=== PATIENT | female | born 1970 | race Caucasian/White ===

== ENCOUNTER → 2018-01-29 10:37 | Outpatient (CLI) | payer MEDICAID, SELFPAY ==
--- NOTE | 2018-01-29 11:17 | CR.HP_ITS ---
CR - History & Physical - General Arrival date:: 01/29/18 Arrival time:: 10:30 Date of Referral:: 01/18/18 Date of CR Evaluation:: 01/29/18 Referring Physician: Dr. Yonas Nice Primary Diagnosis: valve repair replacement - History of Present Cardiac Event Onset Date: Enter Onset Date of cardiac illnesses in Comment field below Heart valve replacement or repair:: Yes - 12/03/2017 - Medications Home Medications: Ambulatory Orders Medication Instructions Recorded Albuterol Inhaler [Ventolin Hfa 2 puff INHALATION Q4H PRN PRN 01/29/18 (SP)] Ascorbic Acid [Vitamin C] 500 mg PO BIDCM 01/29/18 Aspirin [Aspirin, Baby] 81 mg PO DAILY@0800 01/29/18 Buprenorphine HCl/Naloxone HCl 8 each SL BID 01/29/18 [Suboxone 8 mg-2 mg Sl Film] Escitalopram Oxalate [Lexapro] 10 mg PO DAILY 01/29/18 Furosemide [Lasix] 20 mg PO QODAY 01/29/18 Metoprolol Tartrate [Lopressor 25 mg PO BID 01/29/18 (Beta Jackelin)] Mometasone/Formoterol [Dulera 100 13 actuation PO BID 01/29/18 Mcg/5 Mcg Inhaler] Potassium Chloride [K-Dur] 20 meq PO QODAY 01/29/18 Warfarin [Coumadin ([facility])] 7.5 mg PO DAILY 01/29/18 levETIRAcetam tablet [Keppra 500 mg PO BID 01/29/18 tablet] - Allergies Allergies/Adverse Reactions: Allergies No Known Allergies Allergy (Verified 01/29/18 11:27) - Sleep Disorder Evaluation Hx of Sleep Apnea: No Do you snore loudly (louder than talking or can be heard through closed doors)?: No Do you often feel tired/ fatigued/ sleepy during daytime?: Yes Has anyone observed you stop breathing during sleep?: No History of Hypertension (for STOP score): No STOP Results: Negative Advanced Directives - Advanced Directives Power of Manager Electrical: No Living Will: No Advance Directives Information Provided: Yes Advance Directives on File: No DNR Order?:: No - MOLST See MOLST form: No Past Medical History - Past Medical Illness Medical History: Past Medical History (Last Updated 01/29/18 @ 11:32 by Gladys Jones RN) Carpal tunnel syndrome on both sides G56.03 Dermatitis L30.9 Former cigarette smoker Z87.891 History of drug abuse Z87.898 Hives L50.9 Mitral valve regurgitation I34.0 Non-sustained ventricular tachycardia I47.2 Rheumatic heart disease I09.9 Seizure R56.9 Asthma-COPD overlap syndrome J44.9 - Past Surgical History Surgical History: Past Surgical History (Last Updated 01/29/18 @ 11:32 by Gladys Jones RN) H/O mitral valve repair Z98.890 - Family History Summary Family History: Family History (Last Updated 01/29/18 @ 11:35 by Gladys Jones RN) Other Arthritis Cancer of lung Colon cancer Diabetes Hypertension Parkinson disease Prostate CA Social History - Smoking History Smoking Status: Former smoker Years Smokin Packs Smoked per Day: 1 Hx Smoking Cessation Date: 12/02/2017 Hx Tobacco Use: Yes Hx Smoking Exposure: Yes - Alcohol Use Alcohol Usage: No - IN PAST - Substance Abuse Hx Substance Use: Yes - Occupation Occupation (List type of work in comments):: Employed - [employer] Hours worked per day:: 8 Returned to work on:: 02/19/18 - Hobbies, Recreation, Social Activities Hobbies: Other - CAMPING IN [place], HIKING Recreational Activities: I can hardly do any recreational activities - BACK AND LEGS WEAK WITH ACTIVITY Social Environment - Status Marital Status: Single - Current Living Arrangements Living Environment:: Spouse - Children How many children do you have?: 2 Do any of your children live nearby?: Yes - Safety Do you feel safe in your surroundings?: Yes - Assistance Do you need any assistance at home?: NO Review of Systems - Review of Systems Hints: Right click = Denies ([place]). Left click = Reports ([place]) Review of Present Symptoms: Reports: Shortness of Breath with Exertion, Ope rative Discomfort - SLIGHT CHEST INCISION DISCOMFORT, Wound Healing, Fatigue, Appetite - Normal, Sleep - Normal. Denies: Shortness of Breath at Rest, PVD, Angina, Dizziness/Lightheadedness, Heart Arrhythmia/Irregularities - HISTORY OF A FIB, STATES IN NSR CURRENTLY, Appetite - Special Diet, Sexual Changes - Pain Is Patient Pain Free?: Yes Pain Location: none Pain Level: 0/10 Risk Factor Assessment - Vital Signs Temperature: 98.6 F Respiratory Rate: 16 Pulse Ox: 96 Blood Pressure: 94/60 Nailbeds:: PINK - Pulse Pulse Rate: 81 Pulse Rhythm: Regular - Diabetes Nutrition Referral for Diabetes: No - Obesity Height: 5 ft 4 in Weight:: 162 lb Weight in Pounds: 162.0 lbs Weight Source: Stated by Patient Body Mass Index (BMI): 27.8 Nutritional Referral for Obesity: No - Physical Inactivity Physical Inactivity: None - Risk Stratification Risk Guidelines: Lowest Risk: Risk Factor for Smoking, Risk Factor for Dyslipidemia, Risk Factor for Diabetes, Risk Factor for Hypertension, Risk Factor for Sedentary Lifestyle, Risk Factor for Depression, Moderate Risk: Risk Factor for Obesity - For Smoking Smoking Risk Guidelines: Smoking Low Risk: None or quit greater than 6 months ago. Smoking Moderate Risk: Smoker or quit 6 months or less ago. Smoking High Risk: Smoker - For Dyslipidemia Dyslipidemia Risk Guidelines: Low Risk: Moderate Risk: High Risk: 15-25% fat 25.1-29% fat >/= 30% fat. <7% sat fat 7-9% sat fat >9% sat fat. <150 mg chol 150-299 mg chol >/= 300 mg chol. LDL <100 LDL 100-129 LDL >/= 130. Chol/HDL ratio <5.0 Chol/HDL ratio 5.0-6.0 Chol/HDL ratio >6.0. Triglycerides <100 Triglycerides 100-149 Triglycerides >/= 150 - For Diabetes Mellitus Diabetes Risk Guidelines: Diabetes Low Risk: HgA1c <6.5% and/or FBG <120. Diabetes Moderate Risk: HgA1c 6.6-7.9% and/or FBG 120-180. Diabe christelle High Risk: HgA1c >/= 8% and/or FBG >180 - For Obesity/Overweight Obesity/Overweight Risk Guidelines: Obesity Low Risk: BMI <25.0. Obesity Moderate Risk: BMI 25-29.9. Obesity High Risk: BMI >/= 30.0 - For Hypertension Hypertension Risk Guidelines: Hypertension Low Risk: Systolic <120 and Diastolic <80. Hypertension Moderate Risk: Systolic 120-139 and Diastolic 80-89. Hypertension High Risk: Systolic >/= 140 and Diastolic >/= 90 - For Sedentary Lifestyle Sedentary Lifestyle Risk Guidelines: Sedentary Lifestyle Low Risk: >/= 1,500 kcal/week. Sedentary Lifestyle Moderate Risk: 700-1,499 kcal/week. Sedentary Lifestyle High Risk: < 700 kcal/week - For Depression Depression Risk Guidelines: Depression Low Risk: Not clinically depressed. Depression Moderate Risk: Mildly depressed. Depression High Risk: Clinically depressed - Family History Family History: Family History (Last Updated 01/29/18 @ 11:35 by Gladys Jones RN) Other Arthritis Cancer of lung Colon cancer Diabetes Hypertension Parkinson disease Prostate CA Motivation - Motivation to Participate On a scale of 1 to 10, how prepared are you to commit to attending program?: 10 What do you see as barriers to successfully being able to complete the program?: NONE What do you see as the benefits of succesfully completing the program? In other words, what do you hope to get out of participating in the program?: MORE STAMINA, MORE ENERGY, Are there issues you are dealing with that will interfere with completing the program?: NONE Do you have a spouse or signficant other, family or friends who will help support you to complete the program?: SIGNIFICANT OTHER
[2018-01-29 11:48] VITALS: BP 94/60; PULSE 81; RESP 16; TEMP 37; O2SAT 96; BMI 27.8
--- NOTE | 2018-01-29 13:29 | PCM.CR.ITP ---
General Information - Education/Goals Individual Counseling: Initial Assessment: Nicotine/Smoking, High Blood Pressure Cardiac Rehabilitation Goals: 1. Maintain the individual as the primary focus of care. 2. To improve the patient's quality of life. 3. Identification of cardiac risk factors and provide cardiac risk factor management. 4. Enhance the psychosocial status of the patient. 5. Reconditioning enough to allow the patient to resume customary activities. 6. Control symptoms of cardiac disease Scale for measuring improvement of personal goals: Enter appropriate number in Comments. 2 = Unchanged. 3 = Slightly Better. 4 = Moderate Improvement. 5 = Met my Goal Personal Goals: Initial Assessment: Improve management of stress and emotions, Improve energy level, Get back to work, or to resume activities faster, Improve muscle strength and endurance Exercise - Initial Assessment - Visit Date of Eval: 01/29/18 Session #:: 0 - starting 02/01/2018 - Stages of Change Stages of Change:: Action - Exercise Prescription Mode:: Treadmill, Airdyne, NuStep Angina with exercise?: No Target Heart Rate:: 120-129 - Hypertension Do any of the following apply?: Yes Resting Blood Pressure:: 98/60 - Intervention Home Exercise/Activity Goal:: Sitting Time <3 hrs/day - Education Goals:: Warm-up, RPE SHOBHA Scale, S/S, Safe Exercise, Self-Monitoring - Exercise Program Goals Exercise Program Goals: Aerobic Activity >30 min Nutrition - Initial Assessment - Program Goals Nutrition Program Goals: LDL <70. Total Cholesterol <200. HDL >45. Triglycerides <150. HgbA1C <7%. BMI <25 - Visit Date of Assessment:: 01/29/18 - Stages of Change Stages of Change:: Action - Diabetes Diabetes:: No Do you monitor your blood sugar at home?: No - Weight Management Height: 5 ft 3 in Weight:: 162 lb Body Fat %:: 28.7 - Intervention Referral to dietitian:: No Referral to Diabetic Clinic:: No Will attend diet classes:: Yes - Education Gave educational materials for:: Healthy eating Tobacco - Initial Assessment - Program Goals Tobacco Program Goals: Complete smoking cessation. Attend education classes. Improve Knowledge Test score - Stage of Change Stages of Change:: Action - Learning Barriers Learning Barriers: Ready to Learn - Family Support Do you have family support?: Yes - Tobacco Use Tobacco Use: Cigarettes - recently quit 11/2017 How long ago did you quit using tobacco products?: Less than 6 months ago How many cigarettes do you smoke per day?: 20 Years Smokin Do you use smokeless tobacco?: No - Intervention Smoking Cessation Referral:: Yes Individual Education/Counseling:: No Education Schedule Given:: Yes - Education Gave educational material for:: Tobacco triggers, Coronary artery disease, Risk factors, Sexuality, Medical compliance, Cardiac A&P, Angina signs & symptoms Psychosocial - Initial Assess - Target Goals Target Goals: Assess presence or absence of depression. Using a valid screening tool, maximizes coping skills. Positive support system - Stages of Change Stages of Change:: Action - Psychosocial Test Tool Used:: HANDS Depression Questionnaire - Intervention PS - Interventions: Yes Attend Stress Management Classes, No Referral to Mental Health, No Referral to [facility] Case Management, No Referral to Physician, No Uses Stress Management Skills - Education Gave educational materials for:: Coping techniques, Signs & symptoms of depression, Stress management, Relaxation techniques - Patient/Program Goal Preventative Medication(s):: Aspirin, Clopidogrel, Statin/lipid - Assistive Devices Assistive Devices:: None Fall Risk Assessed:: No Patient Health Questionnaire Initial Assessment 1. Little interest or pleasure in doing things: Several days 2. Feeling down, depressed, or hopeless: Several days 3. Trouble falling or staying asleep, or sleeping too much: More than half the days 4. Feeling tired or having little energy: Nearly every day 5. Poor appetite or overeating: More than half the days 6. Feeling bad about yourself -- or that you are a failure or have let yourself or your family down: Several days 7. Trouble concentrating on things, such as reading the newspaper or watching television: Not at all 8. Moving or speaking so slowly that other people could have noticed. Or the opposite - being so fidgety or restless that you have been moving around a lot more than usual: Several days 9. Thoughts that you would be better off , or of hurting yourself in some way: Not at all Total Score: 11 DEE DEE-Q SV Test - Statements CAD is a disease of the arteries in the heart: False Examples of risk factors for heart disease: True Angina is chest pain or discomfort: I Don't Know The benefits of resistance training include: True Eating more meat and dairy products: False Anti-platelet medications such as aspirin are important: I Don't Know The only effective way to manage stress: False An exercise warm-up slowly increases heart rate: I Don't Know Prepared, processed foods usually have high sodium: True Depression is common after a heart attack: I Don't Know The statin medications lower cholesterol: I Don't Know To control blood pressure, lower the amount of sodium: I Don't Know If someone gets chest discomfort during walking: I Don't Know Transfats are partially hydrogenated vegetable oils: I Don't Know Sleep apnea that is not treated increases the risk: I Don't Know To control cholesterol, one should become a vegetarian: False Someone knows if he/she is exercising at the right level: I Don't Know Diabetes cannot be prevented with exercise & health eating: False Stress is a large risk for heart attack: True A diet that can help lower blood pressure is rich in: I Don't Know - Total Score Total Correct Responses: 9 Self-Efficacy Initial Assessment We would like to know how confident you are in doing certain activities. Please select your confidence level for:: Select your confidence level for the following using the scale 1-10 where 1 is not at all confident and 10 is totally confident. Your score is the average of all 6 responses. Fatigue: How confident are you that you can keep the fatigue caused by your disease from interfering with the things you want to do? Select Number: 6 Physical Discomfort or Pain: How confident are you that you can keep the physical discomfort or pain of your disease from interfering with the things you want to do? Select Number: 7 Emotional Distress: How confident are you that you can keep the emotional distress caused by your disease from interfering with the things you want to do? Select Number: 8 Other Symptoms or Health Problems: How confident are you that you can keep other symptoms or health problems from interfering with the things you want to do? Select Number: 8 Different Tasks and Activities: How confident are you that you can do the different tasks and activities needed to manage your health condition so as to reduce your need to see a doctor? Select Number: 6 Medication: How confident are you that you can do things other than just taking medication to reduce how much your illness affects your everyday life? Select Number: 7 Total Score:: 7 Nutrition Survey - Nutrition Survey Instructions Scoring Instructions: Scoring is as follows: Yes = 1 points. No = 0 point. Patient score that is >/=12 is considered to be at potential nutritional risk and could benefit from a referral to a registered dietitian. - Nutrition Survey Initial Have you lost >10 lbs over the past 2 months without trying?: No Are you following a special diet at home for diabetes, low fat, or low salt?: No Are you interested in meeting with a dietitian for help understanding your diet?: No Do you eat less than 3 meals a day?: Yes Do you eat fatty meats (morataya, sausage, ribs, etc), fried foods, desserts, large amounts of salad dressings, margarine, butter, or cheese most days?: Yes Do you have food allergies? [Enter types in comment field]: No Do you eat in restaurants more than 3 times a week?: No Do you season food with salt, seasoning salt, or garlic salt?: Yes Do you used canned, boxed, frozen meals, or soups, seasoning packets?: Yes Total Score:: 4
[2018-01-29 13:40] VITALS: BP 98/60
--- OUTSIDE RECORDS SUMMARY | 2018-03-17 11:12 | XMS RPT_ITS ---
:1970 Author Organization OH[facility] Care Team Providers Name Role Phone DAFNE ROSENBERG Attending Unavailable AMY, CLAUDIO G Referring Unavailable AMY, CLAUDIO G Referring Unavailable QASIM, STEPHANIE A Admitting Unavailable QASIM, STEPHANIE A Attending Unavailable AMY, CLAUDIO G Referring Unavailable VENICE CORREA ([facility]) Attending Unavailable DERRICK LEW Admitting Unavailable DERRICK LEW Attending Unavailable YONAS LEW Attending Unavailable AMY, CLAUDIO G Referring Unavailable FARIDEH BUSTOS ([facility]) Attending Unavailable AMY, CLAUDIO G Referring Unavailable FARIDEH BUSTOS ([facility]) Referring Unavailable YONAS LEW Admitting Unavailable YONAS LEW Attending Unavailable YONAS LEW Referring Unavailable CORAZON GALLAGHER Consulting Unavailable VENICE CORREA ([facility]) Attending Unavailable AMY, CLAUDIO G Referring Unavailable IFEANYI MENJIVAR Attending Unavailable AMY, CLAUDIO G Referring Unavailable CORAZON GALLAGHER Referring Unavailable FARIDEH BUSTOS ([facility]) Referring Unavailable VENICE CORREA ([facility]) Attending Unavailable AMY, CLAUDIO G Referring Unavailable AMY, CLAUDIO G Attending Unavailable QASIM, STEPHANIE A Referring Unavailable QASIM, STEPHANIE A Referring Unavailable QASIM, STEPHANIE A Referring Unavailable Yonas Lew Attending Unavailable Yonas Lew Referring Unavailable Richmond, Claudio Primary Care Unavailable Yonas Lew Attending Unavailable Yonas Lew Referring Unavailable Amy, Claudio Primary Care Unavailable Yonas Lew Attending Unavailable Yonas Lew Referring Unavailable Amy, Claudio Primary Care Unavailable MAGEN JAMES JR Attending Unavailable AMY, CLAUDIO G Referring Unavailable DAFNE ROSENBERG Attending Unavailable AMY, CLAUDIO G Referring Unavailable AMY, CLAUDIO G Primary Care Unavailable AMY, CLAUDIO G Referring Unavailable AMY, CLAUDIO G Primary Care Unavailable DAFNE ROSENBERG Attending Unavailable DAFNE ROSENBERG Referring Unavailable AMY, CLAUDIO G Primary Care Unavailable QASIM, STEPHANIE A Admitting Unavailable QASIM, STEPHANIE A Attending Unavailable AMY, CLAUDIO G Primary Care Unavailable QASIM, STEPHANIE A Admitting Unavailable QASIM, STEPHANIE A Attending Unavailable AMY, CLAUDIO G Primary Care Unavailable AMY, CLAUDIO G Referring Unavailable AMY, CLAUDIO G Primary Care Unavailable VENICE CORREA Attending Unavailable AMY, CLAUDIO G Referring Unavailable AMY, CLAUDIO G Primary Care Unavailable YONAS LEW A Attending Unavailable AMY, CLAUDIO G Referring Unavailable AMY, CLAUDIO G Primary Care Unavailable DERRICK LEW Admitting Unavailable DERRICK LEW Attending Unavailable AMY, CLAUDIO G Primary Care Unavailable MARIVEL BUSTOS Attending Unavailable AMY, CLAUDIO G Referring Unavailable AMY, CLAUDIO G Primary Care Unavailable YONAS LEW Admitting Unavailable YONAS LEW A Attending Unavailable AMY, CLAUDIO G Primary Care Unavailable YONAS LEW Referring Unavailable ASHANTI LESLIE Consulting Unavailable DEWAYNE GRAVES Consulting Unavailable QUIRINO LU Consulting Unavailable CORAZON GALLAGHER Consulting Unavailable MARIVEL BUSTOS Attending Unavailable AMY, CLAUDIO G Referring Unavailable AMY, CLAUDIO G Primary Care Unavailable MARIVEL BUSTOS Referring Unavailable AMY, CLAUDIO G Primary Care Unavailable AMY, CLAUDIO G Referring Unavailable AMY, CLAUDIO G Primary Care Unavailable VENICE CORREA Attending Unavailable AKASH, MARIVEL GRUBBSA Attending Unavailable AMY, CLAUDIO G Referring Unavailable AMY, CLAUDIO G Primary Care Unavailable VENICE CORREA Attending Unavailable AMY, CLAUDIO G Referring Unavailable AMY, CLAUDIO G Primary Care Unavailable STEPHANIE TRIPP Attending Unavailable AMY, CLAUDIO G Referring Unavailable AMY, CLAUDIO G Primary Care Unavailable PROBLEMS PROBLEMS DATE TYPE CONDITION / CODE ATTENDING STATUS SOURCE 03/08/2018 Unknown I34.0 - Nonrheumatic [place], Active [place] mitral (valve) [facility] insufficiency / Hospital I34.0(ICD-10) Repository 01/29/2018 Unknown Z95.2 - Presence of [place], Active [place] prosthetic heart [facility] valve / Hospital Z95.2(ICD-10) Repository 01/22/2018 Active Major depressive AMY, Active [facility] disorder, single CLAUDIO G Clinic Other episode, severe [place] without psychotic Repository features / F32.2(ICD-10) 01/14/2018 Active Paroxysmal atrial VENICE CORREA Active [facility] fibrillation / ([facility] Clinic Other I48.0(ICD-10) [place] Repository 12/20/2017 Active Edema, unspecified / [place], Active [facility] R60.9(ICD-10) [facility] Other [place] Repository 12/20/2017 Active Anemia, unspecified [place], Active [facility] / D64.9(ICD-10) [facility] Clinic Other [place] Repository 12/20/2017 Active Unspecified asthma, [place], Active [facility] uncomplicated / [facility] Clinic Other J45.909(ICD-10) [place] Repository 12/20/2017 Active longterm (current) [place], Active [facility] use of [facility] Clinic Other anticoagulants / [place] Z79.01(ICD-10) Repository 12/09/2017 Active Presence of VENICE CORREA Active [facility] prosthetic heart ([facility] Clinic Other valve / [place] Z95.2(ICD-10) Repository 12/09/2017 Active 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[place], 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 / YONAS A Clinic Other I05.0(ICD-10) [place] Repository 12/09/2017 Active 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[place], Active [place] insufficiency / [facility]AS A Clinic Other I05.1(ICD-10) [place] Repository 12/09/2017 Active Unspecified atrial [place], Active [place] fibrillation / [facility] Clinic Other I48.91(ICD-10) [place] Repository 12/09/2017 Active Ventricular [place], Active [place] tachycardia / [facility] Clinic Other I47.2(ICD-10) [place] Repository 09/09/2016 Active Other psychoactive [place], Active [place] substance abuse, [facility] Clinic Other uncomplicated / [place] F19.10(ICD-10) Repository 12/03/2017 Active Other specified [place], Active [place] anemias / [facility] Clinic Other D64.89(ICD-10) [place] Repository 12/09/2017 Admitting Unknown / [place], Active [facility] diagnosis UNK(Unknown) [facility] Repository 10/02/2017 Active Tobacco use / [facility] Active [place] Z72.0(ICD-10) ([facility] Clinic Other [place] Repository 10/02/2017 Active Nicotine dependence, VENICE CORREA [facility] unspecified, ([facility]) Clinic Other uncomplicated / [place] F17.200(ICD-10) Repository 10/02/2017 Active Personal history of [facility]RE[facility] Active [place] nicotine dependence ([facility] Clinic Other / Z87.891(ICD-10) [place] Repository 09/19/2017 Active 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QASIM, STEPHANIE Active [place] stenosis with A Clinic Other insufficiency / [place] I05.2(ICD-10) Repository 04/03/2017 Active Other abnormal and NA Active [place] inconclusive Clinic Other findings on [place] diagnostic imaging Repository of breast / R92.8(ICD-10) PROCEDURES PROCEDURES No Procedure Records FoundRESULTS RESULTS PROTIME Collected: 02/28/2018 Status: F Source: [facility] 1:24 PM HEALTH SYSTEM REPOSITORY TYPE CODE TESTS RESULT OUT OF REFERENCE UNITS RANGE LAB LPTI(LOINC 9.7-13.0 sec ) Prothrombin High Time 26.7 Result Comment: . LAB LINR(LOINC) 0.90-1.30 High 2.77 INR Result Comment: Note: Reference Range Change Vitamin K Antagonist (VKA) Therapeutic Range: INR 2 to 3 (Target INR of 2.5) Note: For patients treated with VKA drugs, such as warfarin, the [place] [employer] 2012 Guideline recommends a therapeutic INR range of 2 to 3 (target INR of 2.5). This recommendation includes high-risk patients with antiphospholipid syndrome with previous arterial or venous thromboembolism, current-generation mechanical or bioprosthetic aortic heart valve replacement. VKA Therapeutic Range for some Mechanical Valve Replacement: INR 2.5 to 3.5 (Target INR of 3) Note: Patients with mechanical aortic valve replacement and additional risk factors for thromboembolic events (atrial fibrillation, previous thromboembolism, LV dysfunction, hypercoagulable conditions) or an older generation mechanical AVR (i.e., ball in-Cage) or any mechanical MVR should have a INR therapeutic range of 2.5 to 3.5 target INR of 3). Mathew GH, et al. Chest 2012; 141:7S-47S Duyen RA et al. JAC 2017; 70: 252-289 Performed By: #### LPT #### [place] [id number] PROGRESS Observed: 02/13/2018 Status: COMPLETED Source: [place] 3:43 PM [facility] REPOSITORY HNO ID: [id number] Author: Lakisha Pabon Service: (none) Author Type: Health Educator Type: Progress Notes Filed: 02/13/2018 3:44 PM Note Text: [facility] Wellness eCoaching Patient Name, Demographics: Benjamin Garces, 47 year old, female Update Type: Progress Update: Email Coaching Program: [place] Cessation Outreach Attempts: Email and Phone Coaching Enrollment Status: Inactive: Enrolled/Did not engage Engagement from Patient:: Did not respond to enrollment outreach attempts. Please verify patient contact information is up to date. If patient would like to join eCoaching, they may email or please re-order. Thank you. There were no vitals taken for this visit. Jewelry Drill Operator Name: Lakisha Pabon, Health Jewelry Drill Operator Date: February 13, 2018 Time: 3:43 PM PROTIME Collected: 02/07/2018 Status: F Source: [facility] 11:03 AM HEALTH SYSTEM REPOSITORY TYPE CODE TESTS RESULT OUT OF REFERENCE UNITS RANGE LAB LPTI(LOINC 9.7-13.0 sec ) Prothrombin High Time 24.4 Result Comment: . LAB LINR(LOINC) 0.90-1.30 High 2.52 INR Result Comment: Note: Reference Range Change Vitamin K Antagonist (VKA) Therapeutic Range: INR 2 to 3 (Target INR of 2.5) Note: For patients treated with VKA drugs, such as warfarin, the [place] [employer] 2012 Guideline recommends a therapeutic INR range of 2 to 3 (target INR of 2.5). This recommendation includes high-risk patients with antiphospholipid syndrome with previous arterial or venous thromboembolism, current-generation mechanical or bioprosthetic aortic heart valve replacement. VKA Therapeutic Range for some Mechanical Valve Replacement: INR 2.5 to 3.5 (Target INR of 3) Note: Patients with mechanical aortic valve replacement and additional risk factors for thromboembolic events (atrial fibrillation, previous thromboembolism, LV dysfunction, hypercoagulable conditions) or an older generation mechanical AVR (i.e., ball in-Cage) or any mechanical MVR should have a INR therapeutic range of 2.5 to 3.5 target INR of 3). Mathew GH, et al. Chest 2012; 141:7S-47S Duyen ARRIAZA et al. JAC 2017; 70: 252-289 Performed By: #### LPT #### [place] [id number] CNPN Observed: 02/01/2018 Status: COMPLETED Source: [place] 12:00 AM CLINIC OTHER CAMPUS REPOSITORY Telephone ([employer]) BENJAMIN GARCES ([id number]) 1970 F Date Time Provider Department 02/01/18 YONAS LEW [facility] LOU During your visit today, we recorded the following information about you: Stacy Adele 02/01/2018 1:34 PM Signed Jena Montemayor RN from [facility] Cardiac Rehab Program called about the patient to let us know that the patient came in for rehab today, and she was in AFIB. Her heart rate was between 95 and 115. They tried to put her on the bike, but they stopped her because her heart rate went into the 140's. Jena stated that the patient needs to have her heart rate controlled before they can start therapy. They sent her home because the patient states she feels fine. Jena was asking if she should continue in the program and suggested someone call the patient. Venice Correa APRN.MARIVEL 02/01/2018 3:14 PM Signed I spoke to both Jena at [facility] and Mrs Garces. Mrs Garces resting BP was 124/70 with HR 95bmp. She had taken her metoprolol this morning. I have asked that we increase her metoprolol to 25 mg Q8 hours to achieve ronal HR control. She verbalized understanding and will start in the AM. She should continue cardiac rehab. Venice Correa APRN.MARIVEL Tripp MD 02/01/2018 4:52 PM Signed Thanks a lot Paola. I agree with your decision. Allergies As of Date: 02/01/2018 (No Known Allergies) Date Reviewed: 01/22/2018 Reviewed by: Claudio Reyes - Fully Assessed Reason for Visit: Clinical Update [1735] Order(s):metoprolol tartrate, short acting, (LOPRESSOR) 25 mg tabletTake 1 tablet by mouth every 8 hours.Disp: 90 tabletRfl: 3 Prescriptions as of 02/01/2018 Sig: ACETAMINOPHEN 325 MG TABLET Take 2 tablets by mouth every* ALBUTEROL SULFATE HFA 90 MCG/* Inhale 2 Puffs as instructed * ASPIRIN 81 MG CHEWABLE TABLET Take 81 mg by mouth once jeannette* BUPRENORPHINE 8 MG-NALOXONE 2* Dissolve under the tongue twi* ESCITALOPRAM 10 MG TABLET TAKE 1 TABLET BY MOUTH ONCE D* FUROSEMIDE 20 MG TABLET Take 1 tablet by mouth once d* LEVETIRACETAM 500 MG TABLET Take 1 tablet by mouth twice * METOPROLOL TARTRATE 25 MG TAB* Take 1 tablet by mouth every * MOMETASONE-FORMOTEROL HFA 100* Inhale 2 Puffs as instructed * POTASSIUM CHLORIDE ER 20 MEQ * Take 1 tablet by mouth once d* SENNOSIDES 8.6 MG-DOCUSATE SO* Take 1 tablet by mouth twice * WARFARIN 5 MG TABLET Take 1.5 tablets by mouth onc* Problem List As Of Date 02/01/2018 Noted Resolved Seizures (HCC) [R56.9] INVALID FOR* More... Drug abuse [F19.10] INVALID FOR* More... Abnormal finding on breast imaging [R92.8] INVALID FOR* Asthma [J45.909] More... More... Mitral valve stenosis, rheumatic [I05.0] INVALID FOR* S/P mitral valve replacement [Z95.2] INVALID FOR* Nonsustained paroxysmal ventricular tachycardia*INVALID FOR* Nicotine use disorder, F17.2 [F17.200] INVALID FOR*01/22/2018 Prescriptions ordered this encounter Disp Refills Start End METOPROLOL TARTRATE 25 MG TABLET 90 t* 3 02/01/2018 Route: ORAL Sig: Take 1 tablet by mouth every 8 hours. Medications Discontinued During This Encounter metoprolol tartrate, short acting, (* 60 t* 11 01/14/2018 02/01/2018 Route: ORAL Sig: Take 1 tablet by mouth every 12 hours. Disc: Reason for discontinue is not on file. Follow-up and Disposition History Recorded Encounter Status:Closed by VENICE CORREA CNP on 02/01/18 CR - HISTORY AND Observed: 01/31/2018 Status: F Source: [place] [facility] 11:15 AM [facility] REPOSITORY [facility] Cardiac Rehab [address] [place] [address] CR - History AND Physical MR#: [id number] Acct: [id number] Name: BENJAMIN GARCES Rep #: [id number] : 1970 47 From: Gladys Jones RN PCP: Claudio Reyes MD DOS: 01/29/18 CR - History AND Physical - General Arrival date:: 01/29/18 Arrival time:: 10:30 Date of Referral:: 01/18/18 Date of CR Evaluation:: 01/29/18 Referring Physician: Dr. Yonas Lew Primary Diagnosis: valve repair replacement - History of Present Cardiac Event Onset Date: Enter Onset Date of cardiac illnesses in Comment field below Heart valve replacement or repair:: Yes - 12/03/2017 - Medications Home Medications: Ambulatory Orders Medication Instructions Recorded Albuterol Inhaler [Ventolin Hfa 2 puff INHALATION Q4H PRN PRN 01/29/18 (SP)] Ascorbic Acid [Vitamin C] 500 mg PO BIDCM 01/29/18 - Allergies Allergies/Adverse Reactions: Allergies No Known Allergies Allergy (Verified 01/29/18 11:27) - Sleep Disorder Evaluation Hx of Sleep Apnea: No Do you snore loudly (louder than talking or can be heard through closed doors)?: No Do you often feel tired/ fatigued/ sleepy during daytime?: Yes Has anyone observed you stop breathing during sleep?: No History of Hypertension (for STOP score): No STOP Results: Negative Advanced Directives - Advanced Directives Power of Teradata Architect: No Living Will: No Advance Directives Information Provided: Yes Advance Directives on File: No DNR Order?:: No - MOLST See MOLST form: No Past Medical History - Past Medical Illness Medical History: Past Medical History (Last Updated 01/29/18 @ 11:32 by Gladys Jones, RN) Carpal tunnel syndrome on both sides G56.03 Dermatitis L30.9 Former cigarette smoker Z87.891 History of drug abuse Z87.898 Hives L50.9 Mitral valve regurgitation I34.0 Non-sustained ventricular tachycardia I47.2 Rheumatic heart disease I09.9 Seizure R56.9 Asthma-COPD overlap syndrome J44.9 - Past Surgical History Surgical History: Past Surgical History (Last Updated 01/29/18 @ 11:32 by Gladys Jones RN) H/O mitral valve repair Z98.890 - Family History Summary Family History: Family History (Last Updated 01/29/18 @ 11:35 by Gladys Jones, RN) Other Arthritis Cancer of lung Colon cancer Diabetes Hypertension Parkinson disease Prostate CA Social History - Smoking History Smoking Status: Former smoker Years Smokin Packs Smoked per Day: 1 Hx Smoking Cessation Date: 12/02/2017 Hx Tobacco Use: Yes Hx Smoking Exposure: Yes - Alcohol Use Alcohol Usage: No - IN PAST - Substance Abuse Hx Substance Use: Yes - Occupation Occupation (List type of work in comments):: Employed - FA[employer]ORY ([employer]) Hours worked per day:: 8 Returned to work on:: 02/19/18 - Hobbies, Recreation, Social Activities Hobbies: Other - C[place]ING [place], H[place] Recreational Activities: I can hardly do any recreational activities - BACK AND LEGS WEAK WITH ACTIVITY Social Environment - Status Marital Status: Single - Current Living Arrangements Living Environment:: Spouse - Children How many children do you have?: 2 Do any of your children live nearby?: Yes - Safety Do you feel safe in your surroundings?: Yes - Assistance Do you need any assistance at home?: NO Review of Systems - Review of Systems Hints: Right click = Denies (Slash). Left click = Reports ([place]) Review of Present Symptoms: Reports: Shortness of Breath with Exertion, Operative Discomfort - SLIGHT CHEST INCISION DISCOMFORT, Wound Healing, Fatigue, Appetite - Normal, Sleep - Normal. Denies: Shortness of Breath at Rest, PVD, Angina, Dizziness/Lightheadedness, Heart Arrhythmia/Irregularities - HISTORY OF A FIB, STATES IN NSR CURRENTLY, Appetite - Special Diet, Sexual Changes - Pain Is Patient Pain Free?: Yes Pain Location: none Pain Level: 0/10 Risk Factor Assessment - Vital Signs Temperature: 98.6 F Respiratory Rate: 16 Pulse Ox: 96 Blood Pressure: 94/60 Nailbeds:: PINK - Pulse Pulse Rate: 81 Pulse Rhythm: Regular - Diabetes Nutrition Referral for Diabetes: No - Obesity Height: 5 ft 4 in Weight:: 162 lb Weight in Pounds: 162.0 lbs Weight Source: Stated by Patient Body Mass Index (BMI): 27.8 Nutritional Referral for Obesity: No - Physical Inactivity Physical Inactivity: None - Risk Stratification Risk Guidelines: Lowest Risk: Risk Factor for Smoking, Risk Factor for Dyslipidemia, Risk Factor for Diabetes, Risk Factor for Hypertension, Risk Factor for Sedentary Lifestyle, Risk Factor for Depression, Moderate Risk: Risk Factor for Obesity - For Smoking Smoking Risk Guidelines: Smoking Low Risk: None or quit greater than 6 months ago. Smoking Moderate Risk: Smoker or quit 6 months or less ago. Smoking High Risk: Smoker - For Dyslipidemia Dyslipidemia Risk Guidelines: Low Risk: Moderate Risk: High Risk: 15-25% fat 25.1-29% fat >/= 30% fat. <7% sat fat 7-9% sat fat >9% sat fat. <150 mg chol 150-299 mg chol >/= 300 mg chol. LDL <100 LDL 100-129 LDL >/= 130. Chol/HDL ratio <5.0 Chol/HDL ratio 5.0-6.0 Chol/HDL ratio >6.0. Triglycerides <100 Triglycerides 100-149 Triglycerides >/= 150 - For Diabetes Mellitus Diabetes Risk Guidelines: Diabetes Low Risk: HgA1c <6.5% and/or FBG <120. Diabetes Moderate Risk: HgA1c 6.6-7.9% and/or FBG 120- 180. Diabetes High Risk: HgA1c >/= 8% and/or FBG >180 - For Obesity/Overweight Obesity/Overweight Risk Guidelines: Obesity Low Risk: BMI <25.0. Obesity Moderate Risk: BMI 25-29.9. Obesity High Risk: BMI >/= 30.0 - For Hypertension Hypertension Risk Guidelines: Hypertension Low Risk: Systolic <120 and Diastolic <80. Hypertension Moderate Risk: Systolic 120-139 and Diastolic 80-89. Hypertension High Risk: Systolic >/= 140 and Diastolic >/= 90 - For Sedentary Lifestyle Sedentary Lifestyle Risk Guidelines: Sedentary Lifestyle Low Risk: >/= 1,500 kcal/week. Sedentary Lifestyle Moderate Risk: 700-1,499 kcal/week. Sedentary Lifestyle High Risk: < 700 kcal/week - For Depression Depression Risk Guidelines: Depression Low Risk: Not clinically depressed. Depression Moderate Risk: Mildly depressed. Depression High Risk: Clinically depressed - Family History Family History: Family History (Last Updated 01/29/18 @ 11:35 by Gladys Jones RN) Other Arthritis Cancer of lung Colon cancer Diabetes Hypertension Parkinson disease Prostate CA Motivation - Motivation to Participate On a scale of 1 to 10, how prepared are you to commit to attending program?: 10 What do you see as barriers to successfully being able to complete the program?: NONE What do you see as the benefits of succesfully completing the program? In other words, what do you hope to get out of participating in the program?: MORE STAMINA, MORE ENERGY, Are there issues you are dealing with that will interfere with completing the program?: NONE Do you have a spouse or signficant other, family or friends who will help support you to complete the program?: SIGNIFICANT OTHER 01/29/18 1149 <Electronically signed by Gladys Jones RN> Date Gladys Jones RN Outcome assessment reviewed. Exercise plan approved as documented. Treatment plan and goals support patient needs/abilities. Continue with current plan. I certify the patient demonstrates improvement and remains willing and capable of participation. the patient continues to benefit from cardiac rehab services/training. The patient may continue at current intensity, endurance and modality and progress per protocol. 01/31/18 1115 <Electronically signed by Adolfo Garcia MD> Cosigner Signature: Date Adolfo Garcia MD CC: Signed PROTIME Collected: 01/23/2018 Status: F Source: [facility] 11:45 AM HEALTH SYSTEM REPOSITORY TYPE CODE TESTS RESULT OUT OF REFERENCE UNITS RANGE LAB LPTI(LOINC 9.7-13.0 sec ) Prothrombin High Time 35.5 Result Comment: . LAB LINR(LOINC) 0.90-1.30 High 3.75 INR Result Comment: Note: Reference Range Change Vitamin K Antagonist (VKA) Therapeutic Range: INR 2 to 3 (Target INR of 2.5) Note: For patients treated with VKA drugs, such as warfarin, the [place] [employer] 2012 Guideline recommends a therapeutic INR range of 2 to 3 (target INR of 2.5). This recommendation includes high-risk patients with antiphospholipid syndrome with previous arterial or venous thromboembolism, current-generation mechanical or bioprosthetic aortic heart valve replacement. VKA Therapeutic Range for some Mechanical Valve Replacement: INR 2.5 to 3.5 (Target INR of 3) Note: Patients with mechanical aortic valve replacement and additional risk factors for thromboembolic events (atrial fibrillation, previous thromboembolism, LV dysfunction, hypercoagulable conditions) or an older generation mechanical AVR (i.e., ball in-Cage) or any mechanical MVR should have a INR therapeutic range of 2.5 to 3.5 target INR of 3). Guyatt GH, et al. Chest 2012; 141:7S-47S Duyen RA, et al. JACC 2017; 70: 252-289 Performed By: #### LPT #### [facility] [address] [place] [address] PROGRESS Observed: 01/22/2018 Status: COMPLETED Source: [place] 10:33 AM [facility] REPOSITORY HNO ID: [id number] Author: Claudio Reyes Service: (none) Author Type: Physician Type: Progress Notes Filed: 01/22/2018 12:33 PM Note Text: The patient is here for a 1 month follow up. She was seen by Dr. Menjivar last month for a hospital discharge follow up. She is up to date on her blood work and screening. She does not want a flu shot. She reports she quit smoking prior to her surgery and has been doing well. She does not need any refills today. The patient reports she is still seeing neurology for her seizures. She hasn't had any seizures recently and reports she is doing well. The patient reports she still gets a little dizzy but it isn't as bad. She starts her cardio therapy on Sunday in [place]. The patient reports she has a little pain intermittently along her incision line and notes mild numbness in that area. She states it is only with certain positions. She sees cardiology again in February and has been released by her surgeon. She states she continues to do well on her lexapro without problems. The patient has no questions or concerns today. Patient is a 47 year old female presenting with dizziness. The history is provided by the patient. Depression The patient's primary symptoms include weakness (improved). Pertinent negatives include no confusion, loss of consciousness or seizures (none recently). This is a new problem. The current episode started more than 1 month ago. The problem is unchanged. Pertinent negatives include no fever, nausea or vomiting. Past treatments include nothing. Her past medical history is significant for addiction treatment, a chronic illness and a mental illness. Dizziness The patient's primary symptoms include weakness (improved). The patient's pertinent negatives include no syncope. This is a recurrent problem. The current episode started more than 1 year ago. The problem has been gradually improving since onset. There was no focality noted. Associated symptoms include dizziness (improving), light-headedness and palpitations (pounding with exertion). Pertinent negatives include no abdominal pain, chest pain, confusion, fever, headaches, nausea, shortness of breath or vomiting. Past treatments include drinking. The treatment provided mild relief. Her past medical history is significant for seizures. ALLERGIES No Known Allergies Current Outpatient Prescriptions: escitalopram oxalate (LEXAPRO) 10 mg tablet TAKE 1 TABLET BY MOUTH ONCE DAILY Disp: 30 tablet Rfl: 1 metoprolol tartrate, short acting, (LOPRESSOR) 25 mg tablet Take 1 tablet by mouth every 12 hours. Disp: 60 tablet Rfl: 11 warfarin (COUMADIN) 5 mg tablet Take 1.5 tablets by mouth once daily. Disp: 45 tablet Rfl: 5 furosemide (LASIX) 20 mg tablet Take 1 tablet by mouth once daily. Take daily for 7 days. Then every other day. Disp: 30 tablet Rfl: 1 potassium chloride ER (K-DUR, KLOR-CON) 20 mEq tablet Take 1 tablet by mouth once daily. Take daily with the furosemide Disp: 30 tablet Rfl: 1 acetaminophen (TYLENOL) 325 mg tablet Take 2 tablets by mouth every 6 hours as needed. Disp: Rfl: senna-docusate (SENNA-S) 8.6-50 mg per tablet Take 1 tablet by mouth twice daily. Disp: Rfl: aspirin 81 mg chewable tablet Take 81 mg by mouth once daily. Disp: Rfl: levETIRAcetam (KEPPRA) 500 mg tablet Take 1 tablet by mouth twice daily. Disp: 180 tablet Rfl: 3 mometasone-formoterol (DULERA) 100-5 mcg/actuation inhaler Inhale 2 Puffs as instructed twice daily. Disp: 1 Inhaler Rfl: 1 Buprenorphine-nalOXone (SUBOXONE) 8-2 mg film Dissolve under the tongue twice daily. 8 mg tablet. Disp: Rfl: albuterol HFA (VENTOLIN HFA) 90 mcg/actuation inhaler Inhale 2 Puffs as instructed every 4 hours as needed. Disp: 2 Inhaler Rfl: 1 No current facility-administered medications for this visit. 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 Social History Main Topics Smoking status: Former Smoker Packs/day: 0.50 Years: 29.00 Types: Cigarettes Start date: 1988 Quit date: 11/19/2017 Smokeless tobacco: Never Used Comment: stopped 12/03/17 Alcohol use: No Comment: no alcohol since 2016 Drug use: No Comment: former back in high school marijuana and cocaine recent Heroin use last used 6 months Sexual activity: Yes Partners with: Male Comment: jail boyfriend Other Topics Concern Service No Blood Transfusions No Caffeine Concern Yes Comment:Amount: moderate (equiv to 1-3 8oz coffee/day) Hobby Hazards No Sleep Concern No Stress Concern No Weight Concern Yes Comment:wants to lose some weight Special Diet No Back Care Yes Exercise No Seat Belt Yes Self-Exams No Social History Narrative Works at [employer] in [place]. Lives with boyfriend. Feels safe at home. Family History Problem Relation Age of Onset - Cancer Mother 54 lung - other (tobacco use) Mother - Parkinson?s Disease Father - Hypertension Father - Colon Cancer Paternal Grandmother 55 - Diabetes Paternal Grandmother - Prostate Cancer Paternal Uncle - Hypertension Sister - other (bladder problem) Sister - Arthritis Sister - No Known Problems Sister Reviewed past medical and surgical history. BP 116/66 (BP Site: Right Arm, BP Position: Sitting, BP Cuff Size: Regular Adult) Pulse 60 Temp 36.9 ?C (98.5 ?F) Resp 18 Ht 160 cm (5' 3) Wt 73.8 kg (162 lb 9.6 oz) BMI 28.80 kg/m? Review of Systems Constitutional: Negative for fever and weight loss. HENT: Negative for congestion, hearing loss and sore throat. Eyes: Negative for blurred vision. Respiratory: Negative for cough and shortness of breath. Cardiovascular: Positive for palpitations (pounding with exertion). Negative for chest pain and leg swelling. Incisional pain Gastrointestinal: Negative for abdominal pain, constipation, diarrhea, nausea and vomiting. Genitourinary: Negative for dysuria. Musculoskeletal: Negative for falls. Skin: Negative for rash. Neurological: Positive for dizziness (improving), weakness (improved) and light-headedness. Negative for tingling, seizures (none recently), loss of consciousness, syncope and headaches. Psychiatric/Behavioral: Negative for confusion, depression and suicidal ideas. Physical Exam Constitutional: She is oriented to person, place, and time and well-developed, well-nourished, and in no distress. Vital signs are normal. She does not have a sickly appearance. No distress. HENT: Head: Normocephalic and atraumatic. Mouth/Throat: Oropharynx is clear and moist and mucous membranes are normal. Eyes: Pupils are equal, round, and reactive to light. Conjunctivae are normal. Cardiovascular: Normal rate, regular rhythm and normal heart sounds. No murmur heard. Pulmonary/Chest: Effort normal and breath sounds normal. No respiratory distress. She has no decreased breath sounds. She exhibits tenderness. She exhibits no crepitus, no deformity and no swelling. Abdominal: Soft. Bowel sounds are normal. She exhibits no distension. There is no tenderness. Musculoskeletal: She exhibits no edema. Neurological: She is alert and oriented to person, place, and time. Skin: Skin is warm and dry. She is not diaphoretic. Psychiatric: Mood normal. Nursing note and vitals reviewed. ASSESSMENT/PLAN: 1. Moderately severe depression (HCC) - ICD9: 311, ICD10: F32.2 (primary diagnosis) Patient reports she is doing well on the lexapro. She denies any current thoughts of suicide. Will continue current management and monitor. 2. Incisional pain - ICD9: 782.0, ICD10: L76.82 Patient has mild tenderness to palpation along the incision. The incision itself is healing well and there is no evidence of infection. She has been released from her surgeon and will be starting therapy on Sunday. For now, will monitor. She was instructed to call if anything changes or worsens and she agreed. 3. S/P mitral valve replacement - ICD9: V43.3, ICD10: Z95.2 As above. Doing well following surgery. Follow up with cardiology in February. Her INR is being monitoring by them. 4. Uncomplicated asthma, unspecified asthma severity, unspecified whether persistent - ICD9: 493.90, ICD10: J45.909 Mild intermittent Asthma improved - Continue current meds Patient denies any respiratory symptoms at this time. She has successfully quit smoking and is doing well. Will continue to monitor. The patient is here for a follow up. Plan as above. Routine follow up scheduled. She was instructed to call with any concerns or questions before then and she agreed. Return in about 3 months (around 04/22/2018) for depression. Claudio Reyes MD CNOV Observed: 01/22/2018 Status: COMPLETED Source: [place] 10:20 AM [facility] REPOSITORY Office Visit (AGINTMLW) JEYSON,BENJAMIN L ([id number]) 1970 F Date Time Provider Department 01/22/18 10:20 AM CLAUDIO REYES AGGINAMLEula During your visit today, we recorded the following information about you: Temperature Pulse Respiration Blood pressure 98.5 degrees 60/minute 18/minute 116/66 Weight Height 73.8 kg 1.6 m Claudio Reyes MD 01/22/2018 12:33 PM Signed The patient is here for a 1 month follow up. She was seen by Dr. Menjivar last month for a hospital discharge follow up. She is up to date on her blood work and screening. She does not want a flu shot. She reports she quit smoking prior to her surgery and has been doing well. She does not need any refills today. The patient reports she is still seeing neurology for her seizures. She hasn't had any seizures recently and reports she is doing well. The patient reports she still gets a little dizzy but it isn't as bad. She starts her cardio therapy on Sunday in . The patient reports she has a little pain intermittently along her incision line and notes mild numbness in that area. She states it is only with certain positions. She sees cardiology again in February and has been released by her surgeon. She states she continues to do well on her lexapro without problems. The patient has no questions or concerns today. Patient is a 47 year old female presenting with dizziness. The history is provided by the patient. Depression The patient's primary symptoms include weakness (improved). Pertinent negatives include no confusion, loss of consciousness or seizures (none recently). This is a new problem. The current episode started more than 1 month ago. The problem is unchanged. Pertinent negatives include no fever, nausea or vomiting. Past treatments include nothing. Her past medical history is significant for addiction treatment, a chronic illness and a mental illness. Dizziness The patient's primary symptoms include weakness (improved). The patient's pertinent negatives include no syncope. This is a recurrent problem. The current episode started more than 1 year ago. The problem has been gradually improving since onset. There was no focality noted. Associated symptoms include dizziness (improving), light-headedness and palpitations (pounding with exertion). Pertinent negatives include no abdominal pain, chest pain, confusion, fever, headaches, nausea, shortness of breath or vomiting. Past treatments include drinking. The treatment provided mild relief. Her past medical history is significant for seizures. ALLERGIES No Known Allergies Current Outpatient Prescriptions: escitalopram oxalate (LEXAPRO) 10 mg tablet TAKE 1 TABLET BY MOUTH ONCE DAILY Disp: 30 tablet Rfl: 1 metoprolol tartrate, short acting, (LOPRESSOR) 25 mg tablet Take 1 tablet by mouth every 12 hours. Disp: 60 tablet Rfl: 11 warfarin (COUMADIN) 5 mg tablet Take 1.5 tablets by mouth once daily. Disp: 45 tablet Rfl: 5 furosemide (LASIX) 20 mg tablet Take 1 tablet by mouth once daily. Take daily for 7 days. Then every other day. Disp: 30 tablet Rfl: 1 potassium chloride ER (K-DUR, KLOR-CON) 20 mEq tablet Take 1 tablet by mouth once daily. Take daily with the furosemide Disp: 30 tablet Rfl: 1 acetaminophen (TYLENOL) 325 mg tablet Take 2 tablets by mouth every 6 hours as needed. Disp: Rfl: senna-docusate (SENNA-S) 8.6-50 mg per tablet Take 1 tablet by mouth twice daily. Disp: Rfl: aspirin 81 mg chewable tablet Take 81 mg by mouth once daily. Disp: Rfl: levETIRAcetam (KEPPRA) 500 mg tablet Take 1 tablet by mouth twice daily. Disp: 180 tablet Rfl: 3 mometasone-formoterol (DULERA) 100-5 mcg/actuation inhaler Inhale 2 Puffs as instructed twice daily. Disp: 1 Inhaler Rfl: 1 Buprenorphine-nalOXone (SUBOXONE) 8-2 mg film Dissolve under the tongue twice daily. 8 mg tablet. Disp: Rfl: albuterol HFA (VENTOLIN HFA) 90 mcg/actuation inhaler Inhale 2 Puffs as instructed every 4 hours as needed. Disp: 2 Inhaler Rfl: 1 No current facility-administered medications for this visit. 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 Social History Main Topics Smoking status: Former Smoker Packs/day: 0.50 Years: 29.00 Types: Cigarettes Start date: 1988 Quit date: 11/19/2017 Smokeless tobacco: Never Used Comment: stopped 12/03/17 Alcohol use: No Comment: no alcohol since 2016 Drug use: No Comment: former back in high school marijuana and cocaine recent Heroin use last used 6 months Sexual activity: Yes Partners with: Male Comment: long term care pharmacist boyfriend Other Topics Concern Service No Blood Transfusions No Caffeine Concern Yes Comment:Amount: moderate (equiv to 1-3 8oz coffee/day) Hobby Hazards No Sleep Concern No Stress Concern No Weight Concern Yes Comment:wants to lose some weight Special Diet No Back Care Yes Exercise No Seat Belt Yes Self-Exams No Social History Narrative Works at [employer] in [place]. Lives with boyfriend. Feels safe at home. Family History Problem Relation Age of Onset - Cancer Mother 54 lung - other (tobacco use) Mother - Parkinson?s Disease Father - Hypertension Father - Colon Cancer Paternal Grandmother 55 - Diabetes Paternal Grandmother - Prostate Cancer Paternal Uncle - Hypertension Sister - other (bladder problem) Sister - Arthritis Sister - No Known Problems Sister Reviewed past medical and surgical history. BP 116/66 (BP Site: Right Arm, BP Position: Sitting, BP Cuff Size: Regular Adult) Pulse 60 Temp 36.9 ?C (98.5 ?F) Resp 18 Ht 160 cm (5' 3) Wt 73.8 kg (162 lb 9.6 oz) BMI 28.80 kg/m? Review of Systems Constitutional: Negative for fever and weight loss. HENT: Negative for congestion, hearing loss and sore throat. Eyes: Negative for blurred vision. Respiratory: Negative for cough and shortness of breath. Cardiovascular: Positive for palpitations (pounding with exertion). Negative for chest pain and leg swelling. Incisional pain Gastrointestinal: Negative for abdominal pain, constipation, diarrhea, nausea and vomiting. Genitourinary: Negative for dysuria. Musculoskeletal: Negative for falls. Skin: Negative for rash. Neurological: Positive for dizziness (improving), weakness (improved) and light-headedness. Negative for tingling, seizures (none recently), loss of consciousness, syncope and headaches. Psychiatric/Behavioral: Negative for confusion, depression and suicidal ideas. Physical Exam Constitutional: She is oriented to person, place, and time and well-developed, well-nourished, and in no distress. Vital signs are normal. She does not have a sickly appearance. No distress. HENT: Head: Normocephalic and atraumatic. Mouth/Throat: Oropharynx is clear and moist and mucous membranes are normal. Eyes: Pupils are equal, round, and reactive to light. Conjunctivae are normal. Cardiovascular: Normal rate, regular rhythm and normal heart sounds. No murmur heard. Pulmonary/Chest: Effort normal and breath sounds normal. No respiratory distress. She has no decreased breath sounds. She exhibits tenderness. She exhibits no crepitus, no deformity and no swelling. Abdominal: Soft. Bowel sounds are normal. She exhibits no distension. There is no tenderness. Musculoskeletal: She exhibits no edema. Neurological: She is alert and oriented to person, place, and time. Skin: Skin is warm and dry. She is not diaphoretic. Psychiatric: Mood normal. Nursing note and vitals reviewed. ASSESSMENT/PLAN: 1. Moderately severe depression (HCC) - ICD9: 311, ICD10: F32.2 (primary diagnosis) Patient reports she is doing well on the lexapro. She denies any current thoughts of suicide. Will continue current management and monitor. 2. Incisional pain - ICD9: 782.0, ICD10: L76.82 Patient has mild tenderness to palpation along the incision. The incision itself is healing well and there is no evidence of infection. She has been released from her surgeon and will be starting therapy on Sunday. For now, will monitor. She was instructed to call if anything changes or worsens and she agreed. 3. S/P mitral valve replacement - ICD9: V43.3, ICD10: Z95.2 As above. Doing well following surgery. Follow up with cardiology in February. Her INR is being monitoring by them. 4. Uncomplicated asthma, unspecified asthma severity, unspecified whether persistent - ICD9: 493.90, ICD10: J45.909 Mild intermittent Asthma improved - Continue current meds Patient denies any respiratory symptoms at this time. She has successfully quit smoking and is doing well. Will continue to monitor. The patient is here for a follow up. Plan as above. Routine follow up scheduled. She was instructed to call with any concerns or questions before then and she agreed. Return in about 3 months (around 04/22/2018) for depression. MD Claudio Lance MD 01/22/2018 10:47 AM Signed Call if any concerns or questions. Referring Provider: SELF [[id number]] Allergies As of Date: 01/22/2018 (No Known Allergies) Date Reviewed: 01/22/2018 Reviewed by: Claudio Reyes - Fully Assessed Reason for Visit: F/U 1 month [1175] Primary Visit Diagnosis:Moderately severe depression (HCC) [F32.2] Other Visit Diagnoses:Incisional pain [L76.82] S/P mitral valve replacement [Z95.2] Uncomplicated asthma, unspecified asthma severity, unspecified whether persistent [J45.909] Prescriptions as of 01/22/2018 Sig: ESCITALOPRAM 10 MG TABLET TAKE 1 TABLET BY MOUTH ONCE D* METOPROLOL TARTRATE 25 MG TAB* Take 1 tablet by mouth every * WARFARIN 5 MG TABLET Take 1.5 tablets by mouth onc* FUROSEMIDE 20 MG TABLET Take 1 tablet by mouth once d* POTASSIUM CHLORIDE ER 20 MEQ * Take 1 tablet by mouth once d* ACETAMINOPHEN 325 MG TABLET Take 2 tablets by mouth every* SENNOSIDES 8.6 MG-DOCUSATE SO* Take 1 tablet by mouth twice * ASPIRIN 81 MG CHEWABLE TABLET Take 81 mg by mouth once jeannette* LEVETIRACETAM 500 MG TABLET Take 1 tablet by mouth twice * MOMETASONE-FORMOTEROL HFA 100* Inhale 2 Puffs as instructed * BUPRENORPHINE 8 MG-NALOXONE 2* Dissolve under the tongue twi* ALBUTEROL SULFATE HFA 90 MCG/* Inhale 2 Puffs as instructed * Problem List As Of Date 01/22/2018 Noted Resolved Seizures (HCC) [R56.9] INVALID FOR* More... Drug abuse [F19.10] INVALID FOR* More... Abnormal finding on breast imaging [R92.8] INVALID FOR* Asthma [J45.909] More... More... Mitral valve stenosis, rheumatic [I05.0] INVALID FOR* S/P mitral valve replacement [Z95.2] INVALID FOR* Nonsustained paroxysmal ventricular tachycardia*INVALID FOR* Nicotine use disorder, F17.2 [F17.200] INVALID FOR*01/22/2018 Other instructions from your clinician: Call if any concerns or questions. Level of Service: EST PATIENT VISIT LEVEL 4 [[id number]] Disposition: Return in about 3 months (around 04/22/2018) for depression. Follow-up and Disposition History Recorded Encounter Status:Closed by CLAUDIO REYES MD on 01/22/18 OBSOLETE Observed: 01/18/2018 Status: COMPLETED Source: [place] 12:00 AM [facility] REPOSITORY Refill (AGINTMLW) BENJAMIN GARCES ([id number]) 1970 F Date Time Provider Department 01/18/18 CLAUDIO REYES G AGINTMLW During your visit today, we recorded the following information about you: Vaibhav Mahnoey CMA 01/21/2018 7:41 AM Signed pharmacy electronically requesting refills as follows: Last seen 12/20/17 . Last refill 12/17/17 . Pending Prescriptions Disp Refills ESCITALOPRAM 10 MG TABLET 30 tablet 1 Sig: TAKE 1 TABLET BY MOUTH ONCE DAILY TRANG: Yes Please review and advise. Vaibhav Mahoney CMA Allergies As of Date: 01/18/2018 (No Known Allergies) Date Reviewed: 01/14/2018 Reviewed by: Aaron Girard - Fully Assessed Reason for Visit: Refill Request [94] Visit Diagnosis:Moderately severe depression (HCC) [F32.2] Order(s):escitalopram oxalate (LEXAPRO) 10 mg tabletTAKE 1 TABLET BY MOUTH ONCE DAILYDisp: 30 tabletRfl: 1 Prescriptions as of 01/18/2018 Sig: ESCITALOPRAM 10 MG TABLET TAKE 1 TABLET BY MOUTH ONCE D* METOPROLOL TARTRATE 25 MG TAB* Take 1 tablet by mouth every * WARFARIN 5 MG TABLET Take 1.5 tablets by mouth onc* FUROSEMIDE 20 MG TABLET Take 1 tablet by mouth once d* POTASSIUM CHLORIDE ER 20 MEQ * Take 1 tablet by mouth once d* ACETAMINOPHEN 325 MG TABLET Take 2 tablets by mouth every* SENNOSIDES 8.6 MG-DOCUSATE SO* Take 1 tablet by mouth twice * ASPIRIN 81 MG CHEWABLE TABLET Take 81 mg by mouth once jeannette* LEVETIRACETAM 500 MG TABLET Take 1 tablet by mouth twice * MOMETASONE-FORMOTEROL HFA 100* Inhale 2 Puffs as instructed * BUPRENORPHINE 8 MG-NALOXONE 2* Dissolve under the tongue twi* ALBUTEROL SULFATE HFA 90 MCG/* Inhale 2 Puffs as instructed * Problem List As Of Date 01/18/2018 Noted Resolved Seizures (HCC) [R56.9] INVALID FOR* More... Drug abuse [F19.10] INVALID FOR* More... Abnormal finding on breast imaging [R92.8] INVALID FOR* Asthma [J45.909] More... More... Mitral valve stenosis, rheumatic [I05.0] INVALID FOR* S/P mitral valve replacement [Z95.2] INVALID FOR* Nonsustained paroxysmal ventricular tachycardia*INVALID FOR* Nicotine use disorder, F17.2 [F17.200] INVALID FOR* Prescriptions ordered this encounter Disp Refills Start End ESCITALOPRAM 10 MG TABLET 30 t* 1 01/21/2018 Cmt: This prescription was filled on 01/18/2018. Any refills authorized will be placed on file. Route: ORAL Sig: TAKE 1 TABLET BY MOUTH ONCE DAILY Medications Discontinued During This Encounter escitalopram oxalate (LEXAPRO) 10 mg* 30 t* 1 12/17/2017 01/21/2018 Route: ORAL Sig: TAKE 1 TABLET BY MOUTH ONCE DAILY Disc: Reason for discontinue is not on file. Encounter Status:Closed by CLAUDIO REYES MD on 01/21/18 CNOV Observed: 01/14/2018 Status: COMPLETED Source: [place] 10:00 AM [facility] OTHER MOBILE REPOSITORY Office Visit (SERVANDO) BENJAMIN GARCES ([id number]) 1970 F Date Time Provider Department 01/14/18 10:00 AM VENICE CORREA During your visit today, we recorded the following information about you: Pulse Respiration Blood pressure Weight 82/minute 16/minute 90/62 73.5 kg Height 1.6 m [place] Correa APRN.CNP 01/14/2018 10:59 AM Signed HPI: Benjamin Garces is a 47 year old female that returns to the office today for 1 week post-discharge follow up for severe mitral stenosis s/p combined, Mitral valve replacement with #27 [place] Epic Mitral Prosthesis and exclusion of the left atrial appendage with # 35-mm AtriCure Clip performed on 12/03/2017. Her post-operative course was complicated by NSVT and concern for atrial fibrilation. She was discharged on 12/09/2017. EKG done at 1 week post hospital discharge revealed atrial fibrillation. Today, Benjamin Garces, reports she is feeling well, lacks stamina, but is otherwise is doing well. She reports she quit smoking before surgery and has not had a cigarette since! Pain: DEnies CV: (Dizzy, palpitations, BP, Edema) Some dizziness with position changes SOB/OBRIEN: Denies Fever: Denies Diet: Normal Bowel: Regular Activity: Gradually resuming usual activity C/O: Lack of endurance Cardiology F/U: Call to schedule with Dr Tripp Cardiac Rehab: [facility]. Contact info provided Subjective: Current Outpatient Prescriptions: warfarin (COUMADIN) 5 mg tablet Take 1.5 tablets by mouth once daily. escitalopram oxalate (LEXAPRO) 10 mg tablet TAKE 1 TABLET BY MOUTH ONCE DAILY furosemide (LASIX) 20 mg tablet Take 1 tablet by mouth once daily. Take daily for 7 days. Then every other day. potassium chloride ER (K-DUR, KLOR-CON) 20 mEq tablet Take 1 tablet by mouth once daily. Take daily with the furosemide magnesium oxide (MAGOX) 400 mg (241.3 mg magnesium) tablet Take 1 tablet by mouth twice daily. acetaminophen (TYLENOL) 325 mg tablet Take 2 tablets by mouth every 6 hours as needed. metoprolol tartrate, short acting, (LOPRESSOR) 25 mg tablet Take 1 tablet by mouth every 12 hours. senna-docusate (SENNA-S) 8.6-50 mg per tablet Take 1 tablet by mouth twice daily. ascorbic acid, vitamin C, (VITAMIN C) 500 mg tablet Take 1 tablet by mouth twice daily. aspirin 81 mg chewable tablet Take 81 mg by mouth once daily. nicotine (NICODERM CQ) 21 mg/24 hr Apply 1 Patch as directed every 24 hours. APPLY ONE PATCH EVERY 24 HOURS TOPICALLY (Patient not taking: Reported on 12/20/2017 ) levETIRAcetam (KEPPRA) 500 mg tablet Take 1 tablet by mouth twice daily. mometasone-formoterol (DULERA) 100-5 mcg/actuation inhaler Inhale 2 Puffs as instructed twice daily. Buprenorphine-nalOXone (SUBOXONE) 8-2 mg film Dissolve under the tongue twice daily. 8 mg tablet. albuterol HFA (VENTOLIN HFA) 90 mcg/actuation inhaler Inhale 2 Puffs as instructed every 4 hours as needed. No current facility-administered medications for this visit. Patient has no known allergies. PAST MEDICAL HISTORY Diagnosis Date - Asthma uses inhaler PRN; never hospitalized or intubated for asthma exacerbation - COPD (chronic obstructive pulmonary disease) (FORM[facility]LY [facility]) - Dermatitis - Former tobacco use quit 11/2017 - History of drug abuse no IVDA - Hives 2008; improved with Benadryl; undetermined cause - Mitral valve regurgitation, rheumatic - Mitral valve stenosis, rheumatic severe; s/p MVR (bioprosthetic) 12/03/2017 - Nonsustained paroxysmal ventricular tachycardia (HCC) 12/07/2017 16.5 seconds of NSVT at 167 bpm on telemetry monitoring POD#4 after MVR - S/P mitral valve replacement 12/03/2017 MVR ([facility] Epic) 12/03/2017 for severe rheumatic mitral valve stenosis - Seizure ([facility]) 08/2016 PAST SURGICAL HISTORY Procedure Laterality Date - CARPAL TUNNEL Bilateral 03/07/2017 Dr. Schmitt both wrists - ECHOCARDIOGRAM 07/11/2017 normal LV systolic fxn; LVEF 57%; dilated RV with normal RV systolic fxn; severe LAE; severe MS; moderately severe MR - HOLTER MONITOR 48 HR 07/11/2017 sinus rhythm; PACs; brief PAT - REPLACEMENT OF MITRAL VALVE 12/03/2017 MVR ([facility] bioprosthetic) for rheumatic mitral stenosis; KARIN closure; CCAG Dr. Lew - RIGHT AND LEFT HEART CATH 10/17/2017 normal coronary arteries; mild pHTN - PRESTON 09/19/2017 severe MS; moderate MR; severe LAE; LVEF 50-55% FAMILY HISTORY Problem Relation Age of Onset - Cancer Mother 54 lung - other (tobacco use) Mother - Parkinson?s Disease Father - Hypertension Father - Colon Cancer Paternal Grandmother 55 - Diabetes Paternal Grandmother - Prostate Cancer Paternal Uncle - Hypertension Sister - other (bladder problem) Sister - Arthritis Sister - No Known Problems Sister Social History Substance Use Topics - Smoking status: Former Smoker Packs/day: 0.50 Years: 29.00 Types: Cigarettes Start date: 1988 Quit date: 11/19/2017 - Smokeless tobacco: Never Used Comment: stopped 12/03/17 - Alcohol use No Comment: no alcohol since 2016 Review of Systems Constitutional: Positive for weight loss (10 lbs (expected post op) .). Negative for chills, fever and malaise/fatigue. HENT: Negative for sore throat. Respiratory: Negative for cough, sputum production, shortness of breath and wheezing. Cardiovascular: Negative for chest pain, palpitations, orthopnea, claudication, leg swelling and PND. Gastrointestinal: Negative for abdominal pain, blood in stool, constipation, diarrhea, melena, nausea and vomiting. Genitourinary: Negative for dysuria. Musculoskeletal: Negative for falls and joint pain. Skin: No new lesions Neurological: Negative for dizziness, tingling, sensory change, focal weakness, weakness and headaches. Endo/Heme/Allergies: Does not bruise/bleed easily. Psychiatric/Behavioral: Negative for depression. The patient does not have insomnia. Objective: One month post- op Chest X-ray is done and reviewed today. Pending Physical Examination: Vitals:BP 90/62 Pulse 82[irregular[ Resp 16 Ht 5' 3 (1.60m) Wt 162 lb (73.5kg) SpO2 92% BMI 28.70 kg/(m2). Last 2 Encounter Wt Readings: Date: Wt: 01/14/2018 162 lb 12/20/2017 170 lb 3.2 oz (77.2 kg) 12/17/2017 167 lb (75.8 kg) Physical Exam Constitutional: She is oriented to person, place, and time and well-developed, well-nourished, and in no distress. HENT: Head: Normocephalic. Eyes: Pupils are equal, round, and reactive to light. Cardiovascular: S1 normal, S2 normal and intact distal pulses. No murmur heard. Irregularly irregular rhythm Pulmonary/Chest: Effort normal and breath sounds normal. Abdominal: Soft. Normal appearance and bowel sounds are normal. Musculoskeletal: Normal range of motion. She exhibits no edema. Neurological: She is alert and oriented to person, place, and time. Gait normal. Skin: Skin is warm and intact. Midsternal incision clean dry, well approximated, no redness or drainage Sternum is Stable Ct Sites scabbed/healing SVG site clean dry, no redness, drainage, or hematoma Psychiatric: Mood and affect normal. Assessment and Plan: ASSESSMENT/PLAN: 1. S/P mitral valve replacement - ICD9: V43.3, ICD10: Z95.2 (primary diagnosis) -continue metoprolol, ASA, Lasix alt day dosing and coumadin -Mild hypotension 90 sys today -Stop Fe tablets -Start cardiac rehab -Follow-up with Dr Tripp 2. Nonsustained paroxysmal ventricular tachycardia (HCC) - ICD9: 427.1, ICD10: I47.2 -Continue coumadin 3. Paroxysmal atrial fibrillation (HCC) - ICD9: 427.31, ICD10: I48.0 -Irregularly irregular rhythm per auscultation with rate control in the 70's -continue coumadin Venice Correa APRN.CNP In summary, Patient is doing quite well overall after her MVR/LAAC surgery, with no major complaints. Patient is released to drive, work. Patient should start cardiac rehab from this point on. she should follow up with her market development executive and PCP as scheduled, and only needs to be seen here on a as needed basis. Thanks. Electronically signed by Venice Correa APRN.CNP on January 14, 2018, 7:58 AM Venice Correa APRN.CNP 01/14/2018 10:36 AM Addendum - You may drive! - Please begin cardiac rehab. If they have not contacted you, please call them: [facility]: [phone]. - Weight bearing restriction remains: No lifting more than 10 lbs. You may begin to gradually increase the amount of weight bearing. Cardiac rehab will help with this. - Please see your market development executive regularly. They will take over medication management. - Please feel free to call us if you have any post-operative concerns. Please call Dr Tripp's office to schedule an appointment [phone] Thank you for coming to see me today!! Venice Correa, CARTON CATCHER.ASSURANCE SENIOR Referring Provider: CLAUDIO REYES [[id number]] Allergies As of Date: 01/14/2018 (No Known Allergies) Date Reviewed: 01/14/2018 Reviewed by: Aaron (Lu) Shaji - Fully Assessed Reason for Visit: Post Op [174] Cmt: MVR 12/03/17 Primary Visit Diagnosis:S/P mitral valve replacement [Z95.2] Other Visit Diagnoses:Nonsustained paroxysmal ventricular tachycardia (HCC) [I47.2] Mitral valve regurgitation, rheumatic [I05.1] Paroxysmal atrial fibrillation (HCC) [I48.0] Order(s):metoprolol tartrate, short acting, (LOPRESSOR) 25 mg tabletTake 1 tablet by mouth every 12 hours.Disp: 60 tabletRfl: 11 warfarin (COUMADIN) 5 mg tabletTake 1.5 tablets by mouth once daily.Disp: 45 tabletRfl: 5 Prescriptions as of 01/14/2018 Sig: METOPROLOL TARTRATE 25 MG TAB* Take 1 tablet by mouth every * WARFARIN 5 MG TABLET Take 1.5 tablets by mouth onc* ESCITALOPRAM 10 MG TABLET TAKE 1 TABLET BY MOUTH ONCE D* FUROSEMIDE 20 MG TABLET Take 1 tablet by mouth once d* POTASSIUM CHLORIDE ER 20 MEQ * Take 1 tablet by mouth once d* ACETAMINOPHEN 325 MG TABLET Take 2 tablets by mouth every* SENNOSIDES 8.6 MG-DOCUSATE SO* Take 1 tablet by mouth twice * ASPIRIN 81 MG CHEWABLE TABLET Take 81 mg by mouth once jeannette* LEVETIRACETAM 500 MG TABLET Take 1 tablet by mouth twice * MOMETASONE-FORMOTEROL HFA 100* Inhale 2 Puffs as instructed * BUPRENORPHINE 8 MG-NALOXONE 2* Dissolve under the tongue twi* ALBUTEROL SULFATE HFA 90 MCG/* Inhale 2 Puffs as instructed * Problem List As Of Date 01/14/2018 Noted Resolved Seizures (HCC) [R56.9] INVALID FOR* More... Drug abuse [F19.10] INVALID FOR* More... Abnormal finding on breast imaging [R92.8] INVALID FOR* Asthma [J45.909] More... More... Mitral valve stenosis, rheumatic [I05.0] INVALID FOR* S/P mitral valve replacement [Z95.2] INVALID FOR* Nonsustained paroxysmal ventricular tachycardia*INVALID FOR* Nicotine use disorder, F17.2 [F17.200] INVALID FOR* Other instructions from your clinician: - You may drive! - Please begin cardiac rehab. If they have not contacted you, please call them: [facility]: [phone]. - Weight bearing restriction remains: No lifting more than 10 lbs. You may begin to gradually increase the amount of weight bearing. Cardiac rehab will help with this. - Please see your market development executive regularly. They will take over medication management. - Please feel free to call us if you have any post-operative concerns. Please call Dr Tripp's office to schedule an appointment [phone] Thank you for coming to see me today!! Venice Correa APRN.ASSURANCE SENIOR Prescriptions ordered this encounter Disp Refills Start End METOPROLOL TARTRATE 25 MG TABLET 60 t* 11 01/14/2018 04/14/2018 Route: ORAL Sig: Take 1 tablet by mouth every 12 hours. WARFARIN 5 MG TABLET 45 t* 5 01/14/2018 02/13/2018 Route: ORAL Sig: Take 1.5 tablets by mouth once daily. Medications Discontinued During This Encounter magnesium oxide (MAGOX) 400 mg (241.* 60 t* 1 12/17/2017 01/14/2018 Route: ORAL Sig: Take 1 tablet by mouth twice daily. Patient not taking: Reported on 01/14/2018 Disc: Reason for discontinue is not on file. metoprolol tartrate, short acting, (* 60 t* 2 12/09/2017 01/14/2018 Class: Print RX Route: ORAL Sig: Take 1 tablet by mouth every 12 hours. Disc: Reason for discontinue is not on file. warfarin (COUMADIN) 5 mg tablet 45 t* 2 12/31/2017 01/14/2018 Route: ORAL Sig: Take 1.5 tablets by mouth once daily. Disc: Reason for discontinue is not on file. nicotine (NICODERM CQ) 21 mg/24 hr 28 P* 2 10/02/2017 01/14/2018 Class: Print RX Route: TRANSDERMAL Sig: Apply 1 Patch as directed every 24 hours. APPLY ONE PATCH EVERY 24 HOURS TOPICALLY Patient not taking: Reported on 12/20/2017 Disc: Reason for discontinue is not on file. ascorbic acid, vitamin C, (VITAMIN C* 60 t* 0 12/09/2017 01/14/2018 Class: Print RX Route: ORAL Sig: Take 1 tablet by mouth twice daily. Disc: Course of therapy completed Letter Text Venice Correa APRN.CNP Cardiac, Thoracic AND [employer]er [place] [address] [employer] January 14, 2018 Re: Benjamin Garces : 1970 To Whom It May Concern: This letter is to certify that Ms. Garces has been under my professional care and may return to work on 02/25/2018 with the following restrictions: -No lifting more than 10 lbs until 03/27/2018 then no weight bearing restrictions. -Release to accommodate cardiac rehabilitation If you have further questions regarding this patient's health status, please contact my office at [phone]. Best Regards, Venice Correa APRN.CNP Encounter Status:Closed by VENICE CORREA CNP on 01/14/18 PROGRESS Observed: 01/14/2018 Status: COMPLETED Source: [facility] 7:58 AM CLINIC OTHER CAMPUS REPOSITORY O ID: [id number] Author: Venice Correa Service: (none) Author Type: Nurse Practitioner Type: Progress Notes Filed: 01/14/2018 10:59 AM Note Text: HPI: Benjamin Garces is a 47 year old female that returns to the office today for 1 week post-discharge follow up for severe mitral stenosis s/p combined, Mitral valve replacement with #27 [place] Epic Mitral Prosthesis and exclusion of the left atrial appendage with # 35-mm AtriCure Clip performed on 12/03/2017. Her post-operative course was complicated by NSVT and concern for atrial fibrilation. She was discharged on 12/09/2017. EKG done at 1 week post hospital discharge revealed atrial fibrillation. Today, Benjamin Garces, reports she is feeling well, lacks stamina, but is otherwise is doing well. She reports she quit smoking before surgery and has not had a cigarette since! Pain: DEnies CV: (Dizzy, palpitations, BP, Edema) Some dizziness with position changes SOB/OBRIEN: Denies Fever: Denies Diet: Normal Bowel: Regular Activity: Gradually resuming usual activity C/O: Lack of endurance Cardiology F/U: Call to schedule with Dr Tripp Cardiac Rehab: [facility]. Contact info provided Subjective: Current Outpatient Prescriptions: warfarin (COUMADIN) 5 mg tablet Take 1.5 tablets by mouth once daily. escitalopram oxalate (LEXAPRO) 10 mg tablet TAKE 1 TABLET BY MOUTH ONCE DAILY furosemide (LASIX) 20 mg tablet Take 1 tablet by mouth once daily. Take daily for 7 days. Then every other day. potassium chloride ER (K-DUR, KLOR-CON) 20 mEq tablet Take 1 tablet by mouth once daily. Take daily with the furosemide magnesium oxide (MAGOX) 400 mg (241.3 mg magnesium) tablet Take 1 tablet by mouth twice daily. acetaminophen (TYLENOL) 325 mg tablet Take 2 tablets by mouth every 6 hours as needed. metoprolol tartrate, short acting, (LOPRESSOR) 25 mg tablet Take 1 tablet by mouth every 12 hours. senna-docusate (SENNA-S) 8.6-50 mg per tablet Take 1 tablet by mouth twice daily. ascorbic acid, vitamin C, (VITAMIN C) 500 mg tablet Take 1 tablet by mouth twice daily. aspirin 81 mg chewable tablet Take 81 mg by mouth once daily. nicotine (NICODERM CQ) 21 mg/24 hr Apply 1 Patch as directed every 24 hours. APPLY ONE PATCH EVERY 24 HOURS TOPICALLY (Patient not taking: Reported on 12/20/2017 ) levETIRAcetam (KEPPRA) 500 mg tablet Take 1 tablet by mouth twice daily. mometasone-formoterol (DULERA) 100-5 mcg/actuation inhaler Inhale 2 Puffs as instructed twice daily. Buprenorphine-nalOXone (SUBOXONE) 8-2 mg film Dissolve under the tongue twice daily. 8 mg tablet. albuterol HFA (VENTOLIN HFA) 90 mcg/actuation inhaler Inhale 2 Puffs as instructed every 4 hours as needed. No current facility-administered medications for this visit. Patient has no known allergies. PAST MEDICAL HISTORY Diagnosis Date - Asthma uses inhaler PRN; never hospitalized or intubated for asthma exacerbation - COPD (chronic obstructive pulmonary disease) (HCC) - Dermatitis - Former tobacco use quit 11/2017 - History of drug abuse no IVDA - Hives 2008; improved with Benadryl; undetermined cause - Mitral valve regurgitation, rheumatic - Mitral valve stenosis, rheumatic severe; s/p MVR (bioprosthetic) 12/03/2017 - Nonsustained paroxysmal ventricular tachycardia (HCC) 12/07/2017 16.5 seconds of NSVT at 167 bpm on telemetry monitoring POD#4 after MVR - S/P mitral valve replacement 12/03/2017 MVR ([facility] Epic) 12/03/2017 for severe rheumatic mitral valve stenosis - Seizure (HCC) 08/2016 PAST SURGICAL HISTORY Procedure Laterality Date - CARPAL TUNNEL Bilateral 03/07/2017 Dr. Schmitt both wrists - ECHOCARDIOGRAM 07/11/2017 normal LV systolic fxn; LVEF 57%; dilated RV with normal RV systolic fxn; severe LAE; severe MS; moderately severe MR - HOLTER MONITOR 48 HR 07/11/2017 sinus rhythm; PACs; brief PAT - REPLACEMENT OF MITRAL VALVE 12/03/2017 MVR ([facility] bioprosthetic) for rheumatic mitral stenosis; KARIN closure; [facility] Dr. Lew - RIGHT AND LEFT HEART CATH 10/17/2017 normal coronary arteries; mild pHTN - PRESTON 09/19/2017 severe MS; moderate MR; severe LAE; LVEF 50-55% FAMILY HISTORY Problem Relation Age of Onset - Cancer Mother 54 lung - other (tobacco use) Mother - Parkinson?s Disease Father - Hypertension Father - Colon Cancer Paternal Grandmother 55 - Diabetes Paternal Grandmother - Prostate Cancer Paternal Uncle - Hypertension Sister - other (bladder problem) Sister - Arthritis Sister - No Known Problems Sister Social History Substance Use Topics - Smoking status: Former Smoker Packs/day: 0.50 Years: 29.00 Types: Cigarettes Start date: 1988 Quit date: 11/19/2017 - Smokeless tobacco: Never Used Comment: stopped 12/03/17 - Alcohol use No Comment: no alcohol since 2016 Review of Systems Constitutional: Positive for weight loss (10 lbs (expected post op) .). Negative for chills, fever and malaise/fatigue. HENT: Negative for sore throat. Respiratory: Negative for cough, sputum production, shortness of breath and wheezing. Cardiovascular: Negative for chest pain, palpitations, orthopnea, claudication, leg swelling and PND. Gastrointestinal: Negative for abdominal pain, blood in stool, constipation, diarrhea, melena, nausea and vomiting. Genitourinary: Negative for dysuria. Musculoskeletal: Negative for falls and joint pain. Skin: No new lesions Neurological: Negative for dizziness, tingling, sensory change, focal weakness, weakness and headaches. Endo/Heme/Allergies: Does not bruise/bleed easily. Psychiatric/Behavioral: Negative for depression. The patient does not have insomnia. Objective: One month post- op Chest X-ray is done and reviewed today. Pending Physical Examination: Vitals:BP 90/62 Pulse 82[irregular[ Resp 16 Ht 5' 3 (1.60m) Wt 162 lb (73.5kg) SpO2 92% BMI 28.70 kg/(m2). Last 2 Encounter Wt Readings: Date: Wt: 01/14/2018 162 lb 12/20/2017 170 lb 3.2 oz (77.2 kg) 12/17/2017 167 lb (75.8 kg) Physical Exam Constitutional: She is oriented to person, place, and time and well-developed, well-nourished, and in no distress. HENT: Head: Normocephalic. Eyes: Pupils are equal, round, and reactive to light. Cardiovascular: S1 normal, S2 normal and intact distal pulses. No murmur heard. Irregularly irregular rhythm Pulmonary/Chest: Effort normal and breath sounds normal. Abdominal: Soft. Normal appearance and bowel sounds are normal. Musculoskeletal: Normal range of motion. She exhibits no edema. Neurological: She is alert and oriented to person, place, and time. Gait normal. Skin: Skin is warm and intact. Midsternal incision clean dry, well approximated, no redness or drainage Sternum is Stable Ct Sites scabbed/healing SVG site clean dry, no redness, drainage, or hematoma Psychiatric: Mood and affect normal. Assessment and Plan: ASSESSMENT/PLAN: 1. S/P mitral valve replacement - ICD9: V43.3, ICD10: Z95.2 (primary diagnosis) -continue metoprolol, ASA, Lasix alt day dosing and coumadin -Mild hypotension 90 sys today -Stop Fe tablets -Start cardiac rehab -Follow-up with Dr Tripp 2. Nonsustained paroxysmal ventricular tachycardia (HCC) - ICD9: 427.1, ICD10: I47.2 -Continue coumadin 3. Paroxysmal atrial fibrillation (HCC) - ICD9: 427.31, ICD10: I48.0 -Irregularly irregular rhythm per auscultation with rate control in the 70's -continue coumadin Venice Correa APRN.MARIVEL In summary, Patient is doing quite well overall after her MVR/LAAC surgery, with no major complaints. Patient is released to drive, work. Patient should start cardiac rehab from this point on. she should follow up with her market development executive and PCP as scheduled, and only needs to be seen here on a as needed basis. Thanks. Electronically signed by Venice Correa APRN.CNP on January 14, 2018, 7:58 AM PROTIME Collected: 01/08/2018 Status: F Source: [facility] 12:58 PM HEALTH SYSTEM REPOSITORY TYPE CODE TESTS RESULT OUT OF REFERENCE UNITS RANGE LAB LPTI(LOINC 9.7-13.0 sec ) Prothrombin High Time 23.6 Result Comment: . LAB LINR(LOINC) 0.90-1.30 High 2.43 INR Result Comment: Note: Reference Range Change Vitamin K Antagonist (VKA) Therapeutic Range: INR 2 to 3 (Target INR of 2.5) Note: For patients treated with VKA drugs, such as warfarin, the [employer] 2012 Guideline recommends a therapeutic INR range of 2 to 3 (target INR of 2.5). This recommendation includes high-risk patients with antiphospholipid syndrome with previous arterial or venous thromboembolism, current-generation mechanical or bioprosthetic aortic heart valve replacement. VKA Therapeutic Range for some Mechanical Valve Replacement: INR 2.5 to 3.5 (Target INR of 3) Note: Patients with mechanical aortic valve replacement and additional risk factors for thromboembolic events (atrial fibrillation, previous thromboembolism, LV dysfunction, hypercoagulable conditions) or an older generation mechanical AVR (i.e., ball in-Cage) or any mechanical MVR should have a INR therapeutic range of 2.5 to 3.5 target INR of 3). Gubrianne GH, et al. Chest 2012; 141:7S-47S Duyen RA, et al. JACC 2017; 70: 252-289 Performed By: #### LPT #### [place] [address] OBSOLETE Observed: 12/31/2017 Status: COMPLETED Source: [facility] 12:00 AM CLINIC OTHER CAMPUS REPOSITORY Refill (AGINTMAC) BENJAMIN GARCES ([id number]) 1970 F Date Time Provider Department 12/31/17 NATHAN (PHARMACIST), KRYSTYNA GAYTAN During your visit today, we recorded the following information about you: Krystyna Ellison PharmD 12/31/2017 1:07 PM Signed Patient is out of warfarin and will need a refill today. I have pended the order for you. Thanks! Krystyna Ellison PharmD Allergies As of Date: 12/31/2017 (No Known Allergies) Date Reviewed: 12/20/2017 Reviewed by: Sienna Lee) Meryl - Fully Assessed Reason for Visit: Refill Request [94] Visit Diagnoses:S/P mitral valve replacement [Z95.2] Nonsustained paroxysmal ventricular tachycardia (HCC) [I47.2] Mitral valve regurgitation, rheumatic [I05.1] Order(s):warfarin (COUMADIN) 5 mg tabletTake 1.5 tablets by mouth once daily.Disp: 45 tabletRfl: 2 Prescriptions as of 12/31/2017 Sig: WARFARIN 5 MG TABLET Take 1.5 tablets by mouth onc* ESCITALOPRAM 10 MG TABLET TAKE 1 TABLET BY MOUTH ONCE D* FUROSEMIDE 20 MG TABLET Take 1 tablet by mouth once d* POTASSIUM CHLORIDE ER 20 MEQ * Take 1 tablet by mouth once d* MAGNESIUM OXIDE 400 MG (241.3* Take 1 tablet by mouth twice * ACETAMINOPHEN 325 MG TABLET Take 2 tablets by mouth every* METOPROLOL TARTRATE 25 MG TAB* Take 1 tablet by mouth every * FERROUS SULFATE 325 MG (65 MG* Take 1 tablet by mouth twice * SENNOSIDES 8.6 MG-DOCUSATE SO* Take 1 tablet by mouth twice * ASCORBIC ACID (VITAMIN C) 500* Take 1 tablet by mouth twice * ASPIRIN 81 MG CHEWABLE TABLET Take 81 mg by mouth once jeannette* NICOTINE 21 MG/24 HR DAILY TR* Apply 1 Patch as directed roman* Patient not taking: Reported on 12/20/2017 LEVETIRACETAM 500 MG TABLET Take 1 tablet by mouth twice * MOMETASONE-FORMOTEROL HFA 100* Inhale 2 Puffs as instructed * BUPRENORPHINE 8 MG-NALOXONE 2* Dissolve under the tongue twi* ALBUTEROL SULFATE HFA 90 MCG/* Inhale 2 Puffs as instructed * Problem List As Of Date 12/31/2017 Noted Resolved Seizures (HCC) [R56.9] INVALID FOR* More... Drug abuse [F19.10] INVALID FOR* More... Abnormal finding on breast imaging [R92.8] INVALID FOR* Asthma [J45.909] More... More... Mitral valve stenosis, rheumatic [I05.0] INVALID FOR* S/P mitral valve replacement [Z95.2] INVALID FOR* Nonsustained paroxysmal ventricular tachycardia*INVALID FOR* Nicotine use disorder, F17.2 [F17.200] INVALID FOR* Prescriptions ordered this encounter Disp Refills Start End WARFARIN 5 MG TABLET 45 t* 2 12/31/2017 01/30/2018 Route: ORAL Sig: Take 1.5 tablets by mouth once daily. Medications Discontinued During This Encounter warfarin (COUMADIN) 5 mg tablet 0 12/28/2017 12/31/2017 Class: Med Update Route: ORAL Sig: Take 1.5 tablets by mouth once daily. Disc: Reason for discontinue is not on file. Encounter Status:Closed by VENICE CORREA CNP on 12/31/17 HEMOGRAM/DIFF Collected: 12/21/2017 Status: F Source: [facility] 2:53 PM HEALTH SYSTEM REPOSITORY TYPE CODE TESTS RESULT OUT OF REFERENCE UNITS RANGE LAB LWBC(LOINC 4.8-10.8 thou/cmm ) WBC 9.3 LAB LRBC(LOINC 4.20-5.40 mil/cmm ) Low RBC 2.58 LAB LHGB(LOINC 12.0-16.0 g/dL ) Low Hgb 8.0 LAB LHCT(LOINC 37.0-47.0 % ) Low Hct 26.9 LAB LMCV(LOINC 81.0-99.0 fl ) MCV High 104.3 LAB LMCH(LOINC 27.0-31.0 pg ) MCH 31.0 LAB LMCHC(LOIN 32.0-36.0 % C) Low MCHC 29.7 LAB LRDW(LOINC 11.5-15.9 % ) RDW 14.4 LAB LPLT(LOINC 150-400 thou/cmm ) Platelet High 471 LAB LMPV(LOINC 7.1-10.5 fl ) MPV 9.2 LAB LSEGT(LOIN % C) Seg Neutrophil 57.5 LAB LLYMP(LOIN % C) Lymphocyte 17.4 LAB LMNO(LOINC % ) Monocyte 10.1 LAB TARIK(LOINC % ) Eosinophil 13.7 LAB LBASO(LOIN % C) Basophil 1.3 LAB LSEGN(LOIN 3.00-5.67 thou/cmm C) Abs. Neut (ANC) 5.35 LAB LLYMN(LOIN 1.50-3.65 thou/cmm C) Abs. Lymph 1.62 LAB LMONN(LOIN 0.20-1.00 thou/cmm C) Abs. [place] 0.94 LAB LEOSN(LOIN 0.00-0.41 thou/cmm C) Abs. High Eosin 1.27 LAB LBASN(LOIN 0.00-0.08 thou/cmm C) Abs. High Baso 0.12 Performed By: #### LCBCD #### [place] [address] PROGRESS Observed: 12/20/2017 Status: COMPLETED Source: [facility] 10:05 AM [facility] REPOSITORY HNO ID: [id number] Author: Ifeanyi Menjivar Service: (none) Author Type: Physician Type: Progress Notes Filed: 01/21/2018 10:52 AM Note Text: Transitional Care Management Progress Note The patients TCM visit was performed within the 14 days of discharge. Patient's Date of discharge: 12/09/17 Date of initial coordinator contact after discharge: 12/10/17 Discharge diagnosis: Elective mitral valve replacement Medication review completed Yes Sienna Sheth MA Provider Documentation: In follow-up of hospitalization, Benjamin Garces is a 47 year old female with the chief complaint of hospital f/u I have reviewed the patient?s last hospital course including diagnostic testing performed during this hospitalization, their discharge medications, and my assessment and plan with the patient and any family members present at today?s visit. HPI: Patient of Dr. Reyes. Here for TCM visit Patient was hospitalized at [facility] from 12/03-12/09/17 she underwent MV replacement 12/03/17, post op course was complicated by NSVT and concrn for A fib. Warfarin was started on 12/04/17 with target INR of 2, is being followed by the Coumadin clinic at [facility] - has recheck INR scheduled for 12/21/17. Was seen in [facility] office on 12/17/17 - there was concern for fluid retention - lasix was started along with potassium. Since then she hasnt gained any more weight but hasnt lost any either. Weight was 167lbs today. Has been coughing - clear/ cream colored sputum - clearing up now. Quit smoking since the Sx. Sometimes dizzy when she starts to walk but overall getting better. BP at home 90/60s, HR - 90s. Bp's have been that range. Has seen pain mgmt - had appt few days ago. Been on suboxone. Has home companion Cardiac PT will start in 2weeks once cleared by cardiothoracic Sx. Overall feels better. PAST MEDICAL HISTORY Diagnosis Date - Asthma uses inhaler PRN; never hospitalized or intubated for asthma exacerbation - COPD (chronic obstructive pulmonary disease) ([facility]) - Dermatitis - Former tobacco use quit 11/2017 - History of drug abuse no IVDA - Hives 2008; improved with Benadryl; undetermined cause - Mitral valve regurgitation, rheumatic - Mitral valve stenosis, rheumatic severe; s/p MVR (bioprosthetic) 12/03/2017 - Nonsustained paroxysmal ventricular tachycardia (HCC) 12/07/2017 16.5 seconds of NSVT at 167 bpm on telemetry monitoring POD#4 after MVR - S/P mitral valve replacement 12/03/2017 MVR ([facility]) 12/03/2017 for severe rheumatic mitral valve stenosis - Seizure (HCC) 08/2016 ALLERGIES No Known Allergies Current Outpatient Prescriptions: escitalopram oxalate (LEXAPRO) 10 mg tablet TAKE 1 TABLET BY MOUTH ONCE DAILY Disp: 30 tablet Rfl: 1 furosemide (LASIX) 20 mg tablet Take 1 tablet by mouth once daily. Take daily for 7 days. Then every other day. Disp: 30 tablet Rfl: 1 potassium chloride ER (K-DUR, KLOR-CON) 20 mEq tablet Take 1 tablet by mouth once daily. Take daily with the furosemide Disp: 30 tablet Rfl: 1 magnesium oxide (MAGOX) 400 mg (241.3 mg magnesium) tablet Take 1 tablet by mouth twice daily. Disp: 60 tablet Rfl: 1 acetaminophen (TYLENOL) 325 mg tablet Take 2 tablets by mouth every 6 hours as needed. Disp: Rfl: warfarin (COUMADIN) 5 mg tablet Take 1 tablet by mouth once daily. Disp: 30 tablet Rfl: 0 metoprolol tartrate, short acting, (LOPRESSOR) 25 mg tablet Take 1 tablet by mouth every 12 hours. Disp: 60 tablet Rfl: 2 ferrous sulfate 325 mg (65 mg iron) tablet Take 1 tablet by mouth twice daily with meals. Disp: 60 tablet Rfl: 0 polyethylene glycol 3350 (MIRALAX, GLYCOLAX) 17 gram packet Take 1 Packet by mouth once daily. (Patient not taking: Reported on 12/17/2017 ) Disp: Rfl: senna-docusate (SENNA-S) 8.6-50 mg per tablet Take 1 tablet by mouth twice daily. Disp: Rfl: ascorbic acid, vitamin C, (VITAMIN C) 500 mg tablet Take 1 tablet by mouth twice daily. Disp: 60 tablet Rfl: 0 aspirin 81 mg chewable tablet Take 81 mg by mouth once daily. Disp: Rfl: nicotine (NICODERM CQ) 21 mg/24 hr Apply 1 Patch as directed every 24 hours. APPLY ONE PATCH EVERY 24 HOURS TOPICALLY (Patient not taking: Reported on 12/17/2017 ) Disp: 28 Patch Rfl: 2 levETIRAcetam (KEPPRA) 500 mg tablet Take 1 tablet by mouth twice daily. Disp: 180 tablet Rfl: 3 ibuprofen (MOTRIN) 800 mg tablet Disp: Rfl: mometasone-formoterol (DULERA) 100-5 mcg/actuation inhaler Inhale 2 Puffs as instructed twice daily. Disp: 1 Inhaler Rfl: 1 Buprenorphine-nalOXone (SUBOXONE) 8-2 mg film Dissolve under the tongue twice daily. 8 mg tablet. Disp: Rfl: albuterol HFA (VENTOLIN HFA) 90 mcg/actuation inhaler Inhale 2 Puffs as instructed every 4 hours as needed. Disp: 2 Inhaler Rfl: 1 No current facility-administered medications for this visit. 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 Social History Main Topics Smoking status: Former Smoker Packs/day: 0.50 Years: 29.00 Types: Cigarettes Start date: 1988 Quit date: 11/19/2017 Smokeless tobacco: Never Used Comment: stopped 12/03/17 Alcohol use: No Comment: no alcohol since 2016 Drug use: No Comment: former back in high school marijuana and cocaine recent Heroin use last used 6 months Sexual activity: Yes Partners with: Male Comment: jail boyfriend Other Topics Concern Service No Blood Transfusions No Caffeine Concern Yes Comment:Amount: moderate (equiv to 1-3 8oz coffee/day) Hobby Hazards No Sleep Concern No Stress Concern No Weight Concern Yes Comment:wants to lose some weight Special Diet No Back Care Yes Exercise No Seat Belt Yes Self-Exams No Social History Narrative Works at [employer] in [place]. Lives with boyfriend. Feels safe at home. FAMILY HISTORY Problem Relation Age of Onset - Cancer Mother 54 lung - other (tobacco use) Mother - Parkinson?s Disease Father - Hypertension Father - Colon Cancer Paternal Grandmother 55 - Diabetes Paternal Grandmother - Prostate Cancer Paternal Uncle - Hypertension Sister - other (bladder problem) Sister - Arthritis Sister - No Known Problems Sister Review of Systems Constitutional: Negative for chills and fever. HENT: Negative for congestion, ear pain and sore throat. Eyes: Negative for blurred vision and double vision. Respiratory: Negative for cough, shortness of breath and wheezing. Cardiovascular: Negative for chest pain, orthopnea and leg swelling. Gastrointestinal: Negative for abdominal pain, blood in stool, constipation, diarrhea, heartburn, nausea and vomiting. Genitourinary: Negative for dysuria and hematuria. Skin: Negative for rash. Neurological: Negative for headaches. Disease/illness education: yes Home health/community services discussion/referrals:not applicable Establishment of referral orders for community resources: not applicable Discussion with other health care providers: yes Assessment and support of treatment regimen adherence:yes Appointments coordinated with: not applicable Education for self-management and activities of daily living: yes There were no vitals taken for this visit. Physical Exam Constitutional: She is oriented to person, place, and time and well-developed, well-nourished, and in no distress. No distress. HENT: Head: Normocephalic. Eyes: Conjunctivae are normal. Right eye exhibits no discharge. Left eye exhibits no discharge. Cardiovascular: Normal rate, regular rhythm, normal heart sounds and intact distal pulses. No murmur heard. Suture lines look clean dry, no surr erythema Pulmonary/Chest: Effort normal and breath sounds normal. No respiratory distress. She has no wheezes. Abdominal: Soft. Bowel sounds are normal. She exhibits no distension. There is no tenderness. Musculoskeletal: She exhibits edema (2+ LE edema, also has edema of abd wall.). Neurological: She is alert and oriented to person, place, and time. Skin: Skin is warm and dry. Psychiatric: Mood and affect normal. 1. I have reviewed the patient record including associated test results during the last hospitalization Yes 2. I have reviewed Lab test Yes 3. I have reviewed Radiology test Yes 4. I reviewed assessment/plan with the patient/family member Yes ASSESSMENT/PLAN: 1. S/P mitral valve replacement - ICD9: V43.3, ICD10: Z95.2 (primary diagnosis) Doing well post op. Had appt with [facility] 2 days ago. labwork ordered which pt was encouraged to get done. 2. Peripheral edema - ICD9: 782.3, ICD10: R60.9 Per pt this is improving. Cont lasix 3. Anemia, unspecified type - ICD9: 285.9, ICD10: D64.9 Recheck Hb levels. See above 4. Uncomplicated asthma, unspecified asthma severity, unspecified whether persistent - ICD9: 493.90, ICD10: J45.909 Mild intermittent Asthma stable - Continue current meds - Avoidance of triggers recommended 5. longterm (current) use of anticoagulants - ICD9: V58.61, ICD10: Z79.01 On coumadin being managed by the Coumadin clinic 6. Drug abuse (HCC) - ICD9: 305.90, ICD10: F19.10 Follow-up with pain management All above discussed with the patient in detail. She is in agreement with the above plan Ifeanyi Menjivar MD CNOV Observed: 12/20/2017 Status: COMPLETED Source: [place] 10:00 AM [facility] REPOSITORY Office Visit (AGINTMLW) BENJAMIN GARCES ([id number]) 1970 F Date Time Provider Department 12/20/17 10:00 AM IFEANYI MENJIVAR During your visit today, we recorded the following information about you: Temperature Pulse Respiration Blood pressure 98.7 degrees 72/minute 18/minute 98/62 Weight Height 77.2 kg 1.6 m Ifeanyi Menjivar MD 01/21/2018 10:52 AM Signed Transitional Care Management Progress Note The patients TCM visit was performed within the 14 days of discharge. Patient's Date of discharge: 12/09/17 Date of initial coordinator contact after discharge: 12/10/17 Discharge diagnosis: Elective mitral valve replacement Medication review completed Yes Sienna Sheth MA Provider Documentation: In follow-up of hospitalization, Benjamin Garces is a 47 year old female with the chief complaint of hospital f/u I have reviewed the patient?s last hospital course including diagnostic testing performed during this hospitalization, their discharge medications, and my assessment and plan with the patient and any family members present at today?s visit. HPI: Patient of Dr. Reyes. Here for TCM visit Patient was hospitalized at [facility] from 12/03-12/09/17 she underwent MV replacement 12/03/17, post op course was complicated by NSVT and concrn for A fib. Warfarin was started on 12/04/17 with target INR of 2, is being followed by the Coumadin clinic at [facility] - has recheck INR scheduled for 12/21/17. Was seen in [facility] office on 12/17/17 - there was concern for fluid retention - lasix was started along with potassium. Since then she hasnt gained any more weight but hasnt lost any either. Weight was 167lbs today. Has been coughing - clear/ cream colored sputum - clearing up now. Quit smoking since the Sx. Sometimes dizzy when she starts to walk but overall getting better. BP at home 90/60s, HR - 90s. Bp's have been that range. Has seen pain mgmt - had appt few days ago. Been on suboxone. Has home companion Cardiac PT will start in 2weeks once cleared by cardiothoracic Sx. Overall feels better. PAST MEDICAL HISTORY Diagnosis Date - Asthma uses inhaler PRN; never hospitalized or intubated for asthma exacerbation - COPD (chronic obstructive pulmonary disease) (HCC) - Dermatitis - Former tobacco use quit 11/2017 - History of drug abuse no IVDA - Hives 2008; improved with Benadryl; undetermined cause - Mitral valve regurgitation, rheumatic - Mitral valve stenosis, rheumatic severe; s/p MVR (bioprosthetic) 12/03/2017 - Nonsustained paroxysmal ventricular tachycardia (HCC) 12/07/2017 16.5 seconds of NSVT at 167 bpm on telemetry monitoring POD#4 after MVR - S/P mitral valve replacement 12/03/2017 MVR ([facility]) 12/03/2017 for severe rheumatic mitral valve stenosis - Seizure (HCC) 08/2016 ALLERGIES No Known Allergies Current Outpatient Prescriptions: escitalopram oxalate (LEXAPRO) 10 mg tablet TAKE 1 TABLET BY MOUTH ONCE DAILY Disp: 30 tablet Rfl: 1 furosemide (LASIX) 20 mg tablet Take 1 tablet by mouth once daily. Take daily for 7 days. Then every other day. Disp: 30 tablet Rfl: 1 potassium chloride ER (K-DUR, KLOR-CON) 20 mEq tablet Take 1 tablet by mouth once daily. Take daily with the furosemide Disp: 30 tablet Rfl: 1 magnesium oxide (MAGOX) 400 mg (241.3 mg magnesium) tablet Take 1 tablet by mouth twice daily. Disp: 60 tablet Rfl: 1 acetaminophen (TYLENOL) 325 mg tablet Take 2 tablets by mouth every 6 hours as needed. Disp: Rfl: warfarin (COUMADIN) 5 mg tablet Take 1 tablet by mouth once daily. Disp: 30 tablet Rfl: 0 metoprolol tartrate, short acting, (LOPRESSOR) 25 mg tablet Take 1 tablet by mouth every 12 hours. Disp: 60 tablet Rfl: 2 ferrous sulfate 325 mg (65 mg iron) tablet Take 1 tablet by mouth twice daily with meals. Disp: 60 tablet Rfl: 0 polyethylene glycol 3350 (MIRALAX, GLYCOLAX) 17 gram packet Take 1 Packet by mouth once daily. (Patient not taking: Reported on 12/17/2017 ) Disp: Rfl: senna-docusate (SENNA-S) 8.6-50 mg per tablet Take 1 tablet by mouth twice daily. Disp: Rfl: ascorbic acid, vitamin C, (VITAMIN C) 500 mg tablet Take 1 tablet by mouth twice daily. Disp: 60 tablet Rfl: 0 aspirin 81 mg chewable tablet Take 81 mg by mouth once daily. Disp: Rfl: nicotine (NICODERM CQ) 21 mg/24 hr Apply 1 Patch as directed every 24 hours. APPLY ONE PATCH EVERY 24 HOURS TOPICALLY (Patient not taking: Reported on 12/17/2017 ) Disp: 28 Patch Rfl: 2 levETIRAcetam (KEPPRA) 500 mg tablet Take 1 tablet by mouth twice daily. Disp: 180 tablet Rfl: 3 ibuprofen (MOTRIN) 800 mg tablet Disp: Rfl: mometasone-formoterol (DULERA) 100-5 mcg/actuation inhaler Inhale 2 Puffs as instructed twice daily. Disp: 1 Inhaler Rfl: 1 Buprenorphine-nalOXone (SUBOXONE) 8-2 mg film Dissolve under the tongue twice daily. 8 mg tablet. Disp: Rfl: albuterol HFA (VENTOLIN HFA) 90 mcg/actuation inhaler Inhale 2 Puffs as instructed every 4 hours as needed. Disp: 2 Inhaler Rfl: 1 No current facility-administered medications for this visit. 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 Social History Main Topics Smoking status: Former Smoker Packs/day: 0.50 Years: 29.00 Types: Cigarettes Start date: 1988 Quit date: 11/19/2017 Smokeless tobacco: Never Used Comment: stopped 12/03/17 Alcohol use: No Comment: no alcohol since 2016 Drug use: No Comment: former back in high school marijuana and cocaine recent Heroin use last used 6 months Sexual activity: Yes Partners with: Male Comment: jail boyfriend Other Topics Concern Service No Blood Transfusions No Caffeine Concern Yes Comment:Amount: moderate (equiv to 1-3 8oz coffee/day) Hobby Hazards No Sleep Concern No Stress Concern No Weight Concern Yes Comment:wants to lose some weight Special Diet No Back Care Yes Exercise No Seat Belt Yes Self-Exams No Social History Narrative Works at [employer] in [place]. Lives with boyfriend. Feels safe at home. FAMILY HISTORY Problem Relation Age of Onset - Cancer Mother 54 lung - other (tobacco use) Mother - Parkinson?s Disease Father - Hypertension Father - Colon Cancer Paternal Grandmother 55 - Diabetes Paternal Grandmother - Prostate Cancer Paternal Uncle - Hypertension Sister - other (bladder problem) Sister - Arthritis Sister - No Known Problems Sister Review of Systems Constitutional: Negative for chills and fever. HENT: Negative for congestion, ear pain and sore throat. Eyes: Negative for blurred vision and double vision. Respiratory: Negative for cough, shortness of breath and wheezing. Cardiovascular: Negative for chest pain, orthopnea and leg swelling. Gastrointestinal: Negative for abdominal pain, blood in stool, constipation, diarrhea, heartburn, nausea and vomiting. Genitourinary: Negative for dysuria and hematuria. Skin: Negative for rash. Neurological: Negative for headaches. Disease/illness education: yes Home health/community services discussion/referrals:not applicable Establishment of referral orders for community resources: not applicable Discussion with other health care providers: yes Assessment and support of treatment regimen adherence:yes Appointments coordinated with: not applicable Education for self-management and activities of daily living: yes There were no vitals taken for this visit. Physical Exam Constitutional: She is oriented to person, place, and time and well-developed, well-nourished, and in no distress. No distress. HENT: Head: Normocephalic. Eyes: Conjunctivae are normal. Right eye exhibits no discharge. Left eye exhibits no discharge. Cardiovascular: Normal rate, regular rhythm, normal heart sounds and intact distal pulses. No murmur heard. Suture lines look clean dry, no surr erythema Pulmonary/Chest: Effort normal and breath sounds normal. No respiratory distress. She has no wheezes. Abdominal: Soft. Bowel sounds are normal. She exhibits no distension. There is no tenderness. Musculoskeletal: She exhibits edema (2+ LE edema, also has edema of abd wall.). Neurological: She is alert and oriented to person, place, and time. Skin: Skin is warm and dry. Psychiatric: Mood and affect normal. 1. I have reviewed the patient record including associated test results during the last hospitalization Yes 2. I have reviewed Lab test Yes 3. I have reviewed Radiology test Yes 4. I reviewed assessment/plan with the patient/family member Yes ASSESSMENT/PLAN: 1. S/P mitral valve replacement - ICD9: V43.3, ICD10: Z95.2 (primary diagnosis) Doing well post op. Had appt with [facility] 2 days ago. labwork ordered which pt was encouraged to get done. 2. Peripheral edema - ICD9: 782.3, ICD10: R60.9 Per pt this is improving. Cont lasix 3. Anemia, unspecified type - ICD9: 285.9, ICD10: D64.9 Recheck Hb levels. See above 4. Uncomplicated asthma, unspecified asthma severity, unspecified whether persistent - ICD9: 493.90, ICD10: J45.909 Mild intermittent Asthma stable - Continue current meds - Avoidance of triggers recommended 5. longterm (current) use of anticoagulants - ICD9: V58.61, ICD10: Z79.01 On coumadin being managed by the Coumadin clinic 6. Drug abuse (HCC) - ICD9: 305.90, ICD10: F19.10 Follow-up with pain management All above discussed with the patient in detail. She is in agreement with the above plan MD Ifeanyi Hathaway MD 12/20/2017 10:49 AM Signed Monitor your BP and weight daily, keep a log and take it in for your doctor visits. Referring Provider: SELF [[id number]] Allergies As of Date: 12/20/2017 (No Known Allergies) Date Reviewed: 12/20/2017 Reviewed by: Sienna Lee) Meryl - Fully Assessed Reason for Visit: Hospital Follow Up [177] Cmt: holding lots of water and sob when moving Reason For Visit History Recorded Primary Visit Diagnosis:S/P mitral valve replacement [Z95.2] Other Visit Diagnoses:Peripheral edema [R60.9] Anemia, unspecified type [D64.9] Uncomplicated asthma, unspecified asthma severity, unspecified whether persistent [J45.909] longterm (current) use of anticoagulants [Z79.01] Drug abuse (HCC) [F19.10] Prescriptions as of 12/20/2017 Sig: FUROSEMIDE 20 MG TABLET Take 1 tablet by mouth once d* POTASSIUM CHLORIDE ER 20 MEQ * Take 1 tablet by mouth once d* X ESCITALOPRAM 10 MG TABLET TAKE 1 TABLET BY MOUTH ONCE D* X MAGNESIUM OXIDE 400 MG (241.3* Take 1 tablet by mouth twice * Patient not taking: Reported on 01/14/2018 ACETAMINOPHEN 325 MG TABLET Take 2 tablets by mouth every* FERROUS SULFATE 325 MG (65 MG* Take 1 tablet by mouth twice * SENNOSIDES 8.6 MG-DOCUSATE SO* Take 1 tablet by mouth twice * X WARFARIN 5 MG TABLET Take 1 tablet by mouth once d* X METOPROLOL TARTRATE 25 MG TAB* Take 1 tablet by mouth every * X ASCORBIC ACID (VITAMIN C) 500* Take 1 tablet by mouth twice * ASPIRIN 81 MG CHEWABLE TABLET Take 81 mg by mouth once jeannette* LEVETIRACETAM 500 MG TABLET Take 1 tablet by mouth twice * MOMETASONE-FORMOTEROL HFA 100* Inhale 2 Puffs as instructed * BUPRENORPHINE 8 MG-NALOXONE 2* Dissolve under the tongue twi* ALBUTEROL SULFATE HFA 90 MCG/* Inhale 2 Puffs as instructed * X NICOTINE 21 MG/24 HR DAILY TR* Apply 1 Patch as directed roman* Patient not taking: Reported on 12/20/2017 Problem List As Of Date 12/20/2017 Noted Resolved Seizures (HCC) [R56.9] INVALID FOR* More... Drug abuse [F19.10] INVALID FOR* More... Abnormal finding on breast imaging [R92.8] INVALID FOR* Asthma [J45.909] More... More... Mitral valve stenosis, rheumatic [I05.0] INVALID FOR* S/P mitral valve replacement [Z95.2] INVALID FOR* Nonsustained paroxysmal ventricular tachycardia*INVALID FOR* Nicotine use disorder, F17.2 [F17.200] INVALID FOR* Notes for Staff Discussed this visit Other instructions from your clinician: Monitor your BP and weight daily, keep a log and take it in for your doctor visits. Medications Discontinued During This Encounter ibuprofen (MOTRIN) 800 mg tablet 03/12/2017 12/20/2017 Class: Historical Med Sig: Disc: Discontinued by Patient polyethylene glycol 3350 (MIRALAX, G* 12/10/2017 12/20/2017 Class: OTC Route: ORAL Sig: Take 1 Packet by mouth once daily. Patient not taking: Reported on 12/17/2017 Disc: Discontinued by Patient Follow Up: Discussed this visit Disposition: Return in about 1 month (around 01/19/2018), or if symptoms worsen or fail to improve. Follow-up and Disposition History Recorded Encounter Status:Closed by MD IFEANYI MENJIVAR on 01/21/18 EKG Observed: 12/17/2017 Status: F Source: [place] 10:27 AM CLINIC OTHER [facility] REPOSITORY NAME : BENJAMIN GARCES PID : [id number] : 1970 Gender : Female Race : ORD : Procedure Date : Dec 17 2017 10:27 Edit Date : Dec 17 2017 13:12 Diagnosis:ATRIAL FIBRILLATION LOW VOLTAGE QRS IN THE LIMB LEADS LATERAL INFARCT (CITED ON OR BEFORE 08-SEP-2016) MARKED T WAVE ABNORMALITY, CONSIDER ANTERIOR ISCHEMIA ABNORMAL ECG WHEN COMPARED WITH ECG OF 04-DEC-2017 03:38, ATRIAL FIBRILLATION HAS REPLACED SINUS RHYTHM T WAVE INVERSION NOW EVIDENT IN ANTEROLATERAL LEADS Confirmed by MD Lima Anubhav ([id number]) on 12/17/2017 1:12:12 PM Ventricular Rate : 86 BPM Atrial Rate : 45 BPM QRS Duration : 76 ms Q-T Interval : 370 ms QTC Calculation(Bezet) : 442 ms R [place] : 112 degrees T [place] : 195 degrees Test Reason : Location : [id number] [phone] [id number] Overread By : MD Lima Anubhav Editted By : MD Lima Anubhav Referred By : HARI NOWAK Acquired by : Cici SEARS Observed: 12/17/2017 Status: COMPLETED Source: [place] 10:00 AM [facility] REPOSITORY Office Visit (AGVASACC) JEYSONBENJAMIN Fabricio ([id number]) 1970 F Date Time Provider Department 12/17/17 10:00 AM VENICE CORREA During your visit today, we recorded the following information about you: Pulse Respiration Blood pressure Weight 80/minute 18/minute 90/60 75.8 kg Height 1.6 m [place] Correa APRN.CNP 12/17/2017 11:09 AM Signed HPI:Benjaminalok Garces is a 47 year old female that returns to the office today for 1 week post-discharge follow up for severe mitral stenosis s/p combined, Mitral valve replacement with #27 [place] Epic Mitral Prosthesis and exclusion of the left atrial appendage with # 35-mm AtriCure Clip performed on 12/03/2017. Her post-operative course was complicated by NSVT and concern for atrial fibrilation. She was discharged on 12/09/2017. Today, Benjamin Garces, reports feeling better over all. Pain denies pain CV (Dizzy, palpitations, BP) Some dizziness Diet improving, may eat regular diet Bowel Normal BM Activity Engaing in more activity C/O water retention and abdominal bloating, LE edema Subjective: Current Outpatient Prescriptions: escitalopram oxalate (LEXAPRO) 10 mg tablet TAKE 1 TABLET BY MOUTH ONCE DAILY acetaminophen (TYLENOL) 325 mg tablet Take 2 tablets by mouth every 6 hours as needed. warfarin (COUMADIN) 5 mg tablet Take 1 tablet by mouth once daily. metoprolol tartrate, short acting, (LOPRESSOR) 25 mg tablet Take 1 tablet by mouth every 12 hours. ferrous sulfate 325 mg (65 mg iron) tablet Take 1 tablet by mouth twice daily with meals. polyethylene glycol 3350 (MIRALAX, GLYCOLAX) 17 gram packet Take 1 Packet by mouth once daily. senna-docusate (SENNA-S) 8.6-50 mg per tablet Take 1 tablet by mouth twice daily. ascorbic acid, vitamin C, (VITAMIN C) 500 mg tablet Take 1 tablet by mouth twice daily. aspirin 81 mg chewable tablet Take 81 mg by mouth once daily. nicotine (NICODERM CQ) 21 mg/24 hr Apply 1 Patch as directed every 24 hours. APPLY ONE PATCH EVERY 24 HOURS TOPICALLY levETIRAcetam (KEPPRA) 500 mg tablet Take 1 tablet by mouth twice daily. ibuprofen (MOTRIN) 800 mg tablet mometasone-formoterol (DULERA) 100-5 mcg/actuation inhaler Inhale 2 Puffs as instructed twice daily. Buprenorphine-nalOXone (SUBOXONE) 8-2 mg film Dissolve under the tongue twice daily. 8 mg tablet. albuterol HFA (VENTOLIN HFA) 90 mcg/actuation inhaler Inhale 2 Puffs as instructed every 4 hours as needed. No current facility-administered medications for this visit. Patient has no known allergies. PAST MEDICAL HISTORY Diagnosis Date - Asthma uses inhaler PRN; never hospitalized or intubated for asthma exacerbation - COPD (chronic obstructive pulmonary disease) (HCC) - Dermatitis - Former tobacco use quit 11/2017 - History of drug abuse no IVDA - Hives 2008; improved with Benadryl; undetermined cause - Mitral valve regurgitation, rheumatic - Mitral valve stenosis, rheumatic severe; s/p MVR (bioprosthetic) 12/03/2017 - Nonsustained paroxysmal ventricular tachycardia (HCC) 12/07/2017 16.5 seconds of NSVT at 167 bpm on telemetry monitoring POD#4 after MVR - S/P mitral valve replacement 12/03/2017 MVR ([facility] Epic) 12/03/2017 for severe rheumatic mitral valve stenosis - Seizure (HCC) 08/2016 PAST SURGICAL HISTORY Procedure Laterality Date - CARPAL TUNNEL Bilateral 03/07/2017 Dr. Schmitt both wrists - ECHOCARDIOGRAM 07/11/2017 normal LV systolic fxn; LVEF 57%; dilated RV with normal RV systolic fxn; severe LAE; severe MS; moderately severe MR - HOLTER MONITOR 48 HR 07/11/2017 sinus rhythm; PACs; brief PAT - REPLACEMENT OF MITRAL VALVE 12/03/2017 MVR ([facility] bioprosthetic) for rheumatic mitral stenosis; KARIN closure; CCAG Dr. Lew - RIGHT AND LEFT HEART CATH 10/17/2017 normal coronary arteries; mild pHTN - PRESTON 09/19/2017 severe MS; moderate MR; severe LAE; LVEF 50-55% FAMILY HISTORY Problem Relation Age of Onset - Cancer Mother 54 lung - other (tobacco use) Mother - Parkinson?s Disease Father - Hypertension Father - Colon Cancer Paternal Grandmother 55 - Diabetes Paternal Grandmother - Prostate Cancer Paternal Uncle - Hypertension Sister - other (bladder problem) Sister - Arthritis Sister - No Known Problems Sister Social History Substance Use Topics - Smoking status: Former Smoker Packs/day: 0.50 Years: 29.00 Types: Cigarettes Start date: 1988 Quit date: 11/19/2017 - Smokeless tobacco: Never Used Comment: cutting back 3-4 per day quit 11/25/17 - Alcohol use No Comment: no alcohol since 2016 Review of Systems Constitutional: Positive for malaise/fatigue. Negative for chills, fever and weight loss (10 lb weignt gain). HENT: Negative for sore throat. Respiratory: Positive for cough and sputum production. Negative for shortness of breath and wheezing. Cardiovascular: Positive for leg swelling (2-3 + pitting edema and abdominal bloating). Negative for chest pain, palpitations, orthopnea, claudication and PND. Gastrointestinal: Negative for abdominal pain, blood in stool, constipation, diarrhea, melena, nausea and vomiting. Genitourinary: Negative for dysuria. Musculoskeletal: Negative for falls and joint pain. Skin: No new lesions Neurological: Negative for dizziness, tingling, sensory change, focal weakness, weakness and headaches. Endo/Heme/Allergies: Does not bruise/bleed easily. Psychiatric/Behavioral: Negative for depression. The patient has insomnia. Objective: Physical Examination: Vitals:BP 90/60 Pulse 80[irregular[ Resp 18 Ht 5' 3 (1.60m) Wt 167 lb (75.8kg) SpO2 87% BMI 29.59 kg/(m2). Last 2 Encounter Wt Readings: Date: Wt: 12/17/2017 167 11/26/2017 157 lb (71.2 kg) 10/24/2017 159 lb 6.3 oz (72.3 kg) Physical Exam Constitutional: She is oriented to person, place, and time and well-developed, well-nourished, and in no distress. HENT: Head: Normocephalic. Eyes: Pupils are equal, round, and reactive to light. Cardiovascular: Normal rate, regular rhythm, S1 normal, S2 normal and intact distal pulses. No murmur heard. Pulmonary/Chest: Effort normal. She has wheezes. Abdominal: Soft. Normal appearance and bowel sounds are normal. She exhibits distension. Musculoskeletal: Normal range of motion. She exhibits edema (2+ pitting edema). Neurological: She is alert and oriented to person, place, and time. Skin: Skin is warm and intact. Midsternal incision clean dry, well approximated, no redness or drainage Sternum is stable Ct Sites Scabbed and healing SVG site clean dry, no redness, drainage, or hematoma Psychiatric: Mood and affect normal. Assessment and Plan: ASSESSMENT/PLAN: 1. S/P mitral valve replacement - ICD9: V43.3, ICD10: Z95.2 (primary diagnosis) - Continue ASA, metoprolol - EKG WITH INTERPRETATION - Add lasix for edema. Take daily for 7 days the every other day. May go to as needed when edema resolves. - Take K+ daily with the potassium - Take mag-ox 2x daily every day. - Take dulera inhaler 2x daily every day. - Take mucinex to help with the cough 2. Nonsustained paroxysmal ventricular tachycardia (HCC) - ICD9: 427.1, ICD10: I47.2 - EKG WITH INTERPRETATION In office shows atrial fibrillation rate controlled - Continue Coumadin. Established with [facility]. INR needs to be called into [facility] clinic from now on. - Follow-up with patch monitor Venice Correa APRN.CNP In summary, Benjamin Garces is doing fair overall after her MVR/LAAC sugery, with no major complaints. she should follow-up in this office in 3-4 weeks with Chest X-ray. Thanks. Electronically signed by Venice Correa APRN.CNP on December 17, 2017, 9:59 AM Venice Correa APRN.CNP 12/17/2017 10:53 AM Addendum -Please follow-up with your primary care physician and your market development executive in 3-4 weeks -Please return to cardiac surgery in 3-4 weeks with a chest x-ray done before the appointment -Restriction remain: No lifting more than 10 lbs and No driving. -Cardiac rehab has been consulted. You will be able to begin cardiac rehab after your next visit with us. [phone] ([facility]) or [phone] ([facility]) [phone]. ([facility]) May start cardiac rehab in 3-4 weeks -Start Lasix 20 mg daily. Monitor BP and weight with the lasix. Once weight and swelling return to normal, may change to every other day or as needed. -Take potassium with the lasix -Take magnesium twice a day every day. -Take mucinex for cough -Take Dulera inhaler twice a day every day -Feel free to call us if you have questions or concerns Thank you for coming to see me today! Venice Correa APRN.ASSURANCE SENIOR Referring Provider: CLAUDIO REYES [[id number]] Allergies As of Date: 12/17/2017 (No Known Allergies) Date Reviewed: 12/17/2017 Reviewed by: Aaron (Lu) Shaji - Fully Assessed Reason for Visit: Post Op [174] Cmt: MVR 12/03/17, EKG ordered today Primary Visit Diagnosis:S/P mitral valve replacement [Z95.2] Other Visit Diagnosis:Nonsustained paroxysmal ventricular tachycardia (HCC) [I47.2] Order(s):EKG WITH INTERPRETATION [11331WGD] Order #: [id number]: 1 XR CHEST 2V FRONTAL/LAT [[id number]] Order #: [id number] FUTURE furosemide (LASIX) 20 mg tabletTake 1 tablet by mouth once daily. Take daily for 7 days. Then every other day.Disp: 30 tabletRfl: 1 potassium chloride ER (K-DUR, KLOR-CON) 20 mEq tabletTake 1 tablet by mouth once daily. Take daily with the furosemideDisp: 30 tabletRfl: 1 magnesium oxide (MAGOX) 400 mg (241.3 mg magnesium) tabletTake 1 tablet by mouth twice daily.Disp: 60 tabletRfl: 1 Prescriptions as of 12/17/2017 Sig: ESCITALOPRAM 10 MG TABLET TAKE 1 TABLET BY MOUTH ONCE D* ACETAMINOPHEN 325 MG TABLET Take 2 tablets by mouth every* WARFARIN 5 MG TABLET Take 1 tablet by mouth once d* METOPROLOL TARTRATE 25 MG TAB* Take 1 tablet by mouth every * FERROUS SULFATE 325 MG (65 MG* Take 1 tablet by mouth twice * SENNOSIDES 8.6 MG-DOCUSATE SO* Take 1 tablet by mouth twice * ASCORBIC ACID (VITAMIN C) 500* Take 1 tablet by mouth twice * ASPIRIN 81 MG CHEWABLE TABLET Take 81 mg by mouth once jeannette* LEVETIRACETAM 500 MG TABLET Take 1 tablet by mouth twice * MOMETASONE-FORMOTEROL HFA 100* Inhale 2 Puffs as instructed * BUPRENORPHINE 8 MG-NALOXONE 2* Dissolve under the tongue twi* ALBUTEROL SULFATE HFA 90 MCG/* Inhale 2 Puffs as instructed * FUROSEMIDE 20 MG TABLET Take 1 tablet by mouth once d* POTASSIUM CHLORIDE ER 20 MEQ * Take 1 tablet by mouth once d* MAGNESIUM OXIDE 400 MG (241.3* Take 1 tablet by mouth twice * POLYETHYLENE GLYCOL 3350 17 G* Take 1 Packet by mouth once d* Patient not taking: Reported on 12/17/2017 NICOTINE 21 MG/24 HR DAILY TR* Apply 1 Patch as directed roman* Patient not taking: Reported on 12/17/2017 IBUPROFEN 800 MG TABLET Problem List As Of Date 12/17/2017 Noted Resolved Seizures (HCC) [R56.9] INVALID FOR* More... Drug abuse [F19.10] INVALID FOR* More... Abnormal finding on breast imaging [R92.8] INVALID FOR* Asthma [J45.909] More... More... Mitral valve stenosis, rheumatic [I05.0] INVALID FOR* S/P mitral valve replacement [Z95.2] INVALID FOR* Nonsustained paroxysmal ventricular tachycardia*INVALID FOR* Nicotine use disorder, F17.2 [F17.200] INVALID FOR* Other instructions from your clinician: -Please follow-up with your primary care physician and your market development executive in 3-4 weeks -Please return to cardiac surgery in 3-4 weeks with a chest x-ray done before the appointment -Restriction remain: No lifting more than 10 lbs and No driving. -Cardiac rehab has been consulted. You will be able to begin cardiac rehab after your next visit with us. [phone] ([facility]) or [phone] ([facility]) [phone]. ([facility]) May start cardiac rehab in 3-4 weeks -Start Lasix 20 mg daily. Monitor BP and weight with the lasix. Once weight and swelling return to normal, may change to every other day or as needed. -Take potassium with the lasix -Take magnesium twice a day every day. -Take mucinex for cough -Take Dulera inhaler twice a day every day -Feel free to call us if you have questions or concerns Thank you for coming to see me today! Venice Correa APRN.MARIVEL Prescriptions ordered this encounter Disp Refills Start End FUROSEMIDE 20 MG TABLET 30 t* 1 12/17/2017 Route: ORAL Sig: Take 1 tablet by mouth once daily. Take daily for 7 days. Then every other day. POTASSIUM CHLORIDE ER 20 MEQ TABLET,* 30 t* 1 12/17/2017 Route: ORAL Sig: Take 1 tablet by mouth once daily. Take daily with the furosemide MAGNESIUM OXIDE 400 MG (241.3 MG MAG* 60 t* 1 12/17/2017 Route: ORAL Sig: Take 1 tablet by mouth twice daily. Encounter Status:Closed by VENICE CORREA CNP on 12/17/17 PROGRESS Observed: 12/17/2017 Status: COMPLETED Source: [place] 9:59 AM CLINIC OTHER CAMPUS REPOSITORY HNO ID: [id number] Author: Venice Correa Service: (none) Author Type: Nurse Practitioner Type: Progress Notes Filed: 12/17/2017 11:09 AM Note Text: HPI:Benjamin Garces is a 47 year old female that returns to the office today for 1 week post-discharge follow up for severe mitral stenosis s/p combined, Mitral valve replacement with #27 [place] Epic Mitral Prosthesis and exclusion of the left atrial appendage with # 35-mm AtriCure Clip performed on 12/03/2017. Her post-operative course was complicated by NSVT and concern for atrial fibrilation. She was discharged on 12/09/2017. Today, Benjamin Garces, reports feeling better over all. Pain denies pain CV (Dizzy, palpitations, BP) Some dizziness Diet improving, may eat regular diet Bowel Normal BM Activity Engaing in more activity C/O water retention and abdominal bloating, LE edema Subjective: Current Outpatient Prescriptions: escitalopram oxalate (LEXAPRO) 10 mg tablet TAKE 1 TABLET BY MOUTH ONCE DAILY acetaminophen (TYLENOL) 325 mg tablet Take 2 tablets by mouth every 6 hours as needed. warfarin (COUMADIN) 5 mg tablet Take 1 tablet by mouth once daily. metoprolol tartrate, short acting, (LOPRESSOR) 25 mg tablet Take 1 tablet by mouth every 12 hours. ferrous sulfate 325 mg (65 mg iron) tablet Take 1 tablet by mouth twice daily with meals. polyethylene glycol 3350 (MIRALAX, GLYCOLAX) 17 gram packet Take 1 Packet by mouth once daily. senna-docusate (SENNA-S) 8.6-50 mg per tablet Take 1 tablet by mouth twice daily. ascorbic acid, vitamin C, (VITAMIN C) 500 mg tablet Take 1 tablet by mouth twice daily. aspirin 81 mg chewable tablet Take 81 mg by mouth once daily. nicotine (NICODERM CQ) 21 mg/24 hr Apply 1 Patch as directed every 24 hours. APPLY ONE PATCH EVERY 24 HOURS TOPICALLY levETIRAcetam (KEPPRA) 500 mg tablet Take 1 tablet by mouth twice daily. ibuprofen (MOTRIN) 800 mg tablet mometasone-formoterol (DULERA) 100-5 mcg/actuation inhaler Inhale 2 Puffs as instructed twice daily. Buprenorphine-nalOXone (SUBOXONE) 8-2 mg film Dissolve under the tongue twice daily. 8 mg tablet. albuterol HFA (VENTOLIN HFA) 90 mcg/actuation inhaler Inhale 2 Puffs as instructed every 4 hours as needed. No current facility-administered medications for this visit. Patient has no known allergies. PAST MEDICAL HISTORY Diagnosis Date - Asthma uses inhaler PRN; never hospitalized or intubated for asthma exacerbation - COPD (chronic obstructive pulmonary disease) ([facility]) - Dermatitis - Former tobacco use quit 11/2017 - History of drug abuse no IVDA - Hives 2008; improved with Benadryl; undetermined cause - Mitral valve regurgitation, rheumatic - Mitral valve stenosis, rheumatic severe; s/p MVR (bioprosthetic) 12/03/2017 - Nonsustained paroxysmal ventricular tachycardia ([facility]) 12/07/2017 16.5 seconds of NSVT at 167 bpm on telemetry monitoring POD#4 after MVR - S/P mitral valve replacement 12/03/2017 MVR ([facility] Epic) 12/03/2017 for severe rheumatic mitral valve stenosis - Seizure ([facility]) 08/2016 PAST SURGICAL HISTORY Procedure Laterality Date - CARPAL TUNNEL Bilateral 03/07/2017 Dr. Schmitt both wrists - ECHOCARDIOGRAM 07/11/2017 normal LV systolic fxn; LVEF 57%; dilated RV with normal RV systolic fxn; severe LAE; severe MS; moderately severe MR - HOLTER MONITOR 48 HR 07/11/2017 sinus rhythm; PACs; brief PAT - REPLACEMENT OF MITRAL VALVE 12/03/2017 MVR ([facility] bioprosthetic) for rheumatic mitral stenosis; KARIN closure; CCAG Dr. Lew - RIGHT AND LEFT HEART CATH 10/17/2017 normal coronary arteries; mild pHTN - PRESTON 09/19/2017 severe MS; moderate MR; severe LAE; LVEF 50-55% FAMILY HISTORY Problem Relation Age of Onset - Cancer Mother 54 lung - other (tobacco use) Mother - Parkinson?s Disease Father - Hypertension Father - Colon Cancer Paternal Grandmother 55 - Diabetes Paternal Grandmother - Prostate Cancer Paternal Uncle - Hypertension Sister - other (bladder problem) Sister - Arthritis Sister - No Known Problems Sister Social History Substance Use Topics - Smoking status: Former Smoker Packs/day: 0.50 Years: 29.00 Types: Cigarettes Start date: 1988 Quit date: 11/19/2017 - Smokeless tobacco: Never Used Comment: cutting back 3-4 per day quit 11/25/17 - Alcohol use No Comment: no alcohol since 2016 Review of Systems Constitutional: Positive for malaise/fatigue. Negative for chills, fever and weight loss (10 lb weignt gain). HENT: Negative for sore throat. Respiratory: Positive for cough and sputum production. Negative for shortness of breath and wheezing. Cardiovascular: Positive for leg swelling (2-3 + pitting edema and abdominal bloating). Negative for chest pain, palpitations, orthopnea, claudication and PND. Gastrointestinal: Negative for abdominal pain, blood in stool, constipation, diarrhea, melena, nausea and vomiting. Genitourinary: Negative for dysuria. Musculoskeletal: Negative for falls and joint pain. Skin: No new lesions Neurological: Negative for dizziness, tingling, sensory change, focal weakness, weakness and headaches. Endo/Heme/Allergies: Does not bruise/bleed easily. Psychiatric/Behavioral: Negative for depression. The patient has insomnia. Objective: Physical Examination: Vitals:BP 90/60 Pulse 80[irregular[ Resp 18 Ht 5' 3 (1.60m) Wt 167 lb (75.8kg) SpO2 87% BMI 29.59 kg/(m2). Last 2 Encounter Wt Readings: Date: Wt: 12/17/2017 167 11/26/2017 157 lb (71.2 kg) 10/24/2017 159 lb 6.3 oz (72.3 kg) Physical Exam Constitutional: She is oriented to person, place, and time and well-developed, well-nourished, and in no distress. HENT: Head: Normocephalic. Eyes: Pupils are equal, round, and reactive to light. Cardiovascular: Normal rate, regular rhythm, S1 normal, S2 normal and intact distal pulses. No murmur heard. Pulmonary/Chest: Effort normal. She has wheezes. Abdominal: Soft. Normal appearance and bowel sounds are normal. She exhibits distension. Musculoskeletal: Normal range of motion. She exhibits edema (2+ pitting edema). Neurological: She is alert and oriented to person, place, and time. Skin: Skin is warm and intact. Midsternal incision clean dry, well approximated, no redness or drainage Sternum is stable Ct Sites Scabbed and healing SVG site clean dry, no redness, drainage, or hematoma Psychiatric: Mood and affect normal. Assessment and Plan: ASSESSMENT/PLAN: 1. S/P mitral valve replacement - ICD9: V43.3, ICD10: Z95.2 (primary diagnosis) - Continue ASA, metoprolol - EKG WITH INTERPRETATION - Add lasix for edema. Take daily for 7 days the every other day. May go to as needed when edema resolves. - Take K+ daily with the potassium - Take mag-ox 2x daily every day. - Take dulera inhaler 2x daily every day. - Take mucinex to help with the cough 2. Nonsustained paroxysmal ventricular tachycardia (HCC) - ICD9: 427.1, ICD10: I47.2 - EKG WITH INTERPRETATION In office shows atrial fibrillation rate controlled - Continue Coumadin. Established with [facility]. INR needs to be called into [facility] clinic from now on. - Follow-up with patch monitor Venice Correa APRN.CNP In summary, Benjamin Garces is doing fair overall after her MVR/LAAC sugery, with no major complaints. she should follow-up in this office in 3-4 weeks with Chest X-ray. Thanks. Electronically signed by Venice Correa APRN.CNP on December 17, 2017, 9:59 AM OBSOLETE Observed: 12/14/2017 Status: COMPLETED Source: [place] 12:00 AM [facility] REPOSITORY Refill (AGINTMLW) BENJAMIN AGRCES ([id number]) 1970 F Date Time Provider Department 12/14/17 CLAUDIO REYES AGINTMLW During your visit today, we recorded the following information about you: Sienna Sheth MA 12/14/2017 2:35 PM Signed Pharmacy electronically requesting refills as follows: Last Office Visit 07/30/17. Last Refill 10/03/17. Pending Prescriptions Disp Refills ESCITALOPRAM 10 MG TABLET 30 tablet 1 Sig: TAKE 1 TABLET BY MOUTH ONCE DAILY TRANG: Yes Please review and advise. 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] Order(s):escitalopram oxalate (LEXAPRO) 10 mg tabletTAKE 1 TABLET BY MOUTH ONCE DAILYDisp: 30 tabletRfl: 1 Prescriptions as of 12/14/2017 Sig: ESCITALOPRAM 10 MG TABLET TAKE 1 TABLET BY MOUTH ONCE D* ACETAMINOPHEN 325 MG TABLET Take 2 tablets by mouth every* WARFARIN 5 MG TABLET Take 1 tablet by mouth once d* METOPROLOL TARTRATE 25 MG TAB* Take 1 tablet by mouth every * FERROUS SULFATE 325 MG (65 MG* Take 1 tablet by mouth twice * POLYETHYLENE GLYCOL 3350 17 G* Take 1 Packet by mouth once d* SENNOSIDES 8.6 MG-DOCUSATE SO* Take 1 tablet by mouth twice * ASCORBIC ACID (VITAMIN C) 500* Take 1 tablet by mouth twice * OXYCODONE-ACETAMINOPHEN 5 MG-* Take 1-2 tablets by mouth roman* ASPIRIN 81 MG CHEWABLE TABLET Take 81 mg by mouth once jeannette* NICOTINE 21 MG/24 HR DAILY TR* Apply 1 Patch as directed roman* LEVETIRACETAM 500 MG TABLET Take 1 tablet by mouth twice * IBUPROFEN 800 MG TABLET MOMETASONE-FORMOTEROL HFA 100* Inhale 2 Puffs as instructed * BUPRENORPHINE 8 MG-NALOXONE 2* Dissolve under the tongue twi* ALBUTEROL SULFATE HFA 90 MCG/* Inhale 2 Puffs as instructed * Problem List As Of Date 12/14/2017 Noted Resolved Seizures (HCC) [R56.9] INVALID FOR* More... Drug abuse [F19.10] INVALID FOR* More... Abnormal finding on breast imaging [R92.8] INVALID FOR* Asthma [J45.909] More... More... Mitral valve stenosis, rheumatic [I05.0] INVALID FOR* S/P mitral valve replacement [Z95.2] INVALID FOR* Nonsustained paroxysmal ventricular tachycardia*INVALID FOR* Nicotine use disorder, F17.2 [F17.200] INVALID FOR* Prescriptions ordered this encounter Disp Refills Start End ESCITALOPRAM 10 MG TABLET 30 t* 1 12/17/2017 Route: ORAL Sig: TAKE 1 TABLET BY MOUTH ONCE DAILY Medications Discontinued During This Encounter escitalopram oxalate (LEXAPRO) 10 mg* 30 t* 1 10/03/2017 12/17/2017 Route: ORAL Sig: Take 1 tablet by mouth once daily. Disc: Reason for discontinue is not on file. Encounter Status:Closed by CLAUDIO REYES MD on 12/17/17 IVELISSE Observed: 12/11/2017 Status: COMPLETED Source: [place] 12:00 AM CLINIC OTHER CAMPUS REPOSITORY Telephone (AKPRAAngela) BENJAMIN GARCES ([id number]) 1970 F Date Time Provider Department 12/11/17 FARIDEH BUSTOS) SADIE During your visit today, we recorded the following information about you: Farideh Bustos APRN.CNP, APRN.CNP 12/11/2017 3:52 PM Signed Talked to VNS regarding Mrs. Garces. Concerning her irregular heart beat, per patient, she is feeling bouts of arrhythmia where she states something doesn't feel right. No syncopal events yet but does report LH/DZ. Per VNS, her INR is 3.1 today. She is instructed to take 2.5 mg today and 2.5 tomorrow then 5 mg after. Repeat INR at the next VNS visit. Reiterate her medication on the phone with VNS: Metoprolol 25 BID, Coumadin doses as instructed. I also contacted Whit [employer] PA[employer] regarding her 2 week machine container washer patch, she will placed the order and start the process. Farideh Bustos APRN.CNP Allergies As of Date: 12/11/2017 (No Known Allergies) Date Reviewed: 12/08/2017 Reviewed by: Shyla Blunt) MAG Ansari - Fully Assessed Reason for Visit: Yard Coordinator - Hospital Follow Up [[id number]] Prescriptions as of 12/11/2017 Sig: ACETAMINOPHEN 325 MG TABLET Take 2 tablets by mouth every* WARFARIN 5 MG TABLET Take 1 tablet by mouth once d* METOPROLOL TARTRATE 25 MG TAB* Take 1 tablet by mouth every * FERROUS SULFATE 325 MG (65 MG* Take 1 tablet by mouth twice * POLYETHYLENE GLYCOL 3350 17 G* Take 1 Packet by mouth once d* SENNOSIDES 8.6 MG-DOCUSATE SO* Take 1 tablet by mouth twice * ASCORBIC ACID (VITAMIN C) 500* Take 1 tablet by mouth twice * OXYCODONE-ACETAMINOPHEN 5 MG-* Take 1-2 tablets by mouth roman* ASPIRIN 81 MG CHEWABLE TABLET Take 81 mg by mouth once jeannette* ESCITALOPRAM 10 MG TABLET Take 1 tablet by mouth once d* NICOTINE 21 MG/24 HR DAILY TR* Apply 1 Patch as directed roman* LEVETIRACETAM 500 MG TABLET Take 1 tablet by mouth twice * IBUPROFEN 800 MG TABLET MOMETASONE-FORMOTEROL HFA 100* Inhale 2 Puffs as instructed * BUPRENORPHINE 8 MG-NALOXONE 2* Dissolve under the tongue twi* ALBUTEROL SULFATE HFA 90 MCG/* Inhale 2 Puffs as instructed * Problem List As Of Date 12/11/2017 Noted Resolved Seizures (HCC) [R56.9] INVALID FOR* More... Drug abuse [F19.10] INVALID FOR* More... Abnormal finding on breast imaging [R92.8] INVALID FOR* Asthma [J45.909] More... More... Mitral valve stenosis, rheumatic [I05.0] INVALID FOR* S/P mitral valve replacement [Z95.2] INVALID FOR* Nonsustained paroxysmal ventricular tachycardia*INVALID FOR* Nicotine use disorder, F17.2 [F17.200] INVALID FOR* Encounter Status:Closed by FARIDEH BUSTOS CNP on 12/11/17 PROGRESS Observed: 12/10/2017 Status: COMPLETED Source: [place] 10:15 AM [facility] REPOSITORY O ID: [id number] Author: Alex (Mag) Gladys Service: (none) Author Type: Registered Nurse Type: Progress Notes Filed: 12/10/2017 10:26 AM Note Text: TRANSITION CARE MANAGEMENT (TCM) INITIAL CONTACT Provider Action/FYI: TCM [facility] 12/03-12/09/17 for elective mitral valve replacement surgery. Pt is following up with Dr Lew 12/17/17. Initial contact with patient post discharge, spoke to Benjamin Garces. Patient identified by name and . TRANSITION CARE MANAGEMENT: Date of Outreach: 12/10/2017 Outreach Attempt 1: Contact Made Date of Discharge 12/09/2017 Some recent data might be hidden SUMMARY: -Pt discharged from [facility] on 12/09/17. -Follow up appointment on 12/18/17. -Medication review done yes. -Admitted for: Elective mitral valve replacement CONCERNS: Pt is now on coumadin. Pt also has a hx of substance abuse and has been on suboxone. NEW MEDICATIONS: START taking these medications ? acetaminophen (TYLENOL) 650 mg Take 650 mg by mouth every 6 hours as needed. ? ? warfarin (COUMADIN) 5 mg Take 5 mg by mouth once daily. ? Qty: 30 tablet Refills: 0 Associated Diagnoses:S/P mitral valve replacement; Nonsustained paroxysmal ventricular tachycardia (HCC); Mitral valve regurgitation, rheumatic ? metoprolol tartrate (short acting) (LOPRESSOR) 25 mg Take 25 mg by mouth every 12 hours. ? Qty: 60 tablet Refills: 2 ? ferrous sulfate 325 mg Take 325 mg by mouth twice daily with meals. ? Qty: 60 tablet Refills: 0 ? polyethylene glycol 3350 (MIRALAX, GLYCOLAX) 17 g Take 17 g by mouth once daily. ? ? senna-docusate (SENNA-S) 1 tablet Take 1 tablet by mouth twice daily. ? ? ascorbic acid (vitamin C) (VITAMIN C) 500 mg Take 500 mg by mouth twice daily. ? Qty: 60 tablet Refills: 0 ? oxyCODONE-acetaminophen (PERCOCET) 1-2 tablets Take 1-2 tablets by mouth every 4 hours as needed. OARRS reviewed; aware of 11/26 Suboxone Rx; pt is s/p MVR/cardiac surgery- post op pain control Earliest Fill Date: 12/07/17 Qty: 20 tablet Refills: 0 Associated Diagnoses:S/P mitral valve replacement; Mitral valve stenosis, rheumatic ? ? MEDS HELD/DISCONTINUED: ? mupirocin (BACTROBAN) 1 application Comments: Reason for Stopping: ? OTC PRODUCT Comments: Reason for Stopping: ? BRIEF HOSPITAL COURSE: SUMMARY OF WHAT HAPPENED WHILE I WAS IN THE HOSPITAL: This is a 47 year old female who was referred by Dr Tripp for severe symptomatic rheumatic mitral stenosis in the setting of current smoker, asthma, seizure disorder and history of drug abuse. She states that her BP has been very low since she started seeing her current PCP, approximately 1 year with readings 80's/50's. She states that about a year ago she noticed increasing fatigue, SOB, dizziness, leg heaviness with climbing stairs. Then in Feb 04/Mar 08 she had an episode at work when she experienced severe dizziness with near syncope and she was sent home. During this episode she denies any acute illness, or chest pain. Since this episode, she has notice increasing dizziness, fatigue, exercise intolerance, and PND requiring 2-3 pillows to sleep at night. She saw her neurologist Dr James in june 2017, and reported these symptoms. He ordered an echo and 48 hour holter monitor. ?A surface echo was done in 06/2017 which showed severe MS and left atrial enlargement. The holter showed ?NSR with SVE beats and runs. At which point she was referred to Dr Tripp who ordered a PRESTON with severe MS, Moderate ?MR, and evidence of right to left intra-atrial shunting with valsalva. She was referred to cardiothoracic surgery for further evaluation. ? She reports her drug use of heroin which she snorted as well as other oral and inhaled drugs including amphetimine. ?She denied IV drug use. She further states that she quit about a year ago after her first seizure and follow [facility]. Her Seizure disorder was diagnosed after her first seizure in 08/2016. EEG notes left fronto-temporal seizure, but imaging was grossly non specific. Patient underwent MVR on 12/[address] Lew. Her post-op recovery was uncomplicated. She was transferred out of ICU on POD #2. She has been followed by pain management for appropriated pain control with plan of resuming to subaxone for outpatient substance therapy. She had a long run of nonsustained VT for about 16 seconds at about 166 bpm on her POD#4, consulted to EP, managed with increase beta irene and recommend a two-week patch nurse monitoring outpatient. ? IVELISSE Observed: 12/10/2017 Status: COMPLETED Source: [facility] 12:00 AM [facility] OTHER CAMPUS REPOSITORY Telephone (AGVASACC) JEYSONBENJAMIN ([id number]) 1970 F Date Time Provider Department 12/10/17 YONAS LEW During your visit today, we recorded the following information about you: Beatrice Fabian 12/10/2017 11:13 AM Signed Patient would like to know where and how she can get in contact with her visiting nurse? She said you were going to call and set it up and she needs to have this done tomorrow and she doesn't know how to arrange it. Farideh Bustos APRN.GENOVEVA REDMOND 12/10/2017 3:04 PM Signed Call made to patient regarding both coumadin clinic follow up and [facility] follow ups. Phone numbers are given to patient to contact. I had contacted coumadin clinic Krystyna via in-basket and also called [facility] main line to make aware of patient's situation on Sunday. Thanks. Farideh Bustos APRN.CNP Allergies As of Date: 12/10/2017 (No Known Allergies) Date Reviewed: 12/08/2017 Reviewed by: Shyla (Rn) MAG Ansari - Fully Assessed Reason for Visit: Question [1327] Prescriptions as of 12/10/2017 Sig: ACETAMINOPHEN 325 MG TABLET Take 2 tablets by mouth every* WARFARIN 5 MG TABLET Take 1 tablet by mouth once d* METOPROLOL TARTRATE 25 MG TAB* Take 1 tablet by mouth every * FERROUS SULFATE 325 MG (65 MG* Take 1 tablet by mouth twice * POLYETHYLENE GLYCOL 3350 17 G* Take 1 Packet by mouth once d* SENNOSIDES 8.6 MG-DOCUSATE SO* Take 1 tablet by mouth twice * ASCORBIC ACID (VITAMIN C) 500* Take 1 tablet by mouth twice * OXYCODONE-ACETAMINOPHEN 5 MG-* Take 1-2 tablets by mouth roman* ASPIRIN 81 MG CHEWABLE TABLET Take 81 mg by mouth once jeannette* ESCITALOPRAM 10 MG TABLET Take 1 tablet by mouth once d* NICOTINE 21 MG/24 HR DAILY TR* Apply 1 Patch as directed roman* LEVETIRACETAM 500 MG TABLET Take 1 tablet by mouth twice * IBUPROFEN 800 MG TABLET MOMETASONE-FORMOTEROL HFA 100* Inhale 2 Puffs as instructed * BUPRENORPHINE 8 MG-NALOXONE 2* Dissolve under the tongue twi* ALBUTEROL SULFATE HFA 90 MCG/* Inhale 2 Puffs as instructed * Problem List As Of Date 12/10/2017 Noted Resolved Seizures (HCC) [R56.9] INVALID FOR* More... Drug abuse [F19.10] INVALID FOR* More... Abnormal finding on breast imaging [R92.8] INVALID FOR* Asthma [J45.909] More... More... Mitral valve stenosis, rheumatic [I05.0] INVALID FOR* S/P mitral valve replacement [Z95.2] INVALID FOR* Nonsustained paroxysmal ventricular tachycardia*INVALID FOR* Nicotine use disorder, F17.2 [F17.200] INVALID FOR* Encounter Status:Closed by FARIDEH BUSTOS CNP on 12/10/17 MARIVELTOSTACY Observed: 12/10/2017 Status: COMPLETED Source: [place] 12:00 AM [facility] REPOSITORY Patient Outreach (AGINTMLW) BENJAMIN GARCES ([id number]) 1970 F Date Time Provider Department 12/10/17 ALEX GRAHAM (MAG) AGINTMLW During your visit today, we recorded the following information about you: Alex Graham RN 12/10/2017 10:26 AM Signed TRANSITION CARE MANAGEMENT (TCM) INITIAL CONTACT Provider Action/FYI: TCM [facility] 12/03-12/09/17 for elective mitral valve replacement surgery. Pt is following up with Dr Lew 12/17/17. Initial contact with patient post discharge, spoke to Benjamin Garces. Patient identified by name and . TRANSITION CARE MANAGEMENT: Date of Outreach: 12/10/2017 Outreach Attempt 1: Contact Made Date of Discharge 12/09/2017 Some recent data might be hidden SUMMARY: -Pt discharged from [facility] on 12/09/17. -Follow up appointment on 12/18/17. -Medication review done yes. -Admitted for: Elective mitral valve replacement CONCERNS: Pt is now on coumadin. Pt also has a hx of substance abuse and has been on suboxone. NEW MEDICATIONS: START taking these medications ? acetaminophen (TYLENOL) 650 mg Take 650 mg by mouth every 6 hours as needed. ? ? warfarin (COUMADIN) 5 mg Take 5 mg by mouth once daily. ? Qty: 30 tablet Refills: 0 Associated Diagnoses:S/P mitral valve replacement; Nonsustained paroxysmal ventricular tachycardia (HCC); Mitral valve regurgitation, rheumatic ? metoprolol tartrate (short acting) (LOPRESSOR) 25 mg Take 25 mg by mouth every 12 hours. ? Qty: 60 tablet Refills: 2 ? ferrous sulfate 325 mg Take 325 mg by mouth twice daily with meals. ? Qty: 60 tablet Refills: 0 ? polyethylene glycol 3350 (MIRALAX, GLYCOLAX) 17 g Take 17 g by mouth once daily. ? ? senna-docusate (SENNA-S) 1 tablet Take 1 tablet by mouth twice daily. ? ? ascorbic acid (vitamin C) (VITAMIN C) 500 mg Take 500 mg by mouth twice daily. ? Qty: 60 tablet Refills: 0 ? oxyCODONE-acetaminophen (PERCOCET) 1-2 tablets Take 1-2 tablets by mouth every 4 hours as needed. OARRS reviewed; aware of 11/26 Suboxone Rx; pt is s/p MVR/cardiac surgery- post op pain control Earliest Fill Date: 12/07/17 Qty: 20 tablet Refills: 0 Associated Diagnoses:S/P mitral valve replacement; Mitral valve stenosis, rheumatic ? ? MEDS HELD/DISCONTINUED: ? mupirocin (BACTROBAN) 1 application Comments: Reason for Stopping: ? OTC PRODUCT Comments: Reason for Stopping: ? BRIEF HOSPITAL COURSE: SUMMARY OF WHAT HAPPENED WHILE I WAS IN THE HOSPITAL: This is a 47 year old female who was referred by Dr Tripp for severe symptomatic rheumatic mitral stenosis in the setting of current smoker, asthma, seizure disorder and history of drug abuse. She states that her BP has been very low since she started seeing her current PCP, approximately 1 year with readings 80's/50's. She states that about a year ago she noticed increasing fatigue, SOB, dizziness, leg heaviness with climbing stairs. Then in Feb 04Mar 08 she had an episode at work when she experienced severe dizziness with near syncope and she was sent home. During this episode she denies any acute illness, or chest pain. Since this episode, she has notice increasing dizziness, fatigue, exercise intolerance, and PND requiring 2-3 pillows to sleep at night. She saw her neurologist Dr James in june 2017, and reported these symptoms. He ordered an echo and 48 hour holter monitor. ?A surface echo was done in 06/2017 which showed severe MS and left atrial enlargement. The holter showed ?NSR with SVE beats and runs. At which point she was referred to Dr Tripp who ordered a PRESTON with severe MS, Moderate ?MR, and evidence of right to left intra-atrial shunting with valsalva. She was referred to cardiothoracic surgery for further evaluation. ? She reports her drug use of heroin which she snorted as well as other oral and inhaled drugs including amphetimine. ?She denied IV drug use. She further states that she quit about a year ago after her first seizure and follow [facility]. Her Seizure disorder was diagnosed after her first seizure in 08/2016. EEG notes left fronto-temporal seizure, but imaging was grossly non specific. Patient underwent MVR on 12/[address] Lew. Her post-op recovery was uncomplicated. She was transferred out of ICU on POD #2. She has been followed by pain management for appropriated pain control with plan of resuming to subaxone for outpatient substance therapy. She had a long run of nonsustained VT for about 16 seconds at about 166 bpm on her POD#4, consulted to EP, managed with increase beta irene and recommend a two-week patch nurse monitoring outpatient. ? Allergies As of Date: 12/10/2017 (No Known Allergies) Date Reviewed: 12/08/2017 Reviewed by: Shyla (Mag) MAG Ansari - Fully Assessed Reason for Visit: [facility] Worker Hospital Follow Up [7212] Cmt: [facility] 12/03-12/09/17 Prescriptions as of 12/10/2017 Sig: ACETAMINOPHEN 325 MG TABLET Take 2 tablets by mouth every* WARFARIN 5 MG TABLET Take 1 tablet by mouth once d* METOPROLOL TARTRATE 25 MG TAB* Take 1 tablet by mouth every * FERROUS SULFATE 325 MG (65 MG* Take 1 tablet by mouth twice * POLYETHYLENE GLYCOL 3350 17 G* Take 1 Packet by mouth once d* SENNOSIDES 8.6 MG-DOCUSATE SO* Take 1 tablet by mouth twice * ASCORBIC ACID (VITAMIN C) 500* Take 1 tablet by mouth twice * OXYCODONE-ACETAMINOPHEN 5 MG-* Take 1-2 tablets by mouth roman* ASPIRIN 81 MG CHEWABLE TABLET Take 81 mg by mouth once jeannette* ESCITALOPRAM 10 MG TABLET Take 1 tablet by mouth once d* NICOTINE 21 MG/24 HR DAILY TR* Apply 1 Patch as directed roman* LEVETIRACETAM 500 MG TABLET Take 1 tablet by mouth twice * IBUPROFEN 800 MG TABLET MOMETASONE-FORMOTEROL HFA 100* Inhale 2 Puffs as instructed * BUPRENORPHINE 8 MG-NALOXONE 2* Dissolve under the tongue twi* ALBUTEROL SULFATE HFA 90 MCG/* Inhale 2 Puffs as instructed * Problem List As Of Date 12/10/2017 Noted Resolved Seizures (HCC) [R56.9] INVALID FOR* More... Drug abuse [F19.10] INVALID FOR* More... Abnormal finding on breast imaging [R92.8] INVALID FOR* Asthma [J45.909] More... More... Mitral valve stenosis, rheumatic [I05.0] INVALID FOR* S/P mitral valve replacement [Z95.2] INVALID FOR* Nonsustained paroxysmal ventricular tachycardia*INVALID FOR* Nicotine use disorder, F17.2 [F17.200] INVALID FOR* Encounter Status:Closed by ALEX GRAHAM RN on 12/10/17 ALL[facility] Observed: 12/09/2017 Status: COMPLETED Source: [place] [place] 1:48 PM CLINIC OTHER CAMPUS REPOSITORY O ID: [id number] Author: Hay Peterson Service: (none) Author Type: (none) Type: Allied Health Filed: 12/09/2017 1:49 PM Note Text: FISH DRESSING MACHINE FEEDER NOTE SERVICE DATE: 12/09/2017 SERVICE TIME: 1:49 PM Discharge: Aware of Discharge home today Physician order placed for Home Care Services Home Care Agency: [facility] Start of care date: 12/11/17 Patient/Family agree to discharge plan: SIGNATURE: Hay Peterson PATIENT NAME: Benjamin Garces DATE: December 09, 2017 TIME: 1:48 PM CNDS Observed: 12/09/2017 Status: COMPLETED Source: [place] 12:16 PM CLINIC OTHER CAMPUS REPOSITORY O ID: [id number] Author: Farideh Bustos APRN.MARIVEL Service: Cardiovascular Surgery Author Type: Nurse Practitioner Type: Discharge Summaries Filed: 12/09/2017 12:35 PM Note Text: Attestation signed by Yonas Lew at 12/28/2017 9:06 PM Attending Note I have personally performed a face to face assessment of the patient and have reviewed the PA/ONCOLOGY TRANSPLANT NETWORK MANAGER note. My mane findings include: Assessment/Plan are ABOVE Other additions or changes: None Signature: Yonas Lew MD Date: 12/28/2017 Time: 9:06 PM DISCHARGE SUMMARY PATIENT NAME: Benjamin Garces Code Status: Not on file Highest Readmission Risk Score: 16 The 30 day readmissions risk score is derived from an internally validated risk model which evaluates patient level characteristics, utilization history, medication orders and lab results up until the day of discharge. Patients with a score of 40 or above are considered highest risk for readmission. Specific patient level drivers will be listed at the bottom of the summary. Admission Information Admission Information ADMIT DATE: 12/03/2017 DISCHARGE DATE: 12/09/2017 MY DOCTORS AND MEDICAL TEAM: My Main Hospital Doctor: Yonas Lew Primary Care Provider: Claudio Reyes MD My Medical Team Members: Treatment Team: Attending Provider: Yonas Lew Consulting: Asahnti Leslie Consulting: Corazon Gallagher MY CONDITION AT DISCHARGE: Stable REASON I WAS IN THE HOSPITAL: elective mitral valve replacement surgery SUMMARY OF WHAT HAPPENED WHILE I WAS IN THE HOSPITAL: This is a 47 year old female who was referred by Dr Tripp for severe symptomatic rheumatic mitral stenosis in the setting of current smoker, asthma, seizure disorder and history of drug abuse. She states that her BP has been very low since she started seeing her current PCP, approximately 1 year with readings 80's/50's. She states that about a year ago she noticed increasing fatigue, SOB, dizziness, leg heaviness with climbing stairs. Then in Feb 04/Mar 08 she had an episode at work when she experienced severe dizziness with near syncope and she was sent home. During this episode she denies any acute illness, or chest pain. Since this episode, she has notice increasing dizziness, fatigue, exercise intolerance, and PND requiring 2-3 pillows to sleep at night. She saw her neurologist Dr James in june 2017, and reported these symptoms. He ordered an echo and 48 hour holter monitor. ?A surface echo was done in 06/2017 which showed severe MS and left atrial enlargement. The holter showed ?NSR with SVE beats and runs. At which point she was referred to Dr Tripp who ordered a PRESTON with severe MS, Moderate ?MR, and evidence of right to left intra-atrial shunting with valsalva. She was referred to cardiothoracic surgery for further evaluation. ? She reports her drug use of heroin which she snorted as well as other oral and inhaled drugs including amphetimine. ?She denied IV drug use. She further states that she quit about a year ago after her first seizure and follow [facility]. Her Seizure disorder was diagnosed after her first seizure in 08/2016. EEG notes left fronto-temporal seizure, but imaging was grossly non specific. Patient underwent MVR on 12/[address] Lew. Her post-op recovery was uncomplicated. She was transferred out of ICU on POD #2. She has been followed by pain management for appropriated pain control with plan of resuming to subaxone for outpatient substance therapy. She had a long run of nonsustained VT for about 16 seconds at about 166 bpm on her POD#4, consulted to EP, managed with increase beta irene and recommend a two-week patch nurse monitoring outpatient. OTHER PROBLEMS/DIAGNOSIS: Active Problems: Mitral valve stenosis, rheumatic S/P mitral valve replacement Nonsustained paroxysmal ventricular tachycardia (HCC) Nicotine use disorder, F17.2 OPERATIONS PERFORMED WHILE IN THE HOSPITAL: Mitral valve replacement with Left atrial appendage clip IMPORTANT TEST/PROCEDURES: Echocardiogram TEST RESULTS NOT AVAILABLE AT THIS TIME: No pending results Discharge Disposition Discharge Disposition: Home With Home Care Activity When You Leave the Hospital Lifting is restricted to: Less than 10 pounds. May use stairs No driving until cleared by surgeon. No walking restrictions Shower and wash incisions daily. No tub bath. Diet Instructions Heart Healthy Fluid restriction 2 liters per day. For Pain When You Leave the Hospital Use acetaminophen (Tylenol) as recommended on the bottle Use aspirin as recommended on the bottle Use ibuprofen (Motrin, Advil) as recommended on the bottle You should use an awck-zoy-jblxphn stool softener (Docusate sodium) and/or a fiber supplement (Metamucil, Fiber Con) every day while taking prescribed pain medication Wound/Surgical Site Care Leave open to air Wash your hands frequently, especially before touching your incision, after using restroom and before eating Your incision has skin glue. It will peel off on its own. It can get wet Call Your Doctor If Other: Shortness of breath, chest pain, weight gain, swelling of legs There is an unusual odor from the wound area There is severe pain at the operative site You have lightheadedness, fainting, or confusion You have redness, swelling, pus or drainage from the wound Your temperature is greater than 101F Follow Up Appointments Follow-Up Appointment With: Cardiology When: In 6 weeks Patient/Parents to call for appointment?: Yes Call [phone] to schedule. Follow-Up Appointment [address] [facility]. [address], [place], [place] [id number] Enter thru [facility] and take the silver elevator to the 3rd floor. The office is immediately on the right. When: In 1 week Patient/Parents to call for appointment?: Scheduled Venice Correa [phone] [facility] [address] PCP Requested Referral Follow-Up Appointment Please call to follow up with the Patch nurse monitoring arrangement With: Dr. Gallagher-EP Doctor When: In 2 weeks Patient/Parents to call for appointment?: Yes Additional Provider to Provider Information: Transitions of Care Critical Issues: LAB MONITORING NEEDED: CBC, INR Transitions of Care Critical Issues: LAB MONITORING NEEDED: CBC, INR LABS AND PROCEDURES PENDING AT DISCHARGE: No pending results. FOLLOW-UP APPOINTMENTS ALREADY SCHEDULED WITH A [facility] PROVIDER: No future appointments. ALLERGIES No Known Allergies DISCHARGE MEDICATION: Current Discharge Medication List START taking these medications acetaminophen (TYLENOL) 650 mg Take 650 mg by mouth every 6 hours as needed. warfarin (COUMADIN) 5 mg Take 5 mg by mouth once daily. Qty: 30 tablet Refills: 0 Associated Diagnoses:S/P mitral valve replacement; Nonsustained paroxysmal ventricular tachycardia (HCC); Mitral valve regurgitation, rheumatic metoprolol tartrate (short acting) (LOPRESSOR) 25 mg Take 25 mg by mouth every 12 hours. Qty: 60 tablet Refills: 2 ferrous sulfate 325 mg Take 325 mg by mouth twice daily with meals. Qty: 60 tablet Refills: 0 polyethylene glycol 3350 (MIRALAX, GLYCOLAX) 17 g Take 17 g by mouth once daily. senna-docusate (SENNA-S) 1 tablet Take 1 tablet by mouth twice daily. ascorbic acid (vitamin C) (VITAMIN C) 500 mg Take 500 mg by mouth twice daily. Qty: 60 tablet Refills: 0 oxyCODONE-acetaminophen (PERCOCET) 1-2 tablets Take 1-2 tablets by mouth every 4 hours as needed. OARRS reviewed; aware of 11/26 Suboxone Rx; pt is s/p MVR/cardiac surgery- post op pain control Earliest Fill Date: 12/07/17 Qty: 20 tablet Refills: 0 Associated Diagnoses:S/P mitral valve replacement; Mitral valve stenosis, rheumatic CONTINUE these medications which have NOT CHANGED aspirin 81 mg Take 81 mg by mouth once daily. escitalopram oxalate (LEXAPRO) 10 mg Take 10 mg by mouth once daily. Qty: 30 tablet Refills: 1 Associated Diagnoses:Moderately severe depression (HCC) levETIRAcetam (KEPPRA) 500 mg Take 500 mg by mouth twice daily. Qty: 180 tablet Refills: 3 mometasone-formoterol (DULERA) 2 Puffs Inhale 2 Puffs as instructed twice daily. Qty: 1 Inhaler Refills: 1 Associated Diagnoses:Medication refill albuterol HFA (PROVENTIL HFA, VENTOLIN HFA) 2 Puffs Inhale 2 Puffs as instructed every 4 hours as needed. Qty: 2 Inhaler Refills: 1 Associated Diagnoses:Uncomplicated asthma, unspecified asthma severity nicotine (NICODERM) 1 Patch Apply 1 Patch as directed every 24 hours. APPLY ONE PATCH EVERY 24 HOURS TOPICALLY Qty: 28 Patch Refills: 2 Associated Diagnoses:Mitral valve stenosis, rheumatic; Tobacco use; Tobacco use disorder; Personal history of tobacco use, presenting hazards to health ibuprofen (MOTRIN) 800 mg tablet Buprenorphine-nalOXone (SUBOXONE) 8-2 mg film Dissolve under the tongue twice daily. 8 mg tablet. STOP taking these medications mupirocin (BACTROBAN) 1 application Comments: Reason for Stopping: OTC PRODUCT Comments: Reason for Stopping: Please see notes on 12/09 The patient's risk for 30-day readmission is determined using the following contributing factors: Pt variables contributing to increased readmission risk: 26 Active Medication Orders 10 Most Recent BUN Result 8 First Resulted Calcium During Admission 1 Insurance - Medicaid 1 Discharge Disposition - Home 1 Active Anticoagulant TIME OF CARE: Discharge Management: I personally spent greater than 30 minutes involved in the discharge management of this patient. MV Regurgitation s/p MVR and CABG ligation of atrial appendage 12/03 - POD#6 - ASA 81, Statin 40, BB 12.5 BID up to 25 BID - Chest tubes discontinued 12/05 - CXR is reviewed, stable - Warfarin started 12/04 with target INR of 2,?INR =-1.28-1.18-1.53-2.56-1.55, give?coumadin 5?mg?today again -paing wires cut 12/07 - lytes are WNL, c/w Tele monitor. - [facility] referral made -home Coumadin plan: 5 mg (sunday and Sunday), 2.5 mg Sunday. INR check Sunday per [facility] (made aware to [facility]) ? Arrhythmia -runs of nonsustained VT -EP consulted, seen on 12/07 - up BB to 25 mg BID - will f/u by EP OV with 2 week patch nurse monitoring ? Post-op acute blood loss anemia - HH 7.1/22.1 - added Fe+Vit C -HD stable no signs of active bleeding -will need repeat CBC at 1 week visit ? Expected post operative respiratory insufficiency - IS - NC, wean as able - Duoneb ? Hyperglycemia: - ISS ? MSK: - PT/OT recs Home SIGNATURE: Farideh Bustos APRNShellieMARIVEL PAGER/CONTACT #: [phone] DATE: December 09, 2017 TIME: 12:16 PM PROGRESS Observed: 12/09/2017 Status: COMPLETED Source: [place] 9:02 [facility] REPOS[facility] HNO ID: [id number] Author: Eliel Welch Service: Cardiovascular Surgery Author Type: Physician Type: Progress Notes Filed: 12/09/2017 1:36 PM Note Text: CARDIOTHORACIC SURGERY POSTOP PROGRESS NOTE SERVICE DATE: 12/09/2017 SERVICE TIME: 9:03 AM Subjective S/P SURGERY: Procedure(s) (LRB): MVP (a 27-mm [place] epic mitral prosthesis) LAAC (35-mm AtriCure clip) ? DATE OF SURGERY: 12/03/2017 POSTOP DAY #6 LOS: 6 HPI: This is a 47 year old female who was referred by Dr Tripp for severe symptomatic rheumatic mitral stenosis in the setting of current smoker, asthma, seizure disorder and history of drug abuse. She states that her BP has been very low since she started seeing her current PCP, approximately 1 year with readings 80's/50's. She states that about a year ago she noticed increasing fatigue, SOB, dizziness, leg heaviness with climbing stairs. Then in Feb 04/Mar 08 she had an episode at work when she experienced severe dizziness with near syncope and she was sent home. During this episode she denies any acute illness, or chest pain. Since this episode, she has notice increasing dizziness, fatigue, exercise intolerance, and PND requiring 2-3 pillows to sleep at night. She saw her neurologist Dr James in june 2017, and reported these symptoms. He ordered an echo and 48 hour holter monitor. ?A surface echo was done in 06/2017 which showed severe MS and left atrial enlargement. The holter showed ?NSR with SVE beats and runs. At which point she was referred to Dr Tripp who ordered a PRESTON with severe MS, Moderate ?MR, and evidence of right to left intra-atrial shunting with valsalva. She was referred to cardiothoracic surgery for further evaluation. ? She reports her drug use of heroin which she snorted as well as other oral and inhaled drugs including amphetimine. ?She denied IV drug use. She further states that she quit about a year ago after her first seizure and follow [facility]. Her Seizure disorder was diagnosed after her first seizure in 08/2016. EEG notes left fronto-temporal seizure, but imaging was grossly non specific. ? INTERVAL EVENTS / PERTINENT ROS:?Patient underwent MVR on 12/[address] Lew. Her post-op recovery was uncomplicated. She was transferred out of ICU on POD #2. She has been followed by pain management for appropriated pain control with plan of resuming to subaxone for outpatient substance therapy. She had a long run of nonsustained VT for about 16 seconds at about 166 bpm on her POD#4, consulted to EP, managed with increase beta irene and recommend a two-week patch nurse monitoring outpatient. ? Patient is seen today, NAD. Wants to go home. Feeling great. Denied SOB/chest palpitation. No DZ/LH. Tolerating pain. Saw the old blood on her chest tube site. No active bleeding. Objective Admission Weight: 71.2 kg (157 lb) BP 104/61 Pulse 71 Temp 36.8 ?C (98.2 ?F) (Oral) Resp 18 Ht 160 cm (5' 3) Wt 72.3 kg (159 lb 6.3 oz) SpO2 96% BMI 28.24 kg/m? Body surface area is 1.79 meters squared. Min/Max/Average Temperature AND Blood Pressure: Temp (24hrs), Av.8 ?C (98.2 ?F), Min:36.5 ?C (97.7 ?F), Max:37.1 ?C (98.8 ?F) Systolic (24hrs), Av , Min:103 , Max:107 Diastolic (24hrs), Av, Min:57, Max:70 Intake/Output Summary (Last 24 hours) at 12/09/17 0903 Last data filed at 12/08/17 2115 Gross per 24 hour Intake 200 ml Output 0 ml Net 200 ml TELEMETRY: normal sinus rhythm, did had an episode of SVT/ST at early 9 AM today with HR of 124. PHYSICAL EXAM: General Appearance: well developed and no distress Skin: Midsternal incision dry AND intact., warm and dry Lungs: clear and respiratory effort: normal Heart: regular rhythm, S1, S2 normal and no murmur Peripheral Vascular/Arteries: pulses intact, dorsalis pedis +2 and radial +2 Abdomen: soft, non-tender and bowel sounds present Genitourinary: voiding without difficulty Neurologic/Psychiatric: oriented to time, place and person and steady gait Extremities: normal exam of the extremities and no edema Lines, Drains, and Airways Line Central Line Triple Lumen 12/05/17 Right Neck 4 days Peripheral Double Lumen 12/04/17 1212 Short Wrist 20 Gauge 4 days DATA: Diagnostic tests reviewed for today's visit: Significant Lab Results: reviewed as listed below Recent Labs 12/09/17 0420 12/08/17 0313 12/07/17 0320 RBC 2.19* -- 2.32* WBC 12.61* -- 13.91* HB 7.1* -- 7.4* HCT 22.1* -- 22.8* PLT 253 -- 198 INR 1.28 1.18 1.53* NA 134* -- 137 K 3.9 -- 3.6 CHLOR 100 -- 99 CO2 28 -- 29 BUN 10 -- 11 CREAT 0.59 -- 0.65 GLUC 93 -- 104* CA 8.0* -- 8.0* MG -- -- 1.9 ANION 10 -- 13 Assessment/Plan MV Regurgitation s/p MVR and CABG ligation of atrial appendage 12/03 - POD#6 - ASA 81, Statin 40, BB 12.5 BID up to 25 BID - Chest tubes discontinued 12/05 - CXR is reviewed, stable - Warfarin started 12/04 with target INR of 2, INR =-1.28-1.18-1.53-2.56-1.55, give?coumadin 5 mg?today again -paing wires cut 12/07 - lytes are WNL, c/w Tele monitor. - [facility] referral made -home Coumadin plan: 5 mg (sunday and Sunday), 2.5 mg Sunday. INR check Sunday per VNS (made aware to VNS) ? Arrhythmia -runs of nonsustained VT -EP consulted, seen on 12/07 - up BB to 25 mg BID - will f/u by EP OV with 2 week patch nurse monitoring Post-op acute blood loss anemia - HH 7.1/22.1 - added Fe+Vit C -HD stable no signs of active bleeding -will need repeat CBC at 1 week visit ? Expected post operative respiratory insufficiency - IS - NC, wean as able - Duoneb ? Hyperglycemia: - ISS ? MSK: - PT/OT recs Home Tests/Labs Ordered: 1. None SIGNATURE: Farideh Bustos APRN.CNP PATIENT NAME: Benjamin Garces DATE: December 09, 2017 TIME: 9:03 AM PAGER/CONTACT #:[phone] ETX [id number] [facility] Patient seen with MILK PASTEURIZER, data and careplan reviewed. P-discharge today. MDRD GFR Collected: 12/09/2017 Status: F Source: [facility] 4:20 AM HEALTH SYSTEM REPOSITORY TYPE CODE TESTS RESULT OUT OF RANGE REFERENCE UNITS LAB GFRFN(LOINC >60mL/min/1.73m ) 2 eGFR >60 Result Comment: If the patient is , multiply the result by 1.210. Performed By: #### GFR #### [place] [id number] HEMOGRAM Collected: 12/09/2017 Status: F Source: [facility] 4:20 AM HEALTH SYSTEM REPOSITORY TYPE CODE TESTS RESULT OUT OF REFERENCE UNITS RANGE LAB WBC(LOINC) 3.98-10.04 thou/cmm WBC High 12.61 LAB RBC(LOINC) 3.93-5.22 mil/cmm Low RBC 2.19 LAB HGB(LOINC) 11.2-15.7 g/dL Low Hgb 7.1 LAB HCT(LOINC) 34.1-44.9 % Low Hct 22.1 LAB MCV(LOINC) 79.4-94.8 fl MCV High 100.9 LAB MCH(LOINC) 25.6-32.2 pg MCH High 32.4 LAB MCHC(LOINC 31.6-34.8 % ) MCHC 32.1 LAB RDW(LOINC) 11.7-14.4 % RDW 13.3 LAB RDWSD(LOIN 36.4-46.3 fl C) RDW SD 46.3 LAB PLT(LOINC) 182-369 thou/cmm Platelet 253 LAB MPV(LOINC) 9.4-12.3 fl MPV 10.9 LAB NRBCR(LOIN 0.0-0.2 % C) High Nucleated RBC % 1.1 LAB NRBCA(LOIN 0.00-0.01 thou/cmm C) High Nucleated RBC 0.14 Absolute Performed By: #### CBC1 #### [facility] [address] [place] [id number] PROTIME Collected: 12/09/2017 Status: F Source: [facility] 4:20 AM HEALTH SYSTEM REPOSITORY TYPE CODE TESTS RESULT OUT OF REFERENCE UNITS RANGE LAB PTI(LOINC) 9.7-13.0 sec Prothrombin High Time 13.1 LAB INR(LOINC) 0.90-1.30 INR 1.28 Result Comment: Note: Reference Range Change Vitamin K Antagonist (VKA) Therapeutic Range: INR 2 to 3 (Target INR of 2.5) Note: For patients treated with VKA drugs, such as warfarin, the [employer] 2012 Guideline recommends a therapeutic INR range of 2 to 3 (target INR of 2.5). This recommendation includes high-risk patients with antiphospholipid syndrome with previous arterial or venous thromboembolism, current-generation mechanical or bioprosthetic aortic heart valve replacement. VKA Therapeutic Range for some Mechanical Valve Replacement: INR 2.5 to 3.5 (Target INR of 3) Note: Patients with mechanical aortic valve replacement and additional risk factors for thromboembolic events (atrial fibrillation, previous thromboembolism, LV dysfunction, hypercoagulable conditions) or an older generation mechanical AVR (i.e., ball in-Cage) or any mechanical MVR should have a INR therapeutic range of 2.5 to 3.5 target INR of 3). Simeonyatt GH, et al. Chest 2012; 141:7S-47S Duyen RA et al. JACC 2017; 70: 252-289 Performed By: #### PT #### [facility] [address] [place] [id number] BASIC PANEL Collected: 12/09/2017 Status: F Source: [facility] 4:20 AM HEALTH SYSTEM REPOSITORY TYPE CODE TESTS RESULT OUT OF REFERENCE UNITS RANGE LAB NA(LOINC) 136-145 mEq/L Low Sodium Blood 134 LAB K(LOINC) 3.5-5.1 mEq/L Potassium Blood 3.9 LAB CL(LOINC) 98-107 mEq/L Chloride Blood 100 LAB CO2(LOINC) 21-32 mEq/L CO2 Blood 28 LAB GLU(LOINC) 70-99 mg/dL Glucose Blood 93 LAB BUN(LOINC) 7-18 mg/dL BUN Blood 10 LAB CREA(LOINC 0.51-0.95 mg/dL ) Creatinine Blood 0.59 LAB CA(LOINC) 8.5-10.1 mg/dL Low Calcium Blood 8.0 LAB ANGAP(LOIN 8-16 C) Anion Gap 10 Performed By: #### P8 #### [facility] [address] [place] [id number] PROGRESS Observed: 12/08/2017 Status: COMPLETED Source: [place] 1:25 PM [facility] REPOSITORY HNO ID: [id number] Author: Corazon Gallagher Service: Electrophysiology Author Type: Physician Type: Progress Notes Filed: 12/08/2017 1:27 PM Note Text: [facility] Electrophysiology (EP) - [facility] EP Staff Heart rhythm by telemetry monitoring looked okay overnight. Some brief paroxysmal atrial tachycardia, a few PVCs but no additional VT. Spoke with AMANDA BRANNON about the case. She plans hospital discharge tomorrow. I will have my office contact patient to have 2-week EKG patch monitor placed as an outpatient sometime soon after hospital discharge. Corazon Gallagher MD December 08, 2017 1:27 PM PROGRESS Observed: 12/08/2017 Status: COMPLETED Source: [place] 11:51 AM [facility] REPOSITORY HNO ID: [id number] Author: Ashanti Leslie Service: Pain Management Author Type: Physician Type: Progress Notes Filed: 12/08/2017 11:54 AM Note Text: Benjamin Garces [id number] PAIN MANAGEMENT TEAM PAIN DIAGNOSIS: S/p replacement mitral valve with cardiopulmonary bypass, ligation of atrial appendage due to mitral valve stenosis on 12/03/2017 Pain Score/Description: Improving; less chest/neck pain- wants to go home today INTERVAL HPI: 12/07 EPS eval NSVT 16sec; asymptomatic; metoprolol increased SUBJECTIVE HPI: This is a 47 year old female who presents for above surgery. Per Dr. Lew's note: This is a 47 year old female who was referred by Dr Tripp for severe symptomatic rheumatic mitral stenosis in the setting of current smoker, asthma, seizure disorder and history of drug abuse. She states that her BP has been very low since she started seeing her current PCP, approximately 1 year with readings 80's/50's. She states that about a year ago she noticed increasing fatigue, SOB, dizziness, leg heaviness with climbing stairs. Then in Feb 04/Mar 08 she had an episode at work when she experienced severe dizziness with near syncope and she was sent home. During this episode she denies any acute illness, or chest pain. Since this episode, she has notice increasing dizziness, fatigue, exercise intolerance, and PND requiring 2-3 pillows to sleep at night. She saw her neurologist Dr James in june 2017, and reported these symptoms. ??He ordered an echo and 48 hour holter monitor. ?A surface echo was done in 06/2017 which showed severe MS and left atrial enlargement. The holter showed ?NSR with SVE beats and runs. At which point she was referred to Dr Tripp who ordered a PRESTON with severe MS, Moderate ?MR, and evidence of right to left intra-atrial shunting with valsalva. She was referred to cardiothoracic surgery for further evaluation. ? She reports her drug use of heroin which she snorted as well as other oral and inhaled drugs including amphetimine. ?She denied IV drug use. She further states that she quit about a year ago after her first seizure and follow [facility]. Her Seizure disorder was diagnosed after her first seizure in 08/2016. EEG notes left fronto-temporal seizure, but imaging was grossly non specific. Per chart documentation: I want to bring this up to your attention about Mrs. Garces's post-op pain management. I Talked to her addiction/pain management doc. Dr. Escobar. He wants us to make sure she will have adequate and appropriate pain control post op and patient needs to be back on his service post discharge. He wants us to be on touch with his MILK PASTEURIZER (Kimberly Humphries [phone]) upon discharge. Thank you. I will attach a pain management consult to her surgery case, sign and hold it, so please double check. Thanks. Attempted to call Kimberly Humphries NP with Dr Escobar office at above listed number - no answer, left message for her to call me back regarding suboxone treatment plan. 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 11/26/2017 1 11/26/2017 SUBOXONE 8 MG-2 MG SL FILM 14 7 TA BOW [id number] DIS(6261) 0 16.00 mg [facility] [place] 11/12/2017 1 11/12/2017 SUBOXONE 8 MG-2 MG SL FILM 28 14 TA BOW [id number] DIS(6261) 0 16.00 mg [facility] [place] 10/29/2017 1 10/29/2017 SUBOXONE 8 MG-2 MG SL FILM 28 14 TA BOW [id number] DIS(6261) 0 16.00 mg [place] MEDICATIONS Current Facility-Administered Medications: furosemide 40 mg tab(s) (LASIX) 40 mg ORAL ONCE [employer] (Customs Director) Akash, CARTON CATCHER.ASSURANCE SENIOR potassium chloride ER 40 mEq tab(s) (K-DUR, KLOR-CON) 40 mEq ORAL ONCE [employer] (Customs Director) Akash CARTON CATCHER.ASSURANCE SENIOR warfarin 5 mg tab(s) (COUMADIN) 5 mg ORAL ONCE - WARFARIN [employer] (Customs Director) Akash, CARTON CATCHER.ASSURANCE SENIOR ferrous sulfate 325 mg tab(s) 325 mg ORAL BID w MEALS [employer] (Customs Director) Akash, CARTON CATCHER.ASSURANCE SENIOR 325 mg at 12/08/17 0739 ascorbic acid (vitamin C) 500 mg tab(s) (VITAMIN C) 500 mg ORAL BID [employer] (Customs Director) Akash, CARTON CATCHER.ASSURANCE SENIOR 500 mg at 12/08/17 0739 metoprolol tartrate (short acting) 25 mg tab(s) (LOPRESSOR) 25 mg ORAL q 12 H Corazon Sherman Schweikert 25 mg at 12/08/17 0738 polyethylene glycol 3350 17 g packet (MIRALAX, GLYCOLAX) 17 g ORAL DAILY PRN Ashanti Leslie perflutren lipid microspheres 1.1 mg/mL 1.3 mL injection (DEFINITY) 1.3 mL INTRAVENOUS DIRECTED PRN Weina (Customs Director) GENOVEVA Bustos 0.9% NaCl 2-10 mL 2-10 mL INTRAVENOUS q 12 H Marcus Dennison) Ruhlin 4 mL at 12/08/17 0900 polyethylene glycol 3350 17 g packet (MIRALAX, GLYCOLAX) 17 g ORAL DAILY Marcus Dennison) [place]lin 17 g at 12/05/17 1331 senna-docusate 8.6-50 mg 1 tablet (SENNA-S) 1 tablet ORAL BID Marcus Dennison) [place] 1 tablet at 12/08/17 0738 bisacodyl 10 mg suppository (DULCOLAX) 10 mg RECTAL PRN Marcus Dennison) [place]lin melatonin 3 mg tab(s) 3 mg ORAL HS PRN Marcus Dennison) Rumaria din [MAR Hold due to Transfer] morphine 2-4 mg injection 2-4 mg INTRAVENOUS q 4 H PRN Velazquez (Pa) Ruhlin 2 mg at 12/05/17 1500 warfarin dose per INR - Call physician daily for dose ORAL DAILY - WARFARIN Elizabet Haas pantoprazole DR 40 mg tab(s) (PROTONIX) 40 mg ORAL DAILY (6 AM) Elizabet Griffinnell 40 mg at 12/08/17 0554 levETIRAcetam 500 mg tab(s) (KEPPRA) 500 mg ORAL BID Hari Nowak (Pa) 500 mg at 12/08/17 0739 escitalopram oxalate 10 mg tab(s) (LEXAPRO) 10 mg ORAL DAILY Ewing (Pa) Eliu 10 mg at 12/08/17 0739 dextrose 50% in water 25 mL syringe 12.5 g INTRAVENOUS PRN Hari Nowak (Pa) aspirin 162 mg chewable tab(s) 162 mg ORAL DAILY Ewing (Pa) Eliu 162 mg at 12/08/17 0738 acetaminophen 650 mg tab(s) (TYLENOL) 650 mg ORAL q 6 H PRN Hari Nowak (Pa) 650 mg at 12/06/17 0855 enoxaparin 40 mg injection (LOVENOX) 40 mg SUBCUTANEOUS DAILY Ewing (Pa) Eliu 40 mg at 12/08/17 0738 albuterol 2.5 mg /3 mL (0.083 %) 2.5 mg (PROVENTIL) 2.5 mg INHALATION q 2 H PRN Hari Nowak (Pa) atorvastatin 40 mg tab(s) (LIPITOR) 40 mg ORAL AT BEDTIME Hari (Andrew) 40 mg at 12/07/172 ondansetron (PF) 4 mg injection (ZOFRAN) 4 mg INTRAVENOUS q 6 H PRN Hari (Andrew) 4 mg at 12/08/17 0832 oxyCODONE-acetaminophen 5-325 mg 1-2 tablet (PERCOCET) 1-2 tablet ORAL q 4 H PRN Hari (Andrew) 2 tablet at 12/08/17 0738 albuterol 2.5 mg /3 mL (0.083 %) 2.5 mg (PROVENTIL) 2.5 mg INHALATION QID Yonas A Lahorra 2.5 mg at 12/08/17 1113 budesonide 0.5 mg/2 mL 1 mg (PULMICORT) 1 mg INHALATION BID Yonas A Lahorra 1 mg at 12/08/17 0741 Prescriptions Prior to Admission: aspirin 81 mg chewable tablet Take 81 mg by mouth once daily. Disp: Rfl: 12/03/2017 at 0400 mupirocin (BACTROBAN) 2 % nasal ointment Use 1 application in the nose twice daily. Disp: 1 Tube Rfl: 0 12/02/2017 at 2200 escitalopram oxalate (LEXAPRO) 10 mg tablet Take 1 tablet by mouth once daily. Disp: 30 tablet Rfl: 1 12/02/2017 at Unknown time OTC PRODUCT Take by mouth once daily. Anbrem Disp: Rfl: 12/02/2017 at Unknown time levETIRAcetam (KEPPRA) 500 mg tablet Take 1 tablet by mouth twice daily. Disp: 180 tablet Rfl: 3 12/03/2017 at 0400 mometasone-formoterol (DULERA) 100-5 mcg/actuation inhaler Inhale 2 Puffs as instructed twice daily. Disp: 1 Inhaler Rfl: 1 12/02/2017 at 2200 albuterol HFA (VENTOLIN HFA) 90 mcg/actuation inhaler Inhale 2 Puffs as instructed every 4 hours as needed. Disp: 2 Inhaler Rfl: 1 12/02/2017 at 2200 nicotine (NICODERM CQ) 21 mg/24 hr Apply 1 Patch as directed every 24 hours. APPLY ONE PATCH EVERY 24 HOURS TOPICALLY Disp: 28 Patch Rfl: 2 Taking ibuprofen (MOTRIN) 800 mg tablet Disp: Rfl: 11/30/2017 Buprenorphine-nalOXone (SUBOXONE) 8-2 mg film Dissolve under the tongue twice daily. 8 mg tablet. Disp: Rfl: 12/02/2017 at 0800 PAST MEDICAL HISTORY PAST MEDICAL HISTORY Diagnosis Date - Asthma uses inhaler PRN; never hospitalized or intubated for asthma exacerbation - COPD (chronic obstructive pulmonary disease) (HCC) - Dermatitis - Former tobacco use quit 11/2017 - History of drug abuse no IVDA - Hives 2008; improved with Benadryl; undetermined cause - Mitral valve regurgitation, rheumatic - Mitral valve stenosis, rheumatic severe; s/p MVR (bioprosthetic) 12/03/2017 - Nonsustained paroxysmal ventricular tachycardia (HCC) 12/07/2017 16.5 seconds of NSVT at 167 bpm on telemetry monitoring POD#4 after MVR - S/P mitral valve replacement 12/03/2017 MVR ([facility] Epic) 12/03/2017 for severe rheumatic mitral valve stenosis - Seizure ([facility]) 08/2016 PAST SURGICAL HISTORY PAST SURGICAL HISTORY Procedure Laterality Date - CARPAL TUNNEL Bilateral 03/07/2017 Dr. Schmitt both wrists - ECHOCARDIOGRAM 07/11/2017 normal LV systolic fxn; LVEF 57%; dilated RV with normal RV systolic fxn; severe LAE; severe MS; moderately severe MR - HOLTER MONITOR 48 HR 07/11/2017 sinus rhythm; PACs; brief PAT - REPLACEMENT OF MITRAL VALVE 12/03/2017 MVR (SJM bioprosthetic) for rheumatic mitral stenosis; KARIN closure; CCAG Dr. Lew - RIGHT AND LEFT HEART CATH 10/17/2017 normal coronary arteries; mild pHTN - PRESTON 09/19/2017 severe MS; moderate MR; severe LAE; LVEF 50-55% ALLERGIES No Known Allergies FAMILY HISTORY Problem Relation Age of Onset - Cancer Mother 54 lung - other (tobacco use) Mother - Parkinson?s Disease Father - Hypertension Father - Colon Cancer Paternal Grandmother 55 - Diabetes Paternal Grandmother - Prostate Cancer Paternal Uncle - Hypertension Sister - other (bladder problem) Sister - Arthritis Sister - No Known Problems Sister Social History Substance Use Topics - Smoking status: Former Smoker Packs/day: 0.50 Years: 29.00 Types: Cigarettes Start date: 1988 Quit date: 11/19/2017 - Smokeless tobacco: Never Used Comment: cutting back 3-4 per day quit 11/25/17 - Alcohol use No Comment: no alcohol since 2017 Social History Narrative Works at [employer] in [place]. Lives with boyfriend. Feels safe at home. REVIEW OF SYSTEMS: all of the following reviewed and negative except as noted below: See history of present illness, UNABLE to provide?sedated GENERAL: no fever, chills, sweats, weight loss, fatigue, generalized weakness HEENT: no headache, vision changes, eye discomfort, hearing change, ear discomfort, sinus pain, nasal discharge or congestion, oral lesions, soreness, dental problem NECK: no adenopathy, discomfort, change in ROM CHEST: no shortness of breath, dyspnea on exertion, wheezing, cough, sputum production or chest pain HEART: no chest pain, palpitations, syncope ABDOMEN: no nausea, vomiting, constipation, diarrhea, abdominal pain : no dysuria, urgency, frequency, history of stones, incontinence NEURO: no confusion or alteration in consciousness, slurred speech, seizure, focal weakness EXTREMITIES: no new pain, edema, change in ROM HEME: no new adenopathy, bruises, petechiae PSYCH: no depression, anxiety, agitation OBJECTIVE PHYSICAL EXAMINATION: see below for new or abnormal findings BP 103/63 Pulse 70 Temp (Src) 98.2 (Oral) Resp 20 Ht 5' 3 (1.60m) Wt 158 lb 11.7 oz (72.0kg) SpO2 91% BMI 28.13 kg/(m2). GENERAL: well nourished and developed; no acute distress; alert, pleasant HEENT: no evidence of trauma; cranial nerves intact; eyes clear EOMI; no hearing deficits apparent; nasal passages unremarkable; throat and mucous membranes clear NECK: supple without lymphadenopathy; no JVD; no thyromegaly. Wallace right neck, site unremarkable CHEST: clear bilaterally to auscultation; normal chest movement; no rales or rhonchi.; incision c/d/i HEART: regular rate and rhythm, normal S1 and S2, no murmurs appreciated, clicks, rubs, or gallops ABDOMEN: soft; nondistended; bowel sounds present; no hepatomegaly; no splenomegaly; no tenderness EXTREMITIES: no evidence of clubbing; no cyanosis; no deformity; no joint effusion; no edema NEURO: FISHER; nonfocal SKIN: no rash; no skin breakdown; no decubitus lesions HEME: no bruising; no adenopathy PSYCH: Unable to evaluate DATA: Diagnostic tests reviewed: Most recent labs and imaging results. CBC: No results for input(s): WBC, RBC, HB, HCT, PLT, MCV, MCH, MPV, RDW in the last 24 hours. CMP: No results for input(s): NA, K, CHLOR, CO2, BUN, CREAT, GLUC, TPROT, CA, MG, ALBUMIN, TBILI, ALKPHOS, ALT, AST, ANION in the last 24 hours. Heme: No results for input(s): RETICP, ABSRETIC, LD, KRYSTLE, FE, TIBC, TRANSFERSAT in the last 24 hours. TOX SCREEN Lab Results Component Value Date UAMPP see below 09/08/2016 UBARPP Non-Detected 09/08/2016 BENZO Non-Detected 09/08/2016 UOPIPP see below 09/08/2016 UPCPPP Non-Detected 09/08/2016 ACTIVE PROBLEM LIST Seizures (Hcc) Drug Abuse (Hcc) Abnormal Finding On Breast Imaging Asthma Mitral Valve Stenosis, Rheumatic Mitral Valve Regurgitation, Rheumatic S/P Mitral Valve Replacement Nonsustained Paroxysmal Ventricular Tachycardia (Hcc) Nicotine use disorder, F17.2 Diet DIET REGULAR LAST BOWEL MOVEMENT Number of BMs: 1 (12/07/17 1100) Prior to Admission Opiate Status EMERGENCY MEDICINE Suboxone Outpatient Pain Management: Yes. Other: Dr Escobar Rx at D/C: yes Rx on chart: yes OARRS: Reviewed - 11/26/2017 Suboxone 8/2 #14/7 days from [facility] Pain Regimen/Notes (Opiate use last 24 hrs): APAP 650mg po q6h prn- none Percocet 5/325 1-2 po q4h prn 2 tabs x 5 PLAN: Continue Percocet 5/325 1-2 po q4h prn; monitor use SennaS bid Our team spoke with Kimberly Humphries NP with Dr Escobar office - pt last Suboxone dose was Suboxone 8/2 mg on 10 AM. Pt does not have Suboxone at home Plan continue opioids for less than 1 week: Percocet Rx left in chart. Pt to call Dr Escobar office after discharge- with plans transition back to Suboxone once acute pain subsides Will sign off; recontact if our team can assist further Ashanti Leslie MD NURSING PROG Observed: 12/08/2017 Status: COMPLETED Source: [place] 10:05 AM [facility] REPOSITORY HNO ID: [id number] Author: Jie (Rn) MAG Wolf Service: Cardiovascular Testing Author Type: Registered Nurse Type: Nursing Progress Note Filed: 12/08/2017 10:06 AM Note Text: Definity IVP given for image enhancement per protocol. Procedure explained. No signs of infiltration tolerated well. PROGRESS Observed: 12/08/2017 Status: COMPLETED Source: [place] 9:29 AM [facility] REPOSITORY HNO ID: [id number] Author: Farideh (Customs Director) GENOVEVA Bustos Service: Cardiovascular Surgery Author Type: Nurse Practitioner Type: Progress Notes Filed: 12/08/2017 11:02 AM Note Text: CARDIOTHORACIC SURGERY POSTOP PROGRESS NOTE SERVICE DATE: 12/08/2017 SERVICE TIME: 9:29 AM Subjective S/P SURGERY: Procedure(s) (LRB): MVP (a 27-mm [place] epic mitral prosthesis) LAAC (35-mm AtriCure clip) DATE OF SURGERY: 12/03/2017 POSTOP DAY #5 LOS: 5 HPI: This is a 47 year old female who was referred by Dr Tripp for severe symptomatic rheumatic mitral stenosis in the setting of current smoker, asthma, seizure disorder and history of drug abuse. She states that her BP has been very low since she started seeing her current PCP, approximately 1 year with readings 80's/50's. She states that about a year ago she noticed increasing fatigue, SOB, dizziness, leg heaviness with climbing stairs. Then in Feb 04/Mar 08 she had an episode at work when she experienced severe dizziness with near syncope and she was sent home. During this episode she denies any acute illness, or chest pain. Since this episode, she has notice increasing dizziness, fatigue, exercise intolerance, and PND requiring 2-3 pillows to sleep at night. She saw her neurologist Dr James in june 2017, and reported these symptoms. He ordered an echo and 48 hour holter monitor. ?A surface echo was done in 06/2017 which showed severe MS and left atrial enlargement. The holter showed ?NSR with SVE beats and runs. At which point she was referred to Dr Tripp who ordered a PRESTON with severe MS, Moderate ?MR, and evidence of right to left intra-atrial shunting with valsalva. She was referred to cardiothoracic surgery for further evaluation. ? She reports her drug use of heroin which she snorted as well as other oral and inhaled drugs including amphetimine. ?She denied IV drug use. She further states that she quit about a year ago after her first seizure and follow [facility]. Her Seizure disorder was diagnosed after her first seizure in 08/2016. EEG notes left fronto-temporal seizure, but imaging was grossly non specific. ? INTERVAL EVENTS / PERTINENT ROS:?Patient underwent MVR on 12/[address] Lew. Her post-op recovery was uncomplicated. She was transferred out of ICU on POD #2. She has been followed by pain management for appropriated pain control with plan of resuming to [facility] for outpatient substance therapy. She had a long run of nonsustained VT for about 16 seconds at about 166 bpm on her POD#4, consulted to EP, managed with increase beta irene and recommend a two-week patch nurse monitoring outpatient. ? Patient is seen today, NAD. Stated that she is ready to go home as she is feeling well. Denied chest palpitation. Slight SOB with ambulation this AM. Tolerating pain well. Her INR is even lower today from yesterday-1.18 (went from 2.56 to 1.53). Objective Admission Weight: 71.2 kg (157 lb) BP 103/63 Pulse 80 Temp 36.8 ?C (98.2 ?F) (Oral) Resp 20 Ht 160 cm (5' 3) Wt 72 kg (158 lb 11.7 oz) SpO2 92% BMI 28.12 kg/m? Body surface area is 1.79 meters squared. Min/Max/Average Temperature AND Blood Pressure: Temp (24hrs), Av.9 ?C (98.4 ?F), Min:36.6 ?C (97.9 ?F), Max:37.1 ?C (98.8 ?F) Systolic (24hrs), Av , Min:93 , Max:125 Diastolic (24hrs), Av, Min:52, Max:71 Intake/Output Summary (Last 24 hours) at 12/08/17 7522 Last data filed at 12/08/17 0541 Gross per 24 hour Intake 360 ml Output 0 ml Net 360 ml TELEMETRY: normal sinus rhythm with PVCs and PACs. PHYSICAL EXAM: General Appearance: well developed and no distress Skin: Midsternal incision dry AND intact., warm and dry Lungs: clear and respiratory effort: normal Heart: regular rhythm, S1, S2 normal and no murmur Peripheral Vascular/Arteries: pulses intact, dorsalis pedis +2 and radial +2 Abdomen: soft, non-tender and bowel sounds present Genitourinary: voiding without difficulty Neurologic/Psychiatric: oriented to time, place and person Extremities: normal exam of the extremities and no edema Lines, Drains, and Airways Line Central Line Triple Lumen 12/05/17 Right Neck 3 days Peripheral Double Lumen 12/04/17 1212 Short Wrist 20 Gauge 3 days DATA: Diagnostic tests reviewed for today's visit: Significant Lab Results: REVIEWED MOST RECENT LABS Recent Labs 12/08/17 0313 12/07/17 0320 12/06/17 0601 RBC -- 2.32* 2.28* WBC -- 13.91* 16.44* HB -- 7.4* 7.3* HCT -- 22.8* 22.3* PLT -- 198 143* INR 1.18 1.53* 2.56* NA -- 137 -- K -- 3.6 -- CHLOR -- 99 -- CO2 -- 29 -- BUN -- 11 -- CREAT -- 0.65 -- GLUC -- 104* -- CA -- 8.0* -- MG -- 1.9 -- ANION -- 13 -- Assessment/Plan MV Regurgitation s/p MVR and CABG ligation of atrial appendage 12/03 -POD#5 - ASA 162, Statin 40, BB 12.5 BID up to 25 BID - Chest tubes discontinued 12/05 - CXR from today is reviewed, stable - Warfarin started 12/04 with target INR of 2, INR =-1.18-1.53-2.56, give coumadin 5 mg today -paing wires cut 12/07 - lytes are WNL, c/w Tele monitor. ? Post-op acute blood loss anemia - HH 7.4/22.8 - added Fe+Vit C -HD stable no signs of active bleeding ? Expected post operative respiratory insufficiency - IS - NC, wean as able - Duoneb ? Hyperglycemia: - ISS ? MSK: - PT/OT recs Home Tests/Labs Ordered: 1. INR SIGNATURE: Farideh Bustos APRN.CNP PATIENT NAME: Benjamin Garces DATE: December 08, 2017 TIME: 9:29 AM PAGER/CONTACT #:[phone] ETX [id number] PROTIME Collected: 12/08/2017 Status: F Source: [facility] 3:13 AM HEALTH SYSTEM REPOSITORY TYPE CODE TESTS RESULT OUT OF REFERENCE UNITS RANGE LAB PTI(LOINC) 9.7-13.0 sec Prothrombin Time 12.1 LAB INR(LOINC) 0.90-1.30 INR 1.18 Result Comment: Note: Reference Range Change Vitamin K Antagonist (VKA) Therapeutic Range: INR 2 to 3 (Target INR of 2.5) Note: For patients treated with VKA drugs, such as warfarin, the [employer] 2012 Guideline recommends a therapeutic INR range of 2 to 3 (target INR of 2.5). This recommendation includes high-risk patients with antiphospholipid syndrome with previous arterial or venous thromboembolism, current-generation mechanical or bioprosthetic aortic heart valve replacement. VKA Therapeutic Range for some Mechanical Valve Replacement: INR 2.5 to 3.5 (Target INR of 3) Note: Patients with mechanical aortic valve replacement and additional risk factors for thromboembolic events (atrial fibrillation, previous thromboembolism, LV dysfunction, hypercoagulable conditions) or an older generation mechanical AVR (i.e., ball in-Cage) or any mechanical MVR should have a INR therapeutic range of 2.5 to 3.5 target INR of 3). Guyadanny GH, et al. Chest 2012; 141:7S-47S Duyen RA et al. JACC 2017; 70: 252-289 Performed By: #### PT #### [place] [id number] CNPN Observed: 12/08/2017 Status: COMPLETED Source: [place] 12:00 AM [facility] OTHER CAMPUS REPOSITORY Telephone (Saperion) BENJAMIN GARCES ([id number]) 1970 F Date Time Provider Department 12/08/17 CORAZON GALLAGHER During your visit today, we recorded the following information about you: Corazon Gallagher MD 12/08/2017 1:29 PM Signed Please contact Ms. Garces sometime next week to help coordinate a 2 week patch electrode monitor placed. I placed an order. She is presently in the hospital POD#5 after MVR, had a run of about 16 seconds of VT. Normal LV function. I told her when I was consulted that we would likely order outpatient monitoring so she is aware. Corazon Gallagher MD December 08, 2017 1:28 PM Ariella Cervantes RN 12/31/2017 2:38 PM Signed I called patient today to touch base as previous attempts were unsuccessful, she states that she is currently wearing the patch monitor. Ariella Cervantes RN Allergies As of Date: 12/08/2017 (No Known Allergies) Date Reviewed: 12/08/2017 Reviewed by: Shyla (Rn) MAG Ansari - Fully Assessed Reason for Visit: Treatment Planning [881] Primary Visit Diagnosis:Nonsustained paroxysmal ventricular tachycardia (HCC) [I47.2] Other Visit Diagnoses:Mitral valve stenosis, rheumatic [I05.0] S/P mitral valve replacement [Z95.2] Order(s):EXTENDED WEAR SHEET WRITER PATCH [[id number]] Order #: [id number] Prescriptions as of 12/08/2017 Sig: OXYCODONE-ACETAMINOPHEN 5 MG-* Take 1-2 tablets by mouth roman* ASPIRIN 81 MG CHEWABLE TABLET Take 81 mg by mouth once jeannette* X MUPIROCIN 2 % NASAL OINTMENT Use 1 application in the nose* X ESCITALOPRAM 10 MG TABLET Take 1 tablet by mouth once d* NICOTINE 21 MG/24 HR DAILY TR* Apply 1 Patch as directed roman* Patient not taking: Reported on 12/20/2017 X OTC PRODUCT Take by mouth once daily. Anb* LEVETIRACETAM 500 MG TABLET Take 1 tablet by mouth twice * X IBUPROFEN 800 MG TABLET MOMETASONE-FORMOTEROL HFA 100* Inhale 2 Puffs as instructed * BUPRENORPHINE 8 MG-NALOXONE 2* Dissolve under the tongue twi* ALBUTEROL SULFATE HFA 90 MCG/* Inhale 2 Puffs as instructed * Problem List As Of Date 12/08/2017 Noted Resolved Seizures (HCC) [R56.9] INVALID FOR* More... Drug abuse [F19.10] INVALID FOR* More... Abnormal finding on breast imaging [R92.8] INVALID FOR* Asthma [J45.909] Mitral valve stenosis, rheumatic [I05.0] INVALID FOR* More... More... Mitral valve regurgitation, rheumatic [I05.1] INVALID FOR* S/P mitral valve replacement [Z95.2] INVALID FOR* Nonsustained paroxysmal ventricular tachycardia*INVALID FOR* Nicotine use disorder, F17.2 [F17.200] INVALID FOR* Encounter Status:Closed by CORAZON GALLAGHER MD on 12/08/17 CONSULT Observed: 12/07/2017 Status: COMPLETED Source: [place] 5:34 PM CL[facility] OTHER CAMPUS REPOSITORY O ID: [id number] Author: Corazon Gallagher Service: Electrophysiology Author Type: Physician Type: Consults Filed: 12/07/2017 5:50 PM Note Text: CONSULT: [facility] (EP) - [facility] ([facility]) SERVICE DATE: 12/07/2017 SERVICE TIME: 5:34 PM CONSULTING PHYSICIAN: Corazon Gallagher MD PCP: Claudio Reyes MD ATTENDING: Yonas Lew REASON FOR CONSULT: Arrhythmias Subjective CHIEF COMPLAINT: Mitral valvular regurgitation [I34.0] Atrial fibrillation (HCC) [I48.91] HISTORY OF PRESENT ILLNESS: Ms. Garces is a 47 year old female with history of severe rheumatic mitral stenosis who underwent MVR on 12/03/2017. Preoperatively she had normal LV systolic function. Postoperatively she has done well but early this morning at about 03:00 AM she had a long run of nonsustained VT for about 16 seconds at about 166 bpm. This was asymptomatic as she was sleeping. She denies experiencing much palpitation. She has the usual postoperative chest discomfort but otherwise feels that she has been recovering well from the valve surgery. PAST MEDICAL HISTORY Diagnosis Date - Asthma uses inhaler PRN; never hospitalized or intubated for asthma exacerbation - COPD (chronic obstructive pulmonary disease) (HCC) - Dermatitis - Former tobacco use quit 11/2017 - History of drug abuse no IVDA - Hives 2008; improved with Benadryl; undetermined cause - Mitral valve regurgitation, rheumatic - Mitral valve stenosis, rheumatic severe; s/p MVR (bioprosthetic) 12/03/2017 - Nonsustained paroxysmal ventricular tachycardia (HCC) 12/07/2017 16.5 seconds of NSVT at 167 bpm on telemetry monitoring POD#4 after MVR - S/P mitral valve replacement 12/03/2017 MVR ([facility] Epic) 12/03/2017 for severe rheumatic mitral valve stenosis - Seizure (HCC) 08/2016 PAST SURGICAL HISTORY Procedure Laterality Date - CARPAL TUNNEL Bilateral 03/07/2017 Dr. Schmitt both wrists - ECHOCARDIOGRAM 07/11/2017 normal LV systolic fxn; LVEF 57%; dilated RV with normal RV systolic fxn; severe LAE; severe MS; moderately severe MR - HOLTER MONITOR 48 HR 07/11/2017 sinus rhythm; PACs; brief PAT - REPLACEMENT OF MITRAL VALVE 12/03/2017 MVR ([facility] bioprosthetic) for rheumatic mitral stenosis; KARIN closure; CCAG Dr. Lew - RIGHT AND LEFT HEART CATH 10/17/2017 normal coronary arteries; mild pHTN - PRESTON 09/19/2017 severe MS; moderate MR; severe LAE; LVEF 50-55% FAMILY HISTORY Problem Relation Age of Onset - Cancer Mother 54 lung - other (tobacco use) Mother - Parkinson?s Disease Father - Hypertension Father - Colon Cancer Paternal Grandmother 55 - Diabetes Paternal Grandmother - Prostate Cancer Paternal Uncle - Hypertension Sister - other (bladder problem) Sister - Arthritis Sister - No Known Problems Sister Social History Substance Use Topics - Smoking status: Former Smoker Packs/day: 0.50 Years: 29.00 Types: Cigarettes Start date: 1988 Quit date: 11/19/2017 - Smokeless tobacco: Never Used Comment: cutting back 3-4 per day quit 11/25/17 - Alcohol use No Comment: no alcohol since 2016 Prior to Admission Medications Prescriptions Last Dose Informant Patient Reported? Taking? Buprenorphine-nalOXone (SUBOXONE) 8-2 mg film 12/02/2017 at 0800 Yes No Sig: Dissolve under the tongue twice daily. 8 mg tablet. OTC PRODUCT 12/02/2017 at Unknown time Yes Yes Sig: Take by mouth once daily. Anbrem albuterol HFA (VENTOLIN HFA) 90 mcg/actuation inhaler 12/02/2017 at 2200 No Yes Sig: Inhale 2 Puffs as instructed every 4 hours as needed. aspirin 81 mg chewable tablet 12/03/2017 at 0400 Yes Yes Sig: Take 81 mg by mouth once daily. escitalopram oxalate (LEXAPRO) 10 mg tablet 12/02/2017 at Unknown time No Yes Sig: Take 1 tablet by mouth once daily. ibuprofen (MOTRIN) 800 mg tablet 11/30/2017 Yes No Sig: levETIRAcetam (KEPPRA) 500 mg tablet 12/03/2017 at 0400 No Yes Sig: Take 1 tablet by mouth twice daily. mometasone-formoterol (DULERA) 100-5 mcg/actuation inhaler 12/02/2017 at 2200 No Yes Sig: Inhale 2 Puffs as instructed twice daily. mupirocin (BACTROBAN) 2 % nasal ointment 12/02/2017 at 2200 No Yes Sig: Use 1 application in the nose twice daily. nicotine (NICODERM CQ) 21 mg/24 hr No No Sig: Apply 1 Patch as directed every 24 hours. APPLY ONE PATCH EVERY 24 HOURS TOPICALLY Facility-Administered Medications: None Current hospital medications: warfarin 2.5 mg tab(s) (COUMADIN) 2.5 mg ORAL ONCE - WARFARIN ferrous sulfate 325 mg tab(s) 325 mg ORAL BID w MEALS ascorbic acid (vitamin C) 500 mg tab(s) (VITAMIN C) 500 mg ORAL BID polyethylene glycol 3350 17 g packet (MIRALAX, GLYCOLAX) 17 g ORAL DAILY PRN perflutren lipid microspheres 1.1 mg/mL 1.3 mL injection (DEFINITY) 1.3 mL INTRAVENOUS DIRECTED PRN metoprolol tartrate (short acting) 12.5 mg tab(s) (LOPRESSOR) 12.5 mg ORAL q 12 H 0.9% NaCl 2-10 mL 2-10 mL INTRAVENOUS q 12 H polyethylene glycol 3350 17 g packet (MIRALAX, GLYCOLAX) 17 g ORAL DAILY senna-docusate 8.6-50 mg 1 tablet (SENNA-S) 1 tablet ORAL BID bisacodyl 10 mg suppository (DULCOLAX) 10 mg RECTAL PRN melatonin 3 mg tab(s) 3 mg ORAL HS PRN [MAR Hold due to Transfer] morphine 2-4 mg injection 2-4 mg INTRAVENOUS q 4 H PRN warfarin dose per INR - Call physician daily for dose ORAL DAILY - WARFARIN pantoprazole DR 40 mg tab(s) (PROTONIX) 40 mg ORAL DAILY (6 AM) levETIRAcetam 500 mg tab(s) (KEPPRA) 500 mg ORAL BID escitalopram oxalate 10 mg tab(s) (LEXAPRO) 10 mg ORAL DAILY dextrose 50% in water 25 mL syringe 12.5 g INTRAVENOUS PRN aspirin 162 mg chewable tab(s) 162 mg ORAL DAILY acetaminophen 650 mg tab(s) (TYLENOL) 650 mg ORAL q 6 H PRN enoxaparin 40 mg injection (LOVENOX) 40 mg SUBCUTANEOUS DAILY albuterol 2.5 mg /3 mL (0.083 %) 2.5 mg (PROVENTIL) 2.5 mg INHALATION q 2 H PRN atorvastatin 40 mg tab(s) (LIPITOR) 40 mg ORAL AT BEDTIME ondansetron (PF) 4 mg injection (ZOFRAN) 4 mg INTRAVENOUS q 6 H PRN oxyCODONE-acetaminophen 5-325 mg 1-2 tablet (PERCOCET) 1-2 tablet ORAL q 4 H PRN albuterol 2.5 mg /3 mL (0.083 %) 2.5 mg (PROVENTIL) 2.5 mg INHALATION QID budesonide 0.5 mg/2 mL 1 mg (PULMICORT) 1 mg INHALATION BID ALLERGIES No Known Allergies REVIEW OF SYSTEMS: The following systems were reviewed with the patient, and are unremarkable other than as described below. SYSTEMIC: No fever, chills, or change in weight or appetite PAIN ASSESSMENT: postoperative pain at sternal incision site HEENT: No recent change in vision or hearing. NECK: Negative for lumps, goiter, pain and significant neck swelling RESPIRATORY: Negative for cough, hemoptysis, wheezing, COPD, dyspnea or shortness of breath CARDIOVASCULAR: See HPI GI: No recent nausea, vomiting or diarrhea. : No recent hematuria or dysuria. SKIN: No recent itching or eruption. PSYCH: No recent active anxiety or depression. HEMATOLOGY/ONCOLOGY: No recent diagnosis of bleeding or cancer. ENDOCRINE: No recent polyuria or heat intolerance. NEURO: No recent TIA, stroke or seizures. RHEUMATOLOGY: No recent active connective tissue disease. Objective PHYSICAL EXAM: Pleasant, comfortable, not in acute distress. Awake, alert, oriented times 3. Moves all extremities. SKIN: No rash or lumps. HEENT: Normocephalic, face symmetrical. EYES: EOMI NECK: No jugulovenous distention, Supple LUNGS: Clear to auscultation bilaterally. CARDIAC: Rhythm: regular rate and rhythm, Rate: normal, S1: normal intensity, S2: normal intensity, no loud murmurs or rubs ABDOMEN: Soft, nontender, bowel sounds present. EXTREMITIES: No edema. NEURO: Grossly normal cognition, motor function, and cranial nerves III-XII PULSES: Peripheral pulses present. Body mass index is 28.01 kg/m?. O2 Therapy: Room Air No Data Recorded Patient Vitals for the past 48 hrs: BP Temp Temp src Pulse Resp SpO2 Weight 12/07/17 1638 - - - 82 16 97 % - 12/07/17 1543 93/61 37.1 ?C (98.8 ?F) Oral 75 16 100 % - 12/07/17 1156 - - - 75 16 - - 12/07/17 1154 106/63 36.9 ?C (98.4 ?F) Oral 72 18 94 % - 12/07/17 0945 104/71 36.6 ?C (97.9 ?F) Oral 95 18 97 % - 12/07/17 0753 - - - 74 14 98 % - 12/07/17 0602 - - - - - - 71.7 kg (158 lb 1.6 oz) 12/07/17 0306 103/62 - - 75 18 - - 12/06/172031 - - - 85 12 - - 12/06/172020 - - - 84 12 - - 12/06/17 2019 110/57 36.5 ?C (97.7 ?F) Oral 83 12 98 % - 12/06/17 1624 - - - 67 12 - - 12/06/17 1617 - - - 66 12 94 % - 12/06/17 1600 120/77 36.9 ?C (98.4 ?F) Oral 91 20 100 % - 12/06/17 1130 - - - 69 20 97 % - 12/06/17 1104 93/59 36.6 ?C (97.9 ?F) Oral 72 19 95 % - 12/06/17 0845 104/62 36.8 ?C (98.2 ?F) Oral 79 18 100 % - 12/06/17 0759 - - - 70 20 99 % - 12/06/17 0609 106/71 37.1 ?C (98.8 ?F) Oral 72 18 96 % - 12/06/17 0545 - - - - - - 73.7 kg (162 lb 8 oz) 12/06/17 0037 106/73 36.4 ?C (97.5 ?F) Oral 80 18 100 % - 12/05/17 2032 110/63 37 ?C (98.6 ?F) Oral 86 18 96 % - DATA: Diagnostic tests reviewed for today's visit: Most recent labs and imaging results. Most recent EKG Most recent telemetry monitoring Telemetry monitoring: at about 03:00 AM 12/07/2017 she had about 16.5 seconds of nonsustained wide-complex tachycardia at 167 bpm, monomorphic and seems most consistent with VT; otherwise some PACs, PVCs, couplets, triplets, and very brief PAT (all asymptomatic) Past 72 Hour Labs: Recent Labs 12/07/17 0320 WBC 13.91* RBC 2.32* HB 7.4* HCT 22.8* MCV 98.3* MCH 31.9 MCHC 32.5 PLT 198 MPV 10.4 GLUC 104* BUN 11 CREAT 0.65 NA 137 K 3.6 CHLOR 99 CO2 29 CA 8.0* PTSEC 15.4* INR 1.53* MG 1.9 Last Lab Drawn: TSH 0.13 11/21/2017 Triglyceride 59 09/12/2016 HDL Cholesterol 76 09/12/2016 LDL Cholesterol 79 09/12/2016 Cholesterol, Total 167 09/12/2016 Impression/Recommendations Active Hospital Problems Diagnosis Date Noted - Mitral valve stenosis, rheumatic 10/02/2017 - Nonsustained paroxysmal ventricular tachycardia (HCC) 12/07/2017 - S/P mitral valve replacement 12/05/2017 - Mitral valve regurgitation, rheumatic 12/03/2017 Ms. Garces is POD#4 after bioprosthetic MVR for rheumatic mitral valve stenosis. She had a nonsustained but somewhat prolonged run of VT early this morning. This is monomorphic and is not consistent with polymorphic VT or torsades de pointes. Nevertheless there is some concern that the episode was 16 seconds duration. She had normal LV systolic function preoperatively. I would not at this point recommend antiarrhythmic drug therapy, and she does not require an ICD or even a wearable defibrillator vest at this point. I would consider increasing the metoprolol to 25 mg twice daily. Also she should have outpatient cardiac monitoring, perhaps even a two-week patch nurse monitoring, to evaluate further for any arrhythmias. I had a detailed discussion with Ms. Garces regarding my evaluation and recommendations. After our discussion, Ms. Garces expressed her understanding and I answered all her questions to her apparent satisfaction. Thank you for this consult. Please call with questions or concerns. The EP group pager is [phone]). SIGNATURE: Corazon Gallagher MD PATIENT NAME: Benjamin Garces DATE: December 07, 2017 TIME: 5:34 PM PAGER/CONTACT #: [phone] ALLIED HEALTH Observed: 12/07/2017 Status: COMPLETED Source: [place] 5:03 PM [facility] OTHER MOBILE REPOSITORY HNO ID: [id number] Author: Kiara Cornejo (Chaplain), [place] Service: Spiritual Care Author Type: Organ Assembler Type: Allied Health Filed: 12/07/2017 5:05 PM Note Text: SPIRITUALCARE Spiritual Care Visit- Brief Note Name: Benjamin Garces Date: December 07, 2017 Notes: Organ Assembler checked in with Pt today. Pt was feeling better and is hopeful that she will regain her health and strength. Pt's family was in at the time of my visit and asked for me to pray. I extended prayer and left/ Organ Assembler Signature: Chaplain Olivier Irrigation Equipment Installer To contact the Spiritual Care Department: Please call [phone] or Page the On-Call Organ Assembler at pager [phone] Thank you for the opportunity to be of service. This is an electronically created document. IF PRINTED, PLEASE DO NOT REMOVE FROM THE CHART OR MODIFY PRINTED COPY. PROCEDURE Observed: 12/07/2017 Status: COMPLETED Source: [place] 2:14 PM [facility] OTHER MOBILE REPOSITORY HNO ID: [id number] Author: Farideh Bustos, CARTON CATCHER.ASSURANCE SENIOR Service: Cardiovascular Surgery Author Type: Nurse Practitioner Type: Procedures Filed: 12/07/2017 2:16 PM Note Text: BEDSIDE PROCEDURE NOTE Epicardial pacing wires removal Date/Start Time: 12/07/2017 2:14 PM Performed by: FARIDEH BUSTOS (MARIVEL) Authorized by: FARIDEH BUSTOS (MARIVEL) Pre-procedure Details: Personnel directly involved with the procedure wore the appropriate PPE. PPE Used: Sterile gloves The area was prepped with chlorhexidine (Chloroprep) and allowed to dry. Procedure Details: Coag panel is reviewed. Right atrial and right ventricular pacing leads are cut with intact tips. Post-procedure Details: Patient tolerated the procedure well with no immediate complications Estimated Blood Loss: None Specimens Sent: None SIGNATURE: Farideh Bustos APRN.CNP PATIENT NAME: Benjamin Garces DATE: December 07, 2017 TIME: 2:14 PM PAGER/CONTACT #: [phone] PROGRESS Observed: 12/07/2017 Status: COMPLETED Source: [place] 9:55 AM CLINIC OTHER CAMPUS REPOSITORY O ID: [id number] Author: Ashanti Leslie Service: Pain Management Author Type: Physician Type: Progress Notes Filed: 12/07/2017 9:57 AM Note Text: Benjamin Garces [id number] PAIN MANAGEMENT TEAM PAIN DIAGNOSIS: S/p replacement mitral valve with cardiopulmonary bypass, ligation of atrial appendage due to mitral valve stenosis on 12/03/2017 Pain Score/Description: Sore, stiff neck as well as pain at incision- overall improving. She's satisfied with present regimen INTERVAL HPI: 45 beat run VT earlier this AM; Mg 1.9 K 3.6 SUBJECTIVE HPI: This is a 47 year old female who presents for above surgery. Per Dr. Lew's note: This is a 47 year old female who was referred by Dr Tripp for severe symptomatic rheumatic mitral stenosis in the setting of current smoker, asthma, seizure disorder and history of drug abuse. She states that her BP has been very low since she started seeing her current PCP, approximately 1 year with readings 80's/50's. She states that about a year ago she noticed increasing fatigue, SOB, dizziness, leg heaviness with climbing stairs. Then in Feb 04/Mar 08 she had an episode at work when she experienced severe dizziness with near syncope and she was sent home. During this episode she denies any acute illness, or chest pain. Since this episode, she has notice increasing dizziness, fatigue, exercise intolerance, and PND requiring 2-3 pillows to sleep at night. She saw her neurologist Dr James in june 2017, and reported these symptoms. ??He ordered an echo and 48 hour holter monitor. ?A surface echo was done in 06/2017 which showed severe MS and left atrial enlargement. The holter showed ?NSR with SVE beats and runs. At which point she was referred to Dr Tripp who ordered a PRESTON with severe MS, Moderate ?MR, and evidence of right to left intra-atrial shunting with valsalva. She was referred to cardiothoracic surgery for further evaluation. ? She reports her drug use of heroin which she snorted as well as other oral and inhaled drugs including amphetimine. ?She denied IV drug use. She further states that she quit about a year ago after her first seizure and follow [facility]. Her Seizure disorder was diagnosed after her first seizure in 08/2016. EEG notes left fronto-temporal seizure, but imaging was grossly non specific. Per chart documentation: I want to bring this up to your attention about Mrs. Garces's post-op pain management. I Talked to her addiction/pain management doc. Dr. Escobar. He wants us to make sure she will have adequate and appropriate pain control post op and patient needs to be back on his service post discharge. He wants us to be on touch with his [employer] PA[employer]UR[employer]ER (Kimberly Humphries [phone]) upon discharge. Thank you. I will attach a pain management consult to her surgery case, sign and hold it, so please double check. Thanks. Attempted to call Kimberly Humphries NP with Dr Escobar office at above listed number - no answer, left message for her to call me back regarding suboxone treatment plan. 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 11/26/2017 1 11/26/2017 SUBOXONE 8 MG-2 MG SL FILM 14 7 TA BOW [id number] DIS(6261) 0 16.00 mg [facility] [place] 11/12/2017 1 11/12/2017 SUBOXONE 8 MG-2 MG SL FILM 28 14 TA BOW [id number] DIS(6261) 0 16.00 mg [facility] [place] 10/29/2017 1 10/29/2017 SUBOXONE 8 MG-2 MG SL FILM 28 14 TA BOW [id number] DIS(6261) 0 16.00 mg [place] MEDICATIONS Current Facility-Administered Medications: polyethylene glycol 3350 17 g packet (MIRALAX, GLYCOLAX) 17 g ORAL DAILY PRN Ashanti Leslie perflutren lipid microspheres 1.1 mg/mL 1.3 mL injection (DEFINITY) 1.3 mL INTRAVENOUS DIRECTED PRN Farideh Fofana) GENOVEVA Bustos metoprolol tartrate (short acting) 12.5 mg tab(s) (LOPRESSOR) 12.5 mg ORAL q 12 H Marcus Dennison) [place] 12.5 mg at 12/06/17 202 0.9% NaCl 2-10 mL 2-10 mL INTRAVENOUS q 12 H Marcus Dennison) [place] 10 mL at 12/06/17 2100 polyethylene glycol 3350 17 g packet (MIRALAX, GLYCOLAX) 17 g ORAL DAILY Marcus Dennison) [place] 17 g at 12/05/17 1331 senna-docusate 8.6-50 mg 1 tablet (SENNA-S) 1 tablet ORAL BID Marcus Dennison) [place] 1 tablet at 12/06/17 0855 bisacodyl 10 mg suppository (DULCOLAX) 10 mg RECTAL PRN Marcus Dennison) [place] melatonin 3 mg tab(s) 3 mg ORAL HS PRN Marcus Dennison) Rumaria din [MAR Hold due to Transfer] morphine 2-4 mg injection 2-4 mg INTRAVENOUS q 4 H PRN Marcus Dennison) [place] 2 mg at 12/05/17 1500 warfarin dose per INR - Call physician daily for dose ORAL DAILY - WARFARIN Elizabet Haas pantoprazole DR 40 mg tab(s) (PROTONIX) 40 mg ORAL DAILY (6 AM) Elizabet Haas 40 mg at 12/06/17 0559 levETIRAcetam 500 mg tab(s) (KEPPRA) 500 mg ORAL BID Hari Nowak (Pa) 500 mg at 12/06/172021 escitalopram oxalate 10 mg tab(s) (LEXAPRO) 10 mg ORAL DAILY Hari Nowak (Pa) 10 mg at 12/06/17 0855 dextrose 50% in water 25 mL syringe 12.5 g INTRAVENOUS PRN Hari Nowak (Pa) aspirin 162 mg chewable tab(s) 162 mg ORAL DAILY Hari Nowak (Pa) 162 mg at 12/06/17 0855 acetaminophen 650 mg tab(s) (TYLENOL) 650 mg ORAL q 6 H PRN Hari Dennison) 650 mg at 12/06/17 0855 enoxaparin 40 mg injection (LOVENOX) 40 mg SUBCUTANEOUS DAILY Hari Nowak (Pa) 40 mg at 12/06/17 0855 albuterol 2.5 mg /3 mL (0.083 %) 2.5 mg (PROVENTIL) 2.5 mg INHALATION q 2 H PRN Hari Nowak (Pa) atorvastatin 40 mg tab(s) (LIPITOR) 40 mg ORAL AT BEDTIME Hari Nowak (Pa) 40 mg at 12/06/172021 ondansetron (PF) 4 mg injection (ZOFRAN) 4 mg INTRAVENOUS q 6 H PRN Hari Nowak (Pa) 4 mg at 12/04/17 193 oxyCODONE-acetaminophen 5-325 mg 1-2 tablet (PERCOCET) 1-2 tablet ORAL q 4 H PRN Hari Nowak (Pa) 2 tablet at 12/07/17 0153 albuterol 2.5 mg /3 mL (0.083 %) 2.5 mg (PROVENTIL) 2.5 mg INHALATION QID Yonas A Lahorra 2.5 mg at 12/06/172021 budesonide 0.5 mg/2 mL 1 mg (PULMICORT) 1 mg INHALATION BID Yonas A Lahorra 0.5 mg at 12/06/172026 Prescriptions Prior to Admission: aspirin 81 mg chewable tablet Take 81 mg by mouth once daily. Disp: Rfl: 12/03/2017 at 0400 mupirocin (BACTROBAN) 2 % nasal ointment Use 1 application in the nose twice daily. Disp: 1 Tube Rfl: 0 12/02/2017 at 2200 escitalopram oxalate (LEXAPRO) 10 mg tablet Take 1 tablet by mouth once daily. Disp: 30 tablet Rfl: 1 12/02/2017 at Unknown time OTC PRODUCT Take by mouth once daily. Anbrem Disp: Rfl: 12/02/2017 at Unknown time levETIRAcetam (KEPPRA) 500 mg tablet Take 1 tablet by mouth twice daily. Disp: 180 tablet Rfl: 3 12/03/2017 at 0400 mometasone-formoterol (DULERA) 100-5 mcg/actuation inhaler Inhale 2 Puffs as instructed twice daily. Disp: 1 Inhaler Rfl: 1 12/02/2017 at 2200 albuterol HFA (VENTOLIN HFA) 90 mcg/actuation inhaler Inhale 2 Puffs as instructed every 4 hours as needed. Disp: 2 Inhaler Rfl: 1 12/02/2017 at 2200 nicotine (NICODERM CQ) 21 mg/24 hr Apply 1 Patch as directed every 24 hours. APPLY ONE PATCH EVERY 24 HOURS TOPICALLY Disp: 28 Patch Rfl: 2 Taking ibuprofen (MOTRIN) 800 mg tablet Disp: Rfl: 11/30/2017 Buprenorphine-nalOXone (SUBOXONE) 8-2 mg film Dissolve under the tongue twice daily. 8 mg tablet. Disp: Rfl: 12/02/2017 at 0800 PAST MEDICAL HISTORY PAST MEDICAL HISTORY Diagnosis Date - A-fib (FORM[facility]LY [facility]) PT DENIES HX OF AFIB - Asthma - COPD (chronic obstructive pulmonary disease) (FORMERLY [facility]) - Dermatitis - Drug abuse ([facility]) - Hives - Mitral valve stenosis - Seizure ([facility]LY [facility]) 08/2016 PAST SURGICAL HISTORY PAST SURGICAL HISTORY Procedure Laterality Date - CARPAL TUNNEL 03/07/2017 Dr. Schmitt both wrists ALLERGIES No Known Allergies FAMILY HISTORY Problem Relation Age of Onset - Cancer Mother 54 lung - None Father parkinson - Colon Cancer Paternal Grandmother 55 - Diabetes Paternal Grandmother - Cancer Paternal Uncle prostate Social History Substance Use Topics - Smoking status: Former Smoker Packs/day: 0.50 Years: 10.00 Types: Cigarettes - Smokeless tobacco: Never Used Comment: cutting back 3-4 per day quit 11/25/17 - Alcohol use No Social History Narrative Works at [employer] in [place]. Lives with boyfriend. Feels safe at home. REVIEW OF SYSTEMS: all of the following reviewed and negative except as noted below: See history of present illness, UNABLE to provide?sedated GENERAL: no fever, chills, sweats, weight loss, fatigue, generalized weakness HEENT: no headache, vision changes, eye discomfort, hearing change, ear discomfort, sinus pain, nasal discharge or congestion, oral lesions, soreness, dental problem NECK: no adenopathy, discomfort, change in ROM CHEST: no shortness of breath, dyspnea on exertion, wheezing, cough, sputum production or chest pain HEART: no chest pain, palpitations, syncope ABDOMEN: no nausea, vomiting, constipation, diarrhea, abdominal pain : no dysuria, urgency, frequency, history of stones, incontinence NEURO: no confusion or alteration in consciousness, slurred speech, seizure, focal weakness EXTREMITIES: no new pain, edema, change in ROM HEME: no new adenopathy, bruises, petechiae PSYCH: no depression, anxiety, agitation OBJECTIVE PHYSICAL EXAMINATION: see below for new or abnormal findings BP 103/62 Pulse 75 Temp (Src) 97.7 (Oral) Resp 18 Ht 5' 3 (1.60m) Wt 162 lb 8 oz (73.7kg) SpO2 98% BMI 28.79 kg/(m2). GENERAL: well nourished and developed; no acute distress; alert, pleasant HEENT: no evidence of trauma; cranial nerves intact; eyes clear EOMI; no hearing deficits apparent; nasal passages unremarkable; throat and mucous membranes clear NECK: supple without lymphadenopathy; no JVD; no thyromegaly. Gaudencio right neck, site unremarkable CHEST: clear bilaterally to auscultation; normal chest movement; no rales or rhonchi.; incision c/d/i HEART: regular rate and rhythm, normal S1 and S2, no murmurs appreciated, clicks, rubs, or gallops ABDOMEN: soft; nondistended; bowel sounds present; no hepatomegaly; no splenomegaly; no tenderness EXTREMITIES: no evidence of clubbing; no cyanosis; no deformity; no joint effusion; no edema NEURO: FISHER; nonfocal SKIN: no rash; no skin breakdown; no decubitus lesions HEME: no bruising; no adenopathy PSYCH: Unable to evaluate DATA: Diagnostic tests reviewed: Most recent labs and imaging results. CBC: Recent Labs 12/07/17 0320 WBC 13.91* RBC 2.32* HB 7.4* HCT 22.8* PLT 198 MCV 98.3* MCH 31.9 MPV 10.4 RDW 12.7 CMP: Recent Labs 12/07/17 0320 NA 137 K 3.6 CHLOR 99 CO2 29 BUN 11 CREAT 0.65 GLUC 104* CA 8.0* MG 1.9 ANION 13 Heme: No results for input(s): RETICP, ABSRETIC, LD, KRYSTLE, FE, TIBC, TRANSFERSAT in the last 24 hours. TOX SCREEN Lab Results Component Value Date UAMPP see below 09/08/2016 UBARPP Non-Detected 09/08/2016 BENZO Non-Detected 09/08/2016 UOPIPP see below 09/08/2016 UPCPPP Non-Detected 09/08/2016 ACTIVE PROBLEM LIST Seizures (Hcc) Drug Abuse (Hcc) Abnormal Finding On Breast Imaging Asthma Mitral Valve Stenosis, Rheumatic Mitral Valvular Regurgitation Atrial Fibrillation (Hcc) Mitral Valve Regurgitation S/P Mitral Valve Replacement Diet DIET REGULAR LAST BOWEL MOVEMENT Prior to Admission Opiate Status EMERGENCY MEDICINE Suboxone Outpatient Pain Management: Yes. Other: Dr Escobar Rx at D/C: yes Rx on chart: yes OARRS: Reviewed - 11/26/2017 Suboxone 8/2 #14/7 days from [facility] Pain Regimen/Notes (Opiate use last 24 hrs): APAP 650mg po q6h prn- none Percocet 5/325 1-2 po q4h prn 2 tabs x 5 PLAN: Continue Percocet 5/325 1-2 po q4h prn; monitor use SennaS bid Our team spoke with Kimberly Humphries NP with Dr Escobar office - pt last Suboxone dose was Suboxone 8/2 mg on 10 AM. Pt does not have Suboxone at home Anticipate small quantity Percocet at discharge; placed in chart Plan continue opioids for less than 1 week, then transition back to Suboxone Ashanti Leslie MD PROGRESS Observed: 12/07/2017 Status: COMPLETED Source: [facility] 9:44 AM CLINIC OTHER CAMPUS REPOSITORY HNO ID: [id number] Author: Farideh (Marivel) ELIZABETH Bustos.MARIVEL Service: Cardiovascular Surgery Author Type: Nurse Practitioner Type: Progress Notes Filed: 12/07/2017 2:29 PM Note Text: CARDIOTHORACIC SURGERY POSTOP PROGRESS NOTE SERVICE DATE: 12/07/2017 SERVICE TIME: 9:44 AM Subjective S/P SURGERY: Procedure(s) (LRB): MVP (a 27-mm [place] epic mitral prosthesis) LAAC (35-mm AtriCure clip) DATE OF SURGERY: 12/03/2017 POSTOP DAY #4 LOS: 4 HPI: This is a 47 year old female who was referred by Dr Tripp for severe symptomatic rheumatic mitral stenosis in the setting of current smoker, asthma, seizure disorder and history of drug abuse. She states that her BP has been very low since she started seeing her current PCP, approximately 1 year with readings 80's/50's. She states that about a year ago she noticed increasing fatigue, SOB, dizziness, leg heaviness with climbing stairs. Then in Feb 04/Mar 08 she had an episode at work when she experienced severe dizziness with near syncope and she was sent home. During this episode she denies any acute illness, or chest pain. Since this episode, she has notice increasing dizziness, fatigue, exercise intolerance, and PND requiring 2-3 pillows to sleep at night. She saw her neurologist Dr James in june 2017, and reported these symptoms. He ordered an echo and 48 hour holter monitor. ?A surface echo was done in 06/2017 which showed severe MS and left atrial enlargement. The holter showed ?NSR with SVE beats and runs. At which point she was referred to Dr Tripp who ordered a PRESTON with severe MS, Moderate ?MR, and evidence of right to left intra-atrial shunting with valsalva. She was referred to cardiothoracic surgery for further evaluation. ? She reports her drug use of heroin which she snorted as well as other oral and inhaled drugs including amphetimine. ?She denied IV drug use. She further states that she quit about a year ago after her first seizure and follow [facility]. Her Seizure disorder was diagnosed after her first seizure in 08/2016. EEG notes left fronto-temporal seizure, but imaging was grossly non specific. ? INTERVAL EVENTS / PERTINENT ROS: Patient underwent MVR on 12/[address] Lew. Her post-op recovery was uncomplicated. She was transferred out of ICU on POD #2. She has been followed by pain management for appropriated pain control with plan of resuming to subaxone for outpatient substance therapy. Patient is seen today, resting in bed with her daughter by her side. She states that she is feeling well. Great ambulatory effort with No SOB/OBRIEN. Denied DZ/LH. Hemodynamic stable with 40+ run of VT early this AM, she was actually asleep then. Tolerating pain well. Objective Admission Weight: 71.2 kg (157 lb) BP 103/62 Pulse 74 Temp 36.5 ?C (97.7 ?F) (Oral) Resp 14 Ht 160 cm (5' 3) Wt 71.7 kg (158 lb 1.6 oz) SpO2 98% BMI 28.01 kg/m? Body surface area is 1.79 meters squared. Min/Max/Average Temperature AND Blood Pressure: Temp (24hrs), Av.7 ?C (98 ?F), Min:36.5 ?C (97.7 ?F), Max:36.9 ?C (98.4 ?F) Systolic (24hrs), Av , Min:93 , Max:120 Diastolic (24hrs), Av, Min:57, Max:77 No intake or output data in the 24 hours ending 12/07/17 0944 TELEMETRY: normal sinus rhythm with runs of SVT/VT with HR of 150s PHYSICAL EXAM: General Appearance: well developed and no distress Skin: Midsternal incision dry AND intact., warm, dry and chest tube sites are ozzing bright red blood. cleaned and covered with DSD. Lungs: clear and respiratory effort: normal Heart: regular rhythm, S1, S2 normal and Pacing wires cut at bedside without immediate complications Peripheral Vascular/Arteries: pulses intact, dorsalis pedis +2 and radial +2 Abdomen: soft, non-tender and bowel sounds present Genitourinary: voiding without difficulty Musculoskeletal: no deformities Neurologic/Psychiatric: oriented to time, place and person and steady gait Extremities: normal exam of the extremities and no edema Lines, Drains, and Airways Line Central Line Triple Lumen 12/05/17 Right Neck 2 days Peripheral Double Lumen 12/04/17 1212 Short Wrist 20 Gauge 2 days DATA: Diagnostic tests reviewed for today's visit: Significant Lab Results: reviewed labs Chest X-RAY 12/07: New hazy opacity overlying the right lower lung zone, suspicious for development of new right pleural effusion with associated atelectasis versus consolidation right lower lung zone. ? Little interval change regarding right internal jugular central venous catheter, as described. ? Stable cardiac silhouette. Recent Labs 12/07/17 0320 12/06/17 0601 12/05/17 0546 RBC 2.32* 2.28* 2.51* WBC 13.91* 16.44* 16.59* HB 7.4* 7.3* 8.0* HCT 22.8* 22.3* 24.5* PLT 198 143* 119* INR 1.53* 2.56* 1.55* NA 137 -- 135* K 3.6 -- 4.8 CHLOR 99 -- 106 CO2 29 -- 24 BUN 11 -- 17 CREAT 0.65 -- 0.70 GLUC 104* -- 133* CA 8.0* -- 7.9* MG 1.9 -- 2.0 ANION 13 -- 10 Assessment/Plan MV Regurgitation s/p MVR and CABG ligation of atrial appendage 12/03 -POD#4 - ASA 162, Statin 40, BB 12.5 BID - Chest tubes discontinued 12/05 - CXR from today is reviewed, stable - Warfarin started 12/04 with target INR of 2 (4mg, 2.5mg), INR =1.53-2.56, give coumadin 2.5 mg today -paing wires cut 12/07 - lytes are WNL, c/w Tele monitor. Post-op acute blood loss anemia - HH 7.4/22.8 - added Fe+Vit C -HD stable no signs of active bleeding ? Expected post operative respiratory insufficiency - IS - NC, wean as able - Duoneb ? Hyperglycemia: - ISS ? MSK: - PT/OT recs Home ? ?Tests/Labs Ordered: 1. INR SIGNATURE: Farideh Bustos APRN.CNP PATIENT NAME: Benjamin Garces DATE: December 07, 2017 TIME: 9:44 AM PAGER/CONTACT #:[id number] ETX [id number] NURSING PROG Observed: 12/07/2017 Status: COMPLETED Source: [facility] 3:25 AM CLINIC OTHER CAMPUS REPOSITORY HNO ID: [id number] Author: Renaldo (Rn) MAG Bhakta Service: Nursing Author Type: Registered Nurse Type: Nursing Progress Note Filed: 12/07/2017 3:30 AM Note Text: Pt had 45 beat run of V-tach. Pt was asymptomatic. pt does complain of pain in the lower ribs under the L breast describes it as dull/intermittent. Vital signs stable BP-103/62 HR-74 NSR on tele. Notified Dr. Muro. Will get a BMP and Mag now. HEMOGRAM Collected: 12/07/2017 Status: F Source: [facility] 3:20 AM HEALTH SYSTEM REPOSITORY TYPE CODE TESTS RESULT OUT OF REFERENCE UNITS RANGE LAB WBC(LOINC) 3.98-10.04 thou/cmm WBC High 13.91 LAB RBC(LOINC) 3.93-5.22 mil/cmm Low RBC 2.32 LAB HGB(LOINC) 11.2-15.7 g/dL Low Hgb 7.4 LAB HCT(LOINC) 34.1-44.9 % Low Hct 22.8 LAB MCV(LOINC) 79.4-94.8 fl MCV High 98.3 LAB MCH(LOINC) 25.6-32.2 pg MCH 31.9 LAB MCHC(LOINC 31.6-34.8 % ) MCHC 32.5 LAB RDW(LOINC) 11.7-14.4 % RDW 12.7 LAB RDWSD(LOIN 36.4-46.3 fl C) RDW SD 44.8 LAB PLT(LOINC) 182-369 thou/cmm Platelet 198 LAB MPV(LOINC) 9.4-12.3 fl MPV 10.4 LAB NRBCR(LOIN 0.0-0.2 % C) High Nucleated RBC % 1.0 LAB NRBCA(LOIN 0.00-0.01 thou/cmm C) High Nucleated RBC 0.14 Absolute Performed By: #### CBC1 #### [facility] [address] [place] [address] PROTIME Collected: 12/07/2017 Status: F Source: [facility] 3:20 AM HEALTH SYSTEM REPOSITORY TYPE CODE TESTS RESULT OUT OF REFERENCE UNITS RANGE LAB PTI(LOINC) 9.7-13.0 sec Prothrombin High Time 15.4 LAB INR(LOINC) 0.90-1.30 INR High 1.53 Result Comment: Note: Reference Range Change Vitamin K Antagonist (VKA) Therapeutic Range: INR 2 to 3 (Target INR of 2.5) Note: For patients treated with VKA drugs, such as warfarin, the [employer] 2012 Guideline recommends a therapeutic INR range of 2 to 3 (target INR of 2.5). This recommendation includes high-risk patients with antiphospholipid syndrome with previous arterial or venous thromboembolism, current-generation mechanical or bioprosthetic aortic heart valve replacement. VKA Therapeutic Range for some Mechanical Valve Replacement: INR 2.5 to 3.5 (Target INR of 3) Note: Patients with mechanical aortic valve replacement and additional risk factors for thromboembolic events (atrial fibrillation, previous thromboembolism, LV dysfunction, hypercoagulable conditions) or an older generation mechanical AVR (i.e., ball in-Cage) or any mechanical MVR should have a INR therapeutic range of 2.5 to 3.5 target INR of 3). Mathew GH, et al. Chest 2012; 141:7S-47S Duyen RA, et al. JAC 2017; 70: 252-289 Performed By: #### PT #### [place] [address] BASIC PANEL Collected: 12/07/2017 Status: F Source: [facility] 3:20 AM HEALTH SYSTEM REPOSITORY TYPE CODE TESTS RESULT OUT OF REFERENCE UNITS RANGE LAB NA(LOINC) 136-145 mEq/L Sodium Blood 137 LAB K(LOINC) 3.5-5.1 mEq/L Potassium Blood 3.6 LAB CL(LOINC) 98-107 mEq/L Chloride Blood 99 LAB CO2(LOINC) 21-32 mEq/L CO2 Blood 29 LAB GLU(LOINC) 70-99 mg/dL Glucose High Blood 104 LAB BUN(LOINC) 7-18 mg/dL BUN Blood 11 LAB CREA(LOINC 0.51-0.95 mg/dL ) Creatinine Blood 0.65 LAB CA(LOINC) 8.5-10.1 mg/dL Low Calcium Blood 8.0 LAB ANGAP(LOIN 8-16 C) Anion Gap 13 Performed By: #### P8 #### [place] [address] MAGNESIUM BLOOD Collected: 12/07/2017 Status: F Source: [facility] 3:20 AM HEALTH SYSTEM REPOSITORY TYPE CODE TESTS RESULT OUT OF REFERENCE UNITS RANGE LAB MAG(LOINC) 1.6-2.6 mg/dL Magnesium Blood 1.9 Performed By: #### MAG #### [facility] [address] [place] [address] PROGRESS Observed: 12/06/2017 Status: COMPLETED Source: [facility] 11:41 AM CLINIC OTHER CAMPUS REPOSITORY HNO ID: [id number] Author: Farideh Fofana) GENOVEVA Bustos Service: Cardiovascular Surgery Author Type: Nurse Practitioner Type: Progress Notes Filed: 12/06/2017 12:31 PM Note Text: CARDIOTHORACIC SURGERY POSTOP PROGRESS NOTE SERVICE DATE: 12/06/2017 SERVICE TIME: 11:41 AM Subjective S/P SURGERY: Procedure(s) (LRB): MVP (a 27-mm [place] epic mitral prosthesis) LAAC (35-mm AtriCure clip) DATE OF SURGERY: 12/03/2017 POSTOP DAY #3 LOS: 3 HPI: This is a 47 year old female who was referred by Dr Tripp for severe symptomatic rheumatic mitral stenosis in the setting of current smoker, asthma, seizure disorder and history of drug abuse. She states that her BP has been very low since she started seeing her current PCP, approximately 1 year with readings 80's/50's. She states that about a year ago she noticed increasing fatigue, SOB, dizziness, leg heaviness with climbing stairs. Then in Feb 04/Mar 08 she had an episode at work when she experienced severe dizziness with near syncope and she was sent home. During this episode she denies any acute illness, or chest pain. Since this episode, she has notice increasing dizziness, fatigue, exercise intolerance, and PND requiring 2-3 pillows to sleep at night. She saw her neurologist Dr James in june 2017, and reported these symptoms. He ordered an echo and 48 hour holter monitor. ?A surface echo was done in 06/2017 which showed severe MS and left atrial enlargement. The holter showed ?NSR with SVE beats and runs. At which point she was referred to Dr Tripp who ordered a PRESTON with severe MS, Moderate ?MR, and evidence of right to left intra-atrial shunting with valsalva. She was referred to cardiothoracic surgery for further evaluation. ? She reports her drug use of heroin which she snorted as well as other oral and inhaled drugs including amphetimine. ?She denied IV drug use. She further states that she quit about a year ago after her first seizure and follow [facility]. Her Seizure disorder was diagnosed after her first seizure in 08/2016. EEG notes left fronto-temporal seizure, but imaging was grossly non specific. INTERVAL EVENTS / PERTINENT ROS: Patient underwent MVR on 12/[address] Lew. Her post-op recovery was uncomplicated. She was transferred out of ICU on POD #2. She has been followed by pain management for appropriated pain control with plan of resuming to [facility] for outpatient substance therapy. Objective Admission Weight: 71.2 kg (157 lb) BP 93/59 Pulse 69 Temp 36.6 ?C (97.9 ?F) (Oral) Resp 20 Ht 160 cm (5' 3) Wt 73.7 kg (162 lb 8 oz) SpO2 97% BMI 28.79 kg/m? Body surface area is 1.81 meters squared. Min/Max/Average Temperature AND Blood Pressure: Temp (24hrs), Av.7 ?C (98.1 ?F), Min:36.4 ?C (97.5 ?F), Max:37.1 ?C (98.8 ?F) Systolic (24hrs), Av , Min:93 , Max:110 Diastolic (24hrs), Av, Min:59, Max:85 Intake/Output Summary (Last 24 hours) at 12/06/17 1141 Last data filed at 12/05/17 1400 Gross per 24 hour Intake 120 ml Output 500 ml Net -380 ml TELEMETRY: normal sinus rhythm with bouts of SVTs with HR of 120s PHYSICAL EXAM: General Appearance: well developed and no distress Skin: Midsternal incision dry AND intact., warm and dry Lungs: clear and respiratory effort: normal Heart: regular rhythm, S1, S2 normal and no murmur Peripheral Vascular/Arteries: pulses intact, dorsalis pedis +2 and radial +2 Abdomen: soft, non-tender and bowel sounds present Genitourinary: voiding without difficulty Musculoskeletal: no deformities Neurologic/Psychiatric: oriented to time, place and person Extremities: normal exam of the extremities and no edema Lines, Drains, and Airways Line Central Line Triple Lumen 12/05/17 Right Neck 1 day Peripheral Double Lumen 12/04/17 1212 Short Wrist 20 Gauge 1 day DATA: Diagnostic tests reviewed for today's visit: Significant Lab Results: REVIEWED MOST RECENT LABS LISTED BELOW Chest X-RAY 12/05: Removal of a previously noted right central venous catheter and placement of a new catheter which terminates near the cavoatrial junction. ?No pneumothorax. ? Otherwise, no change. ECHO: for post-op ordered 12/06 Recent Labs 12/06/17 0601 12/05/17 0546 12/04/17 0420 12/03/17 1250 RBC 2.28* 2.51* 3.03* 3.61* WBC 16.44* 16.59* 15.05* 20.37* HB 7.3* 8.0* 9.7* 11.6 HCT 22.3* 24.5* 29.4* 34.8 PLT 143* 119* 131* 139* INR 2.56* 1.55* -- 1.09 APTT -- -- -- 30.8 NA -- 135* 140 138 K -- 4.8 4.5 4.6 CHLOR -- 106 111* 107 CO2 -- 24 19* 26 BUN -- 17 16 10 CREAT -- 0.70 0.77 0.80 GLUC -- 133* 85 92 CA -- 7.9* 7.8* 8.0* MG -- 2.0 2.2 2.7* ANION -- 10 15 10 Recent Labs 12/03/17 1600 12/03/17 1250 PH 7.333* 7.269* PCO2 40.4 55.4* PO2 92.3 88.0 BE -4.6 -2.7 Assessment/Plan MV Regurgitation s/p MVR and CABG ligation of atrial appendage 12/03 -POD#3 - ASA 162, Statin 40, BB 12.5 BID - Chest tubes discontinued 12/05 - CXR from today is reviewed, stable - Warfarin started 12/04 with target INR of 2 (4mg, 2.5mg), INR today=2.56, hold coumadin today ? Expected post operative respiratory insufficiency - IS - NC, wean as able - Duoneb ? Hyperglycemia: - ISS ? MSK: - PT/OT recs Home ? Tests/Labs Ordered: 1. INR 2. Cbc 3. Wmyv-fmnd-oe SIGNATURE: Farideh Bustos APRN.CNP PATIENT NAME: Benjamin Garces DATE: December 06, 2017 TIME: 11:41 AM PAGER/CONTACT #:[phone] PROGRESS Observed: 12/06/2017 Status: COMPLETED Source: [facility] 10:09 AM CLINIC OTHER CAMPUS REPOSITORY HNO ID: [id number] Author: Ashanti Leslie Service: Pain Management Author Type: Physician Type: Progress Notes Filed: 12/06/2017 10:11 AM Note Text: Benjamin Garces [id number] PAIN MANAGEMENT TEAM PAIN DIAGNOSIS: S/p replacement mitral valve with cardiopulmonary bypass, ligation of atrial appendage due to mitral valve stenosis on 12/03/2017 Pain Score/Description: Pain score 5; c/o dull ache; can become sharp with cough. Worse with mvt; getting up to chair INTERVAL HPI: SUBJECTIVE HPI: This is a 47 year old female who presents for above surgery. Per Dr. Lew's note: This is a 47 year old female who was referred by Dr Tripp for severe symptomatic rheumatic mitral stenosis in the setting of current smoker, asthma, seizure disorder and history of drug abuse. She states that her BP has been very low since she started seeing her current PCP, approximately 1 year with readings 80's/50's. She states that about a year ago she noticed increasing fatigue, SOB, dizziness, leg heaviness with climbing stairs. Then in Feb 04Mar 08 she had an episode at work when she experienced severe dizziness with near syncope and she was sent home. During this episode she denies any acute illness, or chest pain. Since this episode, she has notice increasing dizziness, fatigue, exercise intolerance, and PND requiring 2-3 pillows to sleep at night. She saw her neurologist Dr James in june 2017, and reported these symptoms. ??He ordered an echo and 48 hour holter monitor. ?A surface echo was done in 06/2017 which showed severe MS and left atrial enlargement. The holter showed ?NSR with SVE beats and runs. At which point she was referred to Dr Tripp who ordered a PRESTON with severe MS, Moderate ?MR, and evidence of right to left intra-atrial shunting with valsalva. She was referred to cardiothoracic surgery for further evaluation. ? She reports her drug use of heroin which she snorted as well as other oral and inhaled drugs including amphetimine. ?She denied IV drug use. She further states that she quit about a year ago after her first seizure and follow [facility]. Her Seizure disorder was diagnosed after her first seizure in 08/2016. EEG notes left fronto-temporal seizure, but imaging was grossly non specific. Per chart documentation: I want to bring this up to your attention about Mrs. Garces's post-op pain management. I Talked to her addiction/pain management doc. Dr. Escobar. He wants us to make sure she will have adequate and appropriate pain control post op and patient needs to be back on his service post discharge. He wants us to be on touch with his MILK PASTEURIZER (Kimberly Humphries [phone]) upon discharge. Thank you. I will attach a pain management consult to her surgery case, sign and hold it, so please double check. Thanks. Attempted to call Kimberly Humphries NP with Dr Escobar office at above listed number - no answer, left message for her to call me back regarding suboxone treatment plan. 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 11/26/2017 1 11/26/2017 SUBOXONE 8 MG-2 MG SL FILM 14 7 TA BOW [id number] DIS(6261) 0 16.00 mg [facility] [place] 11/12/2017 1 11/12/2017 SUBOXONE 8 MG-2 MG SL FILM 28 14 TA BOW [id number] DIS(6261) 0 16.00 mg [facility] [place] 10/29/2017 1 10/29/2017 SUBOXONE 8 MG-2 MG SL FILM 28 14 TA BOW [id number] DIS(6261) 0 16.00 mg [place] MEDICATIONS Current Facility-Administered Medications: metoprolol tartrate (short acting) 12.5 mg tab(s) (LOPRESSOR) 12.5 mg ORAL q 12 H Marcus Dennison) [place] 12.5 mg at 12/05/172038 0.9% NaCl 2-10 mL 2-10 mL INTRAVENOUS q 12 H Marcus Dennison) [place] 10 mL at 12/05/172041 polyethylene glycol 3350 17 g packet (MIRALAX, GLYCOLAX) 17 g ORAL DAILY Marcus Dennison) [place] 17 g at 12/05/17 1331 senna-docusate 8.6-50 mg 1 tablet (SENNA-S) 1 tablet ORAL BID Marcus Dennison) [place] din 1 tablet at 12/05/172038 bisacodyl 10 mg suppository (DULCOLAX) 10 mg RECTAL PRN Velazquez (Pa) [place] melatonin 3 mg tab(s) 3 mg ORAL HS PRN Marcus Dennison) [place] din [MAR Hold due to Transfer] morphine 2-4 mg injection 2-4 mg INTRAVENOUS q 4 H PRN Velazquez (Pa) [place] 2 mg at 12/05/17 1500 warfarin dose per INR - Call physician daily for dose ORAL DAILY - WARFARIN Elizabet Haas pantoprazole DR 40 mg tab(s) (PROTONIX) 40 mg ORAL DAILY (6 AM) Elizabet Haas 40 mg at 12/05/17 0544 levETIRAcetam 500 mg tab(s) (KEPPRA) 500 mg ORAL BID Hari Nowak (Pa) 500 mg at 12/05/172038 escitalopram oxalate 10 mg tab(s) (LEXAPRO) 10 mg ORAL DAILY Hari Nowak (Pa) 10 mg at 12/05/17 0800 dextrose 50% in water 25 mL syringe 12.5 g INTRAVENOUS PRN Hari Nowak (Pa) aspirin 162 mg chewable tab(s) 162 mg ORAL DAILY Hari Nowak (Pa) 162 mg at 12/05/17 0800 acetaminophen 650 mg tab(s) (TYLENOL) 650 mg ORAL q 6 H PRN Hari Nowak (Pa) enoxaparin 40 mg injection (LOVENOX) 40 mg SUBCUTANEOUS DAILY Hari Nowak (Pa) 40 mg at 12/05/17 0759 albuterol 2.5 mg /3 mL (0.083 %) 2.5 mg (PROVENTIL) 2.5 mg INHALATION q 2 H PRN Hari (Andrew) atorvastatin 40 mg tab(s) (LIPITOR) 40 mg ORAL AT BEDTIME Hari Dennison) 40 mg at 12/05/172038 ondansetron (PF) 4 mg injection (ZOFRAN) 4 mg INTRAVENOUS q 6 H PRN Hari (Andrew) 4 mg at 12/04/17 193 oxyCODONE-acetaminophen 5-325 mg 1-2 tablet (PERCOCET) 1-2 tablet ORAL q 4 H PRN Hari (Andrew) 2 tablet at 12/06/17 0150 albuterol 2.5 mg /3 mL (0.083 %) 2.5 mg (PROVENTIL) 2.5 mg INHALATION QID Yonas A Lahorra 2.5 mg at 12/05/17 1545 budesonide 0.5 mg/2 mL 1 mg (PULMICORT) 1 mg INHALATION BID Yonas A [place] 1 mg at 12/05/17 0818 Prescriptions Prior to Admission: aspirin 81 mg chewable tablet Take 81 mg by mouth once daily. Disp: Rfl: 12/03/2017 at 0400 mupirocin (BACTROBAN) 2 % nasal ointment Use 1 application in the nose twice daily. Disp: 1 Tube Rfl: 0 12/02/2017 at 2200 escitalopram oxalate (LEXAPRO) 10 mg tablet Take 1 tablet by mouth once daily. Disp: 30 tablet Rfl: 1 12/02/2017 at Unknown time OTC PRODUCT Take by mouth once daily. Anbrem Disp: Rfl: 12/02/2017 at Unknown time levETIRAcetam (KEPPRA) 500 mg tablet Take 1 tablet by mouth twice daily. Disp: 180 tablet Rfl: 3 12/03/2017 at 0400 mometasone-formoterol (DULERA) 100-5 mcg/actuation inhaler Inhale 2 Puffs as instructed twice daily. Disp: 1 Inhaler Rfl: 1 12/02/2017 at 2200 albuterol HFA (VENTOLIN HFA) 90 mcg/actuation inhaler Inhale 2 Puffs as instructed every 4 hours as needed. Disp: 2 Inhaler Rfl: 1 12/02/2017 at 2200 nicotine (NICODERM CQ) 21 mg/24 hr Apply 1 Patch as directed every 24 hours. APPLY ONE PATCH EVERY 24 HOURS TOPICALLY Disp: 28 Patch Rfl: 2 Taking ibuprofen (MOTRIN) 800 mg tablet Disp: Rfl: 11/30/2017 Buprenorphine-nalOXone (SUBOXONE) 8-2 mg film Dissolve under the tongue twice daily. 8 mg tablet. Disp: Rfl: 12/02/2017 at 0800 PAST MEDICAL HISTORY PAST MEDICAL HISTORY Diagnosis Date - A-fib ([facility]) PT DENIES HX OF AFIB - Asthma - COPD (chronic obstructive pulmonary disease) ([facility]) - Dermatitis - Drug abuse (HCC) - Hives - Mitral valve stenosis - Seizure ([facility]) 08/2016 PAST SURGICAL HISTORY PAST SURGICAL HISTORY Procedure Laterality Date - CARPAL TUNNEL 03/07/2017 Dr. Schmitt both wrists ALLERGIES No Known Allergies FAMILY HISTORY Problem Relation Age of Onset - Cancer Mother 54 lung - None Father parkinson - Colon Cancer Paternal Grandmother 55 - Diabetes Paternal Grandmother - Cancer Paternal Uncle prostate Social History Substance Use Topics - Smoking status: Former Smoker Packs/day: 0.50 Years: 10.00 Types: Cigarettes - Smokeless tobacco: Never Used Comment: cutting back 3-4 per day quit 11/25/17 - Alcohol use No Social History Narrative Works at [employer] in [place]. Lives with boyfriend. Feels safe at home. REVIEW OF SYSTEMS: all of the following reviewed and negative except as noted below: See history of present illness, UNABLE to provide?sedated GENERAL: no fever, chills, sweats, weight loss, fatigue, generalized weakness HEENT: no headache, vision changes, eye discomfort, hearing change, ear discomfort, sinus pain, nasal discharge or congestion, oral lesions, soreness, dental problem NECK: no adenopathy, discomfort, change in ROM CHEST: no shortness of breath, dyspnea on exertion, wheezing, cough, sputum production or chest pain HEART: no chest pain, palpitations, syncope ABDOMEN: no nausea, vomiting, constipation, diarrhea, abdominal pain : no dysuria, urgency, frequency, history of stones, incontinence NEURO: no confusion or alteration in consciousness, slurred speech, seizure, focal weakness EXTREMITIES: no new pain, edema, change in ROM HEME: no new adenopathy, bruises, petechiae PSYCH: no depression, anxiety, agitation OBJECTIVE PHYSICAL EXAMINATION: see below for new or abnormal findings BP 106/73 Pulse 80 Temp (Src) 97.5 (Oral) Resp 18 Ht 5' 3 (1.60m) Wt 162 lb 8 oz (73.7kg) SpO2 100% BMI 28.79 kg/(m2). GENERAL: well nourished and developed; no acute distress; alert, pleasant HEENT: no evidence of trauma; cranial nerves intact; eyes clear EOMI; no hearing deficits apparent; nasal passages unremarkable; throat and mucous membranes clear NECK: supple without lymphadenopathy; no JVD; no thyromegaly. Gaudencio right neck, site unremarkable CHEST: clear bilaterally to auscultation; normal chest movement; no rales or rhonchi.; incision c/d/i +CTs HEART: regular rate and rhythm, normal S1 and S2, no murmurs appreciated, clicks, rubs, or gallops ABDOMEN: soft; nondistended; bowel sounds present; no hepatomegaly; no splenomegaly; no tenderness EXTREMITIES: no evidence of clubbing; no cyanosis; no deformity; no joint effusion; no edema NEURO: FISHER; nonfocal SKIN: no rash; no skin breakdown; no decubitus lesions HEME: no bruising; no adenopathy PSYCH: Unable to evaluate DATA: Diagnostic tests reviewed: Most recent labs and imaging results. CBC: No results for input(s): WBC, RBC, HB, HCT, PLT, MCV, MCH, MPV, RDW in the last 24 hours. CMP: No results for input(s): NA, K, CHLOR, CO2, BUN, CREAT, GLUC, TPROT, CA, MG, ALBUMIN, TBILI, ALKPHOS, ALT, AST, ANION in the last 24 hours. Heme: No results for input(s): RETICP, ABSRETIC, LD, KRYSTLE, FE, TIBC, TRANSFERSAT in the last 24 hours. TOX SCREEN Lab Results Component Value Date UAMPP see below 09/08/2016 UBARPP Non-Detected 09/08/2016 BENZO Non-Detected 09/08/2016 UOPIPP see below 09/08/2016 UPCPPP Non-Detected 09/08/2016 ACTIVE PROBLEM LIST Seizures (Hcc) Drug Abuse (Hcc) Abnormal Finding On Breast Imaging Asthma Mitral Valve Stenosis, Rheumatic Mitral Valvular Regurgitation Atrial Fibrillation (Hcc) Mitral Valve Regurgitation S/P Mitral Valve Replacement Diet DIET REGULAR LAST BOWEL MOVEMENT Prior to Admission Opiate Status EMERGENCY MEDICINE Suboxone Outpatient Pain Management: Yes. Other: Dr Escobar Rx at D/C: possibly Rx on chart: No OARRS: Reviewed - 11/26/2017 Suboxone 8/2 #14/7 days from [facility] Pain Regimen/Notes (Opiate use last 24 hrs): APAP 650mg po q6h prn- none Morphine 2-4mg IV q1h prn 2mg x one Percocet 5/325 1-2 po q4h prn 2 tabs x 5 PLAN: Excellent postop pain control; will discontinue Morphine IV- used one dose yesterday Continue Percocet 5/325 1-2 po q4h prn; monitor use Add SennaS bid Our team spoke with Kimberly Humphries MILK PASTEURIZER with Dr Escobar office - pt last Suboxone dose was Suboxone 8/2 mg on 10 AM. Pt does not have Suboxone at home Anticipate small quantity Percocet at discharge Plan continue opioids for less than 1 week, then transition back to Suboxone Ashanti Leslie MD ALLIED HEALTH Observed: 12/06/2017 Status: COMPLETED Source: [facility] 9:47 AM CLINIC OTHER CAMPUS REPOSITORY HNO ID: [id number] Author: Adan (Rn) MAG Greenwood Service: (none) Author Type: Registered Nurse Type: Allied Health Filed: 12/06/2017 9:49 AM Note Text: CARDIAC REHABILITATION PATIENT EDUCATION PROGRESS NOTE Name: Benjamin Garces Date of Service: 12/06/17 Time of Service: 0945 ASSESSMENT: Risk Factors Identified: Smoker: # of packs per day: na. Total Years of Smoking: na. RECOMMENDATIONS: Patient interested in Phase II Outpatient Cardiac Rehab: Yes. Facility Preferred: [facility] DIAGNOSIS: Open Heart Surgery: VALVE Open Heart Surgery Teaching Points: -Basic Anatomy and Disease Process -Personal Modifiable Risk Factor Identification -Activity/Physical Exercise Recommendations -Nutrition/Diet Information -Angina/Heart Attack warning signs and symptoms -Smoking Advice Counseling -When patient should call provider -Outpatient Cardiac Rehabilitation -Personal risk factors: Smoking READINESS TO LEARN: Cognitive Ability: Alert and Oriented Motivation to Learn: Eager Family Support: None - Unavailable/disinterested Instruction Provided To: Patient Patient Learns Best By: Verbal Instruction Factors Affecting Learning: None Physical Limitations Affecting Learning: None LEARNING RESPONSE: Method Of Instruction: Verbal instruction Patient/Family Response: Verbalizes understanding of: cardiac rehab, home walking, heart healthy lifestle, homegoing restrictions Follow-up Plan: No further educational needs identified at this time. Instructional Aids Used: Educational Binder Signature: Adan Greenwood RN Pager: [phone] Date: December 06, 2017 Time: 9:48 AM CHEST 1 VIEW Observed: 12/06/2017 Status: F Source: [facility] 7:58 AM HEALTH SYSTEM REPOSITORY Performed at [facility] APPROVED BY: ADAN RAGLAND MD EXAM TITLE: PORTABLE AP/PA CHEST X RAY DATE: 12/06/2017 07:54 COMPARISON: 12/05/2017 CLINICAL INDICATION/HISTORY: Post-operative / post-procedure assessment, asymptomatic. ENCOUNTER: Not applicable TECHNIQUE: Single portable AP/PA radiograph of the chest RESULT: Lines, tubes, and devices: Examination limited due to overlying EKG leads. Little interval change regarding right internal jugular central venous catheter with tip overlying the upper aspect of the right atrium. Again demonstrated is left atrial appendage clip. Lungs and pleura: Hazy opacity overlying the right lower lung zone, suspicious for small right pleural effusion with associated right basilar atelectasis versus consolidation, increased in conspicuity since previous examination. No discrete left-sided effusion or pneumothorax. Cardiomediastinal silhouette: Mildly enlarged cardiac silhouette, however this is likely accentuated by low lung volumes and portable technique. Other: Osseous structures and soft tissues grossly intact. IMPRESSION: New hazy opacity overlying the right lower lung zone, suspicious for development of new right pleural effusion with associated atelectasis versus consolidation right lower lung zone. Little interval change regarding right internal jugular central venous catheter, as described. Stable cardiac silhouette. HEMOGRAM Collected: 12/06/2017 Status: F Source: [facility] 6:01 AM HEALTH SYSTEM REPOSITORY TYPE CODE TESTS RESULT OUT OF REFERENCE UNITS RANGE LAB WBC(LOINC) 3.98-10.04 thou/cmm WBC High 16.44 LAB RBC(LOINC) 3.93-5.22 mil/cmm Low RBC 2.28 LAB HGB(LOINC) 11.2-15.7 g/dL Low Hgb 7.3 LAB HCT(LOINC) 34.1-44.9 % Low Hct 22.3 LAB MCV(LOINC) 79.4-94.8 fl MCV High 97.8 LAB MCH(LOINC) 25.6-32.2 pg MCH 32.0 LAB MCHC(LOINC 31.6-34.8 % ) MCHC 32.7 LAB RDW(LOINC) 11.7-14.4 % RDW 12.6 LAB RDWSD(LOIN 36.4-46.3 fl C) RDW SD 43.8 LAB PLT(LOINC) 182-369 thou/cmm Low Platelet 143 LAB MPV(LOINC) 9.4-12.3 fl MPV 10.7 LAB NRBCR(LOIN 0.0-0.2 % C) Nucleated RBC % 0.2 LAB NRBCA(LOIN 0.00-0.01 thou/cmm C) High Nucleated RBC 0.03 Absolute Performed By: #### CBC1 #### [facility] [address] [place] [address] PROTIME Collected: 12/06/2017 Status: F Source: [facility] 6:01 [facility] REPOSITORY TYPE CODE TESTS RESULT OUT OF REFERENCE UNITS RANGE LAB PTI(LOINC) 9.7-13.0 sec Prothrombin High Time 24.8 LAB INR(LOINC) 0.90-1.30 INR High 2.56 Result Comment: Note: Reference Range Change Vitamin K Antagonist (VKA) Therapeutic Range: INR 2 to 3 (Target INR of 2.5) Note: For patients treated with VKA drugs, such as warfarin, the [employer] 2012 Guideline recommends a therapeutic INR range of 2 to 3 (target INR of 2.5). This recommendation includes high-risk patients with antiphospholipid syndrome with previous arterial or venous thromboembolism, current-generation mechanical or bioprosthetic aortic heart valve replacement. VKA Therapeutic Range for some Mechanical Valve Replacement: INR 2.5 to 3.5 (Target INR of 3) Note: Patients with mechanical aortic valve replacement and additional risk factors for thromboembolic events (atrial fibrillation, previous thromboembolism, LV dysfunction, hypercoagulable conditions) or an older generation mechanical AVR (i.e., ball in-Cage) or any mechanical MVR should have a INR therapeutic range of 2.5 to 3.5 target INR of 3). Mathew BUSTOS, et al. Chest 2012; 141:7S-47S Duyen RA et al. JACC 2017; 70: 252-289 Performed By: #### PT #### [facility] [address] [place], [place] [address] NURSING PROG Observed: 12/05/2017 Status: COMPLETED Source: [facility] 5:52 PM [facility] OTHER CAMPUS REPOSITORY HNO ID: [id number] Author: Kirti MaganaRn) MAG Stock Service: Nursing Author Type: Registered Nurse Type: Nursing Progress Note Filed: 12/05/2017 5:53 PM Note Text: Nursing Progress Note Patient Name: Benjamin Garces Patient Location: [place] [address] [address]* Transfer Note: Patient transferred into room/unit 4231 in stable condition by wheelchair at 1615. Actions taken: Report given/called to Hattie ([id number] RN). Patient to call and notify family. This note was completed by: Kirti Stock RN CHEST 1 VIEW Observed: 12/05/2017 Status: F Source: [facility] 3:55 PM HEALTH SYSTEM REPOSITORY Performed at [facility] APPROVED BY: Ernie Bryant MD EXAM TITLE: CHEST 1 VIEW DATE: 12/05/2017 15:30 COMPARISON: Previous studies with the most recent performed earlier today CLINICAL INDICATION/HISTORY: Line placement TECHNIQUE: AP upright portable chest FINDINGS: Removal of the previously noted right central venous catheter and placement of a new catheter. This terminates near the expected location of the cavoatrial junction. There is no pneumothorax. Atelectatic changes are seen at each lung base. There may be a tiny bilateral pleural effusion. No large area of pneumonia. Stable mild cardiac enlargement. Intact sternotomy wires. There is an atrial clip. No acute bony abnormality. IMPRESSION: Removal of a previously noted right central venous catheter and placement of a new catheter which terminates near the cavoatrial junction. No pneumothorax. Otherwise, no change. PROCEDURE Observed: 12/05/2017 Status: COMPLETED Source: [place] 3:12 PM [facility] OTHER CAMPUS REPOSITORY HNO ID: [id number] Author: Jena Duarte (Pa) Service: Cardiac Surgery Author Type: Physician [employer] Type: Procedures Filed: 12/05/2017 3:16 PM Note Text: BEDSIDE PROCEDURE NOTE CENTRAL LINE Date/Start Time: 12/05/2017 2:45 PM Performed by: JENA DUARTE) Authorized by: JENA DUARTE) Consent/[place] Protocol Sign In Communication: Completed Pre-procedure details: Personnel directly involved with the procedure wore the appropriate PPE. PPE Used: Sterile gloves, sterile gown, mask with eye shield and cap The area was prepped with chlorhexidine (Chloroprep) and allowed to dry. A sterile full body drape was applied following the usual aseptic technique. [facility] Central Line Insertion Checklist, attached to the Central Line- Associated Bloodstream Infection Prevention policy utilized: Yes Medications: Local anesthesia Local Anesthesia (see MAR): Lidocaine 1% Procedure details: Indication: Venous access Patient Position: Flat Site: internal jugular vein Guidewire Exchange: The wire was advanced through the existing catheter. The wire was removed and the catheter was left in situ. The catheter was secured in place at 16 cm Securement: Antibiotic disc placed, line sutured, occlusive dressing applied, securement device, sterile caps on all hubs and sterile dressing applied Assessment: Blood return through all ports and placement verified by x-ray All catheters, needles, and wires were accounted for and intact Number of Attempts: 1 Successful Placement: yes Assisting Clinician(s): Hari Nowak PA-C Post-procedure Details: Patient tolerated the procedure well with no immediate complications Estimated Blood Loss: None SIGNATURE: Jena Duarte PA-C PATIENT NAME: Benjamin Garces DATE: December 05, 2017 TIME: 3:12 PM PAGER/CONTACT #: [phone] PROGRESS Observed: 12/05/2017 Status: COMPLETED Source: [facility] 10:23 AM CLINIC OTHER CAMPUS REPOSITORY HNO ID: [id number] Author: Ashanti Leslie Service: Pain Management Author Type: Physician Type: Progress Notes Filed: 12/05/2017 10:24 AM Note Text: Benjamin Garces [id number] 1970 PAIN MANAGEMENT TEAM PAIN DIAGNOSIS: S/p replacement mitral valve with cardiopulmonary bypass, ligation of atrial appendage due to mitral valve stenosis on 12/03/2017 Pain Score/Description: off and on pain chest- pain scores range 6-10. Worse with mvt/ambulation; some cough- sharp/stabbing. Pain at incision and CTs insertion sites INTERVAL HPI: SUBJECTIVE HPI: This is a 47 year old female who presents for above surgery. Per Dr. Lew's note: This is a 47 year old female who was referred by Dr Tripp for severe symptomatic rheumatic mitral stenosis in the setting of current smoker, asthma, seizure disorder and history of drug abuse. She states that her BP has been very low since she started seeing her current PCP, approximately 1 year with readings 80's/50's. She states that about a year ago she noticed increasing fatigue, SOB, dizziness, leg heaviness with climbing stairs. Then in Feb 04/Mar 08 she had an episode at work when she experienced severe dizziness with near syncope and she was sent home. During this episode she denies any acute illness, or chest pain. Since this episode, she has notice increasing dizziness, fatigue, exercise intolerance, and PND requiring 2-3 pillows to sleep at night. She saw her neurologist Dr James in june 2017, and reported these symptoms. ??He ordered an echo and 48 hour holter monitor. ?A surface echo was done in 06/2017 which showed severe MS and left atrial enlargement. The holter showed ?NSR with SVE beats and runs. At which point she was referred to Dr Tripp who ordered a PRESTON with severe MS, Moderate ?MR, and evidence of right to left intra-atrial shunting with valsalva. She was referred to cardiothoracic surgery for further evaluation. ? She reports her drug use of heroin which she snorted as well as other oral and inhaled drugs including amphetimine. ?She denied IV drug use. She further states that she quit about a year ago after her first seizure and follow [facility]. Her Seizure disorder was diagnosed after her first seizure in 08/2016. EEG notes left fronto-temporal seizure, but imaging was grossly non specific. Per chart documentation: I want to bring this up to your attention about Mrs. Garces's post-op pain management. I Talked to her addiction/pain management doc. Dr. Escobar. He wants us to make sure she will have adequate and appropriate pain control post op and patient needs to be back on his service post discharge. He wants us to be on touch with his [employer] PASTEUR[employer]ER (Kimberly Humphries [phone]) upon discharge. Thank you. I will attach a pain management consult to her surgery case, sign and hold it, so please double check. Thanks. Attempted to call Kimberly Humphries NP with Dr Escobar office at above listed number - no answer, left message for her to call me back regarding suboxone treatment plan. 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 11/26/2017 1 11/26/2017 SUBOXONE 8 MG-2 MG SL FILM 14 7 TA BOW [id number] DIS(6261) 0 16.00 mg [facility] [place] 11/12/2017 1 11/12/2017 SUBOXONE 8 MG-2 MG SL FILM 28 14 TA BOW [id number] DIS(6261) 0 16.00 mg [facility] [place] 10/29/2017 1 10/29/2017 SUBOXONE 8 MG-2 MG SL FILM 28 14 TA BOW [id number] DIS(6261) 0 16.00 mg [place] MEDICATIONS Current Facility-Administered Medications: warfarin dose per INR - Call physician daily for dose ORAL DAILY - WARFARIN Elizabet Haas pantoprazole DR 40 mg tab(s) (PROTONIX) 40 mg ORAL DAILY (6 AM) Elizabet Griffinnell 40 mg at 12/05/17 0544 levETIRAcetam 500 mg tab(s) (KEPPRA) 500 mg ORAL BID Hari Nowak (Pa) 500 mg at 12/04/17 193 escitalopram oxalate 10 mg tab(s) (LEXAPRO) 10 mg ORAL DAILY Hari Nowak (Pa) 10 mg at 12/04/17 0826 dextrose 50% in water 25 mL syringe 12.5 g INTRAVENOUS PRN Hari Nowak (Pa) aspirin 162 mg chewable tab(s) 162 mg ORAL DAILY Hari Nowak (Pa) 162 mg at 12/04/17 0829 potassium chloride iv piggyback 20 mEq in sterile water 100 mL 20 mEq INTRAVENOUS PRN Hari Nowak (Pa) magnesium sulfate in water 2 g in sterile water 50 ml 2 g INTRAVENOUS PRN(NO DISPENSE) Hari Nowak (Pa) acetaminophen 650 mg tab(s) (TYLENOL) 650 mg ORAL q 6 H PRN Hari Dennison) enoxaparin 40 mg injection (LOVENOX) 40 mg SUBCUTANEOUS DAILY Hari Nowak (Pa) 40 mg at 12/04/17 0826 NaCl 0.9% iv infusion 50 mL/hr INTRAVENOUS CONTINUOUS Hari Nowak (Pa) Last Rate: 50 mL/hr at 12/04/171944 50 mL/hr at 12/04/171944 albuterol 2.5 mg /3 mL (0.083 %) 2.5 mg (PROVENTIL) 2.5 mg INHALATION q 2 H PRN Hari Nowak (Pa) atorvastatin 40 mg tab(s) (LIPITOR) 40 mg ORAL AT BEDTIME Hari Nowak (Pa) 40 mg at 12/04/171938 ondansetron (PF) 4 mg injection (ZOFRAN) 4 mg INTRAVENOUS q 6 H PRN Hari (Andrew) 4 mg at 12/04/171938 oxyCODONE-acetaminophen 5-325 mg 1-2 tablet (PERCOCET) 1-2 tablet ORAL q 4 H PRN Hari Dennison) 2 tablet at 12/05/17 0338 morphine 2-4 mg injection 2-4 mg INTRAVENOUS q 1 H PRN Hari Nowak (Pa) 4 mg at 12/04/172041 NaCl 0.9% 250 mL iv bolus 250 mL INTRAVENOUS PRN Hari Nowak (Pa) Last Rate: 250 mL/hr at 12/03/17 1350 250 mL at 12/04/17 0543 albuterol 2.5 mg /3 mL (0.083 %) 2.5 mg (PROVENTIL) 2.5 mg INHALATION QID Yonas A Lahorra 2.5 mg at 12/04/172047 budesonide 0.5 mg/2 mL 1 mg (PULMICORT) 1 mg INHALATION BID Yonas A Lahorra 1 mg at 12/04/172046 Prescriptions Prior to Admission: aspirin 81 mg chewable tablet Take 81 mg by mouth once daily. Disp: Rfl: 12/03/2017 at 0400 mupirocin (BACTROBAN) 2 % nasal ointment Use 1 application in the nose twice daily. Disp: 1 Tube Rfl: 0 12/02/2017 at 2200 escitalopram oxalate (LEXAPRO) 10 mg tablet Take 1 tablet by mouth once daily. Disp: 30 tablet Rfl: 1 12/02/2017 at Unknown time OTC PRODUCT Take by mouth once daily. Anbrem Disp: Rfl: 12/02/2017 at Unknown time levETIRAcetam (KEPPRA) 500 mg tablet Take 1 tablet by mouth twice daily. Disp: 180 tablet Rfl: 3 12/03/2017 at 0400 mometasone-formoterol (DULERA) 100-5 mcg/actuation inhaler Inhale 2 Puffs as instructed twice daily. Disp: 1 Inhaler Rfl: 1 12/02/2017 at 2200 albuterol HFA (VENTOLIN HFA) 90 mcg/actuation inhaler Inhale 2 Puffs as instructed every 4 hours as needed. Disp: 2 Inhaler Rfl: 1 12/02/2017 at 2200 nicotine (NICODERM CQ) 21 mg/24 hr Apply 1 Patch as directed every 24 hours. APPLY ONE PATCH EVERY 24 HOURS TOPICALLY Disp: 28 Patch Rfl: 2 Taking ibuprofen (MOTRIN) 800 mg tablet Disp: Rfl: 11/30/2017 Buprenorphine-nalOXone (SUBOXONE) 8-2 mg film Dissolve under the tongue twice daily. 8 mg tablet. Disp: Rfl: 12/02/2017 at 0800 PAST MEDICAL HISTORY PAST MEDICAL HISTORY Diagnosis Date - A-fib (FORM[facility]LY [facility]) PT DENIES HX OF AFIB - Asthma - COPD (chronic obstructive pulmonary disease) (FORMERLY [facility]) - Dermatitis - Drug abuse (FORMERLY [facility]) - Hives - Mitral valve stenosis - Seizure (FORM[facility]LY [facility]) 08/2016 PAST SURGICAL HISTORY PAST SURGICAL HISTORY Procedure Laterality Date - CARPAL TUNNEL 03/07/2017 Dr. Schmitt both wrists ALLERGIES No Known Allergies FAMILY HISTORY Problem Relation Age of Onset - Cancer Mother 54 lung - None Father parkinson - Colon Cancer Paternal Grandmother 55 - Diabetes Paternal Grandmother - Cancer Paternal Uncle prostate Social History Substance Use Topics - Smoking status: Former Smoker Packs/day: 0.50 Years: 10.00 Types: Cigarettes - Smokeless tobacco: Never Used Comment: cutting back 3-4 per day quit 11/25/17 - Alcohol use No Social History Narrative Works at [employer] in [place]. Lives with boyfriend. Feels safe at home. REVIEW OF SYSTEMS: all of the following reviewed and negative except as noted below: See history of present illness, UNABLE to provide?sedated GENERAL: no fever, chills, sweats, weight loss, fatigue, generalized weakness HEENT: no headache, vision changes, eye discomfort, hearing change, ear discomfort, sinus pain, nasal discharge or congestion, oral lesions, soreness, dental problem NECK: no adenopathy, discomfort, change in ROM CHEST: no shortness of breath, dyspnea on exertion, wheezing, cough, sputum production or chest pain HEART: no chest pain, palpitations, syncope ABDOMEN: no nausea, vomiting, constipation, diarrhea, abdominal pain : no dysuria, urgency, frequency, history of stones, incontinence NEURO: no confusion or alteration in consciousness, slurred speech, seizure, focal weakness EXTREMITIES: no new pain, edema, change in ROM HEME: no new adenopathy, bruises, petechiae PSYCH: no depression, anxiety, agitation OBJECTIVE PHYSICAL EXAMINATION: see below for new or abnormal findings BP 112/81 Pulse 95 Temp (Src) 97.3 (Temporal Artery) Resp 22 Ht 5' 3 (1.60m) Wt 158 lb 15.2 oz (72.1kg) SpO2 99% BMI 28.16 kg/(m2). GENERAL: well nourished and developed; no acute distress; alert, pleasant HEENT: no evidence of trauma; cranial nerves intact; eyes clear EOMI; no hearing deficits apparent; nasal passages unremarkable; throat and mucous membranes clear NECK: supple without lymphadenopathy; no JVD; no thyromegaly. Gaudencio right neck, site unremarkable CHEST: clear bilaterally to auscultation; normal chest movement; no rales or rhonchi.; incision c/d/i +CTs HEART: regular rate and rhythm, normal S1 and S2, no murmurs appreciated, clicks, rubs, or gallops ABDOMEN: soft; nondistended; bowel sounds present; no hepatomegaly; no splenomegaly; no tenderness EXTREMITIES: no evidence of clubbing; no cyanosis; no deformity; no joint effusion; no edema NEURO: FISHER; nonfocal SKIN: no rash; no skin breakdown; no decubitus lesions HEME: no bruising; no adenopathy PSYCH: Unable to evaluate DATA: Diagnostic tests reviewed: Most recent labs and imaging results. CBC: No results for input(s): WBC, RBC, HB, HCT, PLT, MCV, MCH, MPV, RDW in the last 24 hours. CMP: No results for input(s): NA, K, CHLOR, CO2, BUN, CREAT, GLUC, TPROT, CA, MG, ALBUMIN, TBILI, ALKPHOS, ALT, AST, ANION in the last 24 hours. Heme: No results for input(s): RETICP, ABSRETIC, LD, KRYSTLE, FE, TIBC, TRANSFERSAT in the last 24 hours. TOX SCREEN Lab Results Component Value Date UAMPP see below 09/08/2016 UBARPP Non-Detected 09/08/2016 BENZO Non-Detected 09/08/2016 UOPIPP see below 09/08/2016 UPCPPP Non-Detected 09/08/2016 ACTIVE PROBLEM LIST Seizures (Hcc) Drug Abuse (Hcc) Abnormal Finding On Breast Imaging Asthma Mitral Valve Stenosis, Rheumatic Mitral Valvular Regurgitation Atrial Fibrillation (Hcc) Mitral Valve Regurgitation Diet DIET LIQUID LAST BOWEL MOVEMENT Prior to Admission Opiate Status EMERGENCY MEDICINE Suboxone Outpatient Pain Management: Yes. Other: Dr Escobar Rx at D/C: possibly Rx on chart: No OARRS: Reviewed - 11/26/2017 Suboxone 8/2 #14/7 days from [facility] Pain Regimen/Notes (Opiate use last 24 hrs): Morphine 2-4mg IV q1h prn 4mg x 3 doses Percocet 5/325 1-2 po q4h prn 2 tabs x 5 PLAN: Continue present pain regimen; goal transition to oral analgesia today Our team spoke with Kimberly Humphries NP with Dr Escobar office - pt last Suboxone dose was Suboxone 8/2 mg on 10 AM. Plan continue IV/PO opioids for less than 1 week, then transition back to Suboxone Ashanti Leslie MD NURSING PROG Observed: 12/05/2017 Status: COMPLETED Source: [facility] 10:22 AM CLINIC OTHER CAMPUS REPOSITORY HNO ID: [id number] Author: Kirti MaganaRn) MAG Stock Service: Nursing Author Type: Registered Nurse Type: Nursing Progress Note Filed: 12/05/2017 10:23 AM Note Text: Nursing Progress Note Patient Name: Benjamin Garces Patient Location: [place] [address] [address]* Daily Note:Surgical team requested that attempts be made to place a second peripheral IV so that cordis could be d/c. 3 RN's attempted, for a total of 5 attempts which were unsuccessful, will relay to team. This note was completed by: Kirti Stock RN THERAPY NT Observed: 12/05/2017 Status: COMPLETED Source: [facility] 9:09 AM CLINIC OTHER CAMPUS REPOSITORY O ID: [id number] Author: Lakisha (Pt) Joel Service: Physical Therapy Author Type: Physical Therapist Type: Therapy (PT/OT/Speech/Resp) Filed: 12/05/2017 9:15 AM Note Text: Physical Therapy Evaluation SERVICE DATE: 12/05/2017 SERVICE TIME: 824 to 847 ROOM: [place] [address] Recommended Discharge Disposition: Home Anticipated Discharge Needs: Physical Assist at Home;Supervision at Home Physical Assist at Home for: Cleaning;Laundry;Meals;Self Care;Shopping;Transportation Supervision at Home due to: Other: See Comment (recent surgery) Recommended Discharge Equipment: No equipment needs anticipated PT Recommendations to Nursing: Ambulate with device;To bathroom;In halls;OOB for Meals;With assist of 1 person Device: Other: See Comment (cardiac cart) PT 6 Clicks Score: 17 Precautions/Activity Restrictions: Cardiac;Fall Risk;Lines/Tubes/Drains;Sternal Precaution/Activity Restriction Comments: telemetry, art line, chest tubes, IV ASSESSMENT : Patient presents with the following personal factors and comorbidties that impact current function and ability to progress through a plan of care including: multiple co morbidities. Upon examination of body systems physical therapy will be addressing the following systems and elements: musculoskeletal, neuromuscular, cardiopulmonary. Lastly the patient's clinical presentation is evolving requiring a moderate complexity in clinical decision making for the physical therapy evaluation. Patient Disposition at Start of Session: OOB in Chair;Call Chaudhari in Reach Patient Disposition at End of Session: OOB in Chair;Call Chaudhari in Reach Tolerated Full Session Physical Therapy Problem List: Decreased Activity Tolerance;Decreased Strength;Functional Mobility Impairment;Balance Impaired;Safety Deficits;Pain Patient /Caregiver Goals: Go Home Goals for Plan of Care: Rolling with: Modified Independent Transfer supine to/from sit with: Modified Independent Transfer sit to/from stand with: Modified Independent Ambulate with: Independent Distance: 400' Device: Other: See Comment (least restrictive device) Ambulate up and down steps with: Supervision Number of steps: 2-4 Device: Rail Goal: Patient to recall sternal precautions with minimal verbal cuing Rehab Potential: Good PLAN: Treatment Frequency (times per week): 5 (2-5) Current admission Treatment Interventions: Education;Joint Mobility;Strengthening;Functional Mobility Training;Balance Training;Neuromuscular Re-education Plan of Care developed with: Patient TREATMENT INTERVENTIONS: Therapy Diagnosis: Reduced mobility-other;Muscle Weakness (generalized) Interventions Provided: Evaluation;Gait Training (39103) $ Evaluation-Moderate (49256) Billed Units: 1 unit Gait Training (09342) Treatment Minutes: 8 1 unit Skilled Intervention(s): Patient re-educated on rocking technique to initiate sit to stand transfers with use of sternal pillow. Patient became diaphoretic and lightheaded and required a seated rest break, vitals assessed BP 104/75. Upon second stand patient reports ease in symptoms and was shaka to ambulate approximately 200' with the cardiac cart. Patient encouraged to slow darshana and perform pursed lip breathing throughout. Educated the patient on the role of physical therapy in the acute care setting and current D/C recommendations. Patient set up in chair with call light and phone in reach on bedside table. Advised to use call light and wait for assist to get back to bed. RN present throughout evaluations. Total Timed Code Treatment Minutes: 8 Total Treatment Time (minutes): 23 FUNCTIONAL G CODE: POD#1 s/p MVR with bioprosthetic valve PT 6 Clicks Score: 17 (12/05/17824) Mobility: Walking and Moving Around Current Status (G8978): CK (12/05/17824) Mobility: Walking and Moving Around Goal Status (G8979): CJ (12/05/17824) Based on clinical assessment and the score on the 6 Clicks Functional Assessment Tool, the G code and corresponding severity modifiers are documented above. SUBJECTIVE: Current Hospital Course: Chart reviewed; POD#1 s/p MVR with bioprosthetic valve PAST MEDICAL HISTORY Diagnosis Date - A-fib (FORMERLY [facility]) PT DENIES HX OF AFIB - Asthma - COPD (chronic obstructive pulmonary disease) ([facility]) - Dermatitis - Drug abuse ([facility]) - Hives - Mitral valve stenosis - Seizure ([facility]) 08/2016 PAST SURGICAL HISTORY Procedure Laterality Date - CARPAL TUNNEL 03/07/2017 Dr. Schmitt both wrists Reason for Physical Therapy Consult : PT evaluation Relevant Past Medical History: Afib, mitral valve stenosis Patient Report: Received sitting up in the chair upon arrival. Reports minimal incisional pain. Patient agreeable to PT evaluation. Home Environment Patient Lives With: Significant Other (fiance) Assistance Available: hyperbaric nurse Entry To Home: Stairs Number Of Stairs Into Home: 2 Number Of Stairs To Bed/Bath: 0 Prior Functional Level: Within Functional Limits Prior Functional Level Comments: Patient reports complete independence with functional mobility and ADLs prior to surgery OBJECTIVE: CURRENT FUNCTIONAL STATUS: Current Functional Mobility Assist Level Additional Information Rolling Supine to Sit Sit to Supine Scooting Sit to Stand Contact Guard Assistance Stand to Sit Contact Guard Assistance Bed to Chair Toilet/Commode Gait Contact Guard Assistance Gait Device: Other: See Comment (cardiac cart) Gait Distance (feet): 200' Stairs Curb Step Car Transfer General Gait Deviations: Flexed trunk posture;Difficulty changing direction/turning;Non-functional gait speed;Darshana decreased Range of Motion: WFL Strength: WFL (bilateral lower extremities 4+/5) Balance: Static Standing;Dynamic Standing Static Standing Balance: Stand By Assistance Dynamic Standing Balance: Contact Guard Assistance Please see discipline specific clinical documentation flowsheet for complete details for this therapy evaluation/treatment. SIGNATURE: Lakisha Maldonado PT PATIENT NAME: Benjamin Garces DATE: December 05, 2017 TIME: 9:10 AM THERAPY NT Observed: 12/05/2017 Status: COMPLETED Source: [facility] 9:08 AM CLINIC OTHER CAMPUS REPOSITORY O ID: [id number] Author: Kelsi Castillo/Jose Mayorga OT Service: Occupational Therapy Author Type: Occupational Therapist Type: Therapy (PT/OT/Speech/Resp) Filed: 12/05/2017 9:12 AM Note Text: Occupational Therapy Evaluation SERVICE DATE: 12/05/2017 SERVICE TIME: 0836 to 0859 ROOM: [id number] Recommended Discharge Disposition: Home Recommended Discharge Disposition Comments: with fiance assist Anticipated Discharge Needs: Physical Assist at Home;Supervision at Home Physical Assist at Home for: Cleaning;Laundry;Meals;Self Care;Shopping;Transportation Supervision at Home due to: Other: See Comment (recent surgery) OT Recommendations to Nursing: To Bathroom for ADL?s /and or Toileting;OOB for meals;With assist of 1 person Equipment: Other: See Comment (cardiac cart; and/or w/w as needed) OT 6 Clicks Score: 21 Precautions/Activity Restrictions: Cardiac;Fall Risk;Lines/Tubes/Drains;Sternal Precaution/Activity Restriction Comments: telemetry, art line, chest tubes, IV ASSESSMENT: OT Evaluation Moderate Complexity: Occupational Profile - Extended review of patient's medical record completed including patient's physical, cognitive, and psycho-social history (please see current hospital course of evaluation). Occupational Performance - Pt presents with deficits in grooming, UE bathing/dressing, LE bathing/dressing, functional transfers, functional mobility, decreased activity tolerance Complexity in Clinical Decision Making - The extent of clinical reasoning was moderate, several treatment options present for the patient, need for modification during the evaluation was minimal/moderate, comorbidities affecting occupational performance: Afib, mitral valve stenosis Patient Disposition at Start of Session: OOB in Chair;Call Chaudhari in Reach Patient Disposition at End of Session: OOB in Chair;Call Chaudhari in Reach Tolerated Full Session Occupational Therapy Problem List: Impaired Self Care;Decreased Activity Tolerance;Functional Mobility Impairment Patient /Caregiver Goals: Go Home Goals for Plan of Care: Grooming with: Supervision Upper Body Bathing with: Supervision Lower Body Bathing with: Modified Independent Lower Body Dressing with: Modified Independent Chair Transfer with: Supervision Toilet Transfer with: Supervision Tolerate (minutes of functional activity): 25 Functional Activity with: Supervision Demonstrate Competence With Education with: Independent Transfer: sit-stand: Supervision, bed mobiliy: supervision PLAN: Treatment Frequency (times per week): 5 (1-4) Current admission Treatment Interventions: Education;Self Care / Home Management;Functional Mobility Training Plan of Care developed with: Patient TREATMENT INTERVENTIONS: Therapy Diagnosis: Reduced mobility-other;Decreased activities of daily living (ADL) Interventions Provided: Evaluation;Self Mcc Management (67060) $ Evaluation-Moderate (25468) Billed Units: 1 unit Self Mcc Management (80044) Treatment Minutes: 8 1 unit Skilled Intervention(s): Educated pt on sternal precautions and how they apply to the patient's safety/independence with ADLs/IADLs/functional mobility; provided min verbal cues to recall 100% of precautions. Edu pt on LB dressing technique with B DELFIN hose and adaptive ways to modify the process in order to increase ease, comfort, and independence (i.e. utilizing a plastic bag to reduce friction and increase ease of donning). Facilitated safe functional mobility in room to assess activity tolerance/independence; provided min verbal cuing for safety awareness. Instructed patient on utilizing pillow support for safe sit-stand transfers while maintaining sternal precautions. Instructed patient on assist/supervision required initially at home for safe ADLs. Educated pt on fall prevention strategies, reinforcing the use of their call light / up with assistance for functional mobility; Pt left up in chair, call light in reach upon OT exit. Total Timed Code Treatment Minutes: 8 Total Treatment Time (minutes): 23 FUNCTIONAL G CODE: OT 6 Clicks Score: 21 (12/05/17835) Self Care Current Status (G8987): CJ (12/05/17835) Self Care Goal Status (G8988): CI (12/05/17835) Based on clinical assessment and the score on the 6 Clicks Functional Assessment Tool, the G code and corresponding severity modifiers are documented above. SUBJECTIVE: Current Hospital Course: Chart reviewed; 47 year old female with PMH of Mitral stenosis, A Fib, COPD, Asthma, Seizures presented with: Mitral Stenosis s/p MVR, CABG and KARIN ligation on 12/03/2017 Reason for Occupational Therapy Consult: safety assessment Relevant Past Medical History: Afib, mitral valve stenosis Patient Report: Pt sitting up in chair, agreeable to session. 2-04/28 pain incisional-chest. Demo's good understanding of recs/instructions. Home Environment Patient Lives With: Significant Other (fiance) Assistance Available: hyperbaric nurse Entry To Home: Stairs Number Of Stairs Into Home: 2 Number Of Stairs To Bed/Bath: 0 Prior Functional Level: Within Functional Limits Prior Functional Level Comments: Patient reports complete independence with functional mobility and ADLs prior to surgery OBJECTIVE: Responsiveness: Alert Follows Commands: 3-step Commands CURRENT FUNCTIONAL STATUS: Current Activities of Daily Living Assist Level Feeding Set Up Grooming Contact Guard Assistance Bathing Upper Body Contact Guard Assistance Bathing Lower Body Minimal Assistance Dressing Upper Body Set Up Dressing Lower Body Minimal Assistance Toileting Stand By Assistance Functional Mobility Assist Level Rolling Supine to Sit Sit to Supine Scooting Sit to Stand Contact Guard Assistance Stand to Sit Contact Guard Assistance Bed to Chair Toilet/Commode Contact Guard Assistance (simulated with chair in room; has been using BSC) Functional Mobility Contact Guard Assistance Other: See Comment (cardiac cart) Hand Dominance: Right Range of Motion: WFL Strength: WFL Activity Tolerance: Standing Activity Standing Activity: Functional mobility in room/hallway Standing Activity Tolerance (in minutes): 8 Please see discipline specific clinical documentation flowsheet for complete details for this therapy evaluation/treatment. SIGNATURE: RHODA Fried PATIENT NAME: Benjamin Garces DATE: December 05, 2017 TIME: 9:08 AM PROGRESS Observed: 12/05/2017 Status: COMPLETED Source: [place] 6:43 AM [facility] OTHER CAMPUS REPOSITORY HNO ID: [id number] Author: Raya Martínez Service: Cardiac Surgery Author Type: Resident Type: Progress Notes Filed: 12/05/2017 9:24 AM Note Text: Attestation signed by Yonas Lew at 12/06/2017 8:06 PM Attending Note I evaluated the patient and personally participated in the mane components. I agree with the resident's findings and plan as documented and have discussed the case and management of the patient's care with the resident. Signature: Yonas Lew MD Date: 12/06/2017 Time: 8:06 PM CARDIOTHORACIC SURGERY POSTOP PROGRESS NOTE SERVICE DATE: 12/05/2017 SERVICE TIME: 6:50 AM Subjective S/P SURGERY: Procedure(s) (LRB): REPLACEMENT MITRAL VALVE W/ CARDIOPULMONARY BYPASS, LIGATION OF ATRIAL APPENDAGE (N/A) DATE OF SURGERY: 12/03/2017 POSTOP DAY #2 LOS: 2 INTERVAL EVENTS / PERTINENT ROS: CHAPARRO. VSS. On 2L NC Objective Admission Weight: 71.2 kg (157 lb) BP 119/80 Pulse 105 Temp 36.3 ?C (97.3 ?F) Resp 30 Ht 160 cm (5' 3) Wt 74.9 kg (165 lb 2 oz) SpO2 100% BMI 29.25 kg/m? Body surface area is 1.82 meters squared. Min/Max/Average Temperature AND Blood Pressure: Temp (24hrs), Av.8 ?C (98.2 ?F), Min:36.3 ?C (97.3 ?F), Max:37.4 ?C (99.3 ?F) Systolic (24hrs), Av , Min:102 , Max:110 Diastolic (24hrs), Av, Min:61, Max:89 Intake/Output Summary (Last 24 hours) at 12/05/17 0643 Last data filed at 12/05/17 0600 Gross per 24 hour Intake 2446 ml Output 827 ml Net 1619 ml TELEMETRY: normal sinus rhythm PHYSICAL EXAM: General Appearance: no distress Neck: no JVD Lungs: Unlabored breathing on 2L NC, chest tubes in place, sanguinous output Heart: regular rhythm Abdomen: soft and non-tender Neurologic/Psychiatric: oriented to time, place and person Extremities: normal exam of the extremities Lines, Drains, and Airways Line Arterial Line 12/03/17 0742 Arterial Line Left Radial 1 day Central Line Double Lumen 12/03/17 0806 Non-tunneled Right Neck Through Introducer 1 day Peripheral Double Lumen 12/04/17 1212 Short Wrist 20 Gauge less than 1 day Drain Chest Tube 12/03/17 1012 Assessment Midline Anterior Mediastinal 32 Fr Tube #1 1 day Chest Tube 12/03/17 1013 Assessment Midline Anterior Pleural 28 Fr Tube #2 1 day DATA: Diagnostic tests reviewed for today's visit: Significant Lab Results: below Chest X-RAY: pending Recent Labs 12/05/17 0546 12/04/17 0420 12/03/17 1250 RBC 2.51* 3.03* 3.61* WBC 16.59* 15.05* 20.37* HB 8.0* 9.7* 11.6 HCT 24.5* 29.4* 34.8 PLT 119* 131* 139* INR 1.55* -- 1.09 APTT -- -- 30.8 NA 135* 140 138 K 4.8 4.5 4.6 CHLOR 106 111* 107 CO2 24 19* 26 BUN 17 16 10 CREAT 0.70 0.77 0.80 GLUC 133* 85 92 CA 7.9* 7.8* 8.0* MG 2.0 2.2 2.7* ANION 10 15 10 Recent Labs 12/03/17 1600 12/03/17 1250 12/03/17 1109 12/03/17 1031 12/03/17 0954 PH 7.333* 7.269* 7.258* 7.379 7.403 PCO2 40.4 55.4* -- -- -- PO2 92.3 88.0 462.0* 296.0* 333.0* BE -4.6 -2.7 -- -- -- HCO3 -- -- 27.4* 25.7 26.6* Assessment/Plan MV Regurgitation s/p MVR and CABG ligation of atrial appendage 12/03 - ASA, Statin - Start Metoprolol once SBPs stabilized - Pedro gtt off - Chest tubes in place, likely discontinue today - Daily CXR - Warfarin, INR 1.55 this am - Advance diet Expected post operative respiratory insufficiency - IS - NC, wean as able - Duoneb Hyperglycemia: - ISS MSK: - PT/OT recs Home Tests/Labs Ordered: 1. Chest X-ray 2. BMP 3. CBC SIGNATURE: Raya Martínez MD PATIENT NAME: Benjamin Garces DATE: December 05, 2017 TIME: 6:53 AM PAGER/CONTACT #:[phone] HEMOGRAM Collected: 12/05/2017 Status: F Source: [facility] 5:46 AM HEALTH SYSTEM REPOSITORY TYPE CODE TESTS RESULT OUT OF REFERENCE UNITS RANGE LAB WBC(LOINC) 3.98-10.04 thou/cmm High WBC 16.59 LAB RBC(LOINC) 3.93-5.22 mil/cmm Low RBC 2.51 LAB HGB(LOINC) 11.2-15.7 g/dL Low Hgb 8.0 LAB HCT(LOINC) 34.1-44.9 % Low Hct 24.5 LAB MCV(LOINC) 79.4-94.8 fl High MCV 97.6 LAB MCH(LOINC) 25.6-32.2 pg MCH 31.9 LAB MCHC(LOINC) 31.6-34.8 % MCHC 32.7 LAB RDW(LOINC) 11.7-14.4 % RDW 12.5 LAB RDWSD(LOINC 36.4-46.3 fl ) RDW SD 44.2 LAB PLT(LOINC) 182-369 thou/cmm Low Platelet 119 LAB MPV(LOINC) 9.4-12.3 fl MPV 11.1 Performed By: #### CBC1 #### [place] [address] PROTIME Collected: 12/05/2017 Status: F Source: [facility] 5:46 AM HEALTH SYSTEM REPOSITORY TYPE CODE TESTS RESULT OUT OF REFERENCE UNITS RANGE LAB PTI(LOINC) 9.7-13.0 sec Prothrombin High Time 15.6 LAB INR(LOINC) 0.90-1.30 INR High 1.55 Result Comment: Note: Reference Range Change Vitamin K Antagonist (VKA) Therapeutic Range: INR 2 to 3 (Target INR of 2.5) Note: For patients treated with VKA drugs, such as warfarin, the [employer] 2012 Guideline recommends a therapeutic INR range of 2 to 3 (target INR of 2.5). This recommendation includes high-risk patients with antiphospholipid syndrome with previous arterial or venous thromboembolism, current-generation mechanical or bioprosthetic aortic heart valve replacement. VKA Therapeutic Range for some Mechanical Valve Replacement: INR 2.5 to 3.5 (Target INR of 3) Note: Patients with mechanical aortic valve replacement and additional risk factors for thromboembolic events (atrial fibrillation, previous thromboembolism, LV dysfunction, hypercoagulable conditions) or an older generation mechanical AVR (i.e., ball in-Cage) or any mechanical MVR should have a INR therapeutic range of 2.5 to 3.5 target INR of 3). Mathew GH, et al. Chest 2012; 141:7S-47S Duyen RA, et al. [facility] 2017; 70: 252-289 Performed By: #### PT #### [facility] [address] [place] [address] BASIC PANEL Collected: 12/05/2017 Status: F Source: [facility] 5:46 AM HEALTH SYSTEM REPOSITORY TYPE CODE TESTS RESULT OUT OF REFERENCE UNITS RANGE LAB NA(LOINC) 136-145 mEq/L Low Sodium Blood 135 LAB K(LOINC) 3.5-5.1 mEq/L Potassium Blood 4.8 LAB CL(LOINC) 98-107 mEq/L Chloride Blood 106 LAB CO2(LOINC) 21-32 mEq/L CO2 Blood 24 LAB GLU(LOINC) 70-99 mg/dL Glucose High Blood 133 LAB BUN(LOINC) 7-18 mg/dL BUN Blood 17 LAB CREA(LOINC 0.51-0.95 mg/dL ) Creatinine Blood 0.70 LAB CA(LOINC) 8.5-10.1 mg/dL Low Calcium Blood 7.9 LAB ANGAP(LOIN 8-16 C) Anion Gap 10 Performed By: #### P8 #### [place] [address] MAGNESIUM BLOOD Collected: 12/05/2017 Status: F Source: [facility] 5:46 AM HEALTH SYSTEM REPOSITORY TYPE CODE TESTS RESULT OUT OF REFERENCE UNITS RANGE LAB MAG(LOINC) 1.6-2.6 mg/dL Magnesium Blood 2.0 Performed By: #### MAG #### [place] [address] CHEST 1 VIEW Observed: 12/05/2017 Status: F Source: [facility] 5:28 AM HEALTH SYSTEM REPOSITORY Performed at [facility] APPROVED BY: Timo Watts MD EXAM TITLE: CHEST 1 VIEW DATE: 12/05/2017 05:28 INDICATION: Status post cardiac surgery. COMPARISON: 12/04/2017 at 05 25 Portable frontal view of the chest shows that the Mills-Koko catheter has been removed. A venous sheath remains in place. Left atrial clip remains in place. There are are seen overlying the inferior aspect of the heart. Heart size remains mildly enlarged but stable. The lungs are grossly clear. IMPRESSION: Status post removal of the Mills-Koko catheter. CASE MGT INIT Observed: 12/04/2017 Status: COMPLETED Source: [facility] 2:52 PM CLINIC OTHER CAMPUS REPOSITORY HNO ID: [id number] Author: Lola (Rn) MAG Gupta Service: (none) Author Type: Registered Nurse Type: Care Mgt Initial Assessment Filed: 12/04/2017 3:06 PM Note Text: CARE MANAGEMENT: ASSESSMENT AND DISCHARGE PLAN SERVICE DATE: 12/04/2017 SERVICE TIME: 2:53 PM PRIMARY CARE PHYSICIAN: Claudio Reyes MD ADMISSION STATUS: Inpatient Needs Prior to Discharge: Home Care Order MEDICAL: Patient/[employer] Consultant Stated Goals: to go home Health Insurance: [facility] MEDICAID confirmed Health Issues Impacting Discharge Plan: None Last Admission Date: none Is this Within the Past 30 days? 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 How often do you need to have someone help you when you read instructions, pamphlets, or other written material from your doctor or pharmacy? Never - 1 2. How confident are you filling out medical forms by yourself? Extremely - 1 If Patient scores > 3 on either question, the following interventions were put into place: Patient did not score > 3 FUNCTIONAL AND COGNITIVE/BEHAVIORAL PRIOR TO ADMISSION: Baseline Mental Status: Alert AND Oriented, Person, Place , Time and Situation Functional Status: Independent Does Patient Currently Receive Any Community Services or Home Care? None Equipment Prior to Admission: inhalers Has the Patient Been in a Group Home Facility in the Past 30 days? No SOCIAL: Living Arrangement: Home Lives With: significant other Jeromy Financial Resources: Unemployed Primary Contact: Extended Emergency Contact Information Primary Emergency Contact: Jeromy Naidu Address: [address] [place] [address] OF [place] Mobile Relation: Significant other Supportive: Yes Other Important Patient Contacts: [facility] [place] [phone] Caregiver Assessment: Caregiver is ready, willing and able to meet the patient's needs as recommended by the inter-professional team? Yes Patient's transition needs and plan for meeting these needs: Does the patient have an acute stroke diagnosis, or has the patient had a stroke during this admission? No Medication Adherence: I am convinced of the importance of my prescription medication: Agree completely - 0 I worry that my prescription medication will do more harm than good to me Disagree mostly - 0 I feel financially burdened by my wjf-og-ifclat expenses for my prescription medication: Disagree mostly -0 Patient is categorized as low risk < 2 Are you interested in bedside delivery of your medications? No Food Concerns: In the Last Month, Have You had Trouble Getting Food? No trouble getting food During the Last Month, Have You Worried Whether Your Food Would Run Out Before You Had Enough Money to Buy More? No Is the Patient Psychosocially Complex? No ASSESSMENT AND PLAN: Medical Needs: None Psychosocial Needs: None FREEDOM OF CHOICE EXPLAINED: Yes declines choice list Preference: vns POTENTIAL TRANSITION PLANS Home POD#1 cabg, mvr. Emotional support to patient. Up in chair. Dght [place] and sister Mahi at bedside. Pt resides w significant other. NO hcpoa and will consult correctional facility nurse to assist with at family requrest. Plan return home but since Sign other works sister and daughter avail to assist /. [facility] ref to follow for [facility] at [facility] and family agrees to [facility] plan. Cont to follow ambulation progress. SIGNATURE: Lola Gupta RN PATIENT NAME: Benjamin Garces DATE: December 04, 2017 TIME: 2:53 PM PAGER/CONTACT #: [phone] CONSULT PROG Observed: 12/04/2017 Status: COMPLETED Source: [facility] 1:10 PM CLINIC OTHER CAMPUS REPOSITORY HNO ID: [id number] Author: Dewayne Graves Service: Critical Care Author Type: Physician Type: Consult Progress Note Filed: 12/04/2017 1:24 PM Note Text: ICU - PROGRESS NOTE SERVICE DATE: 12/04/2017 SERVICE TIME: 1:10 PM Admission Date: 12/03/2017 AGE: [age] year old LOS: 1 days Subjective REASON FOR ICU ADMISSION: S/p Surgery Patient has minimal pain in surgical insertion site. Sitting in chair. Rest ROS negative. Objective VITAL SIGNS (last 24hrs min/max): Temp Av.4 ?C (99.3 ?F) Min: 36.3 ?C (97.3 ?F) Max: 38.3 ?C (100.9 ?F) Pulse Av.7 Min: 55 Max: 104 Arterial BP 1 Min: 85/64 Max: 131/91 Cuff BP Min: 88/64 Max: 110/68 Pain Score: 4/10 Vital signs reviewed. BP 102/71 Pulse 104 Temp (Src) 97.3 (Core) Resp 17 Ht 5' 3 (1.60m) Wt 158 lb 15.2 oz (72.1kg) SpO2 100% BMI 28.16 kg/(m2). Temp (24hrs), Av.4 ?C (99.3 ?F), Min:36.3 ?C (97.3 ?F), Max:38.3 ?C (100.9 ?F) NET FLUID BALANCE Intake/Output Summary (Last 24 hours) at 12/04/17 1310 Last data filed at 12/04/17 1100 Gross per 24 hour Intake 5061.6 ml Output 1648 ml Net 3413.6 ml MEDICATIONS Current Facility-Administered Medications: warfarin 4 mg tab(s) (COUMADIN) 4 mg ORAL ONCE - WARFARIN levETIRAcetam 500 mg tab(s) (KEPPRA) 500 mg ORAL BID escitalopram oxalate 10 mg tab(s) (LEXAPRO) 10 mg ORAL DAILY dextrose 50% in water 25 mL syringe 12.5 g INTRAVENOUS PRN aspirin 162 mg chewable tab(s) 162 mg ORAL DAILY potassium chloride iv piggyback 20 mEq in sterile water 100 mL 20 mEq INTRAVENOUS PRN magnesium sulfate in water 2 g in sterile water 50 ml 2 g INTRAVENOUS PRN(NO DISPENSE) acetaminophen 650 mg tab(s) (TYLENOL) 650 mg ORAL q 6 H PRN enoxaparin 40 mg injection (LOVENOX) 40 mg SUBCUTANEOUS DAILY NaCl 0.9% iv infusion 50 mL/hr INTRAVENOUS CONTINUOUS albuterol 2.5 mg /3 mL (0.083 %) 2.5 mg (PROVENTIL) 2.5 mg INHALATION q 2 H PRN ceFAZolin iv piggyback 2 g in D5W (iso-osmotic) 100 mL (ANCEF) 2 g INTRAVENOUS q 6 HR ondansetron (PF) 4 mg injection (ZOFRAN) 4 mg INTRAVENOUS q 6 H PRN vancomycin iv piggyback 1 g in D5W 200 mL (VANCOCIN) 1 g INTRAVENOUS q 12 HR oxyCODONE-acetaminophen 5-325 mg 1-2 tablet (PERCOCET) 1-2 tablet ORAL q 4 H PRN morphine 2-4 mg injection 2-4 mg INTRAVENOUS q 1 H PRN NaCl 0.9% 250 mL iv bolus 250 mL INTRAVENOUS PRN albuterol 2.5 mg /3 mL (0.083 %) 2.5 mg (PROVENTIL) 2.5 mg INHALATION QID budesonide 0.5 mg/2 mL 1 mg (PULMICORT) 1 mg INHALATION BID Lines, Drains, and Airways Line Arterial Line 12/03/17 0742 Arterial Line Left Radial 1 day Central Line Double Lumen 12/03/17 0806 Non-tunneled Right Neck Through Introducer 1 day Peripheral Double Lumen 12/04/17 1212 Short Wrist 20 Gauge less than 1 day Drain Chest Tube 12/03/17 1012 Assessment Midline Anterior Mediastinal 32 Fr Tube #1 1 day Chest Tube 12/03/17 1013 Assessment Midline Anterior Pleural 28 Fr Tube #2 1 day PHYSICAL EXAM PERFORMED: Constitutional: Sitting in chair, appears comfortable HEENT: NCAT, pupils reactive Cardiovascular: Regular rhythm Respiratory: Clear to auscultation, medline sternal incision with chest tubes noted %FIO2 Min: 30 Max: 50 Abdomen: Soft and Nontender Extremities: Edema- No, Peripheral pulses present Neurologic: Follows commands and Moving all extremities Respiratory/Nursing Documentation: O2 Therapy: Nasal Cannula (12/04/17 1200) Invasive Ventilator Mode: Continuous Positive Airway Pressure;Pressure Support Ventilation (12/03/17 1543) Set Ventilator Respiratory Rate (BPM): 12 (12/03/17 1216) Total Respiratory Rate (BPM): 23 (12/03/17 1543) Tidal Volume Set (mL): 500 (12/03/17 1216) Exhaled Tidal Volume (mL): 334 (12/03/17 1543) Minute Volume (L): 7.4 (12/03/17 1543) Peak Inspiratory Pressure (cm H2O): 11 (12/03/17 1543) PEEP/CPAP (cm H2O): 5 (12/03/17 1543) HEMODYNAMIC DATA: Reviewed NUTRITION: Enteral Feeds: Yes DATA: Diagnostic tests reviewed for today's visit, films/specimens were personally reviewed by me: Most recent labs and imaging results. LABS: Recent Labs 12/04/17 0420 12/03/17 1250 WBC 15.05* 20.37* RBC 3.03* 3.61* HB 9.7* 11.6 HCT 29.4* 34.8 MCV 97.0* 96.4* PLT 131* 139* GLUC 85 92 BUN 16 10 CREAT 0.77 0.80 NA 140 138 K 4.5 4.6 CHLOR 111* 107 CO2 19* 26 CA 7.8* 8.0* PTSEC -- 11.3 APTT -- 30.8 INR -- 1.09 MG 2.2 2.7* ABG: Recent Labs 12/03/17 1600 12/03/17 1250 12/03/17 1109 PH 7.333* 7.269* 7.258* PO2 92.3 88.0 462.0* PCO2 40.4 55.4* -- Assessment/Plan IMPRESSION: 47 year old female with PMH of Mitral stenosis, A Fib, COPD, Asthma, Seizures presented with: ? Mitral Stenosis s/p MVR, CABG and KARIN ligation on 12/03/2017 Anticipated post op respiratory insufficiency, liberated from mechanical ventilator on NCO2 @ 2L sating high 90s Leukocytosis, likely 2/2 bypass Acute blood loss anemia post op PLAN: Wean NCO2 as able, target sats > 92% Incentive spirometry COPD meds Target net even volume status Rest per CTS ICU PPx Will follow peripherally Discussed with staff/patient SIGNATURE: Dewayne Graves MD PATIENT NAME: Benjamin Garces DATE: December 04, 2017 TIME: 1:10 PM GLUCOSE METER Collected: 12/04/2017 Status: F Source: [facility] 11:41 AM HEALTH SYSTEM REPOSITORY TYPE CODE TESTS RESULT OUT OF REFERENCE UNITS RANGE LAB GLUBL(LOINC 70-99 mg/dL ) High Glucose Meter 117 Result Comment: RN NOTIFIED Performed By: #### GLMET #### [place] [id number] PROGRESS Observed: 12/04/2017 Status: COMPLETED Source: [facility] 10:01 AM CLINIC OTHER CAMPUS REPOSITORY HNO ID: [id number] Author: Elizabet Haas Service: Cardiovascular Medicine Author Type: Nurse Practitioner Type: Progress Notes Filed: 12/04/2017 11:17 AM Note Text: CARDIOTHORACICSURGERY PROGRESS NOTE SERVICE DATE: 12/04/2017 SERVICE TIME: 10:01 AM Rounds made with Dr. Lew and MAG Cruz. Patient is POD#1 s/p MVR with bioprosthetic valve. She is off pressors. Pain controlled. Blood sugar is well controlled. Plan now is to remove swan, dc houser, and dc Insulin gtt. Keep ninfa and central line for close monitoring today in the CVICU. Will start Coumadin 4mg PO today for OAC for bioprosthetic valve. Keep ASA at 162mg daily as well. Monitor daily INR; target INR is 2. Advance activity today and encouraged CANDDB/IS. SIGNATURE: Elizabet Haas APRN.CNP PATIENT NAME: Benjamin Garces DATE: December 04, 2017 TIME: 11:12 AM PAGER/CONTACT #: [phone] ETX#[id number] PROGRESS Observed: 12/04/2017 Status: COMPLETED Source: [facility] 9:44 AM CLINIC OTHER CAMPUS REPOSITORY O ID: [id number] Author: Ashanti Leslie Service: Pain Management Author Type: Physician Type: Progress Notes Filed: 12/04/2017 9:46 AM Note Text: Benjamin Garces [id number] PAIN MANAGEMENT TEAM PAIN DIAGNOSIS: S/p replacement mitral valve with cardiopulmonary bypass, ligation of atrial appendage due to mitral valve stenosis on 12/03/2017 Pain Score/Description: Pt resting comfortably in chair; c/o pain at incision; intermittent ache;worse with mvt INTERVAL HPI: SUBJECTIVE HPI: This is a 47 year old female who presents for above surgery. Per Dr. Lew's note: This is a 47 year old female who was referred by Dr Tripp for severe symptomatic rheumatic mitral stenosis in the setting of current smoker, asthma, seizure disorder and history of drug abuse. She states that her BP has been very low since she started seeing her current PCP, approximately 1 year with readings 80's/50's. She states that about a year ago she noticed increasing fatigue, SOB, dizziness, leg heaviness with climbing stairs. Then in Feb 04/Mar 08 she had an episode at work when she experienced severe dizziness with near syncope and she was sent home. During this episode she denies any acute illness, or chest pain. Since this episode, she has notice increasing dizziness, fatigue, exercise intolerance, and PND requiring 2-3 pillows to sleep at night. She saw her neurologist Dr James in june 2017, and reported these symptoms. ??He ordered an echo and 48 hour holter monitor. ?A surface echo was done in 06/2017 which showed severe MS and left atrial enlargement. The holter showed ?NSR with SVE beats and runs. At which point she was referred to Dr Tripp who ordered a PRESTON with severe MS, Moderate ?MR, and evidence of right to left intra-atrial shunting with valsalva. She was referred to cardiothoracic surgery for further evaluation. ? She reports her drug use of heroin which she snorted as well as other oral and inhaled drugs including amphetimine. ?She denied IV drug use. She further states that she quit about a year ago after her first seizure and follow [facility]. Her Seizure disorder was diagnosed after her first seizure in 08/2016. EEG notes left fronto-temporal seizure, but imaging was grossly non specific. Per chart documentation: I want to bring this up to your attention about Mrs. Garces's post-op pain management. I Talked to her addiction/pain management doc. Dr. Escobar. He wants us to make sure she will have adequate and appropriate pain control post op and patient needs to be back on his service post discharge. He wants us to be on touch with his MILK PASTEURIZER (Kimberly Humphries [phone]) upon discharge. Thank you. I will attach a pain management consult to her surgery case, sign and hold it, so please double check. Thanks. Attempted to call Kimberly Humphries NP with Dr Escobar office at above listed number - no answer, left message for her to call me back regarding suboxone treatment plan. 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 11/26/2017 1 11/26/2017 SUBOXONE 8 MG-2 MG SL FILM 14 7 TA BOW [id number] DIS(6261) 0 16.00 mg [facility] [place] 11/12/2017 1 11/12/2017 SUBOXONE 8 MG-2 MG SL FILM 28 14 TA BOW [id number] DIS(6261) 0 16.00 mg [facility] [place] 10/29/2017 1 10/29/2017 SUBOXONE 8 MG-2 MG SL FILM 28 14 TA BOW [id number] DIS(6261) 0 16.00 mg [place] MEDICATIONS Current Facility-Administered Medications: levETIRAcetam 500 mg tab(s) (KEPPRA) 500 mg ORAL BID Hari Nowak (Pa) 500 mg at 12/03/17 2214 escitalopram oxalate 10 mg tab(s) (LEXAPRO) 10 mg ORAL DAILY Hari Nowak (Pa) 10 mg at 12/03/17 1829 insulin regular iv infusion 250 units in NaCl 0.9% 250 mL - AK CARD SURG NOMOGRAM 0-12 Units/hr INTRAVENOUS CONTINUOUS Hari Nowak (Pa) Last Rate: 1 mL/hr at 12/04/17 0200 1 Units/hr at 12/04/17 0200 insulin regular human iv bolus 10 Units 10 Units INTRAVENOUS PRN Hari Nowak (Pa) dextrose 50% in water 25 mL syringe 12.5 g INTRAVENOUS PRN Hari Nowak (Pa) aspirin 162 mg chewable tab(s) 162 mg ORAL DAILY Hari Nowak (Pa) potassium chloride iv piggyback 20 mEq in sterile water 100 mL 20 mEq INTRAVENOUS PRN Hari Nowak (Pa) magnesium sulfate in water 2 g in sterile water 50 ml 2 g INTRAVENOUS PRN(NO DISPENSE) Hari Nowak (Pa) acetaminophen 650 mg tab(s) (TYLENOL) 650 mg ORAL q 6 H PRN Hari Nowak (Pa) enoxaparin 40 mg injection (LOVENOX) 40 mg SUBCUTANEOUS DAILY Hari Nowak (Pa) NaCl 0.9% iv infusion 50 mL/hr INTRAVENOUS CONTINUOUS Hari Nowak (Pa) Last Rate: 50 mL/hr at 12/04/17 0200 50 mL/hr at 12/04/17 0200 albuterol 2.5 mg /3 mL (0.083 %) 2.5 mg (PROVENTIL) 2.5 mg INHALATION q 2 H PRN Hari Nowak (Pa) PHENYLephrine iv infusion 10 mg in NaCl 0.9% 250 mL (PEDRO-SYNEPHRINE) 0-100 mcg/min INTRAVENOUS CONTINUOUS Hari Nowak (Pa) Stopped at 12/04/17 0330 ceFAZolin iv piggyback 2 g in D5W (iso-osmotic) 100 mL (ANCEF) 2 g INTRAVENOUS q 6 HR Hari Nowak (Pa) Last Rate: 200 mL/hr at 12/04/17 0014 2 g at 12/04/17 0014 atorvastatin 40 mg tab(s) (LIPITOR) 40 mg ORAL AT BEDTIME Hari Nowak (Pa) pantoprazole 40 mg injection (PROTONIX) 40 mg INTRAVENOUS DAILY (6 AM) Hari Nowak (Pa) ondansetron (PF) 4 mg injection (ZOFRAN) 4 mg INTRAVENOUS q 6 H PRN Hari Nowak (Pa) vancomycin iv piggyback 1 g in D5W 200 mL (VANCOCIN) 1 g INTRAVENOUS q 12 HR Hari Nowak (Pa) Last Rate: 200 mL/hr at 12/03/17 1803 1 g at 12/03/17 1803 midazolam (PF) 2 mg injection (VERSED) 2 mg INTRAVENOUS q 6 H PRN Hari Nowak (Pa) oxyCODONE-acetaminophen 5-325 mg 1-2 tablet (PERCOCET) 1-2 tablet ORAL q 4 H PRN Hari Nowak (Pa) 2 tablet at 12/04/17 0014 morphine 2-4 mg injection 2-4 mg INTRAVENOUS q 1 H PRN Hari Dennison) 4 mg at 12/04/17 0254 dexmedetomidine 400 mcg in NaCl 0.9% 100 mL (PRECEDEX) 0.2- 0.7 mcg/kg/hr INTRAVENOUS CONTINUOUS Yonas Lew Stopped at 12/03/17 1600 NaCl 0.9% 250 mL iv bolus 250 mL INTRAVENOUS PRN Hari Nowak (Pa) Last Rate: 250 mL/hr at 12/03/17 1350 250 mL at 12/03/17 2311 albuterol 2.5 mg /3 mL (0.083 %) 2.5 mg (PROVENTIL) 2.5 mg INHALATION QID Yonas Lew 2.5 mg at 12/03/17 2100 budesonide 0.5 mg/2 mL 1 mg (PULMICORT) 1 mg INHALATION BID Yonas Mayerrra 1 mg at 12/03/17 1942 Prescriptions Prior to Admission: aspirin 81 mg chewable tablet Take 81 mg by mouth once daily. Disp: Rfl: 12/03/2017 at 0400 mupirocin (BACTROBAN) 2 % nasal ointment Use 1 application in the nose twice daily. Disp: 1 Tube Rfl: 0 12/02/2017 at 2200 escitalopram oxalate (LEXAPRO) 10 mg tablet Take 1 tablet by mouth once daily. Disp: 30 tablet Rfl: 1 12/02/2017 at Unknown time OTC PRODUCT Take by mouth once daily. Anbrem Disp: Rfl: 12/02/2017 at Unknown time levETIRAcetam (KEPPRA) 500 mg tablet Take 1 tablet by mouth twice daily. Disp: 180 tablet Rfl: 3 12/03/2017 at 0400 mometasone-formoterol (DULERA) 100-5 mcg/actuation inhaler Inhale 2 Puffs as instructed twice daily. Disp: 1 Inhaler Rfl: 1 12/02/2017 at 2200 albuterol HFA (VENTOLIN HFA) 90 mcg/actuation inhaler Inhale 2 Puffs as instructed every 4 hours as needed. Disp: 2 Inhaler Rfl: 1 12/02/2017 at 2200 nicotine (NICODERM CQ) 21 mg/24 hr Apply 1 Patch as directed every 24 hours. APPLY ONE PATCH EVERY 24 HOURS TOPICALLY Disp: 28 Patch Rfl: 2 Taking ibuprofen (MOTRIN) 800 mg tablet Disp: Rfl: 11/30/2017 Buprenorphine-nalOXone (SUBOXONE) 8-2 mg film Dissolve under the tongue twice daily. 8 mg tablet. Disp: Rfl: 12/02/2017 at 0800 PAST MEDICAL HISTORY PAST MEDICAL HISTORY Diagnosis Date - A-fib (FORMERLY [facility]) PT DENIES HX OF AFIB - Asthma - COPD (chronic obstructive pulmonary disease) ([facility]ERLY [facility]) - Dermatitis - Drug abuse ([facility]) - Hives - Mitral valve stenosis - Seizure ([facility]LY [facility]) 08/2016 PAST SURGICAL HISTORY PAST SURGICAL HISTORY Procedure Laterality Date - CARPAL TUNNEL 03/07/2017 Dr. Schmitt both wrists ALLERGIES No Known Allergies FAMILY HISTORY Problem Relation Age of Onset - Cancer Mother 54 lung - None Father parkinson - Colon Cancer Paternal Grandmother 55 - Diabetes Paternal Grandmother - Cancer Paternal Uncle prostate Social History Substance Use Topics - Smoking status: Former Smoker Packs/day: 0.50 Years: 10.00 Types: Cigarettes - Smokeless tobacco: Never Used Comment: cutting back 3-4 per day quit 11/25/17 - Alcohol use No Social History Narrative Works at [employer] in [place]. Lives with boyfriend. Feels safe at home. REVIEW OF SYSTEMS: all of the following reviewed and negative except as noted below: See history of present illness, UNABLE to provide?sedated GENERAL: no fever, chills, sweats, weight loss, fatigue, generalized weakness HEENT: no headache, vision changes, eye discomfort, hearing change, ear discomfort, sinus pain, nasal discharge or congestion, oral lesions, soreness, dental problem NECK: no adenopathy, discomfort, change in ROM CHEST: no shortness of breath, dyspnea on exertion, wheezing, cough, sputum production or chest pain HEART: no chest pain, palpitations, syncope ABDOMEN: no nausea, vomiting, constipation, diarrhea, abdominal pain : no dysuria, urgency, frequency, history of stones, incontinence NEURO: no confusion or alteration in consciousness, slurred speech, seizure, focal weakness EXTREMITIES: no new pain, edema, change in ROM HEME: no new adenopathy, bruises, petechiae PSYCH: no depression, anxiety, agitation OBJECTIVE PHYSICAL EXAMINATION: see below for new or abnormal findings BP 102/72 Pulse 83 Temp (Src) 99 (Core) Resp 24 Ht 5' 3 (1.60m) Wt 156 lb 8.4 oz (71.0kg) SpO2 99% BMI 27.73 kg/(m2). GENERAL: well nourished and developed; no acute distress; alert, pleasant HEENT: no evidence of trauma; cranial nerves intact; eyes clear EOMI; no hearing deficits apparent; nasal passages unremarkable; throat and mucous membranes clear NECK: supple without lymphadenopathy; no JVD; no thyromegaly. Gaudencio right neck, site unremarkable CHEST: clear bilaterally to auscultation; normal chest movement; no rales or rhonchi.; incision c/d/i HEART: regular rate and rhythm, normal S1 and S2, no murmurs appreciated, clicks, rubs, or gallops ABDOMEN: soft; nondistended; bowel sounds present; no hepatomegaly; no splenomegaly; no tenderness EXTREMITIES: no evidence of clubbing; no cyanosis; no deformity; no joint effusion; no edema NEURO: FISHER; nonfocal SKIN: no rash; no skin breakdown; no decubitus lesions HEME: no bruising; no adenopathy PSYCH: Unable to evaluate DATA: Diagnostic tests reviewed: Most recent labs and imaging results. CBC: Recent Labs 12/03/17 1250 WBC 20.37* RBC 3.61* HB 11.6 HCT 34.8 PLT 139* MCV 96.4* MCH 32.1 MPV 10.3 RDW 11.9 CMP: Recent Labs 12/03/17 1250 NA 138 K 4.6 CHLOR 107 CO2 26 BUN 10 CREAT 0.80 GLUC 92 CA 8.0* MG 2.7* ANION 10 Heme: No results for input(s): RETICP, ABSRETIC, LD, KRYSTLE, FE, TIBC, TRANSFERSAT in the last 24 hours. TOX SCREEN Lab Results Component Value Date UAMPP see below 09/08/2016 UBARPP Non-Detected 09/08/2016 BENZO Non-Detected 09/08/2016 UOPIPP see below 09/08/2016 UPCPPP Non-Detected 09/08/2016 ACTIVE PROBLEM LIST Seizures (Hcc) Drug Abuse (Hcc) Abnormal Finding On Breast Imaging Asthma Mitral Valve Stenosis, Rheumatic Mitral Valvular Regurgitation Atrial Fibrillation (Hcc) Mitral Valve Regurgitation Diet DIET NPO LAST BOWEL MOVEMENT Prior to Admission Opiate Status EMERGENCY MEDICINE Suboxone Outpatient Pain Management: Yes. Other: Dr Escobar Rx at D/C: possibly Rx on chart: No OARRS: Reviewed - 11/26/2017 Suboxone 8/2 #14/7 days from [facility] Pain Regimen/Notes (Opiate use last 24 hrs): Morphine 2-4mg IV q1h prn 4mg x 5 doses overnight Percocet 5/325 1-2 po q4h prn 2 tabs x 2 PLAN: Continue present pain regimen; goal transition to oral analgesia Our team spoke with Kimberly Humphries NP with Dr Escobar office - pt last Suboxone dose was Suboxone 8/2 mg on 1014 AM. Plan continue IV/PO opioids for less than 1 week, then transition back to Suboxone Ashanti Leslie MD PROGRESS Observed: 12/04/2017 Status: COMPLETED Source: [facility] 6:52 AM CLINIC OTHER CAMPUS REPOSITORY O ID: [id number] Author: Raya Martínez Service: Cardiac Surgery Author Type: Resident Type: Progress Notes Filed: 12/04/2017 8:51 AM Note Text: CARDIOTHORACIC SURGERY POSTOP PROGRESS NOTE SERVICE DATE: 12/04/2017 SERVICE TIME: 6:50 AM Subjective S/P SURGERY: Procedure(s) (LRB): REPLACEMENT MITRAL VALVE W/ CARDIOPULMONARY BYPASS, LIGATION OF ATRIAL APPENDAGE (N/A) DATE OF SURGERY: 12/03/2017 POSTOP DAY #1 LOS: 1 INTERVAL EVENTS / PERTINENT ROS: NAVEENStephonCORA. VSS. Pedro at 10 this am (down from 20) Objective Admission Weight: 71.2 kg (157 lb) BP 102/72 Pulse 87 Temp 37.2 ?C (99 ?F) (Core) Resp 18 Ht 160 cm (5' 3) Wt 72.1 kg (158 lb 15.2 oz) SpO2 100% BMI 28.16 kg/m? Body surface area is 1.79 meters squared. Min/Max/Average Temperature AND Blood Pressure: Temp (24hrs), Av.4 ?C (99.3 ?F), Min:35.9 ?C (96.6 ?F), Max:38.3 ?C (100.9 ?F) Systolic (24hrs), Av , Min:102 , Max:110 Diastolic (24hrs), Av, Min:61, Max:89 Intake/Output Summary (Last 24 hours) at 12/04/17 0653 Last data filed at 12/04/17 0625 Gross per 24 hour Intake 4821.6 ml Output 2031 ml Net 2790.6 ml TELEMETRY: normal sinus rhythm PHYSICAL EXAM: General Appearance: no distress Neck: no JVD Lungs: Unlabored breathing on 4L NC, chest tubes in place, sanguinous output Heart: regular rhythm Abdomen: soft and non-tender Neurologic/Psychiatric: oriented to time, place and person Extremities: normal exam of the extremities Lines, Drains, and Airways Line Arterial Line 12/03/17 0742 Arterial Line Left Radial less than 1 day Central Line Double Lumen 12/03/17 0806 Non-tunneled Right Neck Through Introducer less than 1 day Peripheral 10/15/18 0730 Assessment Right Hand 18 Gauge less than 1 day Drain Chest Tube 12/03/17 1012 Assessment Midline Anterior Mediastinal 32 Fr Tube #1 less than 1 day Chest Tube 12/03/17 1013 Assessment Midline Anterior Pleural 28 Fr Tube #2 less than 1 day Indwelling Urinary Catheter 12/03/17 0800 Assessment Temperature Monitoring 16 Fr less than 1 day DATA: Diagnostic tests reviewed for today's visit: Significant Lab Results: below Chest X-RAY: pending Recent Labs 12/04/17 0420 12/03/17 1250 12/03/17 1109 RBC 3.03* 3.61* -- WBC 15.05* 20.37* -- HB 9.7* 11.6 -- HCT 29.4* 34.8 27* PLT 131* 139* -- INR -- 1.09 -- APTT -- 30.8 -- NA 140 138 137* K 4.5 4.6 3.5 CHLOR 111* 107 -- CO2 19* 26 -- BUN 16 10 -- CREAT 0.77 0.80 -- GLUC 85 92 -- CA 7.8* 8.0* -- MG 2.2 2.7* -- ANION 15 10 -- Recent Labs 12/03/17 1600 12/03/17 1250 12/03/17 1109 12/03/17 1031 12/03/17 0954 PH 7.333* 7.269* 7.258* 7.379 7.403 PCO2 40.4 55.4* -- -- -- PO2 92.3 88.0 462.0* 296.0* 333.0* BE -4.6 -2.7 -- -- -- HCO3 -- -- 27.4* 25.7 26.6* Assessment/Plan MV Regurgitation s/p MVR and CABG ligation of atrial appendage 12/03 - ASA, Statin - Start Metoprolol once SBPs stabilized - Pedro gtt, wean as able - Chest tubes in place - Daily CXR Expected post operative respiratory insufficiency - IS - NC, wean as able - Duoneb Hyperglycemia: - Insulin gtt, transition to ISS MSK: - PT/OT recs pending Tests/Labs Ordered: 1. Chest X-ray 2. BMP 3. CBC SIGNATURE: Raya Martínez MD PATIENT NAME: Benjamin Garces DATE: December 04, 2017 TIME: 6:53 AM PAGER/CONTACT #:[id number] CHEST 1 VIEW Observed: 12/04/2017 Status: F Source: [facility] 5:32 AM HEALTH SYSTEM REPOSITORY Performed at [facility] APPROVED BY: El Glass MD EXAMINATION: CHEST RADIOGRAPH (SINGLE VIEW AP OR PA) Clinical History: Evaluate tube, line or lead position , Post-operative / post-procedure assessment, asymptomatic. Patient is status post cardiac surgery. M: [id number] Comparison: 12/03/2017 RESULT: Lines, tubes, and devices: Endotracheal tube and enteric tubes have been removed. Right IJ Mills-Koko catheter with tip at central pulmonary outflow level. Atrial appendage clip. Presumed mediastinal drainage catheter. Lungs and pleura: Trace suspected bilateral pleural effusions. Lungs are otherwise grossly clear. Lungs are free of consolidation infiltrate. No pneumothorax. Cardiomediastinal silhouette: Stable cardiac size. Median sternotomy wires. Other: Bony structures unchanged. IMPRESSION: Support devices as discussed. Trace suspected bilateral pleural effusions. HEMOGRAM Collected: 12/04/2017 Status: F Source: [facility] 4:20 AM HEALTH SYSTEM REPOSITORY TYPE CODE TESTS RESULT OUT OF REFERENCE UNITS RANGE LAB WBC(LOINC) 3.98-10.04 thou/cmm High WBC 15.05 LAB RBC(LOINC) 3.93-5.22 mil/cmm Low RBC 3.03 LAB HGB(LOINC) 11.2-15.7 g/dL Low Hgb 9.7 LAB HCT(LOINC) 34.1-44.9 % Low Hct 29.4 LAB MCV(LOINC) 79.4-94.8 fl High MCV 97.0 LAB MCH(LOINC) 25.6-32.2 pg MCH 32.0 LAB MCHC(LOINC) 31.6-34.8 % MCHC 33.0 LAB RDW(LOINC) 11.7-14.4 % RDW 12.2 LAB RDWSD(LOINC 36.4-46.3 fl ) RDW SD 43.4 LAB PLT(LOINC) 182-369 thou/cmm Low Platelet 131 LAB MPV(LOINC) 9.4-12.3 fl MPV 11.3 Performed By: #### CBC1 #### [facility] [address] [place] [id number] BASIC PANEL Collected: 12/04/2017 Status: F Source: [facility] 4:20 AM HEALTH SYSTEM REPOSITORY TYPE CODE TESTS RESULT OUT OF REFERENCE UNITS RANGE LAB NA(LOINC) 136-145 mEq/L Sodium Blood 140 LAB K(LOINC) 3.5-5.1 mEq/L Potassium Blood 4.5 LAB CL(LOINC) 98-107 mEq/L Chloride High Blood 111 LAB CO2(LOINC) 21-32 mEq/L Low CO2 Blood 19 LAB GLU(LOINC) 70-99 mg/dL Glucose Blood 85 LAB BUN(LOINC) 7-18 mg/dL BUN Blood 16 LAB CREA(LOINC 0.51-0.95 mg/dL ) Creatinine Blood 0.77 LAB CA(LOINC) 8.5-10.1 mg/dL Low Calcium Blood 7.8 LAB ANGAP(LOIN 8-16 C) Anion Gap 15 Performed By: #### P8 #### [place] [address] MAGNESIUM BLOOD Collected: 12/04/2017 Status: F Source: [facility] 4:20 AM HEALTH SYSTEM REPOSITORY TYPE CODE TESTS RESULT OUT OF REFERENCE UNITS RANGE LAB MAG(LOINC) 1.6-2.6 mg/dL Magnesium Blood 2.2 Performed By: #### MAG #### [place] [address] EKG (AK,AV,EU,FV,HL,CLEMENCIA,MM,SP) Observed: Status: F Source: [facility] 12/04/2017 3:38 AM CLINIC OTHER CAMPUS REPOSITORY NAME : BENJAMIN GARCES PID : [id number] : 1970 Gender : Female Race : ORD : [id number] Procedure Date : Dec 04 2017 03:38 Edit Date : Dec 04 2017 09:07 Diagnosis:SINUS RHYTHM WITH OCCASIONAL PREMATURE VENTRICULAR COMPLEXES LOW VOLTAGE QRS SEPTAL INFARCT LATERAL INFARCT (CITED ON OR BEFORE 08-SEP-2016) ABNORMAL ECG WHEN COMPARED WITH ECG OF 03-DEC-2017 13:16, PREMATURE VENTRICULAR COMPLEXES ARE NOW PRESENT VENT. RATE HAS DECREASED BY 67 BPM NONSPECIFIC T WAVE ABNORMALITY NO LONGER EVIDENT IN ANTERIOR LEADS Confirmed by MD Kiesha, Augusto ([id number]) on 12/04/2017 9:07:08 AM Ventricular Rate : 84 BPM Atrial Rate : 84 BPM P-R Interval : 144 ms QRS Duration : 76 ms Q-T Interval : 364 ms QTC Calculation(Bezet) : 430 ms P Dayton : 11 degrees R Dayton : 112 degrees T Dayton : 16 degrees Test Reason : Post OP Location : 3 : [place] [address] Overread By : MD Pop Sachin Editted By : MD Pop Sachin Referred By : HARI NOWAK Acquired by : Cici COE O2% MEASURED VENOUS Collected: 12/03/2017 Status: F Source: [facility] 4:50 PM HEALTH SYSTEM REPOSITORY TYPE CODE TESTS RESULT OUT OF REFERENCE UNITS RANGE LAB O2%MV(LOINC 70.0-80.0 % ) Low O2% Measured 49.0 Venous Performed By: #### O2%MV #### [facility] [address] [place] [address] BLOOD GAS ARTERIAL Collected: 12/03/2017 Status: F Source: [facility] 4:00 PM HEALTH SYSTEM REPOSITORY TYPE CODE TESTS RESULT OUT OF REFERENCE UNITS RANGE LAB TEMPA(LOIN C) Temperature 37.1 LAB PH(LOINC) 7.350-7.450 Low pH Arterial 7.333 LAB PCO2(LOINC 36.0-46.0 mm Hg ) PCO2 Arterial 40.4 LAB PO2(LOINC) 85.0-96.0 mm Hg PO2 Arterial 92.3 LAB HCO3A(LOIN 22.0-26.0 mEq/L C) Low HCO3- 20.9 LAB O2%A(LOINC 95.0-98.0 % ) O2% Sat Arterial 97.1 LAB BASEX(LOIN -2.5 to 2.5 mEq/L C) Base Excess -4.6 LAB FIO2(LOINC % ) FIO2 30 Performed By: #### ABG #### [facility] [address] [place] [address] CONSULT Observed: 12/03/2017 Status: COMPLETED Source: [facility] 3:06 PM CLINIC OTHER CAMPUS REPOSITORY HNO ID: [id number] Author: Yony Reyes Service: Pain Management Author Type: Physician Type: Consults Filed: 12/03/2017 3:06 PM Note Text: Benjamin Garces [id number] PAIN MANAGEMENT TEAM PAIN DIAGNOSIS: S/p replacement mitral valve with cardiopulmonary bypass, ligation of atrial appendage due to mitral valve stenosis on 12/03/2017 Pain Score/Description: Attempted to see pt, recently arrived to [facility], still intubated and sedated, spoke with RN, will likely not be extubated for another few hours, will attempt assessment in the AM INTERVAL HPI: Patient still sedated, minimally responsive, Mills-Koko in place, bilateral chest tubes, Houser catheter in place, no signs of distress, reviewed with nursing. SUBJECTIVE HPI: This is a 47 year old female who presents for above surgery. Per Dr. Lew's note: This is a 47 year old female who was referred by Dr Tripp for severe symptomatic rheumatic mitral stenosis in the setting of current smoker, asthma, seizure disorder and history of drug abuse. She states that her BP has been very low since she started seeing her current PCP, approximately 1 year with readings 80's/50's. She states that about a year ago she noticed increasing fatigue, SOB, dizziness, leg heaviness with climbing stairs. Then in Feb 04/Mar 08 she had an episode at work when she experienced severe dizziness with near syncope and she was sent home. During this episode she denies any acute illness, or chest pain. Since this episode, she has notice increasing dizziness, fatigue, exercise intolerance, and PND requiring 2-3 pillows to sleep at night. She saw her neurologist Dr James in june 2017, and reported these symptoms. ??He ordered an echo and 48 hour holter monitor. ?A surface echo was done in 06/2017 which showed severe MS and left atrial enlargement. The holter showed ?NSR with SVE beats and runs. At which point she was referred to Dr Tripp who ordered a PRESTON with severe MS, Moderate ?MR, and evidence of right to left intra-atrial shunting with valsalva. She was referred to cardiothoracic surgery for further evaluation. ? She reports her drug use of heroin which she snorted as well as other oral and inhaled drugs including amphetimine. ?She denied IV drug use. She further states that she quit about a year ago after her first seizure and follow [facility]. Her Seizure disorder was diagnosed after her first seizure in 08/2016. EEG notes left fronto-temporal seizure, but imaging was grossly non specific. Per chart documentation: I want to bring this up to your attention about Mrs. Garces's post-op pain management. I Talked to her addiction/pain management doc. Dr. Escobar. He wants us to make sure she will have adequate and appropriate pain control post op and patient needs to be back on his service post discharge. He wants us to be on touch with his [employer] (Kimberly Humphries [phone]) upon discharge. Thank you. I will attach a pain management consult to her surgery case, sign and hold it, so please double check. Thanks. Attempted to call Kimberly Humphries NP with Dr Escobar office at above listed number - no answer, left message for her to call me back regarding suboxone treatment plan. 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 11/26/2017 1 11/26/2017 SUBOXONE 8 MG-2 MG SL FILM 14 7 TA BOW [id number] DIS(6261) 0 16.00 mg [facility] [place] 11/12/2017 1 11/12/2017 SUBOXONE 8 MG-2 MG SL FILM 28 14 TA BOW [id number] DIS(6261) 0 16.00 mg [facility] [place] 10/29/2017 1 10/29/2017 SUBOXONE 8 MG-2 MG SL FILM 28 14 TA BOW [id number] DIS(6261) 0 16.00 mg [facility] [place] MEDICATIONS Current Facility-Administered Medications: levETIRAcetam 500 mg tab(s) (KEPPRA) 500 mg ORAL BID [facility] ([facility]) escitalopram oxalate 10 mg tab(s) (LEXAPRO) 10 mg ORAL DAILY [facility] Nowak (Pa) insulin regular iv infusion 250 units in NaCl 0.9% 250 mL - AK CARD SURG NOMOGRAM 0-12 Units/hr INTRAVENOUS CONTINUOUS [facility] Nowak ([facility]) Last Rate: 2 mL/hr at 12/03/17 1400 2 Units/hr at 12/03/17 1400 insulin regular human iv bolus 10 Units 10 Units INTRAVENOUS PRN [facility]ari Nowak ([facility]) dextrose 50% in water 25 mL syringe 12.5 g INTRAVENOUS PRN [facility] Nowak (Pa) [START ON 12/04/2017] aspirin 162 mg chewable tab(s) 162 mg ORAL DAILY Hari Nowak (Pa) potassium chloride iv piggyback 20 mEq in sterile water 100 mL 20 mEq INTRAVENOUS PRN Hari Nowak (Pa) magnesium sulfate in water 2 g in sterile water 50 ml 2 g INTRAVENOUS PRN(NO DISPENSE) Hari Nowak (Pa) acetaminophen 650 mg tab(s) (TYLENOL) 650 mg ORAL q 6 H PRN Hari Nowak (Pa) [START ON 12/04/2017] enoxaparin 40 mg injection (LOVENOX) 40 mg SUBCUTANEOUS DAILY Hari Nowak (Pa) NaCl 0.9% iv infusion 50 mL/hr INTRAVENOUS CONTINUOUS Hari Nowak (Pa) Last Rate: 50 mL/hr at 12/03/17 1413 50 mL/hr at 12/03/17 1413 albuterol 2.5 mg /3 mL (0.083 %) 2.5 mg (PROVENTIL) 2.5 mg INHALATION q 2 H PRN Hari Nowak (Pa) PHENYLephrine iv infusion 10 mg in NaCl 0.9% 250 mL (PEDRO-SYNEPHRINE) 0-100 mcg/min INTRAVENOUS CONTINUOUS Hari Nowak (Pa) Last Rate: 45 mL/hr at 12/03/17 1400 30 mcg/min at 12/03/17 1400 aminocaproic acid 25 g in D5W 250 mL AMicAR 1 g/hr INTRAVENOUS CONTINUOUS Hari Nowak (Pa) Last Rate: 10 mL/hr at 12/03/17 1400 1 g/hr at 12/03/17 1400 ceFAZolin iv piggyback 2 g in D5W (iso-osmotic) 100 mL (ANCEF) 2 g INTRAVENOUS q 6 HR Hari Nowak (Pa) [START ON 12/04/2017] atorvastatin 40 mg tab(s) (LIPITOR) 40 mg ORAL AT BEDTIME Hari Nowak (Pa) [START ON 12/04/2017] pantoprazole 40 mg injection (PROTONIX) 40 mg INTRAVENOUS DAILY (6 AM) Hari Nowak (Pa) ondansetron (PF) 4 mg injection (ZOFRAN) 4 mg INTRAVENOUS q 6 H PRN Hari (Andrew) vancomycin iv piggyback 1 g in D5W 200 mL (VANCOCIN) 1 g INTRAVENOUS q 12 HR Hari Nowak (Pa) midazolam (PF) 2 mg injection (VERSED) 2 mg INTRAVENOUS q 6 H PRN Hari (Andrew) oxyCODONE-acetaminophen 5-325 mg 1-2 tablet (PERCOCET) 1-2 tablet ORAL q 4 H PRN Hari (Andrew) morphine 2-4 mg injection 2-4 mg INTRAVENOUS q 1 H PRN Hari (Andrew) dexmedetomidine 400 mcg in NaCl 0.9% 100 mL (PRECEDEX) 0.2- 0.7 mcg/kg/hr INTRAVENOUS CONTINUOUS [address] Lew Last Rate: 3.56 mL/hr at 12/03/17 1400 0.2 mcg/kg/hr at 12/03/17 1400 NaCl 0.9% 250 mL iv bolus 250 mL INTRAVENOUS PRN Hari (Andrew) Last Rate: 250 mL/hr at 12/03/17 1350 250 mL at 12/03/17 1414 Prescriptions Prior to Admission: aspirin 81 mg chewable tablet Take 81 mg by mouth once daily. Disp: Rfl: 12/03/2017 at 0400 mupirocin (BACTROBAN) 2 % nasal ointment Use 1 application in the nose twice daily. Disp: 1 Tube Rfl: 0 12/02/2017 at 2200 escitalopram oxalate (LEXAPRO) 10 mg tablet Take 1 tablet by mouth once daily. Disp: 30 tablet Rfl: 1 12/02/2017 at Unknown time OTC PRODUCT Take by mouth once daily. Anbrem Disp: Rfl: 12/02/2017 at Unknown time levETIRAcetam (KEPPRA) 500 mg tablet Take 1 tablet by mouth twice daily. Disp: 180 tablet Rfl: 3 12/03/2017 at 0400 mometasone-formoterol (DULERA) 100-5 mcg/actuation inhaler Inhale 2 Puffs as instructed twice daily. Disp: 1 Inhaler Rfl: 1 12/02/2017 at 2200 albuterol HFA (VENTOLIN HFA) 90 mcg/actuation inhaler Inhale 2 Puffs as instructed every 4 hours as needed. Disp: 2 Inhaler Rfl: 1 12/02/2017 at 2200 nicotine (NICODERM CQ) 21 mg/24 hr Apply 1 Patch as directed every 24 hours. APPLY ONE PATCH EVERY 24 HOURS TOPICALLY Disp: 28 Patch Rfl: 2 Taking ibuprofen (MOTRIN) 800 mg tablet Disp: Rfl: 11/30/2017 Buprenorphine-nalOXone (SUBOXONE) 8-2 mg film Dissolve under the tongue twice daily. 8 mg tablet. Disp: Rfl: 12/02/2017 at 0800 PAST MEDICAL HISTORY PAST MEDICAL HISTORY Diagnosis Date - A-fib ([facility]) PT DENIES HX OF AFIB - Asthma - COPD (chronic obstructive pulmonary disease) ([facility]LY [facility]) - Dermatitis - Drug abuse ([facility]) - Hives - Mitral valve stenosis - Seizure ([facility]) 08/2016 PAST SURGICAL HISTORY PAST SURGICAL HISTORY Procedure Laterality Date - CARPAL TUNNEL 03/07/2017 Dr. Schmitt both wrists ALLERGIES No Known Allergies FAMILY HISTORY Problem Relation Age of Onset - Cancer Mother 54 lung - None Father parkinson - Colon Cancer Paternal Grandmother 55 - Diabetes Paternal Grandmother - Cancer Paternal Uncle prostate Social History Substance Use Topics - Smoking status: Former Smoker Packs/day: 0.50 Years: 10.00 Types: Cigarettes - Smokeless tobacco: Never Used Comment: cutting back 3-4 per day quit 11/25/17 - Alcohol use No Social History Narrative Works at [employer] in [place]. Lives with boyfriend. Feels safe at home. REVIEW OF SYSTEMS: all of the following reviewed and negative except as noted below: See history of present illness, UNABLE to provide?sedated GENERAL: no fever, chills, sweats, weight loss, fatigue, generalized weakness HEENT: no headache, vision changes, eye discomfort, hearing change, ear discomfort, sinus pain, nasal discharge or congestion, oral lesions, soreness, dental problem NECK: no adenopathy, discomfort, change in ROM CHEST: no shortness of breath, dyspnea on exertion, wheezing, cough, sputum production or chest pain HEART: no chest pain, palpitations, syncope ABDOMEN: no nausea, vomiting, constipation, diarrhea, abdominal pain : no dysuria, urgency, frequency, history of stones, incontinence NEURO: no confusion or alteration in consciousness, slurred speech, seizure, focal weakness EXTREMITIES: no new pain, edema, change in ROM HEME: no new adenopathy, bruises, petechiae PSYCH: no depression, anxiety, agitation OBJECTIVE PHYSICAL EXAMINATION: see below for new or abnormal findings BP 111/57 Pulse 76 Temp 96.8 Resp 16 Ht 5' 3 (1.60m) Wt 157 lb (71.2kg) SpO2 100% BMI 27.82 kg/(m2). GENERAL: well nourished and developed; no acute distress; sedated, minimally responsive, intubated HEENT: no evidence of trauma; cranial nerves intact; eyes clear EOMI; no hearing deficits apparent; nasal passages unremarkable; throat and mucous membranes clear NECK: supple without lymphadenopathy; no JVD; no thyromegaly. Gaudencio right neck, site unremarkable CHEST: clear bilaterally to auscultation; normal chest movement; no rales or rhonchi. Bilateral chest use in place, sites unremarkable HEART: regular rate and rhythm, normal S1 and S2, no murmurs appreciated, clicks, rubs, or gallops ABDOMEN: soft; nondistended; bowel sounds present; no hepatomegaly; no splenomegaly; no tenderness EXTREMITIES: no evidence of clubbing; no cyanosis; no deformity; no joint effusion; no edema NEURO: Sedated at present, unable to evaluate SKIN: no rash; no skin breakdown; no decubitus lesions HEME: no bruising; no adenopathy PSYCH: Unable to evaluate DATA: Diagnostic tests reviewed: Most recent labs and imaging results. CBC: Recent Labs 12/03/17 1250 WBC 20.37* RBC 3.61* HB 11.6 HCT 34.8 PLT 139* MCV 96.4* MCH 32.1 MPV 10.3 RDW 11.9 CMP: Recent Labs 12/03/17 1250 NA 138 K 4.6 CHLOR 107 CO2 26 BUN 10 CREAT 0.80 GLUC 92 CA 8.0* MG 2.7* ANION 10 Heme: No results for input(s): RETICP, ABSRETIC, LD, KRYSTLE, FE, TIBC, TRANSFERSAT in the last 24 hours. TOX SCREEN Lab Results Component Value Date UAMPP see below 09/08/2016 UBARPP Non-Detected 09/08/2016 BENZO Non-Detected 09/08/2016 UOPIPP see below 09/08/2016 UPCPPP Non-Detected 09/08/2016 ACTIVE PROBLEM LIST Seizures (Hcc) Drug Abuse (Hcc) Abnormal Finding On Breast Imaging Asthma Mitral Valve Stenosis, Rheumatic Mitral Valvular Regurgitation Atrial Fibrillation (Hcc) Mitral Valve Regurgitation Diet DIET NPO LAST BOWEL MOVEMENT Prior to Admission Opiate Status EMERGENCY MEDICINE Suboxone Outpatient Pain Management: Yes. Other: Dr Escobar Rx at D/C: possibly Rx on chart: No OARRS: Reviewed - 11/26/2017 Suboxone 8/2 #14/7 days from [facility] Pain Regimen/Notes (Opiate use last 24 hrs): PLAN: Await return call from Kimberly Humphries NP with Dr Escobar office regarding Suboxone treatment plan Currently pt has the following ordered for pain; APAP 650 mg PO Q 6 hours prn mild pain or fever Morphine 2-4 mg IV Q 1 hours prn severe breakthrough pain Percocet 1-2 tabs PO Q 4 hours prn moderate pain Will continue above regimen for now Above discussed with team INO SOLIS December 03, 2017 1:53 PM Spoke with Kimberly Humphries NP with Dr Escobar office - pt last Suboxone dose was Suboxone 8/2 mg on 1014 AM. Typical plan for post-op pain management is PAN [employer]PER for 24-48 hours, then transition to IV/PO opioids for less than 1 week, then transition back to Suboxone. INO SOLIS December 03, 2017 2:22 PM Pt seen and examined independently. Discussed with the Pain Service, and agree with above note as amended in blue Yony Reyes MD CHEST 1 VIEW Observed: 12/03/2017 Status: F Source: [facility] 1:29 PM HEALTH SYSTEM REPOSITORY Performed at [facility] APPROVED BY: Timo Watts MD EXAM TITLE: CHEST 1 VIEW DATE: 12/03/2017 13:25 INDICATION: Postoperative from aortic valve replacement. COMPARISON: 11/06/2017. Portable frontal view of the chest shows tip of endotracheal tube high at the level of T3. An enteric tube is seen passing into the stomach. Right internal jugular Mills-Koko catheter with tip in the pulmonary outflow tract heading towards the left main pulmonary artery. Left atrial clip is noted. Mediastinal drain is seen centrally over the lower mediastinum. Heart size is upper normal to slightly enlarged. The lungs are clear. No infiltrates, effusions, or pneumothorax. IMPRESSION: Lines and tubes and postoperative changes as expected and noted above. EKG (AK,AV,EU,FV,HL,CLEMENCIA,MM,SP) Observed: Status: F Source: [facility] 12/03/2017 1:16 PM CLINIC OTHER CAMPUS REPOSITORY NAME : BENJAMIN GARCES PID : [id number] : 1970 Gender : Female Race : ORD : [id number] Procedure Date : Dec 03 2017 13:16 Edit Date : Dec 04 2017 09:00 Diagnosis:NORMAL SINUS RHYTHM LOW VOLTAGE QRS SEPTAL INFARCT (CITED ON OR BEFORE 08-SEP-2016) LATERAL INFARCT (CITED ON OR BEFORE 08-SEP-2016) ABNORMAL ECG WHEN COMPARED WITH ECG OF 08-SEP-2016 02:02, NO SIGNIFICANT CHANGE WAS FOUND Confirmed by MD Pop Sachin ([id number]) on 12/04/2017 9:00:17 AM Ventricular Rate : 151 BPM Atrial Rate : 151 BPM P-R Interval : 208 ms QRS Duration : 90 ms Q-T Interval : 226 ms QTC Calculation(Bezet) : 358 ms P [place] : 68 degrees R [place] : 113 degrees T [place] : 55 degrees Test Reason : Post OP Location : 3 : [place] [address] Overread By : MD Pop Sachin Editted By : MD Pop Sachin Referred By : HARI NOWAK Acquired by : , BLOOD GAS ARTERIAL Collected: 12/03/2017 Status: F Source: [facility] 12:50 PM HEALTH SYSTEM REPOSITORY TYPE CODE TESTS RESULT OUT OF REFERENCE UNITS RANGE LAB FIO2(LOINC % ) FIO2 50 LAB TEMPA(LOIN C) Temperature 36.1 LAB PH(LOINC) 7.350-7.450 Low pH Arterial 7.269 LAB PCO2(LOINC 36.0-46.0 mm Hg ) PCO2 High Arterial 55.4 LAB PO2(LOINC) 85.0-96.0 mm Hg PO2 Arterial 88.0 LAB HCO3A(LOIN 22.0-26.0 mEq/L C) HCO3- 25.1 LAB O2%A(LOINC 95.0-98.0 % ) O2% Sat Arterial 96.0 LAB BASEX(LOIN -2.5 to 2.5 mEq/L C) Base Excess -2.7 Performed By: #### ABG #### [facility] [address] [place] [address] HEMOGRAM Collected: 12/03/2017 Status: F Source: [facility] 12:50 PM HEALTH SYSTEM REPOSITORY TYPE CODE TESTS RESULT OUT OF REFERENCE UNITS RANGE LAB WBC(LOINC) 3.98-10.04 thou/cmm High WBC 20.37 LAB RBC(LOINC) 3.93-5.22 mil/cmm Low RBC 3.61 LAB HGB(LOINC) 11.2-15.7 g/dL Hgb 11.6 LAB HCT(LOINC) 34.1-44.9 % Hct 34.8 LAB MCV(LOINC) 79.4-94.8 fl High MCV 96.4 LAB MCH(LOINC) 25.6-32.2 pg MCH 32.1 LAB MCHC(LOINC) 31.6-34.8 % MCHC 33.3 LAB RDW(LOINC) 11.7-14.4 % RDW 11.9 LAB RDWSD(LOINC 36.4-46.3 fl ) RDW SD 42.2 LAB PLT(LOINC) 182-369 thou/cmm Low Platelet 139 LAB MPV(LOINC) 9.4-12.3 fl MPV 10.3 Performed By: #### CBC1 #### [place] [address] BASIC PANEL Collected: 12/03/2017 Status: F Source: [facility] 12:50 PM HEALTH SYSTEM REPOSITORY TYPE CODE TESTS RESULT OUT OF REFERENCE UNITS RANGE LAB NA(LOINC) 136-145 mEq/L Sodium Blood 138 LAB K(LOINC) 3.5-5.1 mEq/L Potassium Blood 4.6 LAB CL(LOINC) 98-107 mEq/L Chloride Blood 107 LAB CO2(LOINC) 21-32 mEq/L CO2 Blood 26 LAB GLU(LOINC) 70-99 mg/dL Glucose Blood 92 LAB BUN(LOINC) 7-18 mg/dL BUN Blood 10 LAB CREA(LOINC 0.51-0.95 mg/dL ) Creatinine Blood 0.80 LAB CA(LOINC) 8.5-10.1 mg/dL Low Calcium Blood 8.0 LAB ANGAP(LOIN 8-16 C) Anion Gap 10 Performed By: #### P8 #### [place] [address] MAGNESIUM BLOOD Collected: 12/03/2017 Status: F Source: [facility] 12:50 PM HEALTH SYSTEM REPOSITORY TYPE CODE TESTS RESULT OUT OF REFERENCE UNITS RANGE LAB MAG(LOINC) 1.6-2.6 mg/dL High Magnesium Blood 2.7 Performed By: #### MAG #### [facility] [address] [place] [address] PROTIME Collected: 12/03/2017 Status: F Source: [facility] 12:50 HEALTH SYSTEM REPOSITORY TYPE CODE TESTS RESULT OUT OF REFERENCE UNITS RANGE LAB PTI(LOINC) 9.7-13.0 sec Prothrombin Time 11.3 LAB INR(LOINC) 0.90-1.30 INR 1.09 Result Comment: Note: Reference Range Change Vitamin K Antagonist (VKA) Therapeutic Range: INR 2 to 3 (Target INR of 2.5) Note: For patients treated with VKA drugs, such as warfarin, the [employer] 2012 Guideline recommends a therapeutic INR range of 2 to 3 (target INR of 2.5). This recommendation includes high-risk patients with antiphospholipid syndrome with previous arterial or venous thromboembolism, current-generation mechanical or bioprosthetic aortic heart valve replacement. VKA Therapeutic Range for some Mechanical Valve Replacement: INR 2.5 to 3.5 (Target INR of 3) Note: Patients with mechanical aortic valve replacement and additional risk factors for thromboembolic events (atrial fibrillation, previous thromboembolism, LV dysfunction, hypercoagulable conditions) or an older generation mechanical AVR (i.e., ball in-Cage) or any mechanical MVR should have a INR therapeutic range of 2.5 to 3.5 target INR of 3). Mathew GH, et al. Chest 2012; 141:7S-47S Duyen ARRIAZA et al. [facility] 2017; 70: 252-289 Performed By: #### PT #### [facility] [address] [place] [address] ACTIVATED PTT Collected: 12/03/2017 Status: F Source: [facility] 12:[facility] REPOSITORY TYPE CODE TESTS RESULT OUT OF REFERENCE UNITS RANGE LAB APTT(LOINC 23.0-32.4 sec ) Activated PTT 30.8 Result Comment: Note: New Reference Range Unfractionated Heparin Therapeutic Ranges: Standard Heparin Nomogram: 53 to 78 seconds (anti-Xa level of 0.3 to 0.7 U/mL) Low Dose/ACS Nomogram: 49 to 67 seconds (anti-Xa level of 0.2 to 0.5 U/mL) Stroke Treatment Nomogram: 49 to 67 seconds (anti-Xa level of 0.2 to 0.5 U/mL) Note: The APTT therapeutic range has been determined for the current lot of laboratory APTT reagent in use throughout the [facility]. Performed By: #### APTT #### [facility] [address] [place] [id number] CONSULT Observed: 12/03/2017 Status: COMPLETED Source: [facility] 12:21 PM CLINIC OTHER CAMPUS REPOSITORY HNO ID: [id number] Author: Dewayne Graves Service: Critical Care Author Type: Physician Type: Consults Filed: 12/03/2017 4:04 PM Note Text: ICU - PROGRESS NOTE SERVICE DATE: 12/03/2017 SERVICE TIME: 12:22 PM Admission Date: 12/03/2017 AGE: [age] year old LOS: 0 days Subjective REASON FOR ICU ADMISSION: S/P Surgery 47 year old female with PMH of Mitral stenosis, A Fib, COPD, Asthma, Seizures presented with symptomatic mitral stenosis with syncope, lightheadedness. Upon further workup she was referred for surgery. She underwent MVR with CABG and KARIN ligation and subsequently presents to the ICU. ROS not possible 2/2 mental status Objective VITAL SIGNS (last 24hrs min/max): Temp Av ?C (96.8 ?F) Min: 36 ?C (96.8 ?F) Max: 36 ?C (96.8 ?F) Pulse Av Min: 55 Max: 55 No Data Recorded Cuff BP Min: 111/57 Max: 111/57 Pain Score: 0/10 Vital signs reviewed. BP 111/57 Pulse 55 Temp 96.8 Resp 18 Ht 5' 3 (1.60m) Wt 157 lb (71.2kg) SpO2 98% BMI 27.82 kg/(m2). Temp (24hrs), Av ?C (96.8 ?F), Min:36 ?C (96.8 ?F), Max:36 ?C (96.8 ?F) NET FLUID BALANCE No intake or output data in the 24 hours ending 12/03/17 1222 MEDICATIONS Current Facility-Administered Medications: heparin 3,000 Units in NaCl 0.9% 500 mL irrigation 3,000 Units IRRIGATION ONE TIME PHENYLephrine 20 mg in NaCl 0.9% 250 mL (NEOSYNEPHRINE) 25- 300 mcg/min INTRAVENOUS ONE TIME aminocaproic acid 10 g in NaCl 0.9% 250 mL (AMicAR) 1 g/hr INTRAVENOUS ONE TIME dexmedetomidine 400 mcg in NaCl 0.9% 100 mL (PRECEDEX) 0.2- 0.7 mcg/kg/hr INTRAVENOUS ONE TIME EPINEPHrine 4 mg in NaCl 0.9% 250 mL 0.5-10 mcg/min INTRAVENOUS ONE TIME insulin regular iv infusion 250 units in NaCl 0.9% 250 mL - AK CARD SURG NOMOGRAM 0-12 Units/hr INTRAVENOUS ONE TIME nitroglycerin 100 mg in D5W 250 mL 5-20 mcg/min INTRAVENOUS ONE TIME NORepinephrine 16 mg in NaCl 0.9% 250 mL (LEVOPHED) 0-20 mcg/min INTRAVENOUS ONE TIME PHENYLephrine iv infusion 10 mg in NaCl 0.9% 250 mL (PEDRO-SYNEPHRINE) 0-100 mcg/min INTRAVENOUS ONE TIME dextrose 50% in water 100 mL, insulin regular human 10 Units, potassium chloride 80 mEq, lidocaine 100 mg, magnesium sulfate 4 g in electrolyte-a (PLASMA-LYTE A) 1,000 mL solution MISCELLANEOUS ONE TIME dextrose 50% in water 50 mL, insulin regular human 5 Units, potassium chloride 20 mEq, lidocaine 50 mg, magnesium sulfate 2 g in electrolyte-a (PLASMA-LYTE A) 500 mL solution MISCELLANEOUS ONE TIME vancomycin iv piggyback 1 g in D5W 200 mL (VANCOCIN) 1 g INTRAVENOUS Pre-Op Once enoxaparin 40 mg injection (LOVENOX) 40 mg SUBCUTANEOUS ONCE ceFAZolin iv piggyback 2 g in D5W (iso-osmotic) 100 mL (ANCEF) 2 g INTRAVENOUS ONCE ceFAZolin iv piggyback 2 g in D5W (iso-osmotic) 100 mL (ANCEF) 2 g INTRAVENOUS ONCE Lines, Drains, and Airways Line Arterial Line 12/03/17 0742 Arterial Line Left Radial less than 1 day Central Line Double Lumen 12/03/17 0806 Non-tunneled Right Neck Through Introducer less than 1 day Peripheral 12/03/17 0730 Assessment Right Hand 18 Gauge less than 1 day Drain Chest Tube 12/03/17 1012 Assessment Midline Anterior Mediastinal 32 Fr Tube #1 less than 1 day Chest Tube 12/03/17 1013 Assessment Midline Anterior Pleural 28 Fr Tube #2 less than 1 day Indwelling Urinary Catheter 12/03/17 0800 Assessment Temperature Monitoring 16 Fr less than 1 day PHYSICAL EXAM PERFORMED: Constitutional: Intubated, appears comfortable HEENT: NCAT, pupils reactive Cardiovascular: Regular rhythm Respiratory: Breath sounds equal bilaterally, chest tubes noted Abdomen: Soft and Nontender Extremities: Edema- No, Peripheral pulses present Neurologic: Sedated Respiratory/Nursing Documentation: O2 Therapy: Room Air (12/03/17 0652) HEMODYNAMIC DATA: Reviewed NUTRITION: Enteral Feeds: No NPO DATA: Diagnostic tests reviewed for today's visit, films/specimens were personally reviewed by me: Most recent labs and imaging results. LABS: Recent Labs 12/03/17 1109 HCT 27* NA 137* K 3.5 ABG: Recent Labs 12/03/17 1109 12/03/17 1031 12/03/17 0954 PH 7.258* 7.379 7.403 PO2 462.0* 296.0* 333.0* Assessment/Plan IMPRESSION: Critical Care Documentation: The patient has the following organ/system impairment(s): Respiratory Insufficiency Post operative 47 year old female with PMH of Mitral stenosis, A Fib, COPD, Asthma, Seizures presented with: Mitral Stenosis s/p MVR, CABG and KARIN ligation on 12/03/2017 Anticipated post op respiratory insufficiency, mechanically ventilated post op Leukocytosis, likely 2/2 bypass PLAN: SAT and SBT, extubate when passes Restart COPD meds sravanthi extubation Rest per CTS This patient has a high probability of sudden, clinically significant deterioration, which requires the highest level of physician preparedness to intervene urgently. I managed/supervised life or organ supporting interventions that required frequent physician assessment. I devoted my full attention to the direct care of this patient for the amount of time indicated below. Time I spent with family or surrogate(s) is included only if the patient was incapable of providing the necessary information or participating in medical decision making. Time devoted to teaching is not included. Discussed with staff Time spent providing critical care services: 30 minutes excluding procedures. SIGNATURE: Dewayne Graves MD PATIENT NAME: Benjamin Garces DATE: December 03, 2017 TIME: 12:22 PM CG8 ARTERIAL PANEL Collected: 12/03/2017 Status: F Source: [facility] (I-STAT) 11:09 AM HEALTH SYSTEM REPOSITORY TYPE CODE TESTS RESULT OUT OF REFERENCE UNITS RANGE LAB PHISA(LOIN 7.350-7.450 C) Low pH (i-STAT) 7.258 LAB PC2IA(LOIN 35.0-45.0 mm Hg C) PCO2 High (i-STAT) 61.4 LAB PO2IA(LOIN 80.0-105.0 mm Hg C) PO2 High (i-STAT) 462.0 LAB HC3IA(LOIN 22.0-26.0 mmol/L C) HCO3- High (i-STAT) 27.4 LAB BSXIA(LOIN -2.0 to 3.0 mmol/L C) Base Excess (i-STAT) 0.0 LAB SO2IA(LOIN 95.0-98.0 % C) O2% Sat. High (i-STAT) 100.0 LAB TC2IA(LOIN 23-27 mmol/L C) Total High CO2 (i-STAT) 29 LAB GLUIA(LOIN 70-99 mg/dL C) Glucose (i-STAT) 86 LAB NAI2A(LOIN 138-146 mmol/L C) Low Sodium (i-STAT) 137 LAB KIS2A(LOIN 3.5-4.9 mmol/L C) Potassium 3.5 (i-STAT) LAB ICALA(LOIN 4.5-5.3 mg/dL C) Ionized High Calcium (iSTAT) 5.5 LAB HCTIA(LOIN 38-51 %PCV C) Low Hematocrit 27 (i-STAT) LAB HGBIA(LOIN 12.0-17.0 g/dL C) Low Hemoglobin 9.2 (i-STAT) Performed By: #### CG8IA #### [place] [address] ACT ARTERIAL PANEL Collected: 12/03/2017 Status: F Source: [facility] (I-STAT) 11:08 AM HEALTH SYSTEM REPOSITORY TYPE CODE TESTS RESULT OUT OF REFERENCE UNITS RANGE LAB ACTAI(LOINC 74-137 sec ) Kaolin ACT ( 109 i-STAT) Performed By: #### ACTIA #### [place] [address] CG8 VENOUS PANEL Collected: 12/03/2017 Status: F Source: [facility] (I-STAT) 9:16 AM HEALTH SYSTEM REPOSITORY TYPE CODE TESTS RESULT OUT OF REFERENCE UNITS RANGE LAB PHISV(LOIN 7.310-7.410 C) pH (i-STAT) 7.403 LAB PC2IV(LOIN 41.0-51.0 mm Hg C) PCO2 (i-STAT) 41.9 LAB PO2IV(LOIN 20.0-50.0 mm Hg C) PO2 (i-STAT) 43.0 LAB HC3IV(LOIN 23.0-28.0 mmol/L C) HCO3- (i-STAT) 26.1 LAB BSXIV(LOIN -2.0 to 3.0 mmol/L C) Base Excess (i-STAT) 1.0 LAB SO2IV(LOIN 35.0-85.0 % C) O2% Sat. (i-STAT) 79.0 LAB TC2IV(LOIN 24-29 mmol/L C) Total CO2 (i-STAT) 27 LAB GLUIV(LOIN 70-99 mg/dL C) Glucose High (i-STAT) 237 LAB NAI2V(LOIN 138-146 mmol/L C) Low Sodium (i-STAT) 132 LAB KIS2V(LOIN 3.5-4.9 mmol/L C) Potassium 4.9 (i-STAT) LAB ICALV(LOIN 4.5-5.3 mg/dL C) Low Ionized Calcium (iSTAT) 4.2 LAB HCTIV(LOIN 38-51 %PCV C) Low Hematocrit 24 (i-STAT) LAB HGBIV(LOIN 12.0-17.0 g/dL C) Low Hemoglobin 8.2 (i-STAT) Performed By: #### CG8IV #### [place] [address] RBC PRODUCTS Collected: 12/03/2017 Status: F Source: [facility] 7:24 AM HEALTH SYSTEM REPOSITORY TYPE CODE TESTS RESULT OUT OF REFERENCE UNITS RANGE LAB UNIT1(LOINC ) Xmatch Unit 1 see below Result Comment: Compatible LAB UNIT2(LOINC) Xmatch Unit 2 see below Result Comment: Compatible Performed By: #### RBCPS #### [place] [address] ANES PREOP Observed: 12/03/2017 Status: COMPLETED Source: [facility] 6:57 AM CLINIC OTHER CAMPUS REPOSITORY HNO ID: [id number] Author: Jaswinder Barillas Service: Anesthesiology Author Type: Physician Type: Anesthesia PreOp Filed: 12/03/2017 7:09 AM Note Text: ANESTHESIOLOGY DAY OF SURGERY NOTE SERVICE DATE: 12/03/2017 SERVICE TIME: 7:09 AM : 1970 Procedure(s) (LRB): REPLACEMENT MITRAL VALVE W/ CARDIOPULMONARY BYPASS, LIGATION OF ATRIAL APPENDAGE (N/A) Surgeon(s): Yonas Lew Estimated body mass index is 27.81 kg/m? as calculated from the following: Height as of this encounter: 160 cm (5' 3). Weight as of this encounter: 71.2 kg (157 lb). Most recent hematocrit and potassium results: Hematocrit 41.7 11/21/2017 Potassium 4.3 11/21/2017 ANES DOS/PREOP NOTE: Vitals: 11/30/17 0922 12/03/17 0647 12/03/17 0652 BP: 111/57 111/57 Pulse: (!) 55 (!) 55 Resp: 18 18 Temp: 36 ?C (96.8 ?F) 36 ?C (96.8 ?F) SpO2: 98% 98% Weight: 71.2 kg (157 lb) Height: 160 cm (5' 3) ACTIVE PROBLEM LIST Seizures (Hcc) Drug Abuse (Hcc) Abnormal Finding On Breast Imaging Asthma Mitral Valve Stenosis, Rheumatic Mitral Valvular Regurgitation Atrial Fibrillation (Hcc) PAST MEDICAL HISTORY Diagnosis Date - A-fib (HCC) PT DENIES HX OF AFIB - Asthma - COPD (chronic obstructive pulmonary disease) (HCC) - Dermatitis - Drug abuse (HCC) - Hives - Mitral valve stenosis - Seizure (HCC) 08/2016 PAST SURGICAL HISTORY Procedure Laterality Date - CARPAL TUNNEL 03/07/2017 Dr. Schmitt both wrists FAMILY HISTORY Problem Relation Age of Onset - Cancer Mother 54 lung - None Father parkinson - Colon Cancer Paternal Grandmother 55 - Diabetes Paternal Grandmother - Cancer Paternal Uncle prostate Social History: Social History Substance Use Topics - Smoking status: Former Smoker Packs/day: 0.50 Years: 10.00 Types: Cigarettes - Smokeless tobacco: Never Used Comment: cutting back 3-4 per day quit 11/25/17 - Alcohol use No No current facility-administered medications on file prior to encounter. Current Outpatient Prescriptions on File Prior to Encounter: escitalopram oxalate (LEXAPRO) 10 mg tablet Take 1 tablet by mouth once daily. OTC PRODUCT Take by mouth once daily. Anbrem levETIRAcetam (KEPPRA) 500 mg tablet Take 1 tablet by mouth twice daily. mometasone-formoterol (DULERA) 100-5 mcg/actuation inhaler Inhale 2 Puffs as instructed twice daily. albuterol HFA (VENTOLIN HFA) 90 mcg/actuation inhaler Inhale 2 Puffs as instructed every 4 hours as needed. nicotine (NICODERM CQ) 21 mg/24 hr Apply 1 Patch as directed every 24 hours. APPLY ONE PATCH EVERY 24 HOURS TOPICALLY ibuprofen (MOTRIN) 800 mg tablet Buprenorphine-nalOXone (SUBOXONE) 8-2 mg film Dissolve under the tongue twice daily. 8 mg tablet. Current Facility-Administered Medications: heparin 3,000 Units in NaCl 0.9% 500 mL irrigation 3,000 Units IRRIGATION ONE TIME Yonas Sherman Lanicholasrra PHENYLephrine 20 mg in NaCl 0.9% 250 mL (NEOSYNEPHRINE) 25- 300 mcg/min INTRAVENOUS ONE TIME Yonas Sherman [place] aminocaproic acid 10 g in NaCl 0.9% 250 mL (AMicAR) 1 g/hr INTRAVENOUS ONE TIME Yonas A [place] dexmedetomidine 400 mcg in NaCl 0.9% 100 mL (PRECEDEX) 0.2- 0.7 mcg/kg/hr INTRAVENOUS ONE TIME Yonas A [place] EPINEPHrine 4 mg in NaCl 0.9% 250 mL 0.5-10 mcg/min INTRAVENOUS ONE TIME Yonas A [place] insulin regular iv infusion 250 units in NaCl 0.9% 250 mL - AK CARD SURG NOMOGRAM 0-12 Units/hr INTRAVENOUS ONE TIME Yonas A [place] nitroglycerin 100 mg in D5W 250 mL 5-20 mcg/min INTRAVENOUS ONE TIME Yonas A [place] NORepinephrine 16 mg in NaCl 0.9% 250 mL (LEVOPHED) 0-20 mcg/min INTRAVENOUS ONE TIME Yonas A [place] PHENYLephrine iv infusion 10 mg in NaCl 0.9% 250 mL (PEDRO-SYNEPHRINE) 0-100 mcg/min INTRAVENOUS ONE TIME Yonas A [place] dextrose 50% in water 100 mL, insulin regular human 10 Units, potassium chloride 80 mEq, lidocaine 100 mg, magnesium sulfate 4 g in electrolyte-a (PLASMA-LYTE A) 1,000 mL solution MISCELLANEOUS ONE TIME Yonas Lew dextrose 50% in water 50 mL, insulin regular human 5 Units, potassium chloride 20 mEq, lidocaine 50 mg, magnesium sulfate 2 g in electrolyte-a (PLASMA-LYTE A) 500 mL solution MISCELLANEOUS ONE TIME Yonas Lew Allergies: ALLERGIES No Known Allergies DOS EXAM: Adequate NPO Status: Yes Anesthetic Risks, Benefits, Alternatives, Personnel and Consent Discussed: Yes Patient agrees to proceed: Yes Previous Anesthesia: No history of adverse event Airway Assessment: MP 2; Neck ROM: Full ROM without neurologic symptoms; Airway Evaluation: No significant abnormalities Symptoms of Sleep Apnea: None Dentition: Poor dentition Multiple missing teeth Additional Physical Exam: Lungs: Patient health status unchanged since recent history and physical. See history and physical for exam findings. Cardiac: Patient health status unchanged since recent history and physical. See history and physical for exam findings. Additional Pertinent Findings: N/A Blood Products: Will accept Blood/Blood Products Anesthetic Plan: General Anesthetic Monitoring: Standard ASA Monitors and Invasive Hemodynamic Monitoring Arterial line, Introducer, PA Catheter, PRESTON - patient denies history of stricture or varices and CVP Pain Management Plan: Parenteral or Oral ASA Class: 4 Other Medical Problems: ? Atrial fibrillation - plan for KARIN ligation History of drug abuse including amphetamine and opioids. - takes suboxone, last dose Am of 12/02/2017 COPD Severe Mitral valve stenosis CBC with diff: WBC 6.1 11/21/2017 RBC 4.27 11/21/2017 Hemoglobin 13.5 11/21/2017 Hematocrit 41.7 11/21/2017 MCV 97.7 11/21/2017 MCH 31.6 11/21/2017 MCHC 32.4 11/21/2017 RDW-CV 14.5 09/09/2016 Platelet Count 252 11/21/2017 MPV 9.7 11/21/2017 Neut% 70.4 09/08/2016 Lymph% 17.9 09/08/2016 [place]% 9.4 09/08/2016 Eosin% 1.8 09/08/2016 Baso% 0.5 09/08/2016 Abs Neut (ANC) 5.89 09/08/2016 Abs [place] 0.79 09/08/2016 Abs Eosin 0.15 09/08/2016 Abs Baso 0.04 09/08/2016 Glucose (mg/dL) Date Value 11/21/2017 90 Potassium (mEq/L) Date Value 11/21/2017 4.3 Sodium (mEq/L) Date Value 11/21/2017 137 Chloride (mEq/L) Date Value 11/21/2017 104 CO2 (mEq/L) Date Value 11/21/2017 35 Creatinine (mg/dL) Date Value 11/21/2017 0.87 BUN (mg/dL) Date Value 11/21/2017 10 Anion Gap (no units) Date Value 11/21/2017 2 Calcium (mg/dL) Date Value 11/21/2017 9.1 Protein, Total (g/dL) Date Value 11/21/2017 7.2 Albumin (g/dL) Date Value 11/21/2017 3.8 Bilirubin, Total (mg/dL) Date Value 11/21/2017 0.4 Alkaline Phosphatase (U/L) Date Value 11/21/2017 85 AST (U/L) Date Value 11/21/2017 30 ALT (U/L) Date Value 11/21/2017 44 Chronic Beta Irene medication administered within 24 hours: N/A I have interviewed and examined the patient. I have reviewed the medical record and/or the pre-anesthesia evaluation, pertinent labs, and test results. Significant changes in the patient's condition since the History and Physical, not otherwise documented in primary service progress notes: No This contains updated information obtained within 48 hours of Surgery/Procedure. SIGNATURE: Jaswinder Barillas MD PATIENT NAME: Benjamin Garces DATE: December 03, 2017 TIME: 6:57 AM CSN: [id number] PRESTON (09/19/2017) Final Impressions: Right Ventricle Mildly dilated right ventricle. Left Atrium The left atrium appears severely dilated in size. There is no evidence of a thrombus in the left atrial body or appendage. Mitral Valve The mitral leaflets are severely thickened and calcified. There is thickening of the tips, diastolic doming, and a hockey stick appearance of the leaflets suggesting prior rheumatic heart disease. There is also thickening and calcification of the subvalvular apparatus. The Spenser's score exceeds 8. The valve area by the PISA method is 0.4 cm2. The peak, and mean gradients are 24, and 15 mm Hg. There is severe mitral valve stenosis. Moderate (2+) mitral valve regurgitation. Attempts at quantification by vena contracta, PISA were unsuccesful, and likely inaccurate due to the degree of thickening/calcification of the valve , and subvalvular apparatus. No systolic pulm vein flow reversal is evident. The mechanism appears to be severe leaflet restriction Tricuspid Valve Structurally normal tricuspid valve with trivial to mild tricuspid regurgitation. Cardiac Shunt There is evidence of right to left interatrial shunting by agitated saline contrast study with Valsalva. Left Ventricle Normal left ventricular size and systolic function. No regional wall motion abnormalities. LVEF is 50-55% by visual estimation. Cardiac Cath (10/17/2017) Normal coronary angiography; there was no evidence of significant coronary artery disease. Mild pulmonary hypertension. Congestive heart failure NYHA class I (no CHF). Pulmonary vascular resistance: 4.05 HRU. Pulmonary wedge mean pressure: 22 mm(hg). Pulmonary artery mean pressure: 17 mm(hg). ABO/RH CONFIRMATION Collected: 12/03/2017 Status: F Source: [facility] 6:45 AM HEALTH SYSTEM REPOSITORY TYPE CODE TESTS RESULT OUT OF REFERENCE UNITS RANGE LAB ABO(LOINC) A ABO Group LAB CARPENTRY PROFESSIONAL(INC) RH Type Positive Performed By: #### ABOCK #### [place] [address] OPERATIVE NO Observed: 12/03/2017 Status: COMPLETED Source: [facility] 12:00 AM CLINIC OTHER CAMPUS REPOSITORY HNO ID: [id number] Author: Yonas Lew Service: Cardiac Surgery Author Type: Physician Type: Operative Report Filed: 12/05/2017 3:40 PM Note Text: [facility] - Operative Report BENJAMIN GARCES : 1970 AGE: 47. SEX: F PATIENT TYPE: I [place] [facility] [place] [facility] LOCATION: [id number] ATTENDING PHYSICIAN: YONAS LEW CSN NUMBER: [id number] DATE OF SURGERY/PROCEDURE: 12/03/2017 INCISION/PROCEDURE START TIME: 8:35 AM INCISION CLOSE/PROCEDURE END TIME: 11:55 AM PREOPERATIVE DIAGNOSIS: Severe mitral stenosis. POSTOPERATIVE DIAGNOSIS: Severe mitral stenosis. SURGEON: Yonas Lew MD RECLAMATION FURNACE OPERATOR: 1. Ms. Del Rio. 2. Ms. Nowak. SURGERY/PROCEDURE: Mitral valve replacement with a 27-mm St[place] epic mitral prosthesis and exclusion of left atrial appendage with 35-mm AtriCure clip. ANESTHESIA: Performed under general anesthesia. The cross-clamp time and the perfusion time are per the perfusion record. FINDINGS: Included severe rheumatic mitral stenosis, normal LV function, severely dilated left atrium, and mildly severe PA hypertension with PA pressures in the 60s to 70s. Intraop, severe rheumatic mitral stenosis with complete fusion of the commissures for shortening and matting and fusion of all subvalvar cords. Postop, normally functioning bioprosthesis, mitral position, normal LV function, improved PA pressures, and a completely excluded left atrial appendage. COMPLICATIONS: There were no complications. ESTIMATED BLOOD LOSS: 250 mL. SPECIMEN: Included resected mitral valve. INDICATIONS: This is a 47-year-old woman with symptomatic severe rheumatic mitral stenosis. She also has moderate mitral regurgitation. Left ventricular function is well preserved. Left atrium is severely dilated. Right atrium also somewhat dilated. PA pressures were high in the 60s. Catheterization showed normal coronary arteries. We recommended mitral valve replacement and exclusion of left atrial appendage. The procedure, the intended benefits, potential complications, and staff indications were discussed with her in length. All questions were answered. She understood and she consented to proceed. After discussion, she elected the bioprosthesis. DESCRIPTION OF PROCEDURE: Preoperative huddle was performed. She was brought to the operating room and placed on the operating table in supine position. Central venous, pulmonary atrial, and radial artery accesses were obtained. She was given general anesthesia and intubated. A PRESTON probe was placed. A Houser catheter was placed. She was prepped and draped sterilely. SCDs had been placed and then she received subcutaneous Lovenox. A time-out was performed. PA pressures were elevated in the 60s to 70s. PRESTON confirmed severe rheumatic mitral stenosis and normal LV function with massively dilated left atrium. A median sternotomy was made. The sternal candy spreader was placed in the wound. A pericardial well was made. The ascending aorta was free of any palpable atherosclerotic disease. The right atrium was markedly enlarged. After heparinization, cardiopulmonary bypass was instituted via the aorta, SVC, and IVC. The root was vented. The cross- clamp was applied. The heart was arrested with 1500 mL of cold antegrade blood cardioplegia. Thereafter, a bolus of approximately 300 mL of cardioplegia administered every 15-20 minutes. The left ventricle was vented via the right superior pulmonary vein. The vena cava were snared. We approached the mitral valve with a transseptal approach. A retrograde cardioplegia cannula was placed at coronary sinus. The valve was exposed, it was heavily calcified and severely stenotic. There is complete fusion of the commissures. There was complete fusion for shortening of subvalvular apparatus. Essentially, we were able to excise the valve with the subcortical apparatus en bloc, sized to a 27-mm St. [place] epic prosthesis, which was then sutured in place with 15 2 Ethibond pledgeted sutures with pledgets on the atrial side. The valve seated very well. The sutures were tied down by hand and then cut. The left ventricle was vented via the right superior pulmonary vein. The interatrial septum was then closed with running 4-0 Prolene suture in double layer as was the right atrium. The left atrial appendage was sized to a 35-mm AtriCure clip was applied, which was applied to its base. A airbrush artist photography was administered. The aortic cross-clamp was removed. Heart regained sinus rhythm. Ventilation was resumed. When PRESTON revealed the absence of any intracavitary air, we removed our vents, weaned from bypass, decannulated, and reversed heparin with protamine. PRESTON now showed a normally functioning bioprosthesis and mitral position; no perivalvular leak; normal LV function; completely excluded left atrial appendage. PA pressures were now improved and in the 30s to 40s. Right atrial and right ventricular pacing leads were placed and secured to the skin. Ground leads were placed and secured to the skin. Hemostasis was obtained. Two mediastinal chest tubes were placed and secured to the skin. Sternum was then closed with wires. Pectoral fascia, subcutaneous tissues, and skin were closed in layers with absorbable suture. Dry sterile dressings were applied. Sponge counts and needle counts were correct. The patient then returned to CVICU in good condition. Yonas Lew MD JAL:[id number] /[id number] SURGICAL TISSUE EXAM Observed: 12/03/2017 Status: F Source: [facility] 12:00 AM HEALTH SYSTEM REPOSITORY Test performed at [place] [address] NAME: BENJAMIN GARCES REQUESTING: YONAS LEW MD FINAL DIAGNOSIS: MITRAL VALVE REPLACEMENT - VALVE LEAFLETS WITH HYALINIZING FIBROSIS. OPERATIVE PROCEDURE: Mitral valve replacement CLINICAL INFORMATION: Mitral valvular regurgitation [I34.0] GROSS DESCRIPTION: Mitral valve Received in formalin labeled mitral valve is an atrial ventricular valve measuring 6.0 cm along the free edge and 0.7 cm from free edge to base. The anterior and posterior leaflets are identified. The valve is fibrotic in consistency. Minimal calcifications are identified. An attached thrombus is not seen. The chordae appear fused. [employer] Consultant sections are submitted in formalin in one cassette. ARH:leia JIN M.D. (Electronic signature on file) Signed out: 12/06/2017 15:34 PRINTED: 12/06/2017 Page 1 of 1 Performed By: #### SURG #### [place] [address] CONSULT PROG Observed: 11/29/2017 Status: COMPLETED Source: [facility] 2:17 PM CLINIC OTHER CAMPUS REPOSITORY HNO ID: [id number] Author: Venice Correa Service: Cardiac Surgery Author Type: Nurse Practitioner Type: Consult Progress Note Filed: 11/29/2017 2:40 PM Note Text: [facility] Surgery Pre-Op Open Heart Check List Patient Info: Benjamin Garces 1970 47 year old Patient has no known allergies. HPI: This is a 47 year old female who was referred by Dr Tripp for severe symptomatic rheumatic mitral stenosis in the setting of current smoker, asthma, seizure disorder and history of drug abuse. She states that her BP has been very low since she started seeing her current PCP, approximately 1 year with readings 80's/50's. She states that about a year ago she noticed increasing fatigue, SOB, dizziness, leg heaviness with climbing stairs. Then in Feb 04/Mar 08 she had an episode at work when she experienced severe dizziness with near syncope and she was sent home. During this episode she denies any acute illness, or chest pain. Since this episode, she has notice increasing dizziness, fatigue, exercise intolerance, and PND requiring 2-3 pillows to sleep at night. She saw her neurologist Dr James in june 2017, and reported these symptoms. ??He ordered an echo and 48 hour holter monitor. ?A surface echo was done in 06/2017 which showed severe MS and left atrial enlargement. The holter showed ?NSR with SVE beats and runs. At which point she was referred to Dr Tripp who ordered a PRESTON with severe MS, Moderate ?MR, and evidence of right to left intra-atrial shunting with valsalva. She was referred to cardiothoracic surgery for further evaluation. ? She reports her drug use of heroin which she snorted as well as other oral and inhaled drugs including amphetimine. ?She denied IV drug use. She further states that she quit about a year ago after her first seizure and follow [facility]. Her Seizure disorder was diagnosed after her first seizure in 08/2016. EEG notes left fronto-temporal seizure, but imaging was grossly non specific. Last set of vitals: There were no vitals taken for this visit. Wt: 68.5 kg (151 lb) BMI: 26.33 kg/(m2) Procedure: Mitral Valve Repair and ASD closure Diagnosis: Mitral stenosis AND ASD Date of Procedure: 12/03/2017 STS Risk Score: 0.663% CARE TEAM: Cardiac Surgeon: Arlet Drum Loader And Unloader: Qasim PCP: Manuelito Other Providers: Jacob - Neurology Pre-Op Testing: LABS: Hemoglobin (g/dL) Date Value 09/09/2016 11.7 HGB (g/dL) Date Value 11/21/2017 13.5 Hematocrit (%) Date Value 11/21/2017 41.7 WBC (thou/cmm) Date Value 11/21/2017 6.1 Platelet Count (thou/cmm) Date Value 11/21/2017 252 Chemistry Glucose (mg/dL) Date Value 11/21/2017 90 Potassium (mEq/L) Date Value 11/21/2017 4.3 Sodium (mEq/L) Date Value 11/21/2017 137 Chloride (mEq/L) Date Value 11/21/2017 104 CO2 (mEq/L) Date Value 11/21/2017 35 Creatinine (mg/dL) Date Value 11/21/2017 0.87 BUN (mg/dL) Date Value 11/21/2017 10 Anion Gap (no units) Date Value 11/21/2017 2 Calcium (mg/dL) Date Value 11/21/2017 9.1 Protein, Total (g/dL) Date Value 11/21/2017 7.2 Albumin (g/dL) Date Value 11/21/2017 3.8 Bilirubin, Total (mg/dL) Date Value 11/21/2017 0.4 Alkaline Phosphatase (U/L) Date Value 11/21/2017 85 AST (U/L) Date Value 11/21/2017 30 ALT (U/L) Date Value 11/21/2017 44 Coag Component Value Range AND Units Status Performing Lab Prothrombin Time 9.7 9.7 - 13.0 sec Final [facility] 0.95 0.90 - 1.30 Final UA Component Value Range AND Units Status Performing Lab Color YELLOW Final [facility] Urine Appearance CLEAR Final [facility] Glucose, Urine NEGATIVE Negative Final [facility] Ketones, Urine NEGATIVE Negative Final [facility] Hemoglobin, Urine NEGATIVE Negative Final [facility] Protein, Urine NEGATIVE Negative Final [facility] Nitrites Urine NEGATIVE Negative Final [facility] Bilirubin, Urine NEGATIVE Negative Final [facility] Specific [place], Ur 1.020 1.005 - 1.030 Final [facility] pH, Urine 6.5 5.0 - 8.0 Final [facility] Urobilinogen, Urine 1.0 0.0 - 1.0 EU/dL Final [facility] Leukocytes Esterase NEGATIVE Negative Final [facility] WBC, Urine NONE 0 - 5 /hpf Final [facility] RBC, Urine 0-3 0 - 3 /hpf Final [facility] EP Cells Urine 0-2 0 - 5 /hpf Final [facility] Type AND Screen: A+, Negative Ab screen RBC Cross match: 2 Units signed and held MRSA Screen: Negative, treated prophylactically with mupirocin HGA1C Lab Results Component Value Date HBA1C 5.5 11/21/2017 HBA1C 5.2 01/26/2014 PFT/ABG: FEVI: 59% DLCO: 60% ABG: N/A IMAGING/PROCEDURES CXR: IMPRESSION: No acute radiographic abnormality. Cardiac Catheterization: Normal coronary angiography; there was no evidence of significant coronary artery disease. Mild pulmonary hypertension. Congestive heart failure NYHA class I (no CHF). Pulmonary vascular resistance: 4.05 HRU. Pulmonary wedge mean pressure: 22 mm(hg). Pulmonary artery mean pressure: 17 mm(hg). PRESTON: 09/19/2017 Final Impressions: Right Ventricle Mildly dilated right ventricle. Left Atrium The left atrium appears severely dilated in size. There is no evidence of a thrombus in the left atrial body or appendage. Mitral Valve The mitral leaflets are severely thickened and calcified. There is thickening of the tips, diastolic doming, and a hockey stick appearance of the leaflets suggesting prior rheumatic heart disease. There is also thickening and calcification of the subvalvular apparatus. The Spenser's score exceeds 8. The valve area by the PISA method is 0.4 cm2. The peak, and mean gradients are 24, and 15 mm Hg. There is severe mitral valve stenosis. Moderate (2+) mitral valve regurgitation. Attempts at quantification by vena contracta, PISA were unsuccesful, and likely inaccurate due to the degree of thickening/calcification of the valve, and subvalvular apparatus. No systolic pulm vein flow reversal is evident. The mechanism appears to be severe leaflet restriction Tricuspid Valve Structurally normal tricuspid valve with trivial to mild tricuspid regurgitation. Cardiac Shunt There is evidence of right to left interatrial shunting by agitated saline contrast study with Valsalva. Left Ventricle Normal left ventricular size and systolic function. No regional wall motion abnormalities. LVEF is 50-55% by visual estimation. 2D Echo: 07/11/2017 EF: 57% CONCLUSIONS: 1. Normal left ventricular size, systolic function with a calculated LV ejection fraction of 57% using the modified Monique's rule. Normal regional wall motion. 2. The diastolic function could not be accurately assessed in the setting of moderate to severe mitral regurgitation. This being said, the overall study does suggest elevated left ventricular filling pressures. Severely dilated left atrium with left atrial volume index of 98 mm per square meter. 3. There is evidence of severe thickening and calcification of the mitral valve leaflets. The thickening is most pronounced at the tips of the leaflets. There is diastolic doming of the valve suggestive of rheumatic mitral stenosis. The peak and mean gradients across the valve are 31 and 15 mmHg respectively. The mitral valve area by the pressure half- time method is calculated at 0.9 cm2. 4. There is evidence of moderately severe mitral regurgitation. This is secondary to rheumatic heart disease causing commissure effusion and mild coaptation of the leaflets. By the PISA method, the effective regurgitant orifice area is calculated at 0.39 cm2 and the regurgitant volume is calculated at 53 mL. Vena contracta of the jet measures between 6-7 mm. As described above: There is significant fusion of the medial and lateral commissures. 5. No evidence of pulmonary hypertension by Doppler. 6. No pericardial effusions. 7. Normal right atrial pressures. 5 Meter Walk Test: 1. 3.43 sec 2. 3.43 sec 3. 3.41 sec OPTIONAL TESTINGS: Carotid U/S: N/A Lower EXT CLAY: N/A Palmar Arch: N/A Vein Mapping: N/A Dental Clearance: N/A CT Chest: N/A Medications Notes: . Blood thinners: Patient is on following blood thinners: Aspirin -Yes, dose 81 mg, stopped No Beta Irene: Last dose of beta irene taken: N/A Perioperative Transfusion risk STS Risk Factors: Advanced age No Preoperative anemia No Non-CABG surgery Yes, MVR Preoperative anticoagulation Yes, ASA Clotting abnormalities No Female gender Yes Small body habitus No Renal insufficiency No IDDM No Sepsis No Liver disease No Preioperative Wound Healing - Vest recommended No Risk Factors: Obesity No DM No Renal Dx No CLEARANCES NEEDED Pulmonary: No Hematology: No Nephrology No Vascular surgery No Other Yes, NeurologyNeurology - Dr James PER Dr James: Obviously in the case of seizures, we are always concerned for injury and risk of hemorrhage in the setting of use of anticoagulation. ?However, she has been seizure free on Keppra for >6 months now, and while she had an abnormal EEG in the past, her last seizure was likely provoked (see hospital notes). ?Thus, again, while always a risk of seizure and injury, at least at this time, she is doing quite well and I am hoping the Keppra will continue to control her seizures. ?Of note, Keppra should not interact with any of the anticoagulation medications including Warfarin. Other issues to communicate: Hi, All I want to bring this up to your attention about Mrs. Garces's post-op pain management. I Talked to her addiction/pain management doc. Dr. Escobar. He wants us to make sure she will have adequate and appropriate pain control post op and patient needs to be back on his service post discharge. He wants us to be on touch with his MILK PASTEURIZER (Kimberly Humphries [phone]) upon discharge. Thank you. I will attach a pain management consult to her surgery case, sign and hold it, so please double check. Thanks. Gladys Correa APRN.[facility] CONSULT PROG Observed: 11/27/2017 Status: COMPLETED Source: [facility] 1:48 PM CLINIC OTHER CAMPUS REPOSITORY HNO ID: [id number] Author: Farideh (Marivel) ELIZABETH Bustos.MARIVEL Service: Cardiovascular Surgery Author Type: Nurse Practitioner Type: Consult Progress Note Filed: 12/03/2017 9:04 AM Note Text: [facility] Surgery Pre-Op Open Heart Check List Patient Info: Benjamin Garces 1970 47 year old Patient has no known allergies. HPI: Per Dr. Lew's note: This is a 47 year old female who was referred by Dr Tripp for severe symptomatic rheumatic mitral stenosis in the setting of current smoker, asthma, seizure disorder and history of drug abuse. She states that her BP has been very low since she started seeing her current PCP, approximately 1 year with readings 80's/50's. She states that about a year ago she noticed increasing fatigue, SOB, dizziness, leg heaviness with climbing stairs. Then in Feb 04/Mar 08 she had an episode at work when she experienced severe dizziness with near syncope and she was sent home. During this episode she denies any acute illness, or chest pain. Since this episode, she has notice increasing dizziness, fatigue, exercise intolerance, and PND requiring 2-3 pillows to sleep at night. She saw her neurologist Dr James in june 2017, and reported these symptoms. ??He ordered an echo and 48 hour holter monitor. ?A surface echo was done in 06/2017 which showed severe MS and left atrial enlargement. The holter showed ?NSR with SVE beats and runs. At which point she was referred to Dr Tripp who ordered a PRESTON with severe MS, Moderate ?MR, and evidence of right to left intra-atrial shunting with valsalva. She was referred to cardiothoracic surgery for further evaluation. ? She reports her drug use of heroin which she snorted as well as other oral and inhaled drugs including amphetimine. ?She denied IV drug use. She further states that she quit about a year ago after her first seizure and follow [facility]. Her Seizure disorder was diagnosed after her first seizure in 08/2016. EEG notes left fronto-temporal seizure, but imaging was grossly non specific. ? Last set of vitals: There were no vitals taken for this visit. Wt: 68.5 kg (151 lb) BMI: 26.33 kg/(m2) Procedure: MVR+KARIN Diagnosis: Mitral valve stenosis Date of Procedure: 12/03/2017 STS Risk Score: 0.663% CARE TEAM: Cardiac Surgeon: Arlet Drum Loader And Unloader: David PCP: Amy Other Providers: Pre-Op Testing: LABS: No results found for: TROPT Hemoglobin (g/dL) Date Value 09/09/2016 11.7 HGB (g/dL) Date Value 11/21/2017 13.5 Hematocrit (%) Date Value 11/21/2017 41.7 WBC (thou/cmm) Date Value 11/21/2017 6.1 Platelet Count (thou/cmm) Date Value 11/21/2017 252 Chemistry Glucose (mg/dL) Date Value 11/21/2017 90 Potassium (mEq/L) Date Value 11/21/2017 4.3 Sodium (mEq/L) Date Value 11/21/2017 137 Chloride (mEq/L) Date Value 11/21/2017 104 CO2 (mEq/L) Date Value 11/21/2017 35 Creatinine (mg/dL) Date Value 11/21/2017 0.87 BUN (mg/dL) Date Value 11/21/2017 10 Anion Gap (no units) Date Value 11/21/2017 2 Calcium (mg/dL) Date Value 11/21/2017 9.1 Protein, Total (g/dL) Date Value 11/21/2017 7.2 Albumin (g/dL) Date Value 11/21/2017 3.8 Bilirubin, Total (mg/dL) Date Value 11/21/2017 0.4 Alkaline Phosphatase (U/L) Date Value 11/21/2017 85 AST (U/L) Date Value 11/21/2017 30 ALT (U/L) Date Value 11/21/2017 44 Coag Results for BENJAMIN GARCES ( ) as of 11/27/2017 13:51 Ref. Range 11/21/2017 13:00 Prothrombin Time Latest Ref Range: 9.7 - 13.0 sec 9.7 INR Latest Ref Range: 0.90 - 1.30 0.95 UA Results for BENJAMIN GARCES ( ) as of 11/27/2017 13:51 Ref. Range 11/21/2017 13:01 Color Unknown YELLOW Specific [place], Ur Latest Ref Range: 1.005 - 1.030 1.020 pH, Urine Latest Ref Range: 5.0 - 8.0 6.5 Protein, Urine Latest Ref Range: Negative NEGATIVE Glucose, Urine Latest Ref Range: Negative NEGATIVE Ketones, Urine Latest Ref Range: Negative NEGATIVE Bilirubin, Urine Latest Ref Range: Negative NEGATIVE Urobilinogen, Urine Latest Ref Range: 0.0 - 1.0 EU/dL 1.0 WBC, Urine Latest Ref Range: 0 - 5 /hpf NONE RBC, Urine Latest Ref Range: 0 - 3 /hpf 0-3 EP Cells Urine Latest Ref Range: 0 - 5 /hpf 0-2 Hemoglobin, Urine Latest Ref Range: Negative NEGATIVE Leukocytes Esterase Latest Ref Range: Negative NEGATIVE Nitrites Urine Latest Ref Range: Negative NEGATIVE Urine Appearance Unknown CLEAR Type AND Screen: Results for BENJAMIN GARCES ( ) as of 11/27/2017 13:51 Ref. Range 11/21/2017 13:00 ABO Group Unknown A RH Type Unknown Positive Antibody Screen Unknown NEGATIVE Blood Bank Comment Unknown PAT specimen RBC Cross match: 2 units on DOS MRSA Screen: swapped, tx on 11/26 HGA1C Lab Results Component Value Date HBA1C 5.5 11/21/2017 HBA1C 5.2 01/26/2014 PFT/ABG: FEVI: 61% DLCO: 50.6% ABG: . IMAGING/PROCEDURES Chest X-RAY 11/07/2017: RESULT: ? Lines, tubes, and devices: ?None. ? Lungs and pleura: ?No consolidation. No lung mass. No pleural effusion. ? Cardiomediastinal silhouette: ?Normal cardiomediastinal silhouette. ? Other: ?. ?None ? ? IMPRESSION: ? No acute radiographic abnormality. ? ECHO 07/11: Left Ventricle Normal left ventricular size and systolic function. No regional wall motion abnormalities. LVEF is 50-55% by visual estimation. Right Ventricle Mildly dilated right ventricle. Left Atrium The left atrium appears severely dilated in size. There is no evidence of a thrombus in the left atrial body or appendage. Right Atrium The right atrium appears normal in size. Mitral Valve The mitral leaflets are severely thickened and calcified. There is thickening of the tips, diastolic doming, and a hockey stick appearance of the leaflets suggesting prior rheumatic heart disease. There is also thickening and calcification of the subvalvular apparatus. The Spenser's score exceeds 8. The valve area by the PISA method is 0.4 cm2. The peak, and mean gradients are 24, and 15 mm Hg. Moderate (2+) mitral valve regurgitation. Attempts at quantification by vena contracta, PISA were unsuccesful, and likely inaccurate due to the degree of thickening of the valve , and subvalvular apparatus. No systolic pulm vein flow reversal is evident. The mechanism appears to be severe leaflet restriction There is severe mitral valve stenosis. Tricuspid Valve Structurally normal tricuspid valve with trivial to mild tricuspid regurgitation. Pulmonic Valve Structurally normal pulmonic valve. Ascending Aorta The ascending aorta appears normal in size. The visualized descending thoracic aorta and aortic arch are normal in size. Pericardium The pericardium is normal. Cardiac Shunt There is evidence of right to left interatrial shunting by agitated saline contrast study with Valsalva. ? MRI IMPRESSION: No acute intracranial process. ?No abnormal enhancement. Nonspecific scattered patchy areas of white matter increased T2 and FLAIR signal. ?Most likely etiology is vasculopathy possibly vasculitis. Prominent posterior pituitary of uncertain significance and not well evaluated on this exam. ? Cardiac Catheterization 10/17: Normal coronary angiography; there was no evidence of significant coronary artery disease. Mild pulmonary hypertension. Congestive heart failure NYHA class I (no CHF). Pulmonary vascular resistance: 4.05 HRU. Pulmonary wedge mean pressure: 22 mm(hg). Pulmonary artery mean pressure: 17 mm(hg). 5 Meter Walk Test: 10/02/2017: 1. 3.43 sec 2. 3.43 sec 3. 3.41 sec OPTIONAL TESTINGS: Carotid U/S: n/a Lower EXT CLAY: n/a Palmar Arch: n/a Vein Mapping: n/a Dental Clearance: pending CT Chest: n/a Medications Notes: Blood thinners: Patient is on following blood thinners: Aspirin -Yes, dose 81 mg, stopped No, date:to be taken on DOS Beta Irene: Last dose of beta irene taken: To be taken DOS Perioperative Transfusion risk STS Risk Factors: Advanced age No Preoperative anemia No Non-CABG surgery Yes Preoperative anticoagulation No Clotting abnormalities No Female gender Yes Small body habitus No Renal insufficiency No IDDM No Sepsis No Liver disease No Preioperative Wound Healing - Vest recommended N/A Risk Factors: Obesity No DM No Renal Dx No CLEARANCES NEEDED Pulmonary: No Hematology: No Nephrology No Vascular surgery No Other No Farideh Bustos APRN.CNP Observed: 11/26/2017 Status: F Source: [facility] MRSA SCREEN 11:00 AM HEALTH SYSTEM REPOSITORY Test performed at [facility] No MRSA detected. Performed By: #### MRSA #### [facility] [address] [place], [place] [address] HISTORY PHYSICAL Observed: 11/26/2017 Status: COMPLETED Source: [facility] 10:44 AM CLINIC OTHER CAMPUS REPOSITORY HNO ID: [id number] Author: Farideh (Marivel) GENOVEVA Bustos Service: (none) Author Type: Nurse Practitioner Type: HANDP Filed: 11/27/2017 4:56 PM Note Text: CARDIOTHORACIC SURGERY CONSULT / HANDP SERVICE DATE: 11/26/2017 SERVICE TIME: 10:44 AM Subjective PRIMARY SERVICE: Cardiothoracic Surgery CHIEF COMPLAINT: Patient is here for PAT, HAND P, MRSA Swap and Pre-op teaching for surgery. HPI: Per Dr. Lew's note: This is a 47 year old female who was referred by Dr Tripp for severe symptomatic rheumatic mitral stenosis in the setting of current smoker, asthma, seizure disorder and history of drug abuse. She states that her BP has been very low since she started seeing her current PCP, approximately 1 year with readings 80's/50's. She states that about a year ago she noticed increasing fatigue, SOB, dizziness, leg heaviness with climbing stairs. Then in Feb 04/Mar 08 she had an episode at work when she experienced severe dizziness with near syncope and she was sent home. During this episode she denies any acute illness, or chest pain. Since this episode, she has notice increasing dizziness, fatigue, exercise intolerance, and PND requiring 2-3 pillows to sleep at night. She saw her neurologist Dr James in june 2017, and reported these symptoms. ??He ordered an echo and 48 hour holter monitor. ?A surface echo was done in 06/2017 which showed severe MS and left atrial enlargement. The holter showed ?NSR with SVE beats and runs. At which point she was referred to Dr Tripp who ordered a PRESTON with severe MS, Moderate ?MR, and evidence of right to left intra-atrial shunting with valsalva. She was referred to cardiothoracic surgery for further evaluation. ? She reports her drug use of heroin which she snorted as well as other oral and inhaled drugs including amphetimine. ?She denied IV drug use. She further states that she quit about a year ago after her first seizure and follow [facility]. Her Seizure disorder was diagnosed after her first seizure in 08/2016. EEG notes left fronto-temporal seizure, but imaging was grossly non specific. ? She otherwise denies stroke, migraines, thyroid disease, DM, liver disease, prologue or unusual bleeding or clotting, LE edema. Patient is Able to Perform the Following Physical Activity: Do light work around the house, such as dusting or washing dishes (2.70 METs) Walk a block or two on level ground (2.75 METs) Patient has the following medical comorbidities which might affect the perioperative course: - COPD with unknown severity. - seizure disorder PAST MEDICAL HISTORY Diagnosis Date - A-fib (HCC) - Asthma - Dermatitis - Drug abuse (HCC) - Hives - Mitral valve stenosis - Seizure (HCC) 08/2016 PAST SURGICAL HISTORY Procedure Laterality Date - CARPAL TUNNEL 03/07/2017 Dr. Schmitt both wrists FAMILY HISTORY Problem Relation Age of Onset - Cancer Mother 54 lung - None Father parkinson - Colon Cancer Paternal Grandmother 55 - Diabetes Paternal Grandmother - Cancer Paternal Uncle prostate Social History Substance Use Topics - Smoking status: Current Every Day Smoker Packs/day: 0.50 Years: 10.00 Types: Cigarettes - Smokeless tobacco: Never Used Comment: cutting back 3-4 per day - Alcohol use No (Not in a hospital admission) escitalopram oxalate (LEXAPRO) 10 mg tablet Take 1 tablet by mouth once daily. nicotine (NICODERM CQ) 21 mg/24 hr Apply 1 Patch as directed every 24 hours. APPLY ONE PATCH EVERY 24 HOURS TOPICALLY OTC PRODUCT Anbrem levETIRAcetam (KEPPRA) 500 mg tablet Take 1 tablet by mouth twice daily. mometasone-formoterol (DULERA) 100-5 mcg/actuation inhaler Inhale 2 Puffs as instructed twice daily. Buprenorphine-nalOXone (SUBOXONE) 8-2 mg film Dissolve under the tongue once daily. 8 mg tablet. albuterol HFA (VENTOLIN HFA) 90 mcg/actuation inhaler Inhale 2 Puffs as instructed every 4 hours as needed. ibuprofen (MOTRIN) 800 mg tablet ALLERGIES No Known Allergies REVIEW OF SYSTEMS: PAIN ASSESSMENT: Negative for pain, history of chronic pain, or current treatment for a chronic pain condition. GENERAL: No weight loss, malaise or fevers NECK: Negative for lumps, goiter, pain and significant neck swelling RESPIRATORY: Positive for chronic cough ., shortness of breath on exertion ., shortness of breath limiting daily activity . CARDIOVASCULAR: Negative for chest pain, leg swelling or palpitations. GI: Negative for abdominal discomfort, blood in stools or black stools or change in bowel habits : No history of dysuria, frequency or incontinence MUSCULOSKELETAL: Negative for joint pain or swelling, back pain or muscle pain. SKIN: Negative for lesions, rash, and itching. PSYCH: Negative for sleep disturbance, mood disorder and recent psychosocial stressors. HEMATOLOGY/LYMPHOLOGY Negative for prolonged bleeding, bruising easily or swollen nodes. ENDOCRINE: Negative for cold or heat intolerance, polyuria, polydipsia and goiter. NEURO: seizures See HPI Objective PHYSICAL EXAM: BP 100/60 (BP Site: Right Arm) Pulse 66 Resp 18 Ht 5' 3 (1.6 m) Wt 157 lb (71.2 kg) SpO2 97% BMI 27.81 kg/m? Body surface area is 1.78 meters squared. STS RISK CALCULATOR: 0.663% General Appearance: well developed and no distress Skin: warm and dry Neck: no JVD, no carotid bruits and thyroid not palpable Lungs: wheezes and respiratory effort: normal Heart: regular rhythm, S1, S2 normal and no murmur Peripheral Vascular/Arteries: pulses intact, dorsalis pedis +2 and radial +2 Abdomen: soft, non-tender and bowel sounds present Genitourinary: voiding without difficulty Musculoskeletal: no deformities Neurologic/Psychiatric: oriented to time, place and person and steady gait Extremities: normal exam of the extremities and no edema Lines, Drains, and Airways No matching active lines, drains, or airways @LDAASSESS(2::::8:)@ DATA: Diagnostic tests reviewed for today's visit: Chest X-RAY 11/07/2017: RESULT: ? Lines, tubes, and devices: ?None. ? Lungs and pleura: ?No consolidation. No lung mass. No pleural effusion. ? Cardiomediastinal silhouette: ?Normal cardiomediastinal silhouette. ? Other: ?. ?None ? ? IMPRESSION: ? No acute radiographic abnormality. ECHO 07/11: Left Ventricle Normal left ventricular size and systolic function. No regional wall motion abnormalities. LVEF is 50-55% by visual estimation. Right Ventricle Mildly dilated right ventricle. Left Atrium The left atrium appears severely dilated in size. There is no evidence of a thrombus in the left atrial body or appendage. Right Atrium The right atrium appears normal in size. Mitral Valve The mitral leaflets are severely thickened and calcified. There is thickening of the tips, diastolic doming, and a hockey stick appearance of the leaflets suggesting prior rheumatic heart disease. There is also thickening and calcification of the subvalvular apparatus. The Spenser's score exceeds 8. The valve area by the PISA method is 0.4 cm2. The peak, and mean gradients are 24, and 15 mm Hg. Moderate (2+) mitral valve regurgitation. Attempts at quantification by vena contracta, PISA were unsuccesful, and likely inaccurate due to the degree of thickening of the valve , and subvalvular apparatus. No systolic pulm vein flow reversal is evident. The mechanism appears to be severe leaflet restriction There is severe mitral valve stenosis. Tricuspid Valve Structurally normal tricuspid valve with trivial to mild tricuspid regurgitation. Pulmonic Valve Structurally normal pulmonic valve. Ascending Aorta The ascending aorta appears normal in size. The visualized descending thoracic aorta and aortic arch are normal in size. Pericardium The pericardium is normal. Cardiac Shunt There is evidence of right to left interatrial shunting by agitated saline contrast study with Valsalva. ? MRI IMPRESSION: No acute intracranial process. ?No abnormal enhancement. Nonspecific scattered patchy areas of white matter increased T2 and FLAIR signal. ?Most likely etiology is vasculopathy possibly vasculitis. Prominent posterior pituitary of uncertain significance and not well evaluated on this exam. Assessment/Plan ASSESSMENT/PLAN: 1. Mitral valve stenosis, rheumatic - ICD9: 394.0, ICD10: I05.0 --surgery date on 12/03/[address] Lew - HAND P updated, and is consistent with recent evaluation with Dr. Lew -reviewed all pre-op labs, images and reports -MRSA swap done today in office -pre-op teaching and consultation done -CHG solution given to patient along with instructions -contact offered for further concerns - ASA on DOS -MUPIROCIN script is given -to take 1/2 dose of her AM suboxone per Dr. Lew. 2. Tobacco use disorder - ICD9: 305.1, ICD10: F17.200 - Cessation encouraged. - Physiologic and physical aspects of tobacco addiction as well as strategies for quitting were discussed. - Counseling was given focusing on the harmful effects of this addiction especially given the patient's medical condition(s) which will be worsened because of the chemicals in tobacco. - Counseling was given 3-4 minutes. - Recommended to called 1-800-QUIT NOW -advised to use daily inhalers and rescue inhalers in preparing for surgery Tests/Labs Ordered: 1. MRSA These findings will be communicated back to the requesting provider electronically. SIGNATURE: Farideh Bustos APRN.CNP PATIENT NAME: Benjamin Garces DATE: November 26, 2017 TIME: 10:44 AM PAGER/CONTACT #:[phone] ETX [id number] BOLAOV Observed: 11/26/2017 Status: COMPLETED Source: [facility] 10:00 AM CLINIC OTHER CAMPUS REPOSITORY Office Visit ([facility]AS[facility]) BENJAMIN GARCES ([id number]) 1970 F Date Time Provider Department 11/26/17 10:00 AM FARIDEH BUSTOS (MARIVEL) [facility] During your visit today, we recorded the following information about you: Pulse Respiration Blood pressure Weight 66/minute 18/minute 100/60 71.2 kg Height 1.6 m Farideh Bustos APRN.CNP, APRN.CNP 11/27/2017 4:56 PM Addendum CARDIOTHORACIC SURGERY CONSULT / HANDP SERVICE DATE: 11/26/2017 SERVICE TIME: 10:44 AM Subjective PRIMARY SERVICE: Cardiothoracic Surgery CHIEF COMPLAINT: Patient is here for PAT, HAND P, MRSA Swap and Pre-op teaching for surgery. HPI: Per Dr. Lew's note: This is a 47 year old female who was referred by Dr Tripp for severe symptomatic rheumatic mitral stenosis in the setting of current smoker, asthma, seizure disorder and history of drug abuse. She states that her BP has been very low since she started seeing her current PCP, approximately 1 year with readings 80's/50's. She states that about a year ago she noticed increasing fatigue, SOB, dizziness, leg heaviness with climbing stairs. Then in Feb 04/Mar 08 she had an episode at work when she experienced severe dizziness with near syncope and she was sent home. During this episode she denies any acute illness, or chest pain. Since this episode, she has notice increasing dizziness, fatigue, exercise intolerance, and PND requiring 2-3 pillows to sleep at night. She saw her neurologist Dr James in june 2017, and reported these symptoms. ??He ordered an echo and 48 hour holter monitor. ?A surface echo was done in 06/2017 which showed severe MS and left atrial enlargement. The holter showed ?NSR with SVE beats and runs. At which point she was referred to Dr Tripp who ordered a PRESTON with severe MS, Moderate ?MR, and evidence of right to left intra-atrial shunting with valsalva. She was referred to cardiothoracic surgery for further evaluation. ? She reports her drug use of heroin which she snorted as well as other oral and inhaled drugs including amphetimine. ?She denied IV drug use. She further states that she quit about a year ago after her first seizure and follow [facility]. Her Seizure disorder was diagnosed after her first seizure in 08/2016. EEG notes left fronto-temporal seizure, but imaging was grossly non specific. ? She otherwise denies stroke, migraines, thyroid disease, DM, liver disease, prologue or unusual bleeding or clotting, LE edema. Patient is Able to Perform the Following Physical Activity: Do light work around the house, such as dusting or washing dishes (2.70 METs) Walk a block or two on level ground (2.75 METs) Patient has the following medical comorbidities which might affect the perioperative course: - COPD with unknown severity. - seizure disorder PAST MEDICAL HISTORY Diagnosis Date - A-fib (HCC) - Asthma - Dermatitis - Drug abuse (HCC) - Hives - Mitral valve stenosis - Seizure (HCC) 08/2016 PAST SURGICAL HISTORY Procedure Laterality Date - CARPAL TUNNEL 03/07/2017 Dr. Schmitt both wrists FAMILY HISTORY Problem Relation Age of Onset - Cancer Mother 54 lung - None Father parkinson - Colon Cancer Paternal Grandmother 55 - Diabetes Paternal Grandmother - Cancer Paternal Uncle prostate Social History Substance Use Topics - Smoking status: Current Every Day Smoker Packs/day: 0.50 Years: 10.00 Types: Cigarettes - Smokeless tobacco: Never Used Comment: cutting back 3-4 per day - Alcohol use No (Not in a hospital admission) escitalopram oxalate (LEXAPRO) 10 mg tablet Take 1 tablet by mouth once daily. nicotine (NICODERM CQ) 21 mg/24 hr Apply 1 Patch as directed every 24 hours. APPLY ONE PATCH EVERY 24 HOURS TOPICALLY OTC PRODUCT Anbrem levETIRAcetam (KEPPRA) 500 mg tablet Take 1 tablet by mouth twice daily. mometasone-formoterol (DULERA) 100-5 mcg/actuation inhaler Inhale 2 Puffs as instructed twice daily. Buprenorphine-nalOXone (SUBOXONE) 8-2 mg film Dissolve under the tongue once daily. 8 mg tablet. albuterol HFA (VENTOLIN HFA) 90 mcg/actuation inhaler Inhale 2 Puffs as instructed every 4 hours as needed. ibuprofen (MOTRIN) 800 mg tablet ALLERGIES No Known Allergies REVIEW OF SYSTEMS: PAIN ASSESSMENT: Negative for pain, history of chronic pain, or current treatment for a chronic pain condition. GENERAL: No weight loss, malaise or fevers NECK: Negative for lumps, goiter, pain and significant neck swelling RESPIRATORY: Positive for chronic cough ., shortness of breath on exertion ., shortness of breath limiting daily activity . CARDIOVASCULAR: Negative for chest pain, leg swelling or palpitations. GI: Negative for abdominal discomfort, blood in stools or black stools or change in bowel habits : No history of dysuria, frequency or incontinence MUSCULOSKELETAL: Negative for joint pain or swelling, back pain or muscle pain. SKIN: Negative for lesions, rash, and itching. PSYCH: Negative for sleep disturbance, mood disorder and recent psychosocial stressors. HEMATOLOGY/LYMPHOLOGY Negative for prolonged bleeding, bruising easily or swollen nodes. ENDOCRINE: Negative for cold or heat intolerance, polyuria, polydipsia and goiter. NEURO: seizures See HPI Objective PHYSICAL EXAM: BP 100/60 (BP Site: Right Arm) Pulse 66 Resp 18 Ht 5' 3 (1.6 m) Wt 157 lb (71.2 kg) SpO2 97% BMI 27.81 kg/m? Body surface area is 1.78 meters squared. STS RISK CALCULATOR: 0.663% General Appearance: well developed and no distress Skin: warm and dry Neck: no JVD, no carotid bruits and thyroid not palpable Lungs: wheezes and respiratory effort: normal Heart: regular rhythm, S1, S2 normal and no murmur Peripheral Vascular/Arteries: pulses intact, dorsalis pedis +2 and radial +2 Abdomen: soft, non-tender and bowel sounds present Genitourinary: voiding without difficulty Musculoskeletal: no deformities Neurologic/Psychiatric: oriented to time, place and person and steady gait Extremities: normal exam of the extremities and no edema Lines, Drains, and Airways No matching active lines, drains, or airways @LDAASSESS(2::::8:)@ DATA: Diagnostic tests reviewed for today's visit: Chest X-RAY 11/07/2017: RESULT: ? Lines, tubes, and devices: ?None. ? Lungs and pleura: ?No consolidation. No lung mass. No pleural effusion. ? Cardiomediastinal silhouette: ?Normal cardiomediastinal silhouette. ? Other: ?. ?None ? ? IMPRESSION: ? No acute radiographic abnormality. ECHO 07/11: Left Ventricle Normal left ventricular size and systolic function. No regional wall motion abnormalities. LVEF is 50-55% by visual estimation. Right Ventricle Mildly dilated right ventricle. Left Atrium The left atrium appears severely dilated in size. There is no evidence of a thrombus in the left atrial body or appendage. Right Atrium The right atrium appears normal in size. Mitral Valve The mitral leaflets are severely thickened and calcified. There is thickening of the tips, diastolic doming, and a hockey stick appearance of the leaflets suggesting prior rheumatic heart disease. There is also thickening and calcification of the subvalvular apparatus. The Spenser's score exceeds 8. The valve area by the PISA method is 0.4 cm2. The peak, and mean gradients are 24, and 15 mm Hg. Moderate (2+) mitral valve regurgitation. Attempts at quantification by vena contracta, PISA were unsuccesful, and likely inaccurate due to the degree of thickening of the valve , and subvalvular apparatus. No systolic pulm vein flow reversal is evident. The mechanism appears to be severe leaflet restriction There is severe mitral valve stenosis. Tricuspid Valve Structurally normal tricuspid valve with trivial to mild tricuspid regurgitation. Pulmonic Valve Structurally normal pulmonic valve. Ascending Aorta The ascending aorta appears normal in size. The visualized descending thoracic aorta and aortic arch are normal in size. Pericardium The pericardium is normal. Cardiac Shunt There is evidence of right to left interatrial shunting by agitated saline contrast study with Valsalva. ? MRI IMPRESSION: No acute intracranial process. ?No abnormal enhancement. Nonspecific scattered patchy areas of white matter increased T2 and FLAIR signal. ?Most likely etiology is vasculopathy possibly vasculitis. Prominent posterior pituitary of uncertain significance and not well evaluated on this exam. Assessment/Plan ASSESSMENT/PLAN: 1. Mitral valve stenosis, rheumatic - ICD9: 394.0, ICD10: I05.0 --surgery date on 12/03/[address] Lew - HAND P updated, and is consistent with recent evaluation with Dr. Lew -reviewed all pre-op labs, images and reports -MRSA swap done today in office -pre-op teaching and consultation done -CHG solution given to patient along with instructions -contact offered for further concerns - ASA on DOS -MUPIROCIN script is given -to take 1/2 dose of her AM suboxone per Dr. Lew. 2. Tobacco use disorder - ICD9: 305.1, ICD10: F17.200 - Cessation encouraged. - Physiologic and physical aspects of tobacco addiction as well as strategies for quitting were discussed. - Counseling was given focusing on the harmful effects of this addiction especially given the patient's medical condition(s) which will be worsened because of the chemicals in tobacco. - Counseling was given 3-4 minutes. - Recommended to called 1-800-QUIT NOW -advised to use daily inhalers and rescue inhalers in preparing for surgery Tests/Labs Ordered: 1. MRSA These findings will be communicated back to the requesting provider electronically. SIGNATURE: Farideh Bustos APRN.CNP PATIENT NAME: Benjamin Garces DATE: November 26, 2017 TIME: 10:44 AM PAGER/CONTACT #:[phone] ETX [id number] Farideh Bustos APRN.CNP, APRN.CNP 11/26/2017 1:07 PM Addendum [facility] Pre-Admission Patient Instruction You are scheduled for surgery (Outpatient/Inpatient) located on the 2nd Floor on: 12/03/2017 Please report to the 2nd Floor Surgical Waiting Area at: 6 AM Do stop at front entrance registration. Come in the Front Doors / ER Entrance and stop at ER Registration. 1. Do not eat or drink anything, including water and coffee, after 12 AM on the morning of your surgery. This is important because if you do, your surgery may have to be cancelled. Eat a light supper the evening before surgery or follow specific doctor's instructions. 2. Oral hygiene and a shower or bath is required the evening before or the morning of surgery. 3. Do not chew gum the morning of surgery. 4. Notify your doctor if you develop a cold, sore throat, fever or other changes in your physical condition. 5. No alcohol 24 hours before or after surgery and refrain from smoking the morning of surgery and immediately following surgery. 6. Leave valuables such as rings, watches and money at home. Remove all make-up and nail [place] before admission. We need to check your circulation. Remove jewelry from all piercings, tongue included, as no metal can go into surgery. 7. Wear loose, comfortable clothing that will accommodate bandages, casts, etc., as applicable to your surgery. Bring your crutches if applicable. 8. You will be asked to remove glasses and contacts prior to surgery. Please bring a case. 9. Your length of stay will be determined by your surgeon and the anesthesiologist. 10. Two family members (excluding children under age 13) may stay with you the day of surgery on site. 11. Please bring a list of any medication you are taking including dose and the condition for which you are being treated. ? Please bring your inhaler with you to the hospital on the day of your surgery. ? Please do a respiratory treatment prior to coming to the hospital on the day of your surgery. ? Stop Suboxone the day of surgery Pills to take with a sip of water only, on the morning of surgery: Aspirin Farideh Bustos APRN.[employer]ANCE SENIOR November 26, 2017 SMOKING CESSATION Stopping smoking is the most important thing you can do to protect your current and future health, as well as that of your family. It is the most potent risk factor for the future development of coronary artery disease and heart attacks. Smoking is both an addiction and a learned behavior. The nicotine withdrawal takes anywhere from 2-4 weeks and results in symptoms such as irritability, fatigue, insomnia, coughing, dizziness, poor concentration, hunger and cigarette cravings. After the nicotine withdrawal period, the learned linkage between certain acts or situations and cigarette use remain. Strategies to deal with these must be developed along with new behaviors to ensure successful smoking cessation. STRATEGIES TOWARD SMOKING CESSATION - Make a list of the reasons why you want to quit, plus the benefits to be gained, and compare them to the reasons why you should continue to smoke. - Pick a specific quit date. - If you are interested in using nicotine patches or gum to assist with the nicotine withdrawal, let the staff know. - Inform friends, family, and co-workers that you are quitting and when your quit date is. Ask for their understanding and support. - Prepare your environment by removing all cigarettes prior to your quit date. - Prior to your quit date, avoid smoking in places where you spend a lot of time (such as the house, work, car). - From previous quit attempts, identify what helped you to stop smoking. - From previous quit attempts, identify what triggered relapse. How can you avoid that again? - What things (situations, emotions) do you anticipate will be most challenging, especially in the first few weeks, to your quitting effort? - What can you do to address these challenges? - Avoid (or limit) alcohol consumption during the quitting process. - If your spouse or close coworker currently smoke, consider quitting together or at the very least, develop specific plans to maintain your cigarette abstinence while in the home or at work. - Take each day, each hour, each craving, one at a time. Every step or action you take toward smoking cessation is a success. The only failure is the failure to try. - The health of you and your family, is worth the effort. STOP SMOKING CHECK LIST Preparing to Quit: ___ Make a personal pact with yourself to quit. ___ Pick a date for quitting completely. (My date to quit is ____.) ___ Write down on a card the three most important reasons for quitting. Carry the card with you from now on. Look at it several times a day. ___ Prior to quitting, eliminate smoking completely in 2 or 3 of your high risk situations. ___ Reduce consumption to one pack per day or less. ___ Change to a less desirable brand of cigarettes. ___ Discard your clam shucker. Use matches. Carry your cigarettes in a different place. ___ Spend a little time each day picturing in your mind stressful events occurring in the future and you not smoking. Actual Quitting: The First Two Weeks ___ Get rid of all cigarettes. Put away all smoking related objects such as ashtrays. Ask the people you live with not to smoke in your presence for the first two weeks. ___ Spend as much time as possible with non-smoking people. ___ Keep busy, especially on evenings and weekends. ___ Avoid high risk situations (large parties, bars, etc.). ___ Spend lots of time in places that prohibit or discourage smoking (e.g., theaters, libraries.) ___ Drink plenty of fluids. ___ Don't substitute food or sugar based products for cigarettes. Use approved substitutions. (... ice water, high bulk/low calorie foods, sugarless gum, mouthwash, brushing teeth.) ___ Begin or increase regular exercise program. ___ When experiencing withdrawal effects: 1. Remind yourself why you are quitting (from your card). 2. Remind yourself that whatever discomfort you are experiencing is only a tiny fraction of the probable discomfort associated with continued smoking. 3. Practice deep breathing or other relaxation techniques - tapes. ___ Remind yourself that you can free yourself from this unhealthy, expensive, messy habit and become a non-smoker. Maintenance of Quitting: After two weeks ___ Remind yourself that the desire to smoke is linked to a great many situations, people and emotional stress. ___ When you do have a desire to smoke, remember that it only lasts a few seconds: distract yourself and leave the situation if necessary. ___ After each desire to smoke has passed, pat yourself on the back, you have just made progress in breaking the habit forever. ___ Save the money on wasted on cigarettes in a special fund and buy yourself something nice. Maintenance of Quitting: After Two Months ___ Be particularly vigilant when unusual life events occur. (.. weddings, holidays, vacations.) ___ Be particularly vigilant when stressful life events occur (e.g., relationship problems, financial or work problems.) ___ Remind yourself regularly that not smoking is completely within your personal control. ___ Never lull yourself into thinking you are out of danger and you can safely have a cigarette or two. -- you cannot!!!!! ___ If, by chance, you do slip and have one or more cigarettes, do not conclude that all is lost. Return to complete abstinence immediately and learn from your experience. ___ If you have gained significant weight since quitting, now is the time to do something about it. ___ Each time you see a cigarettes advertisement, remind yourself of why you quit. Also remember that a [employer] spends billions of dollars each year trying to get people like yourself re-hooked. Referring Provider: CLAUDIO REYES [[id number]] Allergies As of Date: 11/26/2017 (No Known Allergies) Date Reviewed: 11/26/2017 Reviewed by: Aaron (Licensed Sales Assistant) Shaji - Fully Assessed Reason for Visit: Pre-Op Teaching [134] Cmt: MVR Primary Visit Diagnosis:Mitral valve stenosis, rheumatic [I05.0] Other Visit Diagnosis:Tobacco use disorder [F17.200] Order(s):mupirocin (BACTROBAN) 2 % nasal ointmentUse 1 application in the nose twice daily.Disp: 1 TubeRfl: 0 MRSA/STAPH AUREUS CULTURE SCRN [SQSANSAL] Order #: [id number] FUTURE Prescriptions as of 11/26/2017 Sig: ESCITALOPRAM 10 MG TABLET Take 1 tablet by mouth once d* NICOTINE 21 MG/24 HR DAILY TR* Apply 1 Patch as directed roman* OTC PRODUCT Anbrem LEVETIRACETAM 500 MG TABLET Take 1 tablet by mouth twice * MOMETASONE-FORMOTEROL HFA 100* Inhale 2 Puffs as instructed * BUPRENORPHINE 8 MG-NALOXONE 2* Dissolve under the tongue on* ALBUTEROL SULFATE HFA 90 MCG/* Inhale 2 Puffs as instructed * MUPIROCIN 2 % NASAL OINTMENT Use 1 application in the nose* IBUPROFEN 800 MG TABLET Problem List As Of Date 11/26/2017 Noted Resolved Seizures (HCC) [R56.9] INVALID FOR* More... Drug abuse [F19.10] INVALID FOR* More... Abnormal finding on breast imaging [R92.8] INVALID FOR* Asthma [J45.909] Mitral valve stenosis, rheumatic [I05.0] INVALID FOR* Mitral valvular regurgitation [I34.0] INVALID FOR* More... Atrial fibrillation (HCC) [I48.91] INVALID FOR* More... Other instructions from your clinician: [facility] Pre-Admission Patient Instruction You are scheduled for surgery (Outpatient/Inpatient) located on the 2nd Floor on: 12/03/2017 Please report to the 2nd Floor Surgical Waiting Area at: 6 AM Do stop at front entrance registration. Come in the Front Doors / ER Entrance and stop at ER Registration. 1. Do not eat or drink anything, including water and coffee, after 12 AM on the morning of your surgery. This is important because if you do, your surgery may have to be cancelled. Eat a light supper the evening before surgery or follow specific doctor's instructions. 2. Oral hygiene and a shower or bath is required the evening before or the morning of surgery. 3. Do not chew gum the morning of surgery. 4. Notify your doctor if you develop a cold, sore throat, fever or other changes in your physical condition. 5. No alcohol 24 hours before or after surgery and refrain from smoking the morning of surgery and immediately following surgery. 6. Leave valuables such as rings, watches and money at home. Remove all make-up and nail [place] before admission. We need to check your circulation. Remove jewelry from all piercings, tongue included, as no metal can go into surgery. 7. Wear loose, comfortable clothing that will accommodate bandages, casts, etc., as applicable to your surgery. Bring your crutches if applicable. 8. You will be asked to remove glasses and contacts prior to surgery. Please bring a case. 9. Your length of stay will be determined by your surgeon and the anesthesiologist. 10. Two family members (excluding children under age 13) may stay with you the day of surgery on site. 11. Please bring a list of any medication you are taking including dose and the condition for which you are being treated. ? Please bring your inhaler with you to the hospital on the day of your surgery. ? Please do a respiratory treatment prior to coming to the hospital on the day of your surgery. ? Stop Suboxone the day of surgery Pills to take with a sip of water only, on the morning of surgery: Aspirin Farideh Bustos APRN.ASSURANCE SENIOR November 26, 2017 SMOKING CESSATION Stopping smoking is the most important thing you can do to protect your current and future health, as well as that of your family. It is the most potent risk factor for the future development of coronary artery disease and heart attacks. Smoking is both an addiction and a learned behavior. The nicotine withdrawal takes anywhere from 2-4 weeks and results in symptoms such as irritability, fatigue, insomnia, coughing, dizziness, poor concentration, hunger and cigarette cravings. After the nicotine withdrawal period, the learned linkage between certain acts or situations and cigarette use remain. Strategies to deal with these must be developed along with new behaviors to ensure successful smoking cessation. STRATEGIES TOWARD SMOKING CESSATION - Make a list of the reasons why you want to quit, plus the benefits to be gained, and compare them to the reasons why you should continue to smoke. - Pick a specific quit date. - If you are interested in using nicotine patches or gum to assist with the nicotine withdrawal, let the staff know. - Inform friends, family, and co-workers that you are quitting and when your quit date is. Ask for their understanding and support. - Prepare your environment by removing all cigarettes prior to your quit date. - Prior to your quit date, avoid smoking in places where you spend a lot of time (such as the house, work, car). - From previous quit attempts, identify what helped you to stop smoking. - From previous quit attempts, identify what triggered relapse. How can you avoid that again? - What things (situations, emotions) do you anticipate will be most challenging, especially in the first few weeks, to your quitting effort? - What can you do to address these challenges? - Avoid (or limit) alcohol consumption during the quitting process. - If your spouse or close coworker currently smoke, consider quitting together or at the very least, develop specific plans to maintain your cigarette abstinence while in the home or at work. - Take each day, each hour, each craving, one at a time. Every step or action you take toward smoking cessation is a success. The only failure is the failure to try. - The health of you and your family, is worth the effort. STOP SMOKING CHECK LIST Preparing to Quit: ___ Make a personal pact with yourself to quit. ___ Pick a date for quitting completely. (My date to quit is ____.) ___ Write down on a card the three most important reasons for quitting. Carry the card with you from now on. Look at it several times a day. ___ Prior to quitting, eliminate smoking completely in 2 or 3 of your high risk situations. ___ Reduce consumption to one pack per day or less. ___ Change to a less desirable brand of cigarettes. ___ Discard your clam shucker. Use matches. Carry your cigarettes in a different place. ___ Spend a little time each day picturing in your mind stressful events occurring in the future and you not smoking. Actual Quitting: The First Two Weeks ___ Get rid of all cigarettes. Put away all smoking related objects such as ashtrays. Ask the people you live with not to smoke in your presence for the first two weeks. ___ Spend as much time as possible with non-smoking people. ___ Keep busy, especially on evenings and weekends. ___ Avoid high risk situations (large parties, bars, etc.). ___ Spend lots of time in places that prohibit or discourage smoking (e.g., theaters, libraries.) ___ Drink plenty of fluids. ___ Don't substitute food or sugar based products for cigarettes. Use approved substitutions. (... ice water, high bulk/low calorie foods, sugarless gum, mouthwash, brushing teeth.) ___ Begin or increase regular exercise program. ___ When experiencing withdrawal effects: 1. Remind yourself why you are quitting (from your card). 2. Remind yourself that whatever discomfort you are experiencing is only a tiny fraction of the probable discomfort associated with continued smoking. 3. Practice deep breathing or other relaxation techniques - tapes. ___ Remind yourself that you can free yourself from this unhealthy, expensive, messy habit and become a non-smoker. Maintenance of Quitting: After two weeks ___ Remind yourself that the desire to smoke is linked to a great many situations, people and emotional stress. ___ When you do have a desire to smoke, remember that it only lasts a few seconds: distract yourself and leave the situation if necessary. ___ After each desire to smoke has passed, pat yourself on the back, you have just made progress in breaking the habit forever. ___ Save the money on wasted on cigarettes in a special fund and buy yourself something nice. Maintenance of Quitting: After Two Months ___ Be particularly vigilant when unusual life events occur. (.. weddings, holidays, vacations.) ___ Be particularly vigilant when stressful life events occur (e.g., relationship problems, financial or work problems.) ___ Remind yourself regularly that not smoking is completely within your personal control. ___ Never lull yourself into thinking you are out of danger and you can safely have a cigarette or two. -- you cannot!!!!! ___ If, by chance, you do slip and have one or more cigarettes, do not conclude that all is lost. Return to complete abstinence immediately and learn from your experience. ___ If you have gained significant weight since quitting, now is the time to do something about it. ___ Each time you see a cigarettes advertisement, remind yourself of why you quit. Also remember that a powerful industry spends billions of dollars each year trying to get people like yourself re-hooked. Prescriptions ordered this encounter Disp Refills Start End MUPIROCIN 2 % NASAL OINTMENT 1 Tu* 0 11/26/2017 Class: Print RX Route: NASAL Sig: Use 1 application in the nose twice daily. Encounter Status:Closed by FARIDEH BUSTOS CNP on 11/26/17 URINALYSIS ROUTINE Collected: 11/21/2017 Status: F Source: [facility] 1:01 PM HEALTH SYSTEM REPOSITORY TYPE CODE TESTS RESULT OUT OF REFERENCE UNITS RANGE LAB LCOLR(LOIN C) Urine Color YELLOW LAB LAPPU(LOIN C) Urine Appearance CLEAR LAB LGLUR(LOIN Negative C) Glucose Urine NEGATIVE LAB LKETO(LOIN Negative C) Ketone Urine NEGATIVE LAB LHGBU(LOIN Negative C) Hemoglobin,Urine NEGATIVE LAB LPRTU(LOIN Negative C) Protein Urine NEGATIVE LAB LNITR(LOIN Negative C) Nitrites Urine NEGATIVE LAB LBILU(LOIN Negative C) Bilirubin Urine NEGATIVE LAB LSPG(LOINC 1.005-1.030 ) Specific [place], Ur 1.020 LAB LPHUR(LOIN 5.0-8.0 C) pH,Urine 6.5 LAB LUROB(LOIN 0.0-1.0 EU/dL C) Urobilinogen,Ur 1.0 LAB LLEUK(LOIN Negative C) Leukocytes NEGATIVE Esterase LAB LWBCU(LOIN 0-5 /hpf C) WBC, Urine NONE LAB LRBCU(LOIN 0-3 /hpf C) RBC,Urine 0-3 LAB LEPIT(LOIN 0-5 /hpf C) Ep Cells Urine 0-2 Performed By: #### LURIN #### [place] [address] HEMOGRAM Collected: 11/21/2017 Status: F Source: [facility] 1:00 [facility] REPOSITORY TYPE CODE TESTS RESULT OUT OF REFERENCE UNITS RANGE LAB LWBC(LOINC) 4.8-10.8 thou/cmm WBC 6.1 LAB LRBC(LOINC) 4.20-5.40 mil/cmm RBC 4.27 LAB LHGB(LOINC) 12.0-16.0 g/dL Hgb 13.5 LAB LHCT(LOINC) 37.0-47.0 % Hct 41.7 LAB LMCV(LOINC) 81.0-99.0 fl MCV 97.7 LAB LMCH(LOINC) 27.0-31.0 pg High MCH 31.6 LAB LMCHC(LOINC 32.0-36.0 % ) MCHC 32.4 LAB LRDW(LOINC) 11.5-15.9 % RDW 11.7 LAB LPLT(LOINC) 150-400 thou/cmm Platelet 252 LAB LMPV(LOINC) 7.1-10.5 fl MPV 9.7 Performed By: #### LCBC #### [place] [address] PROTIME Collected: 11/21/2017 Status: F Source: [facility] 1:00 HEALTH SYSTEM REPOSITORY TYPE CODE TESTS RESULT OUT OF REFERENCE UNITS RANGE LAB LPTI(LOINC 9.7-13.0 sec ) Prothrombin Time 9.7 LAB LINR(LOINC 0.90-1.30 ) INR 0.95 Result Comment: Note: Reference Range Change Vitamin K Antagonist (VKA) Therapeutic Range: INR 2 to 3 (Target INR of 2.5) Note: For patients treated with VKA drugs, such as warfarin, the [employer] 2012 Guideline recommends a therapeutic INR range of 2 to 3 (target INR of 2.5). This recommendation includes high-risk patients with antiphospholipid syndrome with previous arterial or venous thromboembolism, current-generation mechanical or bioprosthetic aortic heart valve replacement. VKA Therapeutic Range for some Mechanical Valve Replacement: INR 2.5 to 3.5 (Target INR of 3) Note: Patients with mechanical aortic valve replacement and additional risk factors for thromboembolic events (atrial fibrillation, previous thromboembolism, LV dysfunction, hypercoagulable conditions) or an older generation mechanical AVR (i.e., ball in-Cage) or any mechanical MVR should have a INR therapeutic range of 2.5 to 3.5 target INR of 3). Mathew GH, et al. Chest 2012; 141:7S-47S Duyen RA, et al. [facility] 2017; 70: 252-289 Performed By: #### LPT #### [place] [address] HEMOGLOBIN A1C Collected: 11/21/2017 Status: F Source: [facility] 1:00 HEALTH SYSTEM REPOSITORY TYPE CODE TESTS RESULT OUT OF REFERENCE UNITS RANGE LAB LA1C2(LOINC 4.5-6.2 % ) Hgb A1c 5.5 LAB ESAV(LOINC) mg/dl Est. Avg. 111 Glucose Performed By: #### LA1C #### [place] [address] COMPREHENSIVE PANEL Collected: 11/21/2017 Status: F Source: [facility] 1:00 HEALTH SYSTEM REPOSITORY TYPE CODE TESTS RESULT OUT OF REFERENCE UNITS RANGE LAB [facility](LOINC) 136-145 mEq/L Sodium Blood 137 LAB LK(LOINC) 3.5-5.1 mEq/L Potassium Blood 4.3 LAB LCL(LOINC) 98-107 mEq/L Chloride Blood 104 LAB LCO2(LOINC 21-32 mEq/L ) CO2 Blood High 35 LAB LGLU(LOINC 70-99 mg/dL ) Glucose Blood 90 LAB LBUN(LOINC 7-25 mg/dL ) BUN Blood 10 LAB LCREA(LOIN 0.51-0.95 mg/dL C) Creatinine Blood 0.87 LAB LCA(LOINC) 8.5-10.1 mg/dL Calcium Blood 9.1 LAB LALB(LOINC 3.4-5.0 g/dL ) Albumin Blood 3.8 LAB LTP(LOINC) 6.4-8.2 g/dL Total Protein 7.2 LAB LAST(LOINC 15-37 U/L ) AST-SGOT Blood 30 LAB LALT(LOINC 14-63 U/L ) ALT-SGPT Blood 44 LAB LALKP(LOIN 46-116 U/L C) Alk Phosphatase 85 LAB LBILT(LOIN 0.2-1.0 mg/dL C) Total Bilirubin 0.4 LAB LANGP(LOIN 8-20 C) Low Anion Gap 2 LAB LBNCR(LOIN 10-20 C) BUN/Creatinine 12 Ratio Performed By: #### LP14 #### [place] [address] MAGNESIUM BLOOD Collected: 11/21/2017 Status: F Source: [facility] 1:00 HEALTH SYSTEM REPOSITORY TYPE CODE TESTS RESULT OUT OF REFERENCE UNITS RANGE LAB LMAG(LOINC 1.8-2.4 mg/dL ) Magnesium Blood 2.1 Performed By: #### LMAG #### [place] [address] TSH Collected: 11/21/2017 Status: F Source: [facility] 1:00 HEALTH SYSTEM REPOSITORY TYPE CODE TESTS RESULT OUT OF RANGE REFERENCE UNITS LAB LTSH(LOINC) 0.34-4.82 uIU/mL Low TSH 0.13 Performed By: #### LTSH #### [place] [address] MDRD EGFR Collected: 11/21/2017 Status: F Source: [facility] 1:[facility] REPOSITORY TYPE CODE TESTS RESULT OUT OF RANGE REFERENCE UNITS LAB LGFRF(LOINC >60mL/min/1.73m ) 2 eGFR >60 Result Comment: If the patient is , multiply the result by 1.210. Performed By: #### LGFR #### [facility] [address] [place] [address] Observed: 11/21/2017 Status: F Source: [facility] CULT URINE 1:00 PM HEALTH SYSTEM REPOSITORY Test performed at [facility] <10,000 CFU/ml gram positive organisms cultured. No further identification or susceptibility testing will be performed. Plates will be held for 5 days. Performed By: #### C_URI #### [place] [address] TYPE AND SCREEN Collected: 11/21/2017 Status: F Source: [facility] 1:00 PM HEALTH SYSTEM REPOSITORY TYPE CODE TESTS RESULT OUT OF REFERENCE UNITS RANGE LAB ABO(LOINC) A ABO Group LAB CARPENTRY PROFESSIONAL(LOINC ) RH Type Positive LAB ABSCR(LOIN C) Antibody NEGATIVE Screen LAB BBCMT(LOIN C) Comment PAT specimen Performed By: #### T&S #### [place] [address] OBSOLETE Observed: 11/21/2017 Status: COMPLETED Source: [place] 12:15 PM [facility] REPOSITORY Procedure (PLLBLD) BENJAMIN GARCES ([id number]) 1970 F Date Time Provider Department 11/21/17 12:15 PM PULM FCT LAB [facility] During your visit today, we recorded the following information about you: Referring Provider: YONAS LEW [[id number]] Allergies As of Date: 11/21/2017 (No Known Allergies) Date Reviewed: 10/24/2017 Reviewed by: Yonas Lew - Fully Assessed Reason for Visit: Procedure [88] Visit Diagnoses:Tobacco use disorder [F17.200] Mitral valve stenosis, rheumatic [I05.0] Order(s):ARTERIAL BLOOD GAS, ROOM AIR [6008540] Order #: [id number] Prescriptions as of 11/21/2017 Sig: ESCITALOPRAM 10 MG TABLET Take 1 tablet by mouth once d* NICOTINE 21 MG/24 HR DAILY TR* Apply 1 Patch as directed roman* OTC PRODUCT Anbrem LEVETIRACETAM 500 MG TABLET Take 1 tablet by mouth twice * IBUPROFEN 800 MG TABLET MOMETASONE-FORMOTEROL HFA 100* Inhale 2 Puffs as instructed * BUPRENORPHINE 8 MG-NALOXONE 2* Dissolve under the tongue on* ALBUTEROL SULFATE HFA 90 MCG/* Inhale 2 Puffs as instructed * Problem List As Of Date 11/21/2017 Noted Resolved Seizures (HCC) [R56.9] INVALID FOR* More... Drug abuse [F19.10] INVALID FOR* More... Abnormal finding on breast imaging [R92.8] INVALID FOR* Asthma [J45.909] Mitral valve stenosis, rheumatic [I05.0] INVALID FOR* Mitral valvular regurgitation [I34.0] INVALID FOR* More... Atrial fibrillation (HCC) [I48.91] INVALID FOR* More... Encounter Status:Closed by SONYA CONTRERAS on 11/21/17 OBSOLETE Observed: 11/21/2017 Status: COMPLETED Source: [place] 11:15 AM [facility] REPOSITORY Procedure (PLLBLD) BENJAMIN GARCES ([id number]) 1970 F Date Time Provider Department 11/21/17 11:15 AM PULM FCT LAB [facility] During your visit today, we recorded the following information about you: Referring Provider: YONAS LEW [[id number]] Allergies As of Date: 11/21/2017 (No Known Allergies) Date Reviewed: 10/24/2017 Reviewed by: Yonas Lew - Fully Assessed Reason for Visit: Procedure [88] Visit Diagnoses:Tobacco use [Z72.0] Mitral valve stenosis, rheumatic [I05.0] Tobacco use disorder [F17.200] Personal history of tobacco use, presenting hazards to health [Z87.891] Order(s):LUNG DIFFUSION CAPACITY (DLCO) [0504456] Order #: [id number] LUNG VOLUMES [3160003] Order #: [id number] SPIROMETRY - BASELINE AND POST DILATOR [[id number]] Order #: [id number] Prescriptions as of 11/21/2017 Sig: ESCITALOPRAM 10 MG TABLET Take 1 tablet by mouth once d* NICOTINE 21 MG/24 HR DAILY TR* Apply 1 Patch as directed roman* OTC PRODUCT Anbrem LEVETIRACETAM 500 MG TABLET Take 1 tablet by mouth twice * IBUPROFEN 800 MG TABLET MOMETASONE-FORMOTEROL HFA 100* Inhale 2 Puffs as instructed * BUPRENORPHINE 8 MG-NALOXONE 2* Dissolve under the tongue on* ALBUTEROL SULFATE HFA 90 MCG/* Inhale 2 Puffs as instructed * Problem List As Of Date 11/21/2017 Noted Resolved Seizures (HCC) [R56.9] INVALID FOR* More... Drug abuse [F19.10] INVALID FOR* More... Abnormal finding on breast imaging [R92.8] INVALID FOR* Asthma [J45.909] Mitral valve stenosis, rheumatic [I05.0] INVALID FOR* Mitral valvular regurgitation [I34.0] INVALID FOR* More... Atrial fibrillation (HCC) [I48.91] INVALID FOR* More... Encounter Status:Closed by SONYA CONTRERAS on 11/21/17 PROCEDURE Observed: 11/21/2017 Status: COMPLETED Source: [place] 12:00 AM [facility] REPOSITORY [facility] ID: [id number] Author: Marcus Kohli Jr. Service: Critical Care Author Type: Physician Type: Procedures Filed: 12/04/2017 6:33 PM Note Text: [facility] - Pulmonary Function Report - [place] PATIENT NAME: BENJAMIN GARCES CSN: [id number] DATE OF : 1970 SEX/AGE: F/47 PATIENT TYPE: O HOSP SVC: LOCATION: DATE OF PROCEDURE: 11/21/2017 REFERRING PHYSICIAN: YONAS LEW The patient is referred for mitral valve stenosis and history of tobacco abuse. The patient's spirometry demonstrates a moderate decrease in FEV1, consistent with mild large airways obstructive lung disease. There is no significant response to bronchodilator in the large airways. However, there is a 25% response to bronchodilator in the small airways. The patient has a mild restriction based on total lung capacity. The patient was also noted to have a moderate impairment in diffusion capacity, which partially corrects when adjusted for lung volume. The patient's spirogram demonstrates gradual plateauing. The patient's flow volume loop demonstrates decreased air flow at all lung volumes consistent with large airways obstructive disease. IMPRESSION: 1. Moderate large airways obstructive disease with significant response to bronchodilators in the small airways. 2. Mild restriction. 3. Moderately impaired diffusion capacity, which partially corrects when adjusted for lung volume. Marcus Kohli Jr, MD Pulmonary MAP:modl /[id number] cc:Yonas Lew MD CHEST 2 VIEWS Observed: 11/06/2017 Status: F Source: [facility] 4:48 PM HEALTH SYSTEM REPOSITORY Performed at [facility] APPROVED BY: Ernie Bryant MD EXAMINATION: CHEST RADIOGRAPH (2 VIEW FRONTAL & LATERAL) CLINICAL HISTORY: Cough MQ: [id number] Comparison: 09/08/2016 RESULT: Lines, tubes, and devices: None. Lungs and pleura: No consolidation. No lung mass. No pleural effusion. Cardiomediastinal silhouette: Normal cardiomediastinal silhouette. Other: . None IMPRESSION: No acute radiographic abnormality. PROGRESS Observed: 10/26/2017 Status: COMPLETED Source: [place] 2:02 PM [facility] MAIN MOBILE REPOSITORY O ID: [id number] Author: Adan (Health Jewelry Drill OperatorGael Schuler Service: (none) Author Type: Health Educator Type: Progress Notes Filed: 10/26/2017 2:51 PM Note Text: WELLNESS SMOKING CESSATION Contact by Smoking Cessation Navigator Successful: Yes Outreach attempted by: Email Eagerness/motivation to quit: Yes Attempts to Quit in the Past: Yes Methods used to quit in the past: Self Current smoking frequency per day: 10 Intervention Chosen By Patient: eCoaching eHealth Jewelry Drill Operator/Smoking Cessation Navigator: Adan Schuler Health Jewelry Drill Operator HOSP Observed: 10/26/2017 Status: COMPLETED Source: [place] 12:00 AM CL[facility] MAIN CAMPUS REPOSITORY Patient Update (WIQ) BENJAMIN GARCES ([id number]) 1970 F Date Time Provider Department 10/26/17 ADAN SCHULER (HEALTH MIX MAKER)[facility] During your visit today, we recorded the following information about you: Adan Schuler Health Jewelry Drill Operator 10/26/2017 2:51 PM Signed WELLNESS SMOKING CESSATION Contact by Smoking Cessation Navigator Successful: Yes Outreach attempted by: Email Eagerness/motivation to quit: Yes Attempts to Quit in the Past: Yes Methods used to quit in the past: Self Current smoking frequency per day: 10 Intervention Chosen By Patient: eCoaching eHealth Jewelry Drill Operator/Smoking Cessation Navigator: Adan Schuler Health Jewelry Drill Operator Allergies As of Date: 10/26/2017 (No Known Allergies) Date Reviewed: 10/24/2017 Reviewed by: Yonas Lew - Fully Assessed Reason for Visit: Smoking Cessation [1387] Cmt: TC eCoaching Prescriptions as of 10/26/2017 Sig: ESCITALOPRAM 10 MG TABLET Take 1 tablet by mouth once d* NICOTINE 21 MG/24 HR DAILY TR* Apply 1 Patch as directed roman* OTC PRODUCT Anbrem LEVETIRACETAM 500 MG TABLET Take 1 tablet by mouth twice * IBUPROFEN 800 MG TABLET MOMETASONE-FORMOTEROL HFA 100* Inhale 2 Puffs as instructed * BUPRENORPHINE 8 MG-NALOXONE 2* Dissolve under the tongue on* ALBUTEROL SULFATE HFA 90 MCG/* Inhale 2 Puffs as instructed * Problem List As Of Date 10/26/2017 Noted Resolved Seizures (HCC) [R56.9] INVALID FOR* More... Drug abuse [F19.10] INVALID FOR* More... Abnormal finding on breast imaging [R92.8] INVALID FOR* Asthma [J45.909] Mitral valve stenosis, rheumatic [I05.0] INVALID FOR* Mitral valvular regurgitation [I34.0] INVALID FOR* More... Atrial fibrillation (HCC) [I48.91] INVALID FOR* More... Follow-up and Disposition History Recorded Encounter Status:Closed by [facility] MIX MAKERADAN on 10/26/17 HISTORY PHYSICAL Observed: 10/24/2017 Status: COMPLETED Source: [place] 11:19 AM CLINIC OTHER CAMPUS REPOSITORY O ID: [id number] Author: Yonas Lew Service: (none) Author Type: Physician Type: HANDP Filed: 10/24/2017 12:28 PM Note Text: Subjective PRIMARY SERVICE: Cardiothoracic Surgery CHIEF COMPLAINT: Mitral Stenosis ? HPI: This is a 47 year old female who was referred by Dr Tripp for severe symptomatic rheumatic mitral stenosis in the setting of current smoker, asthma, seizure disorder and history of drug abuse. She states that her BP has been very low since she started seeing her current PCP, approximately 1 year with readings 80's/50's. She states that about a year ago she noticed increasing fatigue, SOB, dizziness, leg heaviness with climbing stairs. Then in Feb 04/Mar 08 she had an episode at work when she experienced severe dizziness with near syncope and she was sent home. During this episode she denies any acute illness, or chest pain. Since this episode, she has notice increasing dizziness, fatigue, exercise intolerance, and PND requiring 2-3 pillows to sleep at night. She saw her neurologist Dr James in june 2017, and reported these symptoms. He ordered an echo and 48 hour holter monitor. A surface echo was done in 06/2017 which showed severe MS and left atrial enlargement. The holter showed NSR with SVE beats and runs. At which point she was referred to Dr Tripp who ordered a PRESTON with severe MS, Moderate MR, and evidence of right to left intra-atrial shunting with valsalva. She was referred to cardiothoracic surgery for further evaluation. ? She reports her drug use of heroin which she snorted as well as other oral and inhaled drugs including amphetimine. She denied IV drug use. She further states that she quit about a year ago after her first seizure and follow [facility]. Her Seizure disorder was diagnosed after her first seizure in 08/2016. EEG notes left fronto-temporal seizure, but imaging was grossly non specific. ? She otherwise denies stroke, migraines, thyroid disease, DM, liver disease, prologue or unusual bleeding or clotting, LE edema. ? ? ? Patient is Able to Perform the Following Physical Activity: Walk indoors, such as around the house (1.75 METs) ? Patient has the following medical comorbidities which might affect the perioperative course: - Chronic Asthma which is mild and intermittent. - Seizure disorder, on keppra ? PAST?MEDICAL?HISTORY PAST MEDICAL HISTORY Diagnosis Date - Asthma ? - Dermatitis ? - Hives ? - Mitral valve stenosis ? - Seizure (HCC) 08/2016 ? PAST?SURGICAL?HISTORY PAST SURGICAL HISTORY Procedure Laterality Date - CARPAL TUNNEL ? 03/07/2017 ? Dr. Schmitt both wrists ? FAMILY?HISTORY FAMILY HISTORY Problem Relation Age of Onset - Cancer Mother 54 ? lung - None Father ? ? parkinson - Colon Cancer Paternal Grandmother 55 - Diabetes Paternal Grandmother ? - Cancer Paternal Uncle ? ? prostate ? SOCIAL?HISTORY Social History Substance Use Topics - Smoking status: Current Every Day Smoker ? ? Packs/day: 0.50 ? ? Years: 10.00 ? ? Types: Cigarettes - Smokeless tobacco: Never Used ? ? ? Comment: cutting back. has not smoked in 3 days since 07/28/17 - Alcohol use No ? ? Prescriptions?Prior?to?Admission ? (Not in a hospital admission) CURRENT?MEDICATIONS ? OTC PRODUCT Anbrem escitalopram oxalate (LEXAPRO) 10 mg tablet Take 1 tablet by mouth once daily. Take 1/2 tablet once a day for 7 days then increase to a full tablet daily. levETIRAcetam (KEPPRA) 500 mg tablet Take 1 tablet by mouth twice daily. mometasone-formoterol (DULERA) 100-5 mcg/actuation inhaler Inhale 2 Puffs as instructed twice daily. Buprenorphine-nalOXone (SUBOXONE) 8-2 mg film Dissolve under the tongue once daily. 8 mg tablet. albuterol HFA (VENTOLIN HFA) 90 mcg/actuation inhaler Inhale 2 Puffs as instructed every 4 hours as needed. meclizine (ANTIVERT) 12.5 mg tab Take 1 tablet by mouth three times daily as needed (for dizziness.). ibuprofen (MOTRIN) 800 mg tablet ? BLACK COHOSH ORAL Take by mouth. ? ALLERGIES ALLERGIES No Known Allergies ? REVIEW OF SYSTEMS: PAIN ASSESSMENT: Negative for pain, history of chronic pain, or current treatment for a chronic pain condition. GENERAL: No weight loss, malaise or fevers NECK: Negative for lumps, goiter, pain and significant neck swelling RESPIRATORY: Negative for cough, Positive for chronic cough asthma, shortness of breath limiting daily activity SEE HPI CARDIOVASCULAR: Negative for chest pain, leg swelling or palpitations., Positive for palpitations See holter report claudication leg heaviness when exerting, and PND GI: Negative for abdominal discomfort, blood in stools or black stools or change in bowel habits : No history of dysuria, frequency or incontinence COPY HOLDER: Negative for abnormal vaginal bleeding, abnormal vaginal discharge, early menopause MUSCULOSKELETAL: Negative for joint pain or swelling, back pain or muscle pain. SKIN: Negative for lesions, rash, and itching. HEMATOLOGY/LYMPHOLOGY Negative for prolonged bleeding, bruising easily or swollen nodes. ENDOCRINE: Negative for cold or heat intolerance, polyuria, polydipsia and goiter. NEURO: seizures and See HPI ? ? Objective PHYSICAL EXAM: BP 100/64 (BP Site: Right Arm, BP Position: Sitting) Pulse (!) 56 Resp 18 Ht 5' 3.5 (1.613 m) Wt 147 lb (66.7 kg) SpO2 99% BMI 25.63 kg/m? Body surface area is 1.73 meters squared. ? STS RISK CALCULATOR: 0.777% ? General Appearance: well developed and no distress Skin: warm and dry Neck: no carotid bruits Lungs: clear and respiratory effort: normal Heart: S1, S2 normal and no murmur heard in spite of attempts at multiple locations Peripheral Vascular/Arteries: pulses intact Abdomen: soft, non-tender and bowel sounds present Neurologic/Psychiatric: oriented to time, place and person Extremities: normal exam of the extremities - No Edema ? Lines, Drains, and Airways ? ? No matching active lines, drains, or airways ? ? ? DATA: Diagnostic tests reviewed for today's visit: Significant Lab Results: Date 02/2017 ? ECHO: Left Ventricle Normal left ventricular size and systolic function. No regional wall motion abnormalities. LVEF is 50-55% by visual estimation. Right Ventricle Mildly dilated right ventricle. Left Atrium The left atrium appears severely dilated in size. There is no evidence of a thrombus in the left atrial body or appendage. Right Atrium The right atrium appears normal in size. Mitral Valve The mitral leaflets are severely thickened and calcified. There is thickening of the tips, diastolic doming, and a hockey stick appearance of the leaflets suggesting prior rheumatic heart disease. There is also thickening and calcification of the subvalvular apparatus. The New Kent's score exceeds 8. The valve area by the PISA method is 0.4 cm2. The peak, and mean gradients are 24, and 15 mm Hg. Moderate (2+) mitral valve regurgitation. Attempts at quantification by vena contracta, PISA were unsuccesful, and likely inaccurate due to the degree of thickening of the valve , and subvalvular apparatus. No systolic pulm vein flow reversal is evident. The mechanism appears to be severe leaflet restriction There is severe mitral valve stenosis. Tricuspid Valve Structurally normal tricuspid valve with trivial to mild tricuspid regurgitation. Pulmonic Valve Structurally normal pulmonic valve. Ascending Aorta The ascending aorta appears normal in size. The visualized descending thoracic aorta and aortic arch are normal in size. Pericardium The pericardium is normal. Cardiac Shunt There is evidence of right to left interatrial shunting by agitated saline contrast study with Valsalva. ? MRI IMPRESSION: No acute intracranial process. ?No abnormal enhancement. Nonspecific scattered patchy areas of white matter increased T2 and FLAIR signal. ?Most likely etiology is vasculopathy possibly vasculitis. Prominent posterior pituitary of uncertain significance and not well evaluated on this exam. ? Assessment/Plan ? 1. Tobacco use - ICD9: 305.1, ICD10: Z72.0 (primary diagnosis) - Cessation encouraged. - Physiologic and physical aspects of tobacco addiction as well as strategies for quitting were discussed. - Counseling was given focusing on the harmful effects of this addiction especially given the patient's medical condition(s) which will be worsened because of the chemicals in tobacco. - Prescription for nicotine patches given - CONSULT TO SMOKING CESSATION - NICOTINE 21 MG/24 HR DAILY TRANSDERMAL PATCH - LUNG DIFFUSION CAPACITY (DLCO) - SPIROMETRY - BASELINE AND POST DILATOR - Room air ABG ? 2. Mitral valve stenosis, rheumatic - ICD9: 394.0, ICD10: I05.0 - CONSULT TO SMOKING CESSATION - NICOTINE 21 MG/24 HR DAILY TRANSDERMAL PATCH - LEFT HEART CATH,PERCUTANEOUS - RIGHT HEART CATHETERIZATION - LUNG DIFFUSION CAPACITY (DLCO) - LUNG VOLUMES - ARTERIAL BLOOD GAS, ROOM AIR - SPIROMETRY - BASELINE AND POST DILATOR ? 3. Tobacco use disorder - ICD9: 305.1, ICD10: F17.200 - Cessation encouraged. - Physiologic and physical aspects of tobacco addiction as well as strategies for quitting were discussed. - Counseling was given focusing on the harmful effects of this addiction especially given the patient's medical condition(s) which will be worsened because of the chemicals in tobacco. - CONSULT TO SMOKING CESSATION - NICOTINE 21 MG/24 HR DAILY TRANSDERMAL PATCH - LUNG VOLUMES - ARTERIAL BLOOD GAS, ROOM AIR - SPIROMETRY - BASELINE AND POST DILATOR ? 4. Personal history of tobacco use, presenting hazards to health - ICD9: V15.82, ICD10: Z87.891 - CONSULT TO SMOKING CESSATION - NICOTINE 21 MG/24 HR DAILY TRANSDERMAL PATCH - SPIROMETRY - BASELINE AND POST DILATOR Attending Note I have personally performed a face to face assessment of the patient and have reviewed the PA/ONCOLOGY TRANSPLANT NETWORK MANAGER note. My mane findings include: Assessment/Plan are : This is a 47-year-old woman with symptomatic severe mitral stenosis with concomitant left atrial dilatation and moderate pulmonary hypertension, likely of rheumatic etiology. Cardiac catheterization shows normal coronary arteries and moderate elevation of PA pressure. She has had no atrial arrhythmias. There is evidence of shunting at the atrial level. This is a setting of previous polysubstance abuse (stopped for one year, no IVDA), ongoing tobacco use, and a well-controlled seizure disorder. I recommend mitral valve replacement with closure of likely PFO and exclusion of left atrial appendage at the time of surgery. The risks, benefits, and anticipated outcomes of the procedure; the risks and benefits of the alternatives to the procedure; and the roles and tasks of the personnel to be involved were discussed with the patient and she consents to the procedure and agrees to proceed. Impression for surgery she will undergo dental evaluation and lung function testing. Imaging will be reviewed at our valve committee conference. Surgery will be scheduled for the near future. She wishes to think about type of prosthesis. The presence of a seizure disorder and his history of drug use U against the use of mechanical valve and the requirement for Coumadin. On the other hand, she is currently not using and very committed to not using drugs and is of young age, which would argue for the subcutaneous mechanical prosthesis. We will consult with her neurologist to see if he has any opinion regarding chronic anticoagulation in the setting of her seizure disease. Yonas Lew MD Other additions or changes: None Signature: Yonas Lew MD Date: 10/24/2017 Time: 11:20 AM CNOV Observed: 10/24/2017 Status: COMPLETED Source: [place] 9:30 AM [facility] OTHER CAMPUS REPOSITORY Office Visit (AGVASACC) BENJAMIN GARCES ([id number]) 1970 F Date Time Provider Department 10/24/17 9:30 AM YONAS LEW During your visit today, we recorded the following information about you: Pulse Respiration Blood pressure Weight 72/minute 18/minute 118/64 68.5 kg Height 1.613 m Yonas Lew MD 10/24/2017 12:28 PM Signed Subjective PRIMARY SERVICE: Cardiothoracic Surgery CHIEF COMPLAINT: Mitral Stenosis ? HPI: This is a 47 year old female who was referred by Dr Tripp for severe symptomatic rheumatic mitral stenosis in the setting of current smoker, asthma, seizure disorder and history of drug abuse. She states that her BP has been very low since she started seeing her current PCP, approximately 1 year with readings 80's/50's. She states that about a year ago she noticed increasing fatigue, SOB, dizziness, leg heaviness with climbing stairs. Then in Feb 04Mar 08 she had an episode at work when she experienced severe dizziness with near syncope and she was sent home. During this episode she denies any acute illness, or chest pain. Since this episode, she has notice increasing dizziness, fatigue, exercise intolerance, and PND requiring 2-3 pillows to sleep at night. She saw her neurologist Dr James in june 2017, and reported these symptoms. He ordered an echo and 48 hour holter monitor. A surface echo was done in 06/2017 which showed severe MS and left atrial enlargement. The holter showed NSR with SVE beats and runs. At which point she was referred to Dr Tripp who ordered a PRESTON with severe MS, Moderate MR, and evidence of right to left intra-atrial shunting with valsalva. She was referred to cardiothoracic surgery for further evaluation. ? She reports her drug use of heroin which she snorted as well as other oral and inhaled drugs including amphetimine. She denied IV drug use. She further states that she quit about a year ago after her first seizure and follow [facility]. Her Seizure disorder was diagnosed after her first seizure in 08/2016. EEG notes left fronto-temporal seizure, but imaging was grossly non specific. ? She otherwise denies stroke, migraines, thyroid disease, DM, liver disease, prologue or unusual bleeding or clotting, LE edema. ? ? ? Patient is Able to Perform the Following Physical Activity: Walk indoors, such as around the house (1.75 METs) ? Patient has the following medical comorbidities which might affect the perioperative course: - Chronic Asthma which is mild and intermittent. - Seizure disorder, on keppra ? PAST?MEDICAL?HISTORY PAST MEDICAL HISTORY Diagnosis Date - Asthma ? - Dermatitis ? - Hives ? - Mitral valve stenosis ? - Seizure (HCC) 08/2016 ? PAST?SURGICAL?HISTORY PAST SURGICAL HISTORY Procedure Laterality Date - CARPAL TUNNEL ? 03/07/2017 ? Dr. Schmitt both wrists ? FAMILY?HISTORY FAMILY HISTORY Problem Relation Age of Onset - Cancer Mother 54 ? lung - None Father ? ? parkinson - Colon Cancer Paternal Grandmother 55 - Diabetes Paternal Grandmother ? - Cancer Paternal Uncle ? ? prostate ? SOCIAL?HISTORY Social History Substance Use Topics - Smoking status: Current Every Day Smoker ? ? Packs/day: 0.50 ? ? Years: 10.00 ? ? Types: Cigarettes - Smokeless tobacco: Never Used ? ? ? Comment: cutting back. has not smoked in 3 days since 07/28/17 - Alcohol use No ? ? Prescriptions?Prior?to?Admission ? (Not in a hospital admission) CURRENT?MEDICATIONS ? OTC PRODUCT Anbrem escitalopram oxalate (LEXAPRO) 10 mg tablet Take 1 tablet by mouth once daily. Take 1/2 tablet once a day for 7 days then increase to a full tablet daily. levETIRAcetam (KEPPRA) 500 mg tablet Take 1 tablet by mouth twice daily. mometasone-formoterol (DULERA) 100-5 mcg/actuation inhaler Inhale 2 Puffs as instructed twice daily. Buprenorphine-nalOXone (SUBOXONE) 8-2 mg film Dissolve under the tongue once daily. 8 mg tablet. albuterol HFA (VENTOLIN HFA) 90 mcg/actuation inhaler Inhale 2 Puffs as instructed every 4 hours as needed. meclizine (ANTIVERT) 12.5 mg tab Take 1 tablet by mouth three times daily as needed (for dizziness.). ibuprofen (MOTRIN) 800 mg tablet ? BLACK COHOSH ORAL Take by mouth. ? ALLERGIES ALLERGIES No Known Allergies ? REVIEW OF SYSTEMS: PAIN ASSESSMENT: Negative for pain, history of chronic pain, or current treatment for a chronic pain condition. GENERAL: No weight loss, malaise or fevers NECK: Negative for lumps, goiter, pain and significant neck swelling RESPIRATORY: Negative for cough, Positive for chronic cough asthma, shortness of breath limiting daily activity SEE HPI CARDIOVASCULAR: Negative for chest pain, leg swelling or palpitations., Positive for palpitations See holter report claudication leg heaviness when exerting, and PND GI: Negative for abdominal discomfort, blood in stools or black stools or change in bowel habits : No history of dysuria, frequency or incontinence COPY HOLDER: Negative for abnormal vaginal bleeding, abnormal vaginal discharge, early menopause MUSCULOSKELETAL: Negative for joint pain or swelling, back pain or muscle pain. SKIN: Negative for lesions, rash, and itching. HEMATOLOGY/LYMPHOLOGY Negative for prolonged bleeding, bruising easily or swollen nodes. ENDOCRINE: Negative for cold or heat intolerance, polyuria, polydipsia and goiter. NEURO: seizures and See HPI ? ? Objective PHYSICAL EXAM: BP 100/64 (BP Site: Right Arm, BP Position: Sitting) Pulse (!) 56 Resp 18 Ht 5' 3.5 (1.613 m) Wt 147 lb (66.7 kg) SpO2 99% BMI 25.63 kg/m? Body surface area is 1.73 meters squared. ? STS RISK CALCULATOR: 0.777% ? General Appearance: well developed and no distress Skin: warm and dry Neck: no carotid bruits Lungs: clear and respiratory effort: normal Heart: S1, S2 normal and no murmur heard in spite of attempts at multiple locations Peripheral Vascular/Arteries: pulses intact Abdomen: soft, non-tender and bowel sounds present Neurologic/Psychiatric: oriented to time, place and person Extremities: normal exam of the extremities - No Edema ? Lines, Drains, and Airways ? ? No matching active lines, drains, or airways ? ? ? DATA: Diagnostic tests reviewed for today's visit: Significant Lab Results: Date 02/2017 ? ECHO: Left Ventricle Normal left ventricular size and systolic function. No regional wall motion abnormalities. LVEF is 50-55% by visual estimation. Right Ventricle Mildly dilated right ventricle. Left Atrium The left atrium appears severely dilated in size. There is no evidence of a thrombus in the left atrial body or appendage. Right Atrium The right atrium appears normal in size. Mitral Valve The mitral leaflets are severely thickened and calcified. There is thickening of the tips, diastolic doming, and a hockey stick appearance of the leaflets suggesting prior rheumatic heart disease. There is also thickening and calcification of the subvalvular apparatus. The New Kent's score exceeds 8. The valve area by the PISA method is 0.4 cm2. The peak, and mean gradients are 24, and 15 mm Hg. Moderate (2+) mitral valve regurgitation. Attempts at quantification by vena contracta, PISA were unsuccesful, and likely inaccurate due to the degree of thickening of the valve , and subvalvular apparatus. No systolic pulm vein flow reversal is evident. The mechanism appears to be severe leaflet restriction There is severe mitral valve stenosis. Tricuspid Valve Structurally normal tricuspid valve with trivial to mild tricuspid regurgitation. Pulmonic Valve Structurally normal pulmonic valve. Ascending Aorta The ascending aorta appears normal in size. The visualized descending thoracic aorta and aortic arch are normal in size. Pericardium The pericardium is normal. Cardiac Shunt There is evidence of right to left interatrial shunting by agitated saline contrast study with Valsalva. ? MRI IMPRESSION: No acute intracranial process. ?No abnormal enhancement. Nonspecific scattered patchy areas of white matter increased T2 and FLAIR signal. ?Most likely etiology is vasculopathy possibly vasculitis. Prominent posterior pituitary of uncertain significance and not well evaluated on this exam. ? Assessment/Plan ? 1. Tobacco use - ICD9: 305.1, ICD10: Z72.0 (primary diagnosis) - Cessation encouraged. - Physiologic and physical aspects of tobacco addiction as well as strategies for quitting were discussed. - Counseling was given focusing on the harmful effects of this addiction especially given the patient's medical condition(s) which will be worsened because of the chemicals in tobacco. - Prescription for nicotine patches given - CONSULT TO SMOKING CESSATION - NICOTINE 21 MG/24 HR DAILY TRANSDERMAL PATCH - LUNG DIFFUSION CAPACITY (DLCO) - SPIROMETRY - BASELINE AND POST DILATOR - Room air ABG ? 2. Mitral valve stenosis, rheumatic - ICD9: 394.0, ICD10: I05.0 - CONSULT TO SMOKING CESSATION - NICOTINE 21 MG/24 HR DAILY TRANSDERMAL PATCH - LEFT HEART CATH,PERCUTANEOUS - RIGHT HEART CATHETERIZATION - LUNG DIFFUSION CAPACITY (DLCO) - LUNG VOLUMES - ARTERIAL BLOOD GAS, ROOM AIR - SPIROMETRY - BASELINE AND POST DILATOR ? 3. Tobacco use disorder - ICD9: 305.1, ICD10: F17.200 - Cessation encouraged. - Physiologic and physical aspects of tobacco addiction as well as strategies for quitting were discussed. - Counseling was given focusing on the harmful effects of this addiction especially given the patient's medical condition(s) which will be worsened because of the chemicals in tobacco. - CONSULT TO SMOKING CESSATION - NICOTINE 21 MG/24 HR DAILY TRANSDERMAL PATCH - LUNG VOLUMES - ARTERIAL BLOOD GAS, ROOM AIR - SPIROMETRY - BASELINE AND POST DILATOR ? 4. Personal history of tobacco use, presenting hazards to health - ICD9: V15.82, ICD10: Z87.891 - CONSULT TO SMOKING CESSATION - NICOTINE 21 MG/24 HR DAILY TRANSDERMAL PATCH - SPIROMETRY - BASELINE AND POST DILATOR Attending Note I have personally performed a face to face assessment of the patient and have reviewed the PA/ONCOLOGY TRANSPLANT NETWORK MANAGER note. My mane findings include: Assessment/Plan are : This is a 47-year-old woman with symptomatic severe mitral stenosis with concomitant left atrial dilatation and moderate pulmonary hypertension, likely of rheumatic etiology. Cardiac catheterization shows normal coronary arteries and moderate elevation of PA pressure. She has had no atrial arrhythmias. There is evidence of shunting at the atrial level. This is a setting of previous polysubstance abuse (stopped for one year, no IVDA), ongoing tobacco use, and a well-controlled seizure disorder. I recommend mitral valve replacement with closure of likely PFO and exclusion of left atrial appendage at the time of surgery. The risks, benefits, and anticipated outcomes of the procedure; the risks and benefits of the alternatives to the procedure; and the roles and tasks of the personnel to be involved were discussed with the patient and she consents to the procedure and agrees to proceed. Impression for surgery she will undergo dental evaluation and lung function testing. Imaging will be reviewed at our valve committee conference. Surgery will be scheduled for the near future. She wishes to think about type of prosthesis. The presence of a seizure disorder and his history of drug use U against the use of mechanical valve and the requirement for Coumadin. On the other hand, she is currently not using and very committed to not using drugs and is of young age, which would argue for the subcutaneous mechanical prosthesis. We will consult with her neurologist to see if he has any opinion regarding chronic anticoagulation in the setting of her seizure disease. Yonas Lew MD Other additions or changes: None Signature: Yonas Lew MD Date: 10/24/2017 Time: 11:20 AM Venice Correa APRN.ASSURANCE SENIOR 10/24/2017 11:26 AM Signed We are evaluating you for mitral valve replacement surgery. There is further testing we would like you to under go including lung function and dental evaluation. We will discuss the use of blood thinners with Dr James We will discuss your case at our heart team meeting on Sunday. Once this is complete, we will see you in office for a pre- operative evaluation with labs and chest x-ray before. Referring Provider: CLAUDIO REYES [[id number]] Allergies As of Date: 10/24/2017 (No Known Allergies) Date Reviewed: 10/24/2017 Reviewed by: Yonas Lew - Fully Assessed Reason for Visit: Valvular Heart Disease [169] Cmt: Court is here to review test results. Reason For Visit History Recorded Primary Visit Diagnosis:Mitral valve stenosis, rheumatic [I05.0] Prescriptions as of 10/24/2017 Sig: ESCITALOPRAM 10 MG TABLET Take 1 tablet by mouth once d* NICOTINE 21 MG/24 HR DAILY TR* Apply 1 Patch as directed roman* OTC PRODUCT Anbrem LEVETIRACETAM 500 MG TABLET Take 1 tablet by mouth twice * IBUPROFEN 800 MG TABLET MOMETASONE-FORMOTEROL HFA 100* Inhale 2 Puffs as instructed * BUPRENORPHINE 8 MG-NALOXONE 2* Dissolve under the tongue on* ALBUTEROL SULFATE HFA 90 MCG/* Inhale 2 Puffs as instructed * Problem List As Of Date 10/24/2017 Noted Resolved Seizures (HCC) [R56.9] INVALID FOR* More... Drug abuse [F19.10] INVALID FOR* More... Abnormal finding on breast imaging [R92.8] INVALID FOR* Asthma [J45.909] Mitral valve stenosis, rheumatic [I05.0] INVALID FOR* Other instructions from your clinician: We are evaluating you for mitral valve replacement surgery. There is further testing we would like you to under go including lung function and dental evaluation. We will discuss the use of blood thinners with Dr James We will discuss your case at our heart team meeting on Sunday. Once this is complete, we will see you in office for a pre-operative evaluation with labs and chest x-ray before. Level of Service: NEW PATIENT VISIT LEVEL 5 [[id number]] Letter Text Encounter Status:Closed by YONAS LEW MD on 10/24/17 HOSP Observed: 10/24/2017 Status: COMPLETED Source: [facility] 12:00 AM CLINIC OTHER CAMPUS REPOSITORY Patient:Benjamin Garces MRN: <[id number]> Height:5' 3(1.6 m) Weight:157 lb (71.215 kg) Outpatient Medications as of 12/03/17: aspirin 81 mg chewable tablet mupirocin (BACTROBAN) 2 % nasal ointment escitalopram oxalate (LEXAPRO) 10 mg tablet nicotine (NICODERM CQ) 21 mg/24 hr OTC PRODUCT levETIRAcetam (KEPPRA) 500 mg tablet ibuprofen (MOTRIN) 800 mg tablet mometasone-formoterol (DULERA) 100-5 mcg/actuation inhaler Buprenorphine-nalOXone (SUBOXONE) 8-2 mg film albuterol HFA (VENTOLIN HFA) 90 mcg/actuation inhaler Admission/Clinic Administered Medications as of 12/03/17: heparin 3,000 Units in NaCl 0.9% 500 mL irrigation PHENYLephrine 20 mg in NaCl 0.9% 250 mL (NEOSYNEPHRINE) aminocaproic acid 10 g in NaCl 0.9% 250 mL (AMicAR) dexmedetomidine 400 mcg in NaCl 0.9% 100 mL (PRECEDEX) EPINEPHrine 4 mg in NaCl 0.9% 250 mL insulin regular iv infusion 250 units in NaCl 0.9% 250 mL - AK CARD SURG NOMOGRAM nitroglycerin 100 mg in D5W 250 mL NORepinephrine 16 mg in NaCl 0.9% 250 mL (LEVOPHED) PHENYLephrine iv infusion 10 mg in NaCl 0.9% 250 mL (PEDRO-SYNEPHRINE) dextrose 50% in water 100 mL, insulin regular human 10 Units, potassium chloride 80 mEq, lidocaine 100 mg, magnesium sulfate 4 g in electrolyte-a (PLASMA-LYTE A) 1,000 mL solution dextrose 50% in water 50 mL, insulin regular human 5 Units, potassium chloride 20 mEq, lidocaine 50 mg, magnesium sulfate 2 g in electrolyte- a (PLASMA-LYTE A) 500 mL solution Problem List: Seizures (HCC) [R56.9] Drug abuse (HCC) [F19.10] Abnormal finding on breast imaging [R92.8] Asthma [J45.909] Mitral valve stenosis, rheumatic [I05.0] Mitral valvular regurgitation [I34.0] Atrial fibrillation (HCC) [I48.91] Allergies: No Known Allergies Date Verified:12/03/17 Lab Values Lab Value Units Date High Low POTA* 4.3 mEq/L 11/21/2017 5.1 3.5 CASTILLO* 41.7 % 11/21/2017 47.0 37.0 Progress Notes ([facility]): Tico Jef Watson 11/28/2017 10:09 AM Signed Phoned Ms. Garces regarding dental clearance. She states she is cleared, and will fax form to [phone]. Progress Notes ([facility]): Aaron Girard LPN 11/27/2017 11:52 AM Signed Pt is scheduled for MVR on 12/03/17. Her pain management/addiction Doctor (Mo Escobar) LM that he would like to speak to her care team regarding upcoming surgery and pain control post surgery. Pt is on suboxone 8mg strip SL daily. He can be reached on his cell phone [phone] and please LM if needed and he will call back. LU Dallas APRN.MARIVEL, ELIZABETH.MARIVEL 11/27/2017 12:45 PM Signed Call made to Dr. Escobar regarding Mrs. Garces's post-op pain management. He agreed that she should NOT take Saboxone the AM of surgery, which is what I instructed patient during her PAT with me yesterday. He also mentioned that he had called the anesthesia team regarding his concern given patient has PMH of seizure disorder. He stated that during OR, the anesthesia can override with their drugs to keep patient sedative and comfortable. I will attach a pain management consult to Dr. Leslie to patient's surgery case for post-op pain management. Dr. Escobar is made aware. I will inform the team to be in touch with Kimberly Humphries (MILK PASTEURIZER who managed Mrs. Garces's suboxone) when we need to discharge patient from hospital so that she could be resumed on her therapy. Thanks. Farideh Bustos APRN.ASSURANCE SENIOR NURSING PROG Observed: 10/17/2017 Status: COMPLETED Source: [facility] 11:20 AM [facility] REPOSITORY HNO ID: [id number] Author: Maranda MaganaRn) MAG Ortiz Service: ASSESSMENT Author Type: Registered Nurse Type: Nursing Progress Note Filed: 10/17/2017 12:04 PM Note Text: 1030 air release initiated. Patient eyes closed resting quietly. 1115 final air release 2+radial pulse. RIJ site soft dressing D/I 1130 TR Band REMOVED. 2+ radial pulse, hand warm + cap refill. Upper arm soft. No complaints of pain. Home instructions reinforced. NURSING PROG Observed: 10/17/2017 Status: COMPLETED Source: [facility] 9:38 AM [facility] REPOSITORY HNO ID: [id number] Author: Maranda (Rn) MAG Ortiz Service: ASSESSMENT Author Type: Registered Nurse Type: Nursing Progress Note Filed: 10/17/2017 9:42 AM Note Text: 0938 patient return to [facility], right IJ sheath intact pulled by Aileen CARLTON for 10 min. Dressing applied. Right RADIAL TR band on 2+ pulse. Hand warm + cap refill, upper arm soft. Patient eating breakfast, home instructions intitated. BRIEF OP NOT Observed: 10/17/2017 Status: COMPLETED Source: [facility] 9:24 AM [facility] REPOSITORY HNO ID: [id number] Author: Derrick Lew Service: Interventional Cardiology Author Type: Physician Type: Brief Op Note Filed: 10/17/2017 9:33 AM Note Text: CARDIAC CATHETERIZATION REPORT PATIENT NAME: Benjamin Garces SERVICE DATE: 10/17/2017 SERVICE TIME: 9:24 AM Drum Loader And Unloader: Dr Radhika Tripp Attending: Derrick Lew RECOMMENDATIONS: Mitral valve surgery Pre-Procedure Diagnosis: Valvular Heart Disease Post- Procedure Diagnosis: Normal coronary anatomy with severe mitral stenosis Procedure: Right and Left Heart Catheterization Access: Right Radial Artery and Right IJ Under Local anesthesia the Right radial Artery and Right IJ was entered by Modified Seldinger's technique using a micro puncture needle. A 5F and 8F sheath was introduced into the Right Radial Artery and RIght IJ . A right heart cath was performed with cardiac outputs. Selective injections were made in the left and right coronary arteries in various right and left anterior oblique views. An LV pressure was performed in 30 degree WATSON. The sheath was removed and hemostatsis was established using R- Band and manual pressure closure device. There was no bleeding at the end of the procedure. The pt was returned to the recovery room in a stable condition. FINDINGS: Hemodynamics: LVEDP: 4 mmHg LV - AORTA: No gradient. PCW-LV mean gradient: 12 mmHg RA; 14/11 mmHg RV: 62/12 mmHg PA: 57/24 mmHg PCW: 19, 28 mean 22 mmHg CO (Fred): 4.9 l/min CO (TD): 2.2 l/min Calculated MV Area: 1.4 mm2 Coronary Angiography: Left Main: Normal Left Anterior Descending: Normal Diagonal: Circumflex: Normal Marginal: Right Coronary Artery: Dominant Normal Collaterals: None LV Gram: LVEF: NA Wall Motion: NA Complications: None SIGNATURE: Derrick Lew MD DATE: October 17, 2017 TIME: 9:24 AM HISTORY PHYSICAL Observed: 10/17/2017 Status: COMPLETED Source: [facility] [place] 8:39 AM [facility] OTHER MOBILE REPOSITORY [facility] ID: [id number] Author: Derrick Lew Service: Interventional Cardiology Author Type: Physician Type: HANDP Filed: 10/17/2017 8:41 AM Note Text: UPDATED HANDP PRE-CARDIAC CATHETERIZATION SERVICE DATE: 10/17/2017 SERVICE TIME: 8:41 AM PHYSICAL EXAM MUST BE COMPLETED ON ADMISSION The History and Physical (completed in the past 30 days) has been reviewed and the patient has been examined. The contents accurately reflect the patient's condition with the following additions or revisions since the HANDP was completed. Examination indicates no changes. Planned Procedure: Right and Left Heart Cath Primary Indication for Procedure: Valvular Heart Disease High Risk Features: History of Prior CABG: No History of Prior PCI: No Cardiomyopathy: No Risk Appropriateness: 47 y/o woman with Mitral stenosis referred for pre-operative right and left heart cath prior to mitral valve surgery. Risk and benefits reviewed in detail with the patient and her . They understand the risks and are willing to proceed. HISTORY OF BLEEDING: No This HANDP can be found in the Electronic Medical Record dated 10/02/17. SIGNATURE: Derrick Lew MD PATIENT NAME: Benjamin Garces DATE: October 17, 2017 TIME: 8:39 AM PAGER: HEMOGRAM/DIFF Collected: 10/17/2017 Status: F Source: [facility] 6:45 AM HEALTH SYSTEM REPOSITORY TYPE CODE TESTS RESULT OUT OF REFERENCE UNITS RANGE LAB WBC(LOINC) 3.98-10.04 thou/cmm WBC 5.80 LAB RBC(LOINC) 3.93-5.22 mil/cmm RBC 4.05 LAB HGB(LOINC) 11.2-15.7 g/dL Hgb 13.1 LAB HCT(LOINC) 34.1-44.9 % Hct 38.7 LAB MCV(LOINC) 79.4-94.8 fl MCV High 95.6 LAB MCH(LOINC) 25.6-32.2 pg MCH High 32.3 LAB MCHC(LOINC 31.6-34.8 % ) MCHC 33.9 LAB RDW(LOINC) 11.7-14.4 % RDW 12.3 LAB RDWSD(LOIN 36.4-46.3 fl C) RDW SD 42.8 LAB PLT(LOINC) 182-369 thou/cmm Platelet 187 LAB MPV(LOINC) 9.4-12.3 fl MPV 10.3 LAB SEG(LOINC) % Seg Neutrophil 49.1 LAB IGRE(LOINC % ) Immature Grans 0.20 LAB LYMPH(LOIN % C) Lymphocyte 34.5 LAB MNO(LOINC) % Monocyte 10.3 LAB EOSIN(LOIN % C) Eosinophil 4.7 LAB BASO(LOINC % ) Basophil 1.2 LAB SEGN(LOINC 1.56-6.13 thou/cmm ) Abs. Neut (ANC) 2.85 LAB IGAB(LOINC 0.00-0.05 thou/cmm ) Abs Immature Grans 0.01 LAB LYMN(LOINC 1.18-3.74 thou/cmm ) Abs. Lymph 2.00 LAB MONON(LOIN 0.27-0.70 thou/cmm C) Abs. [place] 0.60 LAB EOSN(LOINC 0.00-0.31 thou/cmm ) Abs. Eosin 0.27 LAB BASON(LOIN 0.01-0.08 thou/cmm C) Abs. Baso 0.07 Performed By: #### CBCD1 #### [place] [address] HCG, QUAL. SERUM Collected: 10/17/2017 Status: F Source: [facility] 6:45 AM HEALTH SYSTEM REPOSITORY TYPE CODE TESTS RESULT OUT OF REFERENCE UNITS RANGE LAB SEHCG(LOINC Negative ) HCG, Negative Qual. Serum Performed By: #### SEHCG #### [place] [address] BASIC PANEL Collected: 10/17/2017 Status: F Source: [facility] 6:45 AM HEALTH SYSTEM REPOSITORY TYPE CODE TESTS RESULT OUT OF REFERENCE UNITS RANGE LAB NA(LOINC) 136-145 mEq/L Low Sodium Blood 135 LAB K(LOINC) 3.5-5.1 mEq/L High Potassium Blood 5.6 Result Comment: SPECIMEN SLIGHTLY HEMOLYZED LAB CL(LOINC) 98-107 mEq/L Chloride Blood 105 LAB CO2(LOINC) 21-32 mEq/L CO2 Blood 29 LAB GLU(LOINC) 70-99 mg/dL Glucose Blood 86 LAB BUN(LOINC) 7-18 mg/dL BUN Blood 14 LAB CREA(LOINC) 0.51-0.95 mg/dL Creatinine Blood 0.84 LAB CA(LOINC) 8.5-10.1 mg/dL Calcium Blood 8.5 LAB ANGAP(LOINC) 8-16 Anion Gap Low 7 Performed By: #### P8 #### [place] [address] MDRD GFR Collected: 10/17/2017 Status: F Source: [facility] 6:45 AM HEALTH SYSTEM REPOSITORY TYPE CODE TESTS RESULT OUT OF RANGE REFERENCE UNITS LAB GFRFN(LOINC >60mL/min/1.73m ) 2 eGFR >60 Result Comment: If the patient is , multiply the result by 1.210. Performed By: #### GFR #### [place] [address] NURSING PROG Observed: 10/17/2017 Status: COMPLETED Source: [facility] 6:16 AM CLINIC OTHER CAMPUS REPOSITORY HNO ID: [id number] Author: Maranda (Rn) MAG Ortiz Service: ASSESSMENT Author Type: Registered Nurse Type: Nursing Progress Note Filed: 10/17/2017 6:17 AM Note Text: 0615 patient admitted to [facility], pre procedure teaching at bedside. Review of medications and moderate sedation with patient and boyfriend. HOSP Observed: 10/04/2017 Status: COMPLETED Source: [facility] 12:00 AM CLINIC OTHER CAMPUS REPOSITORY Patient:Benjamin Garces MRN: <[id number]> Height:5' 3(1.6 m) Weight:147 lb (66.679 kg) Outpatient Medications as of 10/17/17: aspirin 325 mg tablet escitalopram oxalate (LEXAPRO) 10 mg tablet nicotine (NICODERM CQ) 21 mg/24 hr OTC PRODUCT levETIRAcetam (KEPPRA) 500 mg tablet ibuprofen (MOTRIN) 800 mg tablet mometasone-formoterol (DULERA) 100-5 mcg/actuation inhaler Buprenorphine-nalOXone (SUBOXONE) 8-2 mg film albuterol HFA (VENTOLIN HFA) 90 mcg/actuation inhaler Admission/Clinic Administered Medications as of 10/17/17: NaCl 0.9% iv infusion Problem List: Seizures (HCC) [R56.9] Drug abuse (HCC) [F19.10] Abnormal finding on breast imaging [R92.8] Asthma [J45.909] Mitral valve stenosis, rheumatic [I05.0] Allergies: No Known Allergies Date Verified:10/17/17 Lab Values Lab Value Units Date High Low POTA* 5.6 mEq/L 10/17/2017 5.1 3.5 CASTILLO* 38.7 % 10/17/2017 44.9 34.1 Progress Notes (CARD JADE BARBERB): Taylor Chan RN 10/04/2017 2:09 PM Signed Patient scheduled for right and left heart cath, Rt femoral, with Dr Lew on Sun10/17/17. Instructions reviewed. Questions answered. Patient verbalized understanding. 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 -Nothing by mouth after midnight evening prior. -With a sip of water on 10/17/18 morning take: Aspirin 325mg. -Labs to be done next week. I entered routine orders within this encounter. - You must have someone drive you home from your procedure. -mill labor supervisor policy is pt not be alone first evening Office phone number provided for questions or concerns. [facility] notified. Will assess need for HCG level am of cath. Hoda Chand 10/04/2017 2:56 PM Addendum No auth required per Telephone call with insurance We have started a new process to provide estimates to our patients for their upcoming appointment at [facility]. The purpose is to make you aware of your financial obligation after your insurance company pays. Your insurance shows your estimated patient responsibility for this service could not be determined please contact your insurance company. We are not collecting your estimate at this time but wanted you to be aware of potential out of pocket expenses based on the estimate we ran for you. ? Hoda Chand Previous Version Progress Notes ([facility]): Tico Jef Watson 10/04/2017 11:15 AM Signed Requesting RHC AND LHC to be schedule prior to follow up visit on 10/24/[address] Lew if possible. Patient saw Venice Correa CNP on 10/02/17 regarding severe symptomatic rheumatic mitral stenosis. Taylor Chan RN 10/04/2017 1:59 PM Signed Pt scheduled for Rt AND Lt HC 10/17/[address] Lew. Taylor Chan RN CNCO Observed: 10/03/2017 Status: COMPLETED Source: [facility] 12:00 AM CLINIC MAIN CAMPUS REPOSITORY Letter Text [address] [address] Dept Dept Claudio Reyes MD [facility] -[address] [place] [id number] - - October 03, 2017 Benjamin Garces [address] [place] [id number] 1970 Dear Benjamin Garces, We missed seeing you for a scheduled appointment on . [facility] strives to offer the best possible care for all of our patients, so we are concerned when scheduled appointments are missed. We understand that circumstances may arise which make it impossible to keep or arrive on time for a scheduled appointment. Should this happen in the future, please call us as soon as possible so we can either reschedule or cancel your appointment in a timely manner. The earlier you let us know, the more likely we can offer your appointment time to another patient. Patients who don't cancel scheduled appointments at least 24 hours in advance or who show up too late past their appointment time to be seen, are considered No Show cancellations. [facility] is committed to ensuring that our patients have access to our healthcare services. Patients who repeatedly miss scheduled appointments or routinely show up late may be released from the practice. Sincerely, Claudio Reyes M.D. (Signed electronically to expedite mailing) OBSOLETE Observed: 10/03/2017 Status: COMPLETED Source: [facility] [place] 12:00 AM [facility] REPOSITORY Refill (AGINTMLW) BENJAMIN GARCES ([id number]) 1970 F Date Time Provider Department 10/03/17 CLAUDIO REYES AGINTMLW During your visit today, we recorded the following information about you: Sienna Sheth MA 10/03/2017 10:13 AM Signed Patient requesting refills as follows: Last Office Visit 07/30/2017. Last Refill 07/30/2017. Pending Prescriptions Disp Refills ESCITALOPRAM 10 MG TABLET 30 tablet 1 Sig: Take 1 tablet by mouth once daily. TRANG: No Pt states that the medication is working well and she is taking 1 full tablet daily. Please review and advise. 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 MOMETASONE-FORMOTEROL HFA 100* Inhale 2 Puffs as instructed * BUPRENORPHINE 8 MG-NALOXONE 2* Dissolve under the tongue on* ALBUTEROL SULFATE HFA 90 MCG/* Inhale 2 Puffs as instructed * Problem List As Of Date 10/03/2017 Noted Resolved Seizures (HCC) [R56.9] INVALID FOR* More... Drug abuse [F19.10] INVALID FOR* More... Abnormal finding on breast imaging [R92.8] INVALID FOR* Asthma [J45.909] Mitral valve stenosis, rheumatic [I05.0] INVALID FOR* Prescriptions ordered this encounter Disp Refills Start End ESCITALOPRAM 10 MG TABLET 30 t* 1 10/03/2017 Route: ORAL Sig: Take 1 tablet by mouth once daily. Medications Discontinued During This Encounter escitalopram oxalate (LEXAPRO) 10 mg* 30 t* 1 07/30/2017 10/03/2017 Route: ORAL Sig: Take 1 tablet by mouth once daily. Take 1/2 tablet once a day for 7 days then increase to a full tablet daily. Disc: Reason for discontinue is not on file. Encounter Status:Closed by CLAUDIO REYES MD on 10/03/17 HISTORY PHYSICAL Observed: 10/02/2017 Status: COMPLETED Source: [facility] 1:47 PM CLINIC OTHER CAMPUS REPOSITORY HNO ID: [id number] Author: Venice Correa Service: (none) Author Type: Nurse Practitioner Type: HANDP Filed: 10/02/2017 5:33 PM Note Text: CARDIOTHORACIC SURGERY CONSULT / HANDP SERVICE DATE: 10/02/2017 SERVICE TIME: 1:30PM Subjective PRIMARY SERVICE: Cardiothoracic Surgery CHIEF COMPLAINT: Mitral Stenosis HPI: This is a 47 year old female who was referred by Dr Tripp for severe symptomatic rheumatic mitral stenosis in the setting of current smoker, asthma, seizure disorder and history of drug abuse. She states that her BP has been very low since she started seeing her current PCP, approximately 1 year with readings 80's/50's. She states that about a year ago she noticed increasing fatigue, SOB, dizziness, leg heaviness with climbing stairs. Then in Feb 04/Mar 08 she had an episode at work when she experienced severe dizziness with near syncope and she was sent home. During this episode she denies any acute illness, or chest pain. Since this episode, she has notice increasing dizziness, fatigue, exercise intolerance, and PND requiring 2-3 pillows to sleep at night. She saw her neurologist Dr James in june 2017, and reported these symptoms. He ordered an echo and 48 hour holter monitor. A surface echo was done in 06/2017 which showed severe MS and left atrial enlargement. The holter showed NSR with SVE beats and runs. At which point she was referred to Dr Tripp who ordered a PRESTON with severe MS, Moderate MR, and evidence of right to left intra-atrial shunting with valsalva. She was referred to cardiothoracic surgery for further evaluation. She reports her drug use of heroin which she snorted as well as other oral and inhaled drugs including amphetimine. She denied IV drug use. She further states that she quit about a year ago after her first seizure and follow [facility]. Her Seizure disorder was diagnosed after her first seizure in 08/2016. EEG notes left fronto-temporal seizure, but imaging was grossly non specific. She otherwise denies stroke, migraines, thyroid disease, DM, liver disease, prologue or unusual bleeding or clotting, LE edema. Patient is Able to Perform the Following Physical Activity: Walk indoors, such as around the house (1.75 METs) Patient has the following medical comorbidities which might affect the perioperative course: - Chronic Asthma which is mild and intermittent. - Seizure disorder, on keppra PAST MEDICAL HISTORY Diagnosis Date - Asthma - Dermatitis - Hives - Mitral valve stenosis - Seizure (HCC) 08/2016 PAST SURGICAL HISTORY Procedure Laterality Date - CARPAL TUNNEL 03/07/2017 Dr. Schmitt both wrists FAMILY HISTORY Problem Relation Age of Onset - Cancer Mother 54 lung - None Father parkinson - Colon Cancer Paternal Grandmother 55 - Diabetes Paternal Grandmother - Cancer Paternal Uncle prostate Social History Substance Use Topics - Smoking status: Current Every Day Smoker Packs/day: 0.50 Years: 10.00 Types: Cigarettes - Smokeless tobacco: Never Used Comment: cutting back. has not smoked in 3 days since 07/28/17 - Alcohol use No (Not in a hospital admission) OTC PRODUCT Anbrem escitalopram oxalate (LEXAPRO) 10 mg tablet Take 1 tablet by mouth once daily. Take 1/2 tablet once a day for 7 days then increase to a full tablet daily. levETIRAcetam (KEPPRA) 500 mg tablet Take 1 tablet by mouth twice daily. mometasone-formoterol (DULERA) 100-5 mcg/actuation inhaler Inhale 2 Puffs as instructed twice daily. Buprenorphine-nalOXone (SUBOXONE) 8-2 mg film Dissolve under the tongue once daily. 8 mg tablet. albuterol HFA (VENTOLIN HFA) 90 mcg/actuation inhaler Inhale 2 Puffs as instructed every 4 hours as needed. meclizine (ANTIVERT) 12.5 mg tab Take 1 tablet by mouth three times daily as needed (for dizziness.). ibuprofen (MOTRIN) 800 mg tablet BLACK COHOSH ORAL Take by mouth. ALLERGIES No Known Allergies REVIEW OF SYSTEMS: PAIN ASSESSMENT: Negative for pain, history of chronic pain, or current treatment for a chronic pain condition. GENERAL: No weight loss, malaise or fevers NECK: Negative for lumps, goiter, pain and significant neck swelling RESPIRATORY: Negative for cough, Positive for chronic cough asthma, shortness of breath limiting daily activity SEE HPI CARDIOVASCULAR: Negative for chest pain, leg swelling or palpitations., Positive for palpitations See holter report claudication leg heaviness when exerting, and PND GI: Negative for abdominal discomfort, blood in stools or black stools or change in bowel habits : No history of dysuria, frequency or incontinence COPY HOLDER: Negative for abnormal vaginal bleeding, abnormal vaginal discharge, early menopause MUSCULOSKELETAL: Negative for joint pain or swelling, back pain or muscle pain. SKIN: Negative for lesions, rash, and itching. HEMATOLOGY/LYMPHOLOGY Negative for prolonged bleeding, bruising easily or swollen nodes. ENDOCRINE: Negative for cold or heat intolerance, polyuria, polydipsia and goiter. NEURO: seizures and See HPI Objective PHYSICAL EXAM: BP 100/64 (BP Site: Right Arm, BP Position: Sitting) Pulse (!) 56 Resp 18 Ht 5' 3.5 (1.613 m) Wt 147 lb (66.7 kg) SpO2 99% BMI 25.63 kg/m? Body surface area is 1.73 meters squared. STS RISK CALCULATOR: 0.777% General Appearance: well developed and no distress Skin: warm and dry Neck: no carotid bruits Lungs: clear and respiratory effort: normal Heart: S1, S2 normal and no murmur heard in spite of attempts at multiple locations Peripheral Vascular/Arteries: pulses intact Abdomen: soft, non-tender and bowel sounds present Neurologic/Psychiatric: oriented to time, place and person Extremities: normal exam of the extremities - No Edema Lines, Drains, and Airways No matching active lines, drains, or airways DATA: Diagnostic tests reviewed for today's visit: Significant Lab Results: Date 02/2017 ECHO: Left Ventricle Normal left ventricular size and systolic function. No regional wall motion abnormalities. LVEF is 50-55% by visual estimation. Right Ventricle Mildly dilated right ventricle. Left Atrium The left atrium appears severely dilated in size. There is no evidence of a thrombus in the left atrial body or appendage. Right Atrium The right atrium appears normal in size. Mitral Valve The mitral leaflets are severely thickened and calcified. There is thickening of the tips, diastolic doming, and a hockey stick appearance of the leaflets suggesting prior rheumatic heart disease. There is also thickening and calcification of the subvalvular apparatus. The Spenser's score exceeds 8. The valve area by the PISA method is 0.4 cm2. The peak, and mean gradients are 24, and 15 mm Hg. Moderate (2+) mitral valve regurgitation. Attempts at quantification by vena contracta, PISA were unsuccesful, and likely inaccurate due to the degree of thickening of the valve , and subvalvular apparatus. No systolic pulm vein flow reversal is evident. The mechanism appears to be severe leaflet restriction There is severe mitral valve stenosis. Tricuspid Valve Structurally normal tricuspid valve with trivial to mild tricuspid regurgitation. Pulmonic Valve Structurally normal pulmonic valve. Ascending Aorta The ascending aorta appears normal in size. The visualized descending thoracic aorta and aortic arch are normal in size. Pericardium The pericardium is normal. Cardiac Shunt There is evidence of right to left interatrial shunting by agitated saline contrast study with Valsalva. MRI IMPRESSION: No acute intracranial process. ?No abnormal enhancement. Nonspecific scattered patchy areas of white matter increased T2 and FLAIR signal. ?Most likely etiology is vasculopathy possibly vasculitis. Prominent posterior pituitary of uncertain significance and not well evaluated on this exam. Assessment/Plan 1. Tobacco use - ICD9: 305.1, ICD10: Z72.0 (primary diagnosis) - Cessation encouraged. - Physiologic and physical aspects of tobacco addiction as well as strategies for quitting were discussed. - Counseling was given focusing on the harmful effects of this addiction especially given the patient's medical condition(s) which will be worsened because of the chemicals in tobacco. - Prescription for nicotine patches given - CONSULT TO SMOKING CESSATION - NICOTINE 21 MG/24 HR DAILY TRANSDERMAL PATCH - LUNG DIFFUSION CAPACITY (DLCO) - SPIROMETRY - BASELINE AND POST DILATOR - Room air ABG 2. Mitral valve stenosis, rheumatic - ICD9: 394.0, ICD10: I05.0 - CONSULT TO SMOKING CESSATION - NICOTINE 21 MG/24 HR DAILY TRANSDERMAL PATCH - LEFT HEART CATH,PERCUTANEOUS - RIGHT HEART CATHETERIZATION - LUNG DIFFUSION CAPACITY (DLCO) - LUNG VOLUMES - ARTERIAL BLOOD GAS, ROOM AIR - SPIROMETRY - BASELINE AND POST DILATOR 3. Tobacco use disorder - ICD9: 305.1, ICD10: F17.200 - Cessation encouraged. - Physiologic and physical aspects of tobacco addiction as well as strategies for quitting were discussed. - Counseling was given focusing on the harmful effects of this addiction especially given the patient's medical condition(s) which will be worsened because of the chemicals in tobacco. - CONSULT TO SMOKING CESSATION - NICOTINE 21 MG/24 HR DAILY TRANSDERMAL PATCH - LUNG VOLUMES - ARTERIAL BLOOD GAS, ROOM AIR - SPIROMETRY - BASELINE AND POST DILATOR 4. Personal history of tobacco use, presenting hazards to health - ICD9: V15.82, ICD10: Z87.891 - CONSULT TO SMOKING CESSATION - NICOTINE 21 MG/24 HR DAILY TRANSDERMAL PATCH - SPIROMETRY - BASELINE AND POST DILATOR Venice Correa APRN.MAR[facility] Tests/Labs Ordered: 1. Dental Clearance 2. PFT 3. Left and right heart cath She is to follow-up in our office in 2-3 weeks following the PFT and heart cath. These findings will be communicated back to the requesting provider electronically. Thank you for giving me the opportunity to participate in your patient's care. SIGNATURE: Venice Correa APRN.[facility] SENIOR PATIENT NAME: Benjamin Garces DATE: October 02, 2017 TIME: 1:47 PM PAGER/CONTACT #: [phone] ETX [id number] CNOV Observed: 10/02/2017 Status: COMPLETED Source: [place] 1:30 PM CLINIC OTHER CAMPUS REPOSITORY Office Visit ([facility]) BENJAMIN GARCES ([id number]) 1970 F Date Time Provider Department 10/02/17 1:30 PM VENICE CORREA (MARIVEL) [facility] During your visit today, we recorded the following information about you: Pulse Respiration Blood pressure Weight 56/minute 18/minute 100/64 66.7 kg Height 1.613 m Siomara Del Rosario LPN 10/02/2017 1:28 PM Signed CARDIAC REHAB 5 METER WALK TEST SERVICE DATE: 10/02/2017 SERVICE TIME: 1:20 ASSESSMENT: SIGNATURE: Siomara Del Rosario LPN PATIENT NAME: Benjamin Garces DATE: October 02, 2017 TIME: 1:21 PM PAGER/CONTACT #: [id number] 1. 3.43 sec 2. 3.43 sec 3. 3.41 sec Venice Correa APRN.CNP 10/02/2017 5:33 PM Signed CARDIOTHORACIC SURGERY CONSULT / HANDP SERVICE DATE: 10/02/2017 SERVICE TIME: 1:30PM Subjective PRIMARY SERVICE: Cardiothoracic Surgery CHIEF COMPLAINT: Mitral Stenosis HPI: This is a 47 year old female who was referred by Dr Tripp for severe symptomatic rheumatic mitral stenosis in the setting of current smoker, asthma, seizure disorder and history of drug abuse. She states that her BP has been very low since she started seeing her current PCP, approximately 1 year with readings 80's/50's. She states that about a year ago she noticed increasing fatigue, SOB, dizziness, leg heaviness with climbing stairs. Then in Feb 04/Mar 08 she had an episode at work when she experienced severe dizziness with near syncope and she was sent home. During this episode she denies any acute illness, or chest pain. Since this episode, she has notice increasing dizziness, fatigue, exercise intolerance, and PND requiring 2-3 pillows to sleep at night. She saw her neurologist Dr James in june 2017, and reported these symptoms. He ordered an echo and 48 hour holter monitor. A surface echo was done in 06/2017 which showed severe MS and left atrial enlargement. The holter showed NSR with SVE beats and runs. At which point she was referred to Dr Tripp who ordered a PRESTON with severe MS, Moderate MR, and evidence of right to left intra-atrial shunting with valsalva. She was referred to cardiothoracic surgery for further evaluation. She reports her drug use of heroin which she snorted as well as other oral and inhaled drugs including amphetimine. She denied IV drug use. She further states that she quit about a year ago after her first seizure and follow [facility]. Her Seizure disorder was diagnosed after her first seizure in 08/2016. EEG notes left fronto-temporal seizure, but imaging was grossly non specific. She otherwise denies stroke, migraines, thyroid disease, DM, liver disease, prologue or unusual bleeding or clotting, LE edema. Patient is Able to Perform the Following Physical Activity: Walk indoors, such as around the house (1.75 METs) Patient has the following medical comorbidities which might affect the perioperative course: - Chronic Asthma which is mild and intermittent. - Seizure disorder, on [facility] PAST MEDICAL HISTORY Diagnosis Date - Asthma - Dermatitis - Hives - Mitral valve stenosis - Seizure (HCC) 08/2016 PAST SURGICAL HISTORY Procedure Laterality Date - CARPAL TUNNEL 03/07/2017 Dr. Schmitt both wrists FAMILY HISTORY Problem Relation Age of Onset - Cancer Mother 54 lung - None Father parkinson - Colon Cancer Paternal Grandmother 55 - Diabetes Paternal Grandmother - Cancer Paternal Uncle prostate Social History Substance Use Topics - Smoking status: Current Every Day Smoker Packs/day: 0.50 Years: 10.00 Types: Cigarettes - Smokeless tobacco: Never Used Comment: cutting back. has not smoked in 3 days since 07/28/17 - Alcohol use No (Not in a hospital admission) OTC PRODUCT Anbrem escitalopram oxalate (LEXAPRO) 10 mg tablet Take 1 tablet by mouth once daily. Take 1/2 tablet once a day for 7 days then increase to a full tablet daily. levETIRAcetam (KEPPRA) 500 mg tablet Take 1 tablet by mouth twice daily. mometasone-formoterol (DULERA) 100-5 mcg/actuation inhaler Inhale 2 Puffs as instructed twice daily. Buprenorphine-nalOXone (SUBOXONE) 8-2 mg film Dissolve under the tongue once daily. 8 mg tablet. albuterol HFA (VENTOLIN HFA) 90 mcg/actuation inhaler Inhale 2 Puffs as instructed every 4 hours as needed. meclizine (ANTIVERT) 12.5 mg tab Take 1 tablet by mouth three times daily as needed (for dizziness.). ibuprofen (MOTRIN) 800 mg tablet BLACK COHOSH ORAL Take by mouth. ALLERGIES No Known Allergies REVIEW OF SYSTEMS: PAIN ASSESSMENT: Negative for pain, history of chronic pain, or current treatment for a chronic pain condition. GENERAL: No weight loss, malaise or fevers NECK: Negative for lumps, goiter, pain and significant neck swelling RESPIRATORY: Negative for cough, Positive for chronic cough asthma, shortness of breath limiting daily activity SEE HPI CARDIOVASCULAR: Negative for chest pain, leg swelling or palpitations., Positive for palpitations See holter report claudication leg heaviness when exerting, and PND GI: Negative for abdominal discomfort, blood in stools or black stools or change in bowel habits : No history of dysuria, frequency or incontinence COPY HOLDER: Negative for abnormal vaginal bleeding, abnormal vaginal discharge, early menopause MUSCULOSKELETAL: Negative for joint pain or swelling, back pain or muscle pain. SKIN: Negative for lesions, rash, and itching. HEMATOLOGY/LYMPHOLOGY Negative for prolonged bleeding, bruising easily or swollen nodes. ENDOCRINE: Negative for cold or heat intolerance, polyuria, polydipsia and goiter. NEURO: seizures and See HPI Objective PHYSICAL EXAM: BP 100/64 (BP Site: Right Arm, BP Position: Sitting) Pulse (!) 56 Resp 18 Ht 5' 3.5 (1.613 m) Wt 147 lb (66.7 kg) SpO2 99% BMI 25.63 kg/m? Body surface area is 1.73 meters squared. STS RISK CALCULATOR: 0.777% General Appearance: well developed and no distress Skin: warm and dry Neck: no carotid bruits Lungs: clear and respiratory effort: normal Heart: S1, S2 normal and no murmur heard in spite of attempts at multiple locations Peripheral Vascular/Arteries: pulses intact Abdomen: soft, non-tender and bowel sounds present Neurologic/Psychiatric: oriented to time, place and person Extremities: normal exam of the extremities - No Edema Lines, Drains, and Airways No matching active lines, drains, or airways DATA: Diagnostic tests reviewed for today's visit: Significant Lab Results: Date 02/2017 ECHO: Left Ventricle Normal left ventricular size and systolic function. No regional wall motion abnormalities. LVEF is 50-55% by visual estimation. Right Ventricle Mildly dilated right ventricle. Left Atrium The left atrium appears severely dilated in size. There is no evidence of a thrombus in the left atrial body or appendage. Right Atrium The right atrium appears normal in size. Mitral Valve The mitral leaflets are severely thickened and calcified. There is thickening of the tips, diastolic doming, and a hockey stick appearance of the leaflets suggesting prior rheumatic heart disease. There is also thickening and calcification of the subvalvular apparatus. The Spenser's score exceeds 8. The valve area by the PISA method is 0.4 cm2. The peak, and mean gradients are 24, and 15 mm Hg. Moderate (2+) mitral valve regurgitation. Attempts at quantification by vena contracta, PISA were unsuccesful, and likely inaccurate due to the degree of thickening of the valve , and subvalvular apparatus. No systolic pulm vein flow reversal is evident. The mechanism appears to be severe leaflet restriction There is severe mitral valve stenosis. Tricuspid Valve Structurally normal tricuspid valve with trivial to mild tricuspid regurgitation. Pulmonic Valve Structurally normal pulmonic valve. Ascending Aorta The ascending aorta appears normal in size. The visualized descending thoracic aorta and aortic arch are normal in size. Pericardium The pericardium is normal. Cardiac Shunt There is evidence of right to left interatrial shunting by agitated saline contrast study with Valsalva. MRI IMPRESSION: No acute intracranial process. ?No abnormal enhancement. Nonspecific scattered patchy areas of white matter increased T2 and FLAIR signal. ?Most likely etiology is vasculopathy possibly vasculitis. Prominent posterior pituitary of uncertain significance and not well evaluated on this exam. Assessment/Plan 1. Tobacco use - ICD9: 305.1, ICD10: Z72.0 (primary diagnosis) - Cessation encouraged. - Physiologic and physical aspects of tobacco addiction as well as strategies for quitting were discussed. - Counseling was given focusing on the harmful effects of this addiction especially given the patient's medical condition(s) which will be worsened because of the chemicals in tobacco. - Prescription for nicotine patches given - CONSULT TO SMOKING CESSATION - NICOTINE 21 MG/24 HR DAILY TRANSDERMAL PATCH - LUNG DIFFUSION CAPACITY (DLCO) - SPIROMETRY - BASELINE AND POST DILATOR - Room air ABG 2. Mitral valve stenosis, rheumatic - ICD9: 394.0, ICD10: I05.0 - CONSULT TO SMOKING CESSATION - NICOTINE 21 MG/24 HR DAILY TRANSDERMAL PATCH - LEFT HEART CATH,PERCUTANEOUS - RIGHT HEART CATHETERIZATION - LUNG DIFFUSION CAPACITY (DLCO) - LUNG VOLUMES - ARTERIAL BLOOD GAS, ROOM AIR - SPIROMETRY - BASELINE AND POST DILATOR 3. Tobacco use disorder - ICD9: 305.1, ICD10: F17.200 - Cessation encouraged. - Physiologic and physical aspects of tobacco addiction as well as strategies for quitting were discussed. - Counseling was given focusing on the harmful effects of this addiction especially given the patient's medical condition(s) which will be worsened because of the chemicals in tobacco. - CONSULT TO SMOKING CESSATION - NICOTINE 21 MG/24 HR DAILY TRANSDERMAL PATCH - LUNG VOLUMES - ARTERIAL BLOOD GAS, ROOM AIR - SPIROMETRY - BASELINE AND POST DILATOR 4. Personal history of tobacco use, presenting hazards to health - ICD9: V15.82, ICD10: Z87.891 - CONSULT TO SMOKING CESSATION - NICOTINE 21 MG/24 HR DAILY TRANSDERMAL PATCH - SPIROMETRY - BASELINE AND POST DILATOR Venice Correa APRN.CNP Tests/Labs Ordered: 1. Dental Clearance 2. PFT 3. Left and right heart cath She is to follow-up in our office in 2-3 weeks following the PFT and heart cath. These findings will be communicated back to the requesting provider electronically. Thank you for giving me the opportunity to participate in your patient's care. SIGNATURE: Veince Correa APRN.CNP PATIENT NAME: Benjamin Garces DATE: October 02, 2017 TIME: 1:47 PM PAGER/CONTACT #: [phone] ETX [id number] Venice Correa APRN.CNP 10/02/2017 2:41 PM Addendum -We are seeing you today for mitral stenosis -You are symptomatic with low BP, dizziness, and fatigue -We are considering mitral valve replacement surgery. There are additional testing we would like you to undergo including: Pulmonary function testing Right and left heart catheterization -While you undergo these testings, please call your dentist for clearance SMOKING CESSATION Stopping smoking is the most important thing you can do to protect your current and future health, as well as that of your family. It is the most potent risk factor for the future development of coronary artery disease and heart attacks. Smoking is both an addiction and a learned behavior. The nicotine withdrawal takes anywhere from 2-4 weeks and results in symptoms such as irritability, fatigue, insomnia, coughing, dizziness, poor concentration, hunger and cigarette cravings. After the nicotine withdrawal period, the learned linkage between certain acts or situations and cigarette use remain. Strategies to deal with these must be developed along with new behaviors to ensure successful smoking cessation. STRATEGIES TOWARD SMOKING CESSATION - Make a list of the reasons why you want to quit, plus the benefits to be gained, and compare them to the reasons why you should continue to smoke. - Pick a specific quit date. - If you are interested in using nicotine patches or gum to assist with the nicotine withdrawal, let the staff know. - Inform friends, family, and co-workers that you are quitting and when your quit date is. Ask for their understanding and support. - Prepare your environment by removing all cigarettes prior to your quit date. - Prior to your quit date, avoid smoking in places where you spend a lot of time (such as the house, work, car). - From previous quit attempts, identify what helped you to stop smoking. - From previous quit attempts, identify what triggered relapse. How can you avoid that again? - What things (situations, emotions) do you anticipate will be most challenging, especially in the first few weeks, to your quitting effort? - What can you do to address these challenges? - Avoid (or limit) alcohol consumption during the quitting process. - If your spouse or close coworker currently smoke, consider quitting together or at the very least, develop specific plans to maintain your cigarette abstinence while in the home or at work. - Take each day, each hour, each craving, one at a time. Every step or action you take toward smoking cessation is a success. The only failure is the failure to try. - The health of you and your family, is worth the effort. STOP SMOKING CHECK LIST Preparing to Quit: ___ Make a personal pact with yourself to quit. ___ Pick a date for quitting completely. (My date to quit is ____.) ___ Write down on a card the three most important reasons for quitting. Carry the card with you from now on. Look at it several times a day. ___ Prior to quitting, eliminate smoking completely in 2 or 3 of your high risk situations. ___ Reduce consumption to one pack per day or less. ___ Change to a less desirable brand of cigarettes. ___ Discard your clam shucker. Use matches. Carry your cigarettes in a different place. ___ Spend a little time each day picturing in your mind stressful events occurring in the future and you not smoking. Actual Quitting: The First Two Weeks ___ Get rid of all cigarettes. Put away all smoking related objects such as ashtrays. Ask the people you live with not to smoke in your presence for the first two weeks. ___ Spend as much time as possible with non-smoking people. ___ Keep busy, especially on evenings and weekends. ___ Avoid high risk situations (large parties, bars, etc.). ___ Spend lots of time in places that prohibit or discourage smoking (e.g., theaters, libraries.) ___ Drink plenty of fluids. ___ Don't substitute food or sugar based products for cigarettes. Use approved substitutions. (... ice water, high bulk/low calorie foods, sugarless gum, mouthwash, brushing teeth.) ___ Begin or increase regular exercise program. ___ When experiencing withdrawal effects: 1. Remind yourself why you are quitting (from your card). 2. Remind yourself that whatever discomfort you are experiencing is only a tiny fraction of the probable discomfort associated with continued smoking. 3. Practice deep breathing or other relaxation techniques - tapes. ___ Remind yourself that you can free yourself from this unhealthy, expensive, messy habit and become a non-smoker. Maintenance of Quitting: After two weeks ___ Remind yourself that the desire to smoke is linked to a great many situations, people and emotional stress. ___ When you do have a desire to smoke, remember that it only lasts a few seconds: distract yourself and leave the situation if necessary. ___ After each desire to smoke has passed, pat yourself on the back, you have just made progress in breaking the habit forever. ___ Save the money on wasted on cigarettes in a special fund and buy yourself something nice. Maintenance of Quitting: After Two Months ___ Be particularly vigilant when unusual life events occur. (.. weddings, holidays, vacations.) ___ Be particularly vigilant when stressful life events occur (e.g., relationship problems, financial or work problems.) ___ Remind yourself regularly that not smoking is completely within your personal control. ___ Never lull yourself into thinking you are out of danger and you can safely have a cigarette or two. -- you cannot!!!!! ___ If, by chance, you do slip and have one or more cigarettes, do not conclude that all is lost. Return to complete abstinence immediately and learn from your experience. ___ If you have gained significant weight since quitting, now is the time to do something about it. ___ Each time you see a cigarettes advertisement, remind yourself of why you quit. Also remember that a [employer] industry spends billions of dollars each year trying to get people like yourself re-hooked. Referring Provider: CLAUDIO REYES [[id number]] Allergies As of Date: 10/02/2017 (No Known Allergies) Date Reviewed: 10/02/2017 Reviewed by: Siomara Del Rosario LPN - Fully Assessed Reason for Visit: Valvular Heart Disease [169] Cmt: Benjamin is new pt rfd by Dr. Tripp for severe mitral valve stenosis. Primary Visit Diagnosis:Tobacco use [Z72.0] Other Visit Diagnoses:Mitral valve stenosis, rheumatic [I05.0] Tobacco use disorder [F17.200] Personal history of tobacco use, presenting hazards to health [Z87.891] Order(s):CONSULT TO SMOKING CESSATION [1786468] Order #: [id number]: 1 nicotine (NICODERM CQ) 21 mg/24 hrApply 1 Patch as directed every 24 hours. APPLY ONE PATCH EVERY 24 HOURS TOPICALLYDisp: 28 PatchRfl: 2 LEFT HEART CATH,PERCUTANEOUS [[id number]] Order #: [id number]: 1 RIGHT HEART CATHETERIZATION [[id number]] Order #: [id number]: 1 LUNG DIFFUSION CAPACITY (DLCO) [[id number]] Order #: [id number] FUTURE LUNG VOLUMES [[id number]] Order #: [id number] FUTURE ARTERIAL BLOOD GAS, ROOM AIR [] Order #: [id number] FUTURE SPIROMETRY - BASELINE AND POST DILATOR [[id number]] Order #: [id number] FUTURE Prescriptions as of 10/02/2017 Sig: OTC PRODUCT Anbrem ESCITALOPRAM 10 MG TABLET Take 1 tablet by mouth once d* LEVETIRACETAM 500 MG TABLET Take 1 tablet by mouth twice * MOMETASONE-FORMOTEROL HFA 100* Inhale 2 Puffs as instructed * BUPRENORPHINE 8 MG-NALOXONE 2* Dissolve under the tongue on* ALBUTEROL SULFATE HFA 90 MCG/* Inhale 2 Puffs as instructed * NICOTINE 21 MG/24 HR DAILY TR* Apply 1 Patch as directed roman* MECLIZINE 12.5 MG TABLET Take 1 tablet by mouth three * Patient not taking: Reported on 10/02/2017 IBUPROFEN 800 MG TABLET BLACK COHOSH ORAL Take by mouth. Problem List As Of Date 10/02/2017 Noted Resolved Seizures (HCC) [R56.9] INVALID FOR* More... Drug abuse [F19.10] INVALID FOR* More... Abnormal finding on breast imaging [R92.8] INVALID FOR* Asthma [J45.909] Mitral valve stenosis, rheumatic [I05.0] INVALID FOR* Other instructions from your clinician: -We are seeing you today for mitral stenosis -You are symptomatic with low BP, dizziness, and fatigue -We are considering mitral valve replacement surgery. There are additional testing we would like you to undergo including: Pulmonary function testing Right and left heart catheterization -While you undergo these testings, please call your dentist for clearance SMOKING CESSATION Stopping smoking is the most important thing you can do to protect your current and future health, as well as that of your family. It is the most potent risk factor for the future development of coronary artery disease and heart attacks. Smoking is both an addiction and a learned behavior. The nicotine withdrawal takes anywhere from 2-4 weeks and results in symptoms such as irritability, fatigue, insomnia, coughing, dizziness, poor concentration, hunger and cigarette cravings. After the nicotine withdrawal period, the learned linkage between certain acts or situations and cigarette use remain. Strategies to deal with these must be developed along with new behaviors to ensure successful smoking cessation. STRATEGIES TOWARD SMOKING CESSATION - Make a list of the reasons why you want to quit, plus the benefits to be gained, and compare them to the reasons why you should continue to smoke. - Pick a specific quit date. - If you are interested in using nicotine patches or gum to assist with the nicotine withdrawal, let the staff know. - Inform friends, family, and co-workers that you are quitting and when your quit date is. Ask for their understanding and support. - Prepare your environment by removing all cigarettes prior to your quit date. - Prior to your quit date, avoid smoking in places where you spend a lot of time (such as the house, work, car). - From previous quit attempts, identify what helped you to stop smoking. - From previous quit attempts, identify what triggered relapse. How can you avoid that again? - What things (situations, emotions) do you anticipate will be most challenging, especially in the first few weeks, to your quitting effort? - What can you do to address these challenges? - Avoid (or limit) alcohol consumption during the quitting process. - If your spouse or close coworker currently smoke, consider quitting together or at the very least, develop specific plans to maintain your cigarette abstinence while in the home or at work. - Take each day, each hour, each craving, one at a time. Every step or action you take toward smoking cessation is a success. The only failure is the failure to try. - The health of you and your family, is worth the effort. STOP SMOKING CHECK LIST Preparing to Quit: ___ Make a personal pact with yourself to quit. ___ Pick a date for quitting completely. (My date to quit is ____.) ___ Write down on a card the three most important reasons for quitting. Carry the card with you from now on. Look at it several times a day. ___ Prior to quitting, eliminate smoking completely in 2 or 3 of your high risk situations. ___ Reduce consumption to one pack per day or less. ___ Change to a less desirable brand of cigarettes. ___ Discard your clam shucker. Use matches. Carry your cigarettes in a different place. ___ Spend a little time each day picturing in your mind stressful events occurring in the future and you not smoking. Actual Quitting: The First Two Weeks ___ Get rid of all cigarettes. Put away all smoking related objects such as ashtrays. Ask the people you live with not to smoke in your presence for the first two weeks. ___ Spend as much time as possible with non-smoking people. ___ Keep busy, especially on evenings and weekends. ___ Avoid high risk situations (large parties, bars, etc.). ___ Spend lots of time in places that prohibit or discourage smoking (e.g., theaters, libraries.) ___ Drink plenty of fluids. ___ Don't substitute food or sugar based products for cigarettes. Use approved substitutions. (... ice water, high bulk/low calorie foods, sugarless gum, mouthwash, brushing teeth.) ___ Begin or increase regular exercise program. ___ When experiencing withdrawal effects: 1. Remind yourself why you are quitting (from your card). 2. Remind yourself that whatever discomfort you are experiencing is only a tiny fraction of the probable discomfort associated with continued smoking. 3. Practice deep breathing or other relaxation techniques - tapes. ___ Remind yourself that you can free yourself from this unhealthy, expensive, messy habit and become a non-smoker. Maintenance of Quitting: After two weeks ___ Remind yourself that the desire to smoke is linked to a great many situations, people and emotional stress. ___ When you do have a desire to smoke, remember that it only lasts a few seconds: distract yourself and leave the situation if necessary. ___ After each desire to smoke has passed, pat yourself on the back, you have just made progress in breaking the habit forever. ___ Save the money on wasted on cigarettes in a special fund and buy yourself something nice. Maintenance of Quitting: After Two Months ___ Be particularly vigilant when unusual life events occur. (.. weddings, holidays, vacations.) ___ Be particularly vigilant when stressful life events occur (e.g., relationship problems, financial or work problems.) ___ Remind yourself regularly that not smoking is completely within your personal control. ___ Never lull yourself into thinking you are out of danger and you can safely have a cigarette or two. -- you cannot!!!!! ___ If, by chance, you do slip and have one or more cigarettes, do not conclude that all is lost. Return to complete abstinence immediately and learn from your experience. ___ If you have gained significant weight since quitting, now is the time to do something about it. ___ Each time you see a cigarettes advertisement, remind yourself of why you quit. Also remember that a powerful industry spends billions of dollars each year trying to get people like yourself re-hooked. Visit Notes: >> Siomara Schreiber Oct 02, 2017 1:21 PM Status: Signed CARDIAC REHAB 5 METER WALK TEST SERVICE DATE: 10/02/2017 SERVICE TIME: 1:20 ASSESSMENT: SIGNATURE: Siomara Del Rosario LPN PATIENT NAME: Benjamin Garces DATE: October 02, 2017 TIME: 1:21 PM PAGER/CONTACT #: [phone] 1. 3.43 sec 2. 3.43 sec 3. 3.41 sec Prescriptions ordered this encounter Disp Refills Start End NICOTINE 21 MG/24 HR DAILY TRANSDERM* 28 P* 2 10/02/2017 Class: Print RX Route: TRANSDERM. Sig: Apply 1 Patch as directed every 24 hours. APPLY ONE PATCH EVERY 24 HOURS TOPICALLY Disposition: Return in about 3 weeks (around 10/23/2017) for PREOP MVR. Follow-up and Disposition History Recorded Encounter Status:Closed by VENICE CORREA CNP on 10/02/17 OPERATIVE NO Observed: 09/19/2017 Status: COMPLETED Source: [place] 11:16 AM [facility] OTHER CAMPUS REPOSITORY O ID: [id number] Author: Stephanie Tripp Service: Cardiovascular Medicine Author Type: Physician Type: Operative Report Filed: 09/19/2017 11:19 AM Note Text: OPERATIVE NOTE (Transesophageal echocardiogram) SURGERY DATE: 09/19/2017 Proceduralist(s) and [employer] Precinct(s): Stephanie Tripp MD, [facility] Procedures: Informed consent obtained after explanation of risks and benefits. Patient was brought to the transesophageal echo lab in a fasting state. The oropharynx was anesthetized using viscous lidocaine and hurricaine spray. Moderate sedation was achieved with Cardiac Anesthesia: 600 mg Propofol . Esophageal Intubation: Esophageal intubation was performed without difficulty, and desired cardiac views were obtained. The probe was then withdrawn. No complications occurred during the procedure. Findings: I. Chambers : LVEF: 50-55%. LA: No thrombi in LA appendage. Normal filling velocities. RA: Normal RV: Moderately dilated Cardiac shunt:None seen by bubble study and color II. Valves: A. Aortic: Normal. No aortic insufficiency. Gradients: Normal. Vegetations: None. B. Mitral: Moderate regurgitation. The leaflets are severely thickened, calcified, thickened at the tips, with diastolic doming, and hockey stick appearance , suggesting prior rheumatic heart disease. Severe MS Vegetations: None. C. Tricuspid: Trivial regurgitation. Vegetations: None. D. Pulmonic:No pulmonic regurgitation. III. Pericardium: No pericardial effusion. IV. Aorta: Normal descending aorta not visualized Complications: None SIGNATURE: Stephanie Tripp MD PATIENT NAME: Benjamin Garces DATE: September 19, 2017 TIME: 11:16 AM PAGER/CONTACT #: [phone] BRIEF OP NOT Observed: 09/19/2017 Status: COMPLETED Source: [place] 11:16 AM [facility] REPOSITORY HNO ID: [id number] Author: Stephanie Tripp Service: Cardiovascular Medicine Author Type: Physician Type: Brief Op Note Filed: 09/19/2017 11:16 AM Note Text: PRESTON performed with 600 mg Propofol (administered by anesthesia). Pt tolerated procedure well. ANES PREOP Observed: 09/19/2017 Status: COMPLETED Source: [place] 10:28 AM [facility] REPOSITORY HNO ID: [id number] Author: Timo Villanueva MD Service: Anesthesiology Author Type: Physician Type: Anesthesia PreOp Filed: 09/19/2017 10:29 AM Note Text: ANESTHESIOLOGY DAY OF SURGERY NOTE SERVICE DATE: 09/19/2017 SERVICE TIME: 10:28 AM : 1970 Procedure(s) (LRB): ECHOCARDIOGRAM TRANSESOPHOGEAL, REAL TIME W/IMAGE DOCUMENT (2D) (N/A) Surgeon(s): Stephanie Tripp Estimated body mass index is 25.51 kg/m? as calculated from the following: Height as of this encounter: 160 cm (5' 3). Weight as of this encounter: 65.3 kg (144 lb). Most recent hematocrit and potassium results: Hematocrit 38.9 02/28/2017 Potassium 3.9 02/28/2017 ANES DOS/PREOP NOTE: Vitals: 09/19/17 0647 BP: 108/72 Pulse: (!) 56 Resp: 16 Temp: 36.2 ?C (97.2 ?F) TempSrc: Temporal Artery SpO2: 97% Weight: 65.3 kg (144 lb) Height: 160 cm (5' 3) ACTIVE PROBLEM LIST Seizures (Hcc) Drug Abuse (Hcc) Abnormal Finding On Breast Imaging Asthma PAST MEDICAL HISTORY Diagnosis Date - Asthma - Dermatitis - Hives - Seizure (HCC) 08/2016 PAST SURGICAL HISTORY Procedure Laterality Date - CARPAL TUNNEL 03/07/2017 Dr. Schmitt both wrists FAMILY HISTORY Problem Relation Age of Onset - Cancer Mother 54 lung - None Father parkinson - Colon Cancer Paternal Grandmother 55 - Diabetes Paternal Grandmother - Cancer Paternal Uncle prostate Social History: Social History Substance Use Topics - Smoking status: Current Every Day Smoker Packs/day: 0.50 Years: 10.00 Types: Cigarettes - Smokeless tobacco: Never Used Comment: cutting back. has not smoked in 3 days since 07/28/17 - Alcohol use No No current facility-administered medications on file prior to encounter. Current Outpatient Prescriptions on File Prior to Encounter: OTC PRODUCT Anbrem meclizine (ANTIVERT) 12.5 mg tab Take 1 tablet by mouth three times daily as needed (for dizziness.). escitalopram oxalate (LEXAPRO) 10 mg tablet Take 1 tablet by mouth once daily. Take 1/2 tablet once a day for 7 days then increase to a full tablet daily. levETIRAcetam (KEPPRA) 500 mg tablet Take 1 tablet by mouth twice daily. Buprenorphine-nalOXone (SUBOXONE) 8-2 mg film Dissolve under the tongue once daily. 8 mg tablet. ibuprofen (MOTRIN) 800 mg tablet BLACK COHOSH ORAL Take by mouth. mometasone-formoterol (DULERA) 100-5 mcg/actuation inhaler Inhale 2 Puffs as instructed twice daily. albuterol HFA (VENTOLIN HFA) 90 mcg/actuation inhaler Inhale 2 Puffs as instructed every 4 hours as needed. No current facility-administered medications for this encounter. Allergies: ALLERGIES No Known Allergies DOS EXAM: Adequate NPO status: Yes Anesthetic risks, benefits, alternatives, personnel and consent discussed: Yes Patient agrees to proceed: Yes Previous Anesthesia: No history of adverse event. Airway Assessment: MP 2; Neck ROM: Full ROM without neurologic symptoms; Airway Evaluation: No significant abnormalities Symptoms of Sleep Apnea: None Dentition: Poor dentition Additional Physical Exam: Lungs: Patient health status unchanged since recent history and physical. See history and physical for exam findings. Cardiac: Patient health status unchanged since recent history and physical. See history and physical for exam findings. Additional Pertinent Findings: N/A Blood Products: Not anticipated for this procedure. Anesthetic Plan: General, Standard ASA Monitors and MAC with Sedation Pain Management Plan: Parenteral or Oral ASA Class: 3 Other Medical Problems: None Chronic Beta Irene medication administered within 24 hours: N/A I have interviewed and examined the patient. I have reviewed the medical record and/or the pre-anesthesia evaluation, pertinent labs, and test results. Significant changes in the patient's condition since the History and Physical, not otherwise documented in primary service progress notes: No This contains updated information obtained within 48 hours of Surgery/Procedure. SIGNATURE: Timo Villanueva MD PATIENT NAME: Benjamin Garces DATE: September 19, 2017 TIME: 10:28 AM CSN: [id number] HCG, QUAL. SERUM Collected: 09/19/2017 Status: F Source: [facility] 7:15 AM HEALTH SYSTEM REPOSITORY TYPE CODE TESTS RESULT OUT OF REFERENCE UNITS RANGE LAB SEHCG(LOINC Negative ) HCG, Negative Qual. Serum Performed By: #### SEHCG #### [place] [address] CNCO Observed: 09/10/2017 Status: COMPLETED Source: [place] 12:00 AM [facility] MAIN [facility] REPOSITORY Letter Text [address] [address] Dept Dept Claudio Reyes MD [facility] -[address] [place] [phone] - - September 10, 2017 Benjamin Fabricio Garces [address] [place] [id number] Dear Benjamin Fabricio Garces, We missed seeing you for a scheduled appointment on 09/10/[address] Reyes. [facility] strives to offer the best possible care for all of our patients, so we are concerned when scheduled appointments are missed. We understand that circumstances may arise which make it impossible to keep or arrive on time for a scheduled appointment. Should this happen in the future, please call us as soon as possible so we can either reschedule or cancel your appointment in a timely manner. The earlier you let us know, the more likely we can offer your appointment time to another patient. Patients who don't cancel scheduled appointments at least 24 hours in advance or who show up too late past their appointment time to be seen, are considered No Show cancellations. [facility] is committed to ensuring that our patients have access to our healthcare services. Patients who repeatedly miss scheduled appointments or routinely show up late may be released from the practice. Sincerely, Claudio Reyes M.D. (Signed electronically to expedite mailing) HOSP Observed: 09/07/2017 Status: COMPLETED Source: [place] 12:00 AM CLINIC OTHER CAMPUS REPOSITORY Patient:Benjamin Garces MRN: <[id number]> Height:5' 3(1.6 m) Weight:144 lb (65.318 kg) Outpatient Medications as of 09/19/17: OTC PRODUCT meclizine (ANTIVERT) 12.5 mg tab escitalopram oxalate (LEXAPRO) 10 mg tablet levETIRAcetam (KEPPRA) 500 mg tablet ibuprofen (MOTRIN) 800 mg tablet BLACK COHOSH ORAL mometasone-formoterol (DULERA) 100-5 mcg/actuation inhaler Buprenorphine-nalOXone (SUBOXONE) 8-2 mg film albuterol HFA (VENTOLIN HFA) 90 mcg/actuation inhaler Admission/Clinic Administered Medications as of 09/19/17: Patient has no admission medications. Problem List: Seizures (HCC) [R56.9] Drug abuse (HCC) [F19.10] Abnormal finding on breast imaging [R92.8] Asthma [J45.909] Allergies: No Known Allergies Date Verified:09/19/17 Lab Values No results within the last 30 days for the following basenames: K,HCT Progress Notes (CARD AG [place] POB): Ashanti Beck 09/06/2017 2:46 PM Signed LVM for patient to call the office. Patient is scheduled with Dr. Tripp for her PRESTON on 09/19/17. The hospital will call her on 09/18/17 between 2-5 pm with her arrival time and instructions. Progress Notes (CARD AG [place]ODI): Stephanie Tripp MD 08/29/2017 9:16 AM Signed PRIMARY CARE PHYSICIAN: Claudio Reyes MD [address] [place] [address] REFERRING PHYSICIAN: Claudio Reyes MD [address] [place], [place] [id number] CHIEF COMPLAINT: Patient presents with: New Patient: Referred by Dr. Reyes for abnormal echo. Patient has low BP, gets dizzy, has fatigue HPI: Ms Garces was kindly referred to me by Dr Reyes. From a cardiac standpoint, she has a history of asha standing smoking. She does not remember having rheumatic heart disease. She underwent an echo in 07/06, and the results revealed that she had normal LVEF of 57%, stage 2 diastolic dysfunction. There was evidence of severe thickening and calcification of the mitral valve leaflets. The thickening was most pronounced at the tips of the leaflets, with diastolic doming of the valve suggesting possible rheumatic mitral stenosis. The peak and mean gradients across the valve were 31 and 15 mmHg respectively. The mitral valve area by the pressure half- time method was calculated at 0.9 cm2. She had moderately severe mitral regurgitation. There was evidence of commisural fusion. By the PISA method, the effective regurgitant orifice area was calculated at 0.39 cm2, and the regurgitant volume was calculated at 53 mL. Vena contracta of the jet measured between 6-7 mm. Clinically, she has been complaining of exertional dyspnea, but she has also been a long time smoker, and is trying to quit. 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 She is currently using Suboxone. She denies feeling chest pain, but does admit to orthopnea, exertional dyspnea. She denies palpitations, lightheadedness, dizziness or loss of consciousness. PAST MEDICAL HISTORY Diagnosis Date - Asthma - Dermatitis - Hives - Seizure (HCC) 08/2016 PAST SURGICAL HISTORY Procedure Laterality Date - CARPAL TUNNEL 03/07/2017 Dr. Schmitt both wrists SOCIAL HISTORY Social History Substance Use Topics - Smoking status: Current Every Day Smoker Packs/day: 0.50 Years: 10.00 Types: Cigarettes - Smokeless tobacco: Never Used Comment: cutting back. has not smoked in 3 days since 07/28/17 - Alcohol use No FAMILY HISTORY Problem Relation Age of Onset - Cancer Mother 54 lung - None Father parkinson - Colon Cancer Paternal Grandmother 55 - Diabetes Paternal Grandmother - Cancer Paternal Uncle prostate ALLERGIES: ALLERGIES No Known Allergies MEDICATIONS: OTC PRODUCT Anbrem meclizine (ANTIVERT) 12.5 mg tab Take 1 tablet by mouth three times daily as needed (for dizziness.). escitalopram oxalate (LEXAPRO) 10 mg tablet Take 1 tablet by mouth once daily. Take 1/2 tablet once a day for 7 days then increase to a full tablet daily. levETIRAcetam (KEPPRA) 500 mg tablet Take 1 tablet by mouth twice daily. ibuprofen (MOTRIN) 800 mg tablet BLACK COHOSH ORAL Take by mouth. mometasone-formoterol (DULERA) 100-5 mcg/actuation inhaler Inhale 2 Puffs as instructed twice daily. Buprenorphine-nalOXone (SUBOXONE) 8-2 mg film Dissolve under the tongue once daily. 8 mg tablet. albuterol HFA (VENTOLIN HFA) 90 mcg/actuation inhaler Inhale 2 Puffs as instructed every 4 hours as needed. REVIEW OF SYSTEMS: GENERAL: Negative for:Weight loss and Weight gain HEENT: Negative for:Nosebleeds RESPIRATORY: + Shortness of breath GASTROINTESTINAL: Negative for:Blood in stool MUSCULOSKELETAL: Negtive for: Muscle or joint pain, stiffness, Joint swelling SKIN: No rash HEMATOLOGICAL/LYMPHATIC: Negative for: Easy bruising and Easy bleeding CARDIOVASCULAR: As stated in HPI. 10 system review negative except as stated in HPI PHYSICAL EXAMINATION: BP 87/55 Pulse 64 Temp (Src) 97.7 (Oral) Resp 16 Ht 5' 3.5 (1.61m) Wt 141 lb (64.0kg) SpO2 95[room air]% BMI 24.58 kg/(m2). General: Well appearing, in no acute distress, speaking in complete sentences., Well appearing. Psych: Normal Affect Eyes: No subconjunctival hemorrhage Skin: No rash, bruising Oropharynx: Mucous membranes normal Neck: no jugular venous distention, no carotid bruits. Lymph: No cervical lymphadenopathy Lungs: + wheezing bilaterally, posteriorly more than anteriorly. Heart: S1, S2 normal, no audible murmur despite attempts to listen to one, at the apex/axilla/back Extremities: No peripheral edema Neuro: Grossly nonfocal ASSESSMENT/PLAN: 1. Mitral stenosis with insufficiency, rheumatic - ICD9: 394.2, ICD10: I05.2 (primary diagnosis) She denies any prior history of rheumatic heart disease. However, the appearance of her mitral valve on echocardiography was very suggestive of rheumatic mitral disease. She had both mitral stenosis and insufficiency. As described above, the data was suggestive of severe mitral stenosis and moderate to severe mitral insufficiency. I did emphasize afterload reduction to her; however, I am unable to start her on any beta irene/GILSON inhibitor/ARB therapy due to low blood pressures at baseline. I had a long conversation with her, and outlined the etiology of mitral valve disease with her. I particularly emphasized rheumatic mitral disease. I will start her workup with a transesophageal echocardiogram. Any further recommendations will depend on the results of the same. I strongly encouraged her to quit smoking in anticipation for mitral valve surgery in the near future. - ECHO TRANSESOPHAGEAL 2. Seizures (HCC) - ICD9: 780.39, ICD10: R56.9 Continue Keppra 3. Uncomplicated asthma, unspecified asthma severity, unspecified whether persistent - ICD9: 493.90, ICD10: J45.909 Management per her primary physician - Avoidance of triggers recommended 4. H/O intravenous drug use in remission - ICD9: 305.93, ICD10: Z87.898 Currently in remission. Stephanie Tripp MD The above note was partially created using a dictation recognition software. A reasonable attempt has been made to correct any errors. Stephanie Tripp MD 08/29/2017 9:02 AM Signed Mitral regurgitation (The Basics) Written by the doctors and editors at [facility] What is mitral regurgitation? ? Mitral regurgitation is a condition in which one of the valves in the heart, called the mitral valve, leaks. When the heart valves are working normally, they keep blood flowing in only one direction. The valves work like swinging doors that open only one way ? letting blood out, but not back in. Normally, little or no blood is able to leak backward. But if the valves are not working properly, more blood can go back in the direction it came from. This can cause problems. The mitral valve normally keeps blood flowing from the left atrium to the left ventricle. When it leaks, it lets blood flow back into the left atrium. A small amount of mitral regurgitation occurs in most healthy people, but this does not usually cause problems. Some people have larger amounts of mitral regurgitation, and this can get worse with time. What are the symptoms of mitral regurgitation? ? Most people with mitral regurgitation have no symptoms. But some people with severe mitral regurgitation have one or more of the following symptoms: ?Trouble breathing ?Tiredness ?Weakness ?Swelling in the ankles, legs, or belly Is there a test for mitral regurgitation? ? Yes. If your doctor or nurse thinks you could have more than slight mitral regurgitation, he or she might order one or more of these tests: ?An electrocardiogram (ECG or EKG) ? This test measures the electrical activity in your heart. It can show whether you have signs of abnormal heart muscle or had a heart attack in the past. These are some of the things that can cause mitral regurgitation. ?A chest X-ray ? A chest X-ray shows if there is fluid in the lungs. It also shows the general shape and size of the heart. Many people with severe mitral regurgitation have an enlarged heart. ?An echocardiogram (or echo for short) ? This test uses sound waves to create a picture of your heart as it beats. It shows the size of the heart chambers, how well the heart is pumping, and how well the heart valves are working. How is mitral regurgitation treated? ? If you have a mild amount of mitral regurgitation, you might not need any treatment or follow- up. But even if you have larger amounts of mitral regurgitation, you might not need treatment. It's possible that your doctor will simply want to keep an eye on you to see if a need for treatment develops. For those who do need treatment, options might include: ?Surgery to repair or replace the mitral valve ?Medicine or surgery to correct heart rhythm problems that often affect people with mitral valve disease ?Medicines that lower blood pressure and make it easier for the heart to do its job ?Medicines that help prevent blood clots, which sometimes form more easily in people who have mitral regurgitation What if I want to get ? ? Women with mitral regurgitation who have no symptoms or mild symptoms are often able to have normal pregnancies. But women who have significant symptoms or severe mitral regurgitation can have serious problems during . If you have significant mitral regurgitation and would like to get , ask your doctor about it before you start trying. Some women need to have surgery to replace or repair their mitral valve before they try to have a baby. All topics are updated as new evidence becomes available and our peer review process is complete. This topic retrieved from [employer] on: Aug 26, 2015. The content on the [employer] website is not intended nor recommended as a substitute for medical advice, diagnosis, or treatment. Always seek the advice of your own physician or other qualified health pharmacist critical care regarding any medical questions or conditions. The use of [employer] content is governed by the [employer] Terms of Use. ?2016 [employer]. All rights reserved. Topic 44663 Version 7.0 PROGRESS Observed: 08/29/2017 Status: COMPLETED Source: [place] 8:56 AM [facility] REPOSITORY O ID: [id number] Author: Stephanie Tripp Service: (none) Author Type: Physician Type: Progress Notes Filed: 08/29/2017 9:16 AM Note Text: PRIMARY CARE PHYSICIAN: Claudio Reyes MD [address] [place], [place] [id number] REFERRING PHYSICIAN: Claudio Reyes MD [address] [place] [address] CHIEF COMPLAINT: Patient presents with: New Patient: Referred by Dr. Reyes for abnormal echo. Patient has low BP, gets dizzy, has fatigue HPI: Ms Garces was kindly referred to me by Dr Reyes. From a cardiac standpoint, she has a history of asha standing smoking. She does not remember having rheumatic heart disease. She underwent an echo in 07/06, and the results revealed that she had normal LVEF of 57%, stage 2 diastolic dysfunction. There was evidence of severe thickening and calcification of the mitral valve leaflets. The thickening was most pronounced at the tips of the leaflets, with diastolic doming of the valve suggesting possible rheumatic mitral stenosis. The peak and mean gradients across the valve were 31 and 15 mmHg respectively. The mitral valve area by the pressure half-time method was calculated at 0.9 cm2. She had moderately severe mitral regurgitation. There was evidence of commisural fusion. By the PISA method, the effective regurgitant orifice area was calculated at 0.39 cm2, and the regurgitant volume was calculated at 53 mL. Vena contracta of the jet measured between 6-7 mm. Clinically, she has been complaining of exertional dyspnea, but she has also been a long time smoker, and is trying to quit. 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 She is currently using Suboxone. She denies feeling chest pain, but does admit to orthopnea, exertional dyspnea. She denies palpitations, lightheadedness, dizziness or loss of consciousness. PAST MEDICAL HISTORY Diagnosis Date - Asthma - Dermatitis - Hives - Seizure (HCC) 08/2016 PAST SURGICAL HISTORY Procedure Laterality Date - CARPAL TUNNEL 03/07/2017 Dr. Schmitt both wrists SOCIAL HISTORY Social History Substance Use Topics - Smoking status: Current Every Day Smoker Packs/day: 0.50 Years: 10.00 Types: Cigarettes - Smokeless tobacco: Never Used Comment: cutting back. has not smoked in 3 days since 07/28/17 - Alcohol use No FAMILY HISTORY Problem Relation Age of Onset - Cancer Mother 54 lung - None Father parkinson - Colon Cancer Paternal Grandmother 55 - Diabetes Paternal Grandmother - Cancer Paternal Uncle prostate ALLERGIES: ALLERGIES No Known Allergies MEDICATIONS: OTC PRODUCT Anbrem meclizine (ANTIVERT) 12.5 mg tab Take 1 tablet by mouth three times daily as needed (for dizziness.). escitalopram oxalate (LEXAPRO) 10 mg tablet Take 1 tablet by mouth once daily. Take 1/2 tablet once a day for 7 days then increase to a full tablet daily. levETIRAcetam (KEPPRA) 500 mg tablet Take 1 tablet by mouth twice daily. ibuprofen (MOTRIN) 800 mg tablet BLACK COHOSH ORAL Take by mouth. mometasone-formoterol (DULERA) 100-5 mcg/actuation inhaler Inhale 2 Puffs as instructed twice daily. Buprenorphine-nalOXone (SUBOXONE) 8-2 mg film Dissolve under the tongue once daily. 8 mg tablet. albuterol HFA (VENTOLIN HFA) 90 mcg/actuation inhaler Inhale 2 Puffs as instructed every 4 hours as needed. REVIEW OF SYSTEMS: GENERAL: Negative for:Weight loss and Weight gain HEENT: Negative for:Nosebleeds RESPIRATORY: + Shortness of breath GASTROINTESTINAL: Negative for:Blood in stool MUSCULOSKELETAL: Negtive for: Muscle or joint pain, stiffness, Joint swelling SKIN: No rash HEMATOLOGICAL/LYMPHATIC: Negative for: Easy bruising and Easy bleeding CARDIOVASCULAR: As stated in HPI. 10 system review negative except as stated in HPI PHYSICAL EXAMINATION: BP 87/55 Pulse 64 Temp (Src) 97.7 (Oral) Resp 16 Ht 5' 3.5 (1.61m) Wt 141 lb (64.0kg) SpO2 95[room air]% BMI 24.58 kg/(m2). General: Well appearing, in no acute distress, speaking in complete sentences., Well appearing. Psych: Normal Affect Eyes: No subconjunctival hemorrhage Skin: No rash, bruising Oropharynx: Mucous membranes normal Neck: no jugular venous distention, no carotid bruits. Lymph: No cervical lymphadenopathy Lungs: + wheezing bilaterally, posteriorly more than anteriorly. Heart: S1, S2 normal, no audible murmur despite attempts to listen to one, at the apex/axilla/back Extremities: No peripheral edema Neuro: Grossly nonfocal ASSESSMENT/PLAN: 1. Mitral stenosis with insufficiency, rheumatic - ICD9: 394.2, ICD10: I05.2 (primary diagnosis) She denies any prior history of rheumatic heart disease. However, the appearance of her mitral valve on echocardiography was very suggestive of rheumatic mitral disease. She had both mitral stenosis and insufficiency. As described above, the data was suggestive of severe mitral stenosis and moderate to severe mitral insufficiency. I did emphasize afterload reduction to her; however, I am unable to start her on any beta irene/GILSON inhibitor/ARB therapy due to low blood pressures at baseline. I had a long conversation with her, and outlined the etiology of mitral valve disease with her. I particularly emphasized rheumatic mitral disease. I will start her workup with a transesophageal echocardiogram. Any further recommendations will depend on the results of the same. I strongly encouraged her to quit smoking in anticipation for mitral valve surgery in the near future. - ECHO TRANSESOPHAGEAL 2. Seizures (HCC) - ICD9: 780.39, ICD10: R56.9 Continue Keppra 3. Uncomplicated asthma, unspecified asthma severity, unspecified whether persistent - ICD9: 493.90, ICD10: J45.909 Management per her primary physician - Avoidance of triggers recommended 4. H/O intravenous drug use in remission - ICD9: 305.93, ICD10: Z87.898 Currently in remission. Stephanie Tripp MD The above note was partially created using a dictation recognition software. A reasonable attempt has been made to correct any errors. CNOV Observed: 08/29/2017 Status: COMPLETED Source: [place] 8:30 AM [facility] REPOSITORY Office Visit (AGCARDLOD) BENJAMIN GARCES ([id number]) 1970 F Date Time Provider Department 08/29/17 8:30 AM STEPHANIE TRIPP During your visit today, we recorded the following information about you: Temperature Pulse Respiration Blood pressure 97.7 degrees 64/minute 16/minute 87/55 Weight Height 64 kg 1.613 m Stephanie Tripp MD 08/29/2017 9:16 AM Signed PRIMARY CARE PHYSICIAN: Claudio Reyes MD [address] [place], [place] [phone] REFERRING PHYSICIAN: Claudio Reyes MD [address] [place] [id number] CHIEF COMPLAINT: Patient presents with: New Patient: Referred by Dr. Reyes for abnormal echo. Patient has low BP, gets dizzy, has fatigue HPI: Ms Garces was kindly referred to me by Dr Reyes. From a cardiac standpoint, she has a history of asha standing smoking. She does not remember having rheumatic heart disease. She underwent an echo in 07/06, and the results revealed that she had normal LVEF of 57%, stage 2 diastolic dysfunction. There was evidence of severe thickening and calcification of the mitral valve leaflets. The thickening was most pronounced at the tips of the leaflets, with diastolic doming of the valve suggesting possible rheumatic mitral stenosis. The peak and mean gradients across the valve were 31 and 15 mmHg respectively. The mitral valve area by the pressure half- time method was calculated at 0.9 cm2. She had moderately severe mitral regurgitation. There was evidence of commisural fusion. By the PISA method, the effective regurgitant orifice area was calculated at 0.39 cm2, and the regurgitant volume was calculated at 53 mL. Vena contracta of the jet measured between 6-7 mm. Clinically, she has been complaining of exertional dyspnea, but she has also been a long time smoker, and is trying to quit. 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 She is currently using Suboxone. She denies feeling chest pain, but does admit to orthopnea, exertional dyspnea. She denies palpitations, lightheadedness, dizziness or loss of consciousness. PAST MEDICAL HISTORY Diagnosis Date - Asthma - Dermatitis - Hives - Seizure (HCC) 08/2016 PAST SURGICAL HISTORY Procedure Laterality Date - CARPAL TUNNEL 03/07/2017 Dr. Schmitt both wrists SOCIAL HISTORY Social History Substance Use Topics - Smoking status: Current Every Day Smoker Packs/day: 0.50 Years: 10.00 Types: Cigarettes - Smokeless tobacco: Never Used Comment: cutting back. has not smoked in 3 days since 07/28/17 - Alcohol use No FAMILY HISTORY Problem Relation Age of Onset - Cancer Mother 54 lung - None Father parkinson - Colon Cancer Paternal Grandmother 55 - Diabetes Paternal Grandmother - Cancer Paternal Uncle prostate ALLERGIES: ALLERGIES No Known Allergies MEDICATIONS: OTC PRODUCT Anbrem meclizine (ANTIVERT) 12.5 mg tab Take 1 tablet by mouth three times daily as needed (for dizziness.). escitalopram oxalate (LEXAPRO) 10 mg tablet Take 1 tablet by mouth once daily. Take 1/2 tablet once a day for 7 days then increase to a full tablet daily. levETIRAcetam (KEPPRA) 500 mg tablet Take 1 tablet by mouth twice daily. ibuprofen (MOTRIN) 800 mg tablet BLACK COHOSH ORAL Take by mouth. mometasone-formoterol (DULERA) 100-5 mcg/actuation inhaler Inhale 2 Puffs as instructed twice daily. Buprenorphine-nalOXone (SUBOXONE) 8-2 mg film Dissolve under the tongue once daily. 8 mg tablet. albuterol HFA (VENTOLIN HFA) 90 mcg/actuation inhaler Inhale 2 Puffs as instructed every 4 hours as needed. REVIEW OF SYSTEMS: GENERAL: Negative for:Weight loss and Weight gain HEENT: Negative for:Nosebleeds RESPIRATORY: + Shortness of breath GASTROINTESTINAL: Negative for:Blood in stool MUSCULOSKELETAL: Negtive for: Muscle or joint pain, stiffness, Joint swelling SKIN: No rash HEMATOLOGICAL/LYMPHATIC: Negative for: Easy bruising and Easy bleeding CARDIOVASCULAR: As stated in HPI. 10 system review negative except as stated in HPI PHYSICAL EXAMINATION: BP 87/55 Pulse 64 Temp (Src) 97.7 (Oral) Resp 16 Ht 5' 3.5 (1.61m) Wt 141 lb (64.0kg) SpO2 95[room air]% BMI 24.58 kg/(m2). General: Well appearing, in no acute distress, speaking in complete sentences., Well appearing. Psych: Normal Affect Eyes: No subconjunctival hemorrhage Skin: No rash, bruising Oropharynx: Mucous membranes normal Neck: no jugular venous distention, no carotid bruits. Lymph: No cervical lymphadenopathy Lungs: + wheezing bilaterally, posteriorly more than anteriorly. Heart: S1, S2 normal, no audible murmur despite attempts to listen to one, at the apex/axilla/back Extremities: No peripheral edema Neuro: Grossly nonfocal ASSESSMENT/PLAN: 1. Mitral stenosis with insufficiency, rheumatic - ICD9: 394.2, ICD10: I05.2 (primary diagnosis) She denies any prior history of rheumatic heart disease. However, the appearance of her mitral valve on echocardiography was very suggestive of rheumatic mitral disease. She had both mitral stenosis and insufficiency. As described above, the data was suggestive of severe mitral stenosis and moderate to severe mitral insufficiency. I did emphasize afterload reduction to her; however, I am unable to start her on any beta irene/GILSON inhibitor/ARB therapy due to low blood pressures at baseline. I had a long conversation with her, and outlined the etiology of mitral valve disease with her. I particularly emphasized rheumatic mitral disease. I will start her workup with a transesophageal echocardiogram. Any further recommendations will depend on the results of the same. I strongly encouraged her to quit smoking in anticipation for mitral valve surgery in the near future. - ECHO TRANSESOPHAGEAL 2. Seizures (HCC) - ICD9: 780.39, ICD10: R56.9 Continue Keppra 3. Uncomplicated asthma, unspecified asthma severity, unspecified whether persistent - ICD9: 493.90, ICD10: J45.909 Management per her primary physician - Avoidance of triggers recommended 4. H/O intravenous drug use in remission - ICD9: 305.93, ICD10: Z87.898 Currently in remission. Stephanie Tripp MD The above note was partially created using a dictation recognition software. A reasonable attempt has been made to correct any errors. Stephanie Tripp MD 08/29/2017 9:02 AM Signed Mitral regurgitation (The Basics) Written by the doctors and editors at [facility] What is mitral regurgitation? ? Mitral regurgitation is a condition in which one of the valves in the heart, called the mitral valve, leaks. When the heart valves are working normally, they keep blood flowing in only one direction. The valves work like swinging doors that open only one way ? letting blood out, but not back in. Normally, little or no blood is able to leak backward. But if the valves are not working properly, more blood can go back in the direction it came from. This can cause problems. The mitral valve normally keeps blood flowing from the left atrium to the left ventricle. When it leaks, it lets blood flow back into the left atrium. A small amount of mitral regurgitation occurs in most healthy people, but this does not usually cause problems. Some people have larger amounts of mitral regurgitation, and this can get worse with time. What are the symptoms of mitral regurgitation? ? Most people with mitral regurgitation have no symptoms. But some people with severe mitral regurgitation have one or more of the following symptoms: ?Trouble breathing ?Tiredness ?Weakness ?Swelling in the ankles, legs, or belly Is there a test for mitral regurgitation? ? Yes. If your doctor or nurse thinks you could have more than slight mitral regurgitation, he or she might order one or more of these tests: ?An electrocardiogram (ECG or EKG) ? This test measures the electrical activity in your heart. It can show whether you have signs of abnormal heart muscle or had a heart attack in the past. These are some of the things that can cause mitral regurgitation. ?A chest X-ray ? A chest X-ray shows if there is fluid in the lungs. It also shows the general shape and size of the heart. Many people with severe mitral regurgitation have an enlarged heart. ?An echocardiogram (or echo for short) ? This test uses sound waves to create a picture of your heart as it beats. It shows the size of the heart chambers, how well the heart is pumping, and how well the heart valves are working. How is mitral regurgitation treated? ? If you have a mild amount of mitral regurgitation, you might not need any treatment or follow- up. But even if you have larger amounts of mitral regurgitation, you might not need treatment. It's possible that your doctor will simply want to keep an eye on you to see if a need for treatment develops. For those who do need treatment, options might include: ?Surgery to repair or replace the mitral valve ?Medicine or surgery to correct heart rhythm problems that often affect people with mitral valve disease ?Medicines that lower blood pressure and make it easier for the heart to do its job ?Medicines that help prevent blood clots, which sometimes form more easily in people who have mitral regurgitation What if I want to get ? ? Women with mitral regurgitation who have no symptoms or mild symptoms are often able to have normal pregnancies. But women who have significant symptoms or severe mitral regurgitation can have serious problems during . If you have significant mitral regurgitation and would like to get , ask your doctor about it before you start trying. Some women need to have surgery to replace or repair their mitral valve before they try to have a baby. All topics are updated as new evidence becomes available and our peer review process is complete. This topic retrieved from [employer] on: Aug 26, 2015. The content on the [employer] website is not intended nor recommended as a substitute for medical advice, diagnosis, or treatment. Always seek the advice of your own physician or other qualified health pharmacist critical care regarding any medical questions or conditions. The use of [employer] content is governed by the [employer] Terms of Use. ?2016 [employer]. All rights reserved. Topic 71358 Version 7.0 Referring Provider: CLAUDIO REYES [[id number]] Allergies As of Date: 08/29/2017 (No Known Allergies) Date Reviewed: 08/29/2017 Reviewed by: Stephanie Tripp - Fully Assessed Reason for Visit: New Patient [[id number]] Cmt: Referred by Dr. Reyes for abnormal echo. Patient has low BP, gets dizzy, has fatigue Primary Visit Diagnosis:Mitral stenosis with insufficiency, rheumatic [I05.2] Other Visit Diagnoses:Seizures (HCC) [R56.9] Uncomplicated asthma, unspecified asthma severity, unspecified whether persistent [J45.909] H/O intravenous drug use in remission [Z87.898] Order(s):ECHO TRANSESOPHAGEAL [[id number]] Order #: [id number]: 1 FUTURE Prescriptions as of 08/29/2017 Sig: OTC PRODUCT Anbrem MECLIZINE 12.5 MG TABLET Take 1 tablet by mouth three * ESCITALOPRAM 10 MG TABLET Take 1 tablet by mouth once d* LEVETIRACETAM 500 MG TABLET Take 1 tablet by mouth twice * IBUPROFEN 800 MG TABLET BLACK COHOSH ORAL Take by mouth. MOMETASONE-FORMOTEROL HFA 100* Inhale 2 Puffs as instructed * BUPRENORPHINE 8 MG-NALOXONE 2* Dissolve under the tongue on* ALBUTEROL SULFATE HFA 90 MCG/* Inhale 2 Puffs as instructed * Medication notes this encounter BLACK COHOSH ORAL >> Aileen Giordano RN, RN 08/29/2017 8:21 AM >> AILEEN GIORDANO RN SunAug 29, 2017 8:21 AM Not taking COMPRESSION STOCKING, KNEE HIGH,REGULAR LENGTH,MEDIUM >> Aileen Giordano RN, RN 08/29/2017 8:21 AM >> AILEEN GIORDANO RN SunAug 29, 2017 8:21 AM Not using Problem List As Of Date 08/29/2017 Noted Resolved Seizures (HCC) [R56.9] INVALID FOR* More... Drug abuse [F19.10] INVALID FOR* More... Abnormal finding on breast imaging [R92.8] INVALID FOR* Asthma [J45.909] Other instructions from your clinician: Mitral regurgitation (The Basics) Written by the doctors and editors at [facility] What is mitral regurgitation? ? Mitral regurgitation is a condition in which one of the valves in the heart, called the mitral valve, leaks. When the heart valves are working normally, they keep blood flowing in only one direction. The valves work like swinging doors that open only one way ? letting blood out, but not back in. Normally, little or no blood is able to leak backward. But if the valves are not working properly, more blood can go back in the direction it came from. This can cause problems. The mitral valve normally keeps blood flowing from the left atrium to the left ventricle. When it leaks, it lets blood flow back into the left atrium. A small amount of mitral regurgitation occurs in most healthy people, but this does not usually cause problems. Some people have larger amounts of mitral regurgitation, and this can get worse with time. What are the symptoms of mitral regurgitation? ? Most people with mitral regurgitation have no symptoms. But some people with severe mitral regurgitation have one or more of the following symptoms: ?Trouble breathing ?Tiredness ?Weakness ?Swelling in the ankles, legs, or belly Is there a test for mitral regurgitation? ? Yes. If your doctor or nurse thinks you could have more than slight mitral regurgitation, he or she might order one or more of these tests: ?An electrocardiogram (ECG or EKG) ? This test measures the electrical activity in your heart. It can show whether you have signs of abnormal heart muscle or had a heart attack in the past. These are some of the things that can cause mitral regurgitation. ?A chest X-ray ? A chest X-ray shows if there is fluid in the lungs. It also shows the general shape and size of the heart. Many people with severe mitral regurgitation have an enlarged heart. ?An echocardiogram (or echo for short) ? This test uses sound waves to create a picture of your heart as it beats. It shows the size of the heart chambers, how well the heart is pumping, and how well the heart valves are working. How is mitral regurgitation treated? ? If you have a mild amount of mitral regurgitation, you might not need any treatment or follow- up. But even if you have larger amounts of mitral regurgitation, you might not need treatment. It's possible that your doctor will simply want to keep an eye on you to see if a need for treatment develops. For those who do need treatment, options might include: ?Surgery to repair or replace the mitral valve ?Medicine or surgery to correct heart rhythm problems that often affect people with mitral valve disease ?Medicines that lower blood pressure and make it easier for the heart to do its job ?Medicines that help prevent blood clots, which sometimes form more easily in people who have mitral regurgitation What if I want to get ? ? Women with mitral regurgitation who have no symptoms or mild symptoms are often able to have normal pregnancies. But women who have significant symptoms or severe mitral regurgitation can have serious problems during . If you have significant mitral regurgitation and would like to get , ask your doctor about it before you start trying. Some women need to have surgery to replace or repair their mitral valve before they try to have a baby. All topics are updated as new evidence becomes available and our peer review process is complete. This topic retrieved from [employer] on: Aug 26, 2015. The content on the [employer] website is not intended nor recommended as a substitute for medical advice, diagnosis, or treatment. Always seek the advice of your own physician or other qualified health pharmacist critical care regarding any medical questions or conditions. The use of [employer] content is governed by the [employer] Terms of Use. ?2016 [employer]. All rights reserved. Topic 43855 Version 7.0 Medications Discontinued During This Encounter Comp Stocking,Knee,Regular,Med misc 2 Ea* 0 06/19/2017 08/29/2017 Sig: Wear during day as instructed. Patient not taking: Reported on 07/30/2017 Disc: Discontinued by Patient Disposition: Return in about 6 months (around 03/01/2018). Follow-up and Disposition History Recorded Letter Text Encounter Status:Closed by STEPHANIE TRIPP on 08/29/17 IVELISSE Observed: 08/01/2017 Status: COMPLETED Source: [place] 12:00 AM [facility] REPOSITORY Telephone (AGINTMLW) BENJAMIN GARCES ([id number]) 1970 F Date Time Provider Department 08/01/17 CLAUDIO REYES AGINTMLEula During your visit today, we recorded the following information about you: Vaibhav Mahoney CMA 08/01/2017 3:09 PM Signed Patient left message stating she was here Sunday and states Dr. Reyes told her if her chest cold did not get any better to call and something would be sent in for her. Patient states she is not feeling better and would like script sent. Please advise. Vaibhav Mahoney, TICO Reyes MD 08/01/2017 3:13 PM Signed Ordered 5 days of prednisone Katarzyna TICO So 08/01/2017 5:03 PM Signed Called pt left VM with information Allergies As of Date: 08/01/2017 (No Known Allergies) Date Reviewed: 07/30/2017 Reviewed by: Claudio Reyes - Fully Assessed Reason for Visit: Patient Question [8307] Order(s):predniSONE (DELTASONE) 20 mg tabletTake 2 tablets by mouth once daily for 5 days.Disp: 10 tabletRfl: 0 Prescriptions as of 08/01/2017 Sig: PREDNISONE 20 MG TABLET Take 2 tablets by mouth once * OTC PRODUCT Anbrem MECLIZINE 12.5 MG TABLET Take 1 tablet by mouth three * ESCITALOPRAM 10 MG TABLET Take 1 tablet by mouth once d* LEVETIRACETAM 500 MG TABLET Take 1 tablet by mouth twice * COMPRESSION STOCKING, KNEE HI* Wear during day as instructed. Patient not taking: Reported on 07/30/2017 IBUPROFEN 800 MG TABLET BLACK COHOSH ORAL Take by mouth. MOMETASONE-FORMOTEROL HFA 100* Inhale 2 Puffs as instructed * BUPRENORPHINE 8 MG-NALOXONE 2* Dissolve under the tongue on* ALBUTEROL SULFATE HFA 90 MCG/* Inhale 2 Puffs as instructed * Problem List As Of Date 08/01/2017 Noted Resolved Seizures (HCC) [R56.9] INVALID FOR* More... Drug abuse [F19.10] INVALID FOR* More... Abnormal finding on breast imaging [R92.8] INVALID FOR* Prescriptions ordered this encounter Disp Refills Start End PREDNISONE 20 MG TABLET 10 t* 0 08/01/2017 08/06/2017 Route: ORAL Sig: Take 2 tablets by mouth once daily for 5 days. Encounter Status:Closed by CLAUDIO REYES MD on 08/01/17 PROGRESS Observed: 07/30/2017 Status: COMPLETED Source: [place] 3:44 PM [facility] REPOSITORY HNO ID: [id number] Author: Claudio Reyes Service: (none) Author Type: Physician Type: Progress Notes Filed: 07/30/2017 5:15 PM Note Text: The patient is here for a 6 month follow up. She is up to date on her blood work and immunizations. She follows with [facility]. She requests refills of her meclizine. The patient continues to have dizziness and has been seen by neurology for it. The patient reports it has been a little more frequent because she has come down with a cold. She states her cold symptoms are staring to improve. She states her symptoms of dizziness are improving overall. The patient tried taking the meclizine and thinks it helped a little. The patient reports she is trying to drink plenty of water. She has not had any falls or passing out. She states it continues to feel as though her head is spinning and then she will get nauseous. The patient reports she will get sweaty and feel palpitations at the same time. The patient had a holter monitor and echo completed recently and would like to go over the results. The patient was seen by Dr. Monterroso for menopausal symptoms. She was told she can't take anything hormonal due to her having breast biopsies in the past. The patient is taking OTC amberen for the last two months and states that has helped her night sweats. The patient reports she does feel depressed. She reports there are times when she doesn't want to get out of bed. She states she will have mood swings. She would like to try something to help with her symptoms. The patient has not had any recent seizure activity. Patient is a 47 year old female presenting with dizziness. The history is provided by the patient. Depression The patient's primary symptoms include weakness. Pertinent negatives include no confusion, loss of consciousness or seizures (none recently). This is a new problem. The current episode started more than 1 month ago. The problem is unchanged. Associated symptoms include nausea and vomiting (from coughing). Pertinent negatives include no fever. Past treatments include nothing. Her past medical history is significant for addiction treatment, a chronic illness and a mental illness. Dizziness The patient's primary symptoms include weakness. The patient's pertinent negatives include no syncope. This is a recurrent problem. The current episode started more than 1 month ago. The neurological problem developed suddenly. The problem has been waxing and waning since onset. There was no focality noted. Associated symptoms include chest pain (from coughing, improving), diaphoresis, dizziness, headaches, light-headedness, nausea, palpitations, shortness of breath (with exertion) and vomiting (from coughing). Pertinent negatives include no abdominal pain, confusion or fever. Past treatments include drinking. The treatment provided mild relief. Her past medical history is significant for seizures. ALLERGIES No Known Allergies Current Outpatient Prescriptions: OTC PRODUCT Anbrem Disp: Rfl: meclizine (ANTIVERT) 12.5 mg tab Take 1 tablet by mouth three times daily as needed (for dizziness.). Disp: 15 tablet Rfl: 0 levETIRAcetam (KEPPRA) 500 mg tablet Take 1 tablet by mouth twice daily. Disp: 180 tablet Rfl: 3 ibuprofen (MOTRIN) 800 mg tablet Disp: Rfl: mometasone-formoterol (DULERA) 100-5 mcg/actuation inhaler Inhale 2 Puffs as instructed twice daily. Disp: 1 Inhaler Rfl: 1 Buprenorphine-nalOXone (SUBOXONE) 8-2 mg film Dissolve under the tongue once daily. 8 mg tablet. Disp: Rfl: albuterol HFA (VENTOLIN HFA) 90 mcg/actuation inhaler Inhale 2 Puffs as instructed every 4 hours as needed. Disp: 2 Inhaler Rfl: 1 escitalopram oxalate (LEXAPRO) 10 mg tablet Take 1 tablet by mouth once daily. Take 1/2 tablet once a day for 7 days then increase to a full tablet daily. Disp: 30 tablet Rfl: 1 Comp Stocking,Knee,Regular,Med misc Wear during day as instructed. (Patient not taking: Reported on 07/30/2017 ) Disp: 2 Each Rfl: 0 BLACK COHOSH ORAL Take by mouth. Disp: Rfl: No current facility-administered medications for this visit. 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 has not smoked in 3 days since 07/28/17 Alcohol use: No Drug use: No Comment: former back in high school marijuana and cocaine recent Heroin use last used 6 months Sexual activity: Yes Partners with: Male Comment: jail boyfriend Other Topics Concern Caffeine Concern Yes Comment:Amount: moderate (equiv to 1-3 8oz coffee/day) Self-Exams No Social History Narrative Works at [employer] in [place]. Lives with boyfriend. Feels safe at home. Family History Problem Relation Age of Onset - Cancer Mother 54 lung - None Father parkinson - Colon Cancer Paternal Grandmother 55 - Diabetes Paternal Grandmother - Cancer Paternal Uncle prostate Reviewed past medical and surgical history. BP 112/64 Pulse 64 Temp 36.7 ?C (98 ?F) Resp 16 Ht 161.3 cm (5' 3.5) Wt 61.3 kg (135 lb 3.2 oz) BMI 23.57 kg/m? Review of Systems Constitutional: Positive for diaphoresis. Negative for fever and weight loss. HENT: Positive for congestion (improving). Negative for hearing loss and sore throat. Eyes: Negative for blurred vision. Respiratory: Positive for cough (improving) and shortness of breath (with exertion). Cardiovascular: Positive for chest pain (from coughing, improving) and palpitations. Negative for leg swelling. Gastrointestinal: Positive for nausea and vomiting (from coughing). Negative for abdominal pain, constipation and diarrhea. Genitourinary: Negative for dysuria. Musculoskeletal: Negative for falls. Skin: Negative for rash. Neurological: Positive for dizziness, weakness, light-headedness and headaches. Negative for seizures (none recently), loss of consciousness and syncope. Psychiatric/Behavioral: Positive for depression. Negative for confusion and suicidal ideas. Physical Exam Constitutional: She is oriented to person, place, and time and well-developed, well-nourished, and in no distress. Vital signs are normal. She does not have a sickly appearance. No distress. HENT: Head: Normocephalic and atraumatic. Mouth/Throat: Uvula is midline, oropharynx is clear and moist and mucous membranes are normal. Eyes: Conjunctivae are normal. Pupils are equal, round, and reactive to light. Cardiovascular: Normal rate, regular rhythm and normal heart sounds. No murmur heard. Pulmonary/Chest: Effort normal. No respiratory distress. She has no decreased breath sounds. She has wheezes (mild end expiratory). Abdominal: Soft. Bowel sounds are normal. She exhibits no distension. There is no tenderness. Musculoskeletal: She exhibits no edema. Neurological: She is alert and oriented to person, place, and time. She displays facial symmetry and normal speech. Gait normal. Skin: Skin is warm and dry. She is not diaphoretic. Psychiatric: Mood normal. Nursing note and vitals reviewed. ASSESSMENT/PLAN: 1. Dizziness - ICD9: 780.4, ICD10: R42 (primary diagnosis) The patient's symptoms are overall improving, but became more frequent with her recent illness. Meclizine refilled. Will monitor closely and follow up on cardiology and neurology recommendations. If symptoms persist, will consider referral to vestibular therapy for assessment and management. - MECLIZINE 12.5 MG TABLET 2. Moderately severe depression (HCC) - ICD9: 311, ICD10: F32.2 The patient scored 17 on her PHQ-9. She does not have any thoughts of suicide. Discussed the risks of seizure and she voiced understanding. Will try her on a low dose of lexapro. Will have her take 1/2 tablet daily for a week then increase to a full tablet. She was encouraged to call if she had any problems with the new medication and she agreed. Discussed that the lexapro should also help her with her menopausal symptoms since she is unable to take hormone replacement and she was in agreement with the plan. - ESCITALOPRAM 10 MG TABLET 3. Non-rheumatic mitral regurgitation - ICD9: 424.0, ICD10: I34.0 Discussed the patient's cardiac testing including her holter monitor and echo. Her holter monitor showed occasional supraventricular ectopies and her echo showed moderately severe mitral regurgitation. Given how she describes her dizziness, I do not think the two are related, however, due to the findings, will refer to cardiology for assessment and recommendations. She was in agreement with the plan. - CONSULT TO CARDIOLOGY The patient is here for a follow up. Plan as above. She was instructed to call if she had any concerns or questions and she agreed. Will have her return in 6 weeks to see how she is doing on the lexapro. She was in agreement with the plan. The patient did have some mild expiratory wheezing on exam, but she reported her symptoms were improving. She was instructed to call if her symptoms did not improve or worsened and she agreed. Return in about 6 weeks (around 09/10/2017). Claudio Reyes MD CNOV Observed: 07/30/2017 Status: COMPLETED Source: [place] 3:30 PM [facility] REPOSITORY Office Visit (AGINTMLW) BENJAMIN GARCES ([id number]) 1970 F Date Time Provider Department 07/30/17 3:30 PM CLAUDIO REYES AGINTMLW During your visit today, we recorded the following information about you: Temperature Pulse Respiration Blood pressure 98 degrees 64/minute 16/minute 112/64 Weight Height 61.3 kg 1.613 m Claudio Reyes MD 07/30/2017 5:15 PM Signed The patient is here for a 6 month follow up. She is up to date on her blood work and immunizations. She [facility] with [facility]. She requests refills of her meclizine. The patient continues to have dizziness and has been seen by neurology for it. The patient reports it has been a little more frequent because she has come down with a cold. She states her cold symptoms are staring to improve. She states her symptoms of dizziness are improving overall. The patient tried taking the meclizine and thinks it helped a little. The patient reports she is trying to drink plenty of water. She has not had any falls or passing out. She states it continues to feel as though her head is spinning and then she will get nauseous. The patient reports she will get sweaty and feel palpitations at the same time. The patient had a holter monitor and echo completed recently and would like to go over the results. The patient was seen by Dr. Monterroso for menopausal symptoms. She was told she can't take anything hormonal due to her having breast biopsies in the past. The patient is taking OTC amberen for the last two months and states that has helped her night sweats. The patient reports she does feel depressed. She reports there are times when she doesn't want to get out of bed. She states she will have mood swings. She would like to try something to help with her symptoms. The patient has not had any recent seizure activity. Patient is a 47 year old female presenting with dizziness. The history is provided by the patient. Depression The patient's primary symptoms include weakness. Pertinent negatives include no confusion, loss of consciousness or seizures (none recently). This is a new problem. The current episode started more than 1 month ago. The problem is unchanged. Associated symptoms include nausea and vomiting (from coughing). Pertinent negatives include no fever. Past treatments include nothing. Her past medical history is significant for addiction treatment, a chronic illness and a mental illness. Dizziness The patient's primary symptoms include weakness. The patient's pertinent negatives include no syncope. This is a recurrent problem. The current episode started more than 1 month ago. The neurological problem developed suddenly. The problem has been waxing and waning since onset. There was no focality noted. Associated symptoms include chest pain (from coughing, improving), diaphoresis, dizziness, headaches, light-headedness, nausea, palpitations, shortness of breath (with exertion) and vomiting (from coughing). Pertinent negatives include no abdominal pain, confusion or fever. Past treatments include drinking. The treatment provided mild relief. Her past medical history is significant for seizures. ALLERGIES No Known Allergies Current Outpatient Prescriptions: OTC PRODUCT Anbrem Disp: Rfl: meclizine (ANTIVERT) 12.5 mg tab Take 1 tablet by mouth three times daily as needed (for dizziness.). Disp: 15 tablet Rfl: 0 levETIRAcetam (KEPPRA) 500 mg tablet Take 1 tablet by mouth twice daily. Disp: 180 tablet Rfl: 3 ibuprofen (MOTRIN) 800 mg tablet Disp: Rfl: mometasone-formoterol (DULERA) 100-5 mcg/actuation inhaler Inhale 2 Puffs as instructed twice daily. Disp: 1 Inhaler Rfl: 1 Buprenorphine-nalOXone (SUBOXONE) 8-2 mg film Dissolve under the tongue once daily. 8 mg tablet. Disp: Rfl: albuterol HFA (VENTOLIN HFA) 90 mcg/actuation inhaler Inhale 2 Puffs as instructed every 4 hours as needed. Disp: 2 Inhaler Rfl: 1 escitalopram oxalate (LEXAPRO) 10 mg tablet Take 1 tablet by mouth once daily. Take 1/2 tablet once a day for 7 days then increase to a full tablet daily. Disp: 30 tablet Rfl: 1 Comp Stocking,Knee,Regular,Med misc Wear during day as instructed. (Patient not taking: Reported on 07/30/2017 ) Disp: 2 Each Rfl: 0 BLACK COHOSH ORAL Take by mouth. Disp: Rfl: No current facility-administered medications for this visit. 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 has not smoked in 3 days since 07/28/17 Alcohol use: No Drug use: No Comment: former back in high school marijuana and cocaine recent Heroin use last used 6 months Sexual activity: Yes Partners with: Male Comment: jail boyfriend Other Topics Concern Caffeine Concern Yes Comment:Amount: moderate (equiv to 1-3 8oz coffee/day) Self-Exams No Social History Narrative Works at [employer] in [place]. Lives with boyfriend. Feels safe at home. Family History Problem Relation Age of Onset - Cancer Mother 54 lung - None Father parkinson - Colon Cancer Paternal Grandmother 55 - Diabetes Paternal Grandmother - Cancer Paternal Uncle prostate Reviewed past medical and surgical history. BP 112/64 Pulse 64 Temp 36.7 ?C (98 ?F) Resp 16 Ht 161.3 cm (5' 3.5) Wt 61.3 kg (135 lb 3.2 oz) BMI 23.57 kg/m? Review of Systems Constitutional: Positive for diaphoresis. Negative for fever and weight loss. HENT: Positive for congestion (improving). Negative for hearing loss and sore throat. Eyes: Negative for blurred vision. Respiratory: Positive for cough (improving) and shortness of breath (with exertion). Cardiovascular: Positive for chest pain (from coughing, improving) and palpitations. Negative for leg swelling. Gastrointestinal: Positive for nausea and vomiting (from coughing). Negative for abdominal pain, constipation and diarrhea. Genitourinary: Negative for dysuria. Musculoskeletal: Negative for falls. Skin: Negative for rash. Neurological: Positive for dizziness, weakness, light-headedness and headaches. Negative for seizures (none recently), loss of consciousness and syncope. Psychiatric/Behavioral: Positive for depression. Negative for confusion and suicidal ideas. Physical Exam Constitutional: She is oriented to person, place, and time and well-developed, well-nourished, and in no distress. Vital signs are normal. She does not have a sickly appearance. No distress. HENT: Head: Normocephalic and atraumatic. Mouth/Throat: Uvula is midline, oropharynx is clear and moist and mucous membranes are normal. Eyes: Conjunctivae are normal. Pupils are equal, round, and reactive to light. Cardiovascular: Normal rate, regular rhythm and normal heart sounds. No murmur heard. Pulmonary/Chest: Effort normal. No respiratory distress. She has no decreased breath sounds. She has wheezes (mild end expiratory). Abdominal: Soft. Bowel sounds are normal. She exhibits no distension. There is no tenderness. Musculoskeletal: She exhibits no edema. Neurological: She is alert and oriented to person, place, and time. She displays facial symmetry and normal speech. Gait normal. Skin: Skin is warm and dry. She is not diaphoretic. Psychiatric: Mood normal. Nursing note and vitals reviewed. ASSESSMENT/PLAN: 1. Dizziness - ICD9: 780.4, ICD10: R42 (primary diagnosis) The patient's symptoms are overall improving, but became more frequent with her recent illness. Meclizine refilled. Will monitor closely and follow up on cardiology and neurology recommendations. If symptoms persist, will consider referral to vestibular therapy for assessment and management. - MECLIZINE 12.5 MG TABLET 2. Moderately severe depression (HCC) - ICD9: 311, ICD10: F32.2 The patient scored 17 on her PHQ-9. She does not have any thoughts of suicide. Discussed the risks of seizure and she voiced understanding. Will try her on a low dose of lexapro. Will have her take 1/2 tablet daily for a week then increase to a full tablet. She was encouraged to call if she had any problems with the new medication and she agreed. Discussed that the lexapro should also help her with her menopausal symptoms since she is unable to take hormone replacement and she was in agreement with the plan. - ESCITALOPRAM 10 MG TABLET 3. Non-rheumatic mitral regurgitation - ICD9: 424.0, ICD10: I34.0 Discussed the patient's cardiac testing including her holter monitor and echo. Her holter monitor showed occasional supraventricular ectopies and her echo showed moderately severe mitral regurgitation. Given how she describes her dizziness, I do not think the two are related, however, due to the findings, will refer to cardiology for assessment and recommendations. She was in agreement with the plan. - CONSULT TO CARDIOLOGY The patient is here for a follow up. Plan as above. She was instructed to call if she had any concerns or questions and she agreed. Will have her return in 6 weeks to see how she is doing on the lexapro. She was in agreement with the plan. The patient did have some mild expiratory wheezing on exam, but she reported her symptoms were improving. She was instructed to call if her symptoms did not improve or worsened and she agreed. Return in about 6 weeks (around 09/10/2017). MD Claudio Lance MD 07/30/2017 4:06 PM Signed Call if you do not tolerate the new medication. Call with any other concerns or questions. Referring Provider: SELF [[id number]] Allergies As of Date: 07/30/2017 (No Known Allergies) Date Reviewed: 07/30/2017 Reviewed by: Claudio Reyes - Fully Assessed Reason for Visit: Depression [32] Cmt: has been worsening the last 3 months, has some days where she does not want to get out of bed and some days she just does not like herself Reason For Visit History Recorded Primary Visit Diagnosis:Dizziness [R42] Other Visit Diagnoses:Moderately severe depression (HCC) [F32.2] Non-rheumatic mitral regurgitation [I34.0] Order(s):meclizine (ANTIVERT) 12.5 mg tabTake 1 tablet by mouth three times daily as needed (for dizziness.).Disp: 15 tabletRfl: 0 escitalopram oxalate (LEXAPRO) 10 mg tabletTake 1 tablet by mouth once daily. Take 1/2 tablet once a day for 7 days then increase to a full tablet daily.Disp: 30 tabletRfl: 1 CONSULT TO CARDIOLOGY [9004] Order #: [id number]: 1 Prescriptions as of 07/30/2017 Sig: OTC PRODUCT Anbrem MECLIZINE 12.5 MG TABLET Take 1 tablet by mouth three * LEVETIRACETAM 500 MG TABLET Take 1 tablet by mouth twice * IBUPROFEN 800 MG TABLET MOMETASONE-FORMOTEROL HFA 100* Inhale 2 Puffs as instructed * BUPRENORPHINE 8 MG-NALOXONE 2* Dissolve under the tongue on* ALBUTEROL SULFATE HFA 90 MCG/* Inhale 2 Puffs as instructed * ESCITALOPRAM 10 MG TABLET Take 1 tablet by mouth once d* COMPRESSION STOCKING, KNEE HI* Wear during day as instructed. Patient not taking: Reported on 07/30/2017 BLACK COHOSH ORAL Take by mouth. Problem List As Of Date 07/30/2017 Noted Resolved Seizures (HCC) [R56.9] INVALID FOR* More... Drug abuse [F19.10] INVALID FOR* More... Abnormal finding on breast imaging [R92.8] INVALID FOR* Other instructions from your clinician: Call if you do not tolerate the new medication. Call with any other concerns or questions. Prescriptions ordered this encounter Disp Refills Start End MECLIZINE 12.5 MG TABLET 15 t* 0 07/30/2017 Route: ORAL Sig: Take 1 tablet by mouth three times daily as needed (for dizziness.). ESCITALOPRAM 10 MG TABLET 30 t* 1 07/30/2017 Route: ORAL Sig: Take 1 tablet by mouth once daily. Take 1/2 tablet once a day for 7 days then increase to a full tablet daily. Medications Discontinued During This Encounter meclizine (ANTIVERT) 12.5 mg tab 15 t* 0 02/20/2017 07/30/2017 Route: ORAL Sig: Take 1 tablet by mouth three times daily as needed (for dizziness.). Disc: Reason for discontinue is not on file. Level of Service: [facility] PATIENT VISIT LEVEL 4 [[id number]] Disposition: Return in about 6 weeks (around 09/10/2017). Follow-up and Disposition History Recorded Encounter Status:Closed by CLAUDIO REYES MD on 07/30/17 CNCO Observed: 07/30/2017 Status: COMPLETED Source: [place] 12:00 AM [facility] REPOSITORY Letter Text [address] [address] Dept Dept Claudio Reyes MD [address] [address] - - July 30, 2017 Benjamin Garces [address] [facility] [id number] 1970 Dear Ms. Garces, You have been referred to Dr Monterroso to be evaluated and treated for cystocele. Please call [phone] to schedule your appointment. [facility] affiliated providers will have access to your records. We ask that if you are not seeing a [facility] affiliated provider that you notify our office and provide the name of the provider and your appointment date. We will then verify if your insurance requires a prior authorization and will forward your records in a timely manner. Sincerely, Claudio Reyes M.D. (Signed electronically to expedite mailing) [address] [address] Dept Dept Claudio Reyes MD [facility] -[address] [place] [id number] - - July 30, 2017 Benjamin Garces [address] [facility] [address] 1970 Dear Ms. Garces, You have been referred to Dr Hernandez to be evaluated and treated for non-rheumatic mitral regurgitation. Please call [phone] to schedule your appointment. [facility] affiliated providers will have access to your records. We ask that if you are not seeing a [facility] affiliated provider that you notify our office and provide the name of the provider and your appointment date. We will then verify if your insurance requires a prior authorization and will forward your records in a timely manner. Sincerely, Claudio Reyes M.D. (Signed electronically to expedite mailing) IVELISSE Observed: 07/30/2017 Status: COMPLETED Source: [place] 12:00 AM [facility] REPOSITORY Telephone (AGINTMLW) JEYSONBENJAMIN Regalado ([id number]) 1970 F Date Time Provider Department 07/30/17 CLAUDIO REYES AGINTMLW During your visit today, we recorded the following information about you: Aileen Cruz 08/03/2017 8:31 AM Addendum gave patient referral letter for Dr Hernandez and told her to call them if she does not hear from them in a week. 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 Patient not taking: Reported on 07/30/2017 IBUPROFEN 800 MG TABLET BLACK COHOSH ORAL Take by mouth. MOMETASONE-FORMOTEROL HFA 100* Inhale 2 Puffs as instructed * BUPRENORPHINE 8 MG-NALOXONE 2* Dissolve under the tongue on* ALBUTEROL SULFATE HFA 90 MCG/* Inhale 2 Puffs as instructed * Problem List As Of Date 07/30/2017 Noted Resolved Seizures (HCC) [R56.9] INVALID FOR* More... Drug abuse [F19.10] INVALID FOR* More... Abnormal finding on breast imaging [R92.8] INVALID FOR* Encounter Status:Closed by AILEEN SERNA on 07/30/17 PROCEDURE Observed: 07/11/2017 Status: COMPLETED Source: [place] 12:00 AM [facility] REPOSITORY HNO ID: [id number] Author: Stephanie Tripp Service: Clinical Cardiology Author Type: Physician Type: Procedures Filed: 07/15/2017 6:20 PM Note Text: [facility] - Echocardiogram Report - [place] PATIENT NAME: BENJAMIN GARCES CSN: [id number] DATE OF : 1970 SEX/AGE: F/47 PATIENT TYPE: O HOSP SVC: LOCATION: DATE OF PROCEDURE: 07/11/2017 REFERRING PHYSICIAN: MAGEN JAMES JR . PRIMARY ATTENDING: Claudio Reyes MD. INDICATION FOR THE STUDY: Palpitations. INTERPRETATIONS: 1. Chambers. a. Left ventricle: The left ventricle is normal in size and systolic function with a calculated LV ejection fraction of 57% using the modified Monique's rule. Normal regional wall motion. There is evidence of stage II diastolic dysfunction (pseudonormal relaxation pattern). b. Right ventricle: The right ventricle appears to be at least moderately dilated with normal systolic function. c. Left atrium: Severely dilated with left atrial volume index of 98 mm per square meter. d. Right atrium: Mildly dilated. 2. Valves. a. Aortic valve: The leaflets are mildly thickened and calcified. There is no significant aortic stenosis, but there is trivial central aortic insufficiency. The peak and mean gradients across the valve are 7 and 4 mmHg respectively. Dimensionless index is 0.7, suggesting no significant stenosis. b. Mitral valve: The leaflets are moderately thickened and calcified. There is doming of the mitral valve in diastole and thickening of the valve leaflets, particularly at the tips with a hockey-stick appearance suggestive of rheumatic mitral stenosis. The peak and mean gradients across the valve are 31 and 15 mmHg respectively suggesting severe mitral stenosis. There is also evidence of moderate to severe central mitral insufficiency secondary to rheumatic heart disease. Renal contract of the jet measures between 6-7 mm. The effective regurgitant orifice area calculated by the PISA method is at 0.39 cm2, and the regurgitant volume is calculated at 53 mL. The areas of the mitral valve blood pressure half time method is 0.9 cm2 suggesting severe mitral stenosis also. c. Severe tricuspid valve: Structurally normal with mild tricuspid regurgitation. There is evidence of mild pulmonary hypertension by Doppler. d. Pulmonic valve: Trace pulmonic insufficiency. 3. Pericardium: No significant pericardial effusion. 4. Ascending aorta: Appears to be nondilated. 5. Inferior vena cava: Normal in size and collapses greater than 50% inspiration indicating a right atrial pressure of 3 mmHg. CONCLUSIONS: 1. Normal left ventricular size, systolic function with a calculated LV ejection fraction of 57% using the modified Monique's rule. Normal regional wall motion. 2. The diastolic function could not be accurately assessed in the setting of moderate to severe mitral regurgitation. This being said, the overall study does suggest elevated left ventricular filling pressures. Severely dilated left atrium with left atrial volume index of 98 mm per square meter. 3. There is evidence of severe thickening and calcification of the mitral valve leaflets. The thickening is most pronounced at the tips of the leaflets. There is diastolic doming of the valve suggestive of rheumatic mitral stenosis. The peak and mean gradients across the valve are 31 and 15 mmHg respectively. The mitral valve area by the pressure half- time method is calculated at 0.9 cm2. 4. There is evidence of moderately severe mitral regurgitation. This is secondary to rheumatic heart disease causing commissure effusion and mild coaptation of the leaflets. By the PISA method, the effective regurgitant orifice area is calculated at 0.39 cm2 and the regurgitant volume is calculated at 53 mL. Vena contracta of the jet measures between 6-7 mm. As described above: There is significant fusion of the medial and lateral commissures. 5. No evidence of pulmonary hypertension by Doppler. 6. No pericardial effusions. 7. Normal right atrial pressures. Stephanie Tripp MD Cardiology VH:modl /[id number] PROGRESS Observed: 06/19/2017 Status: COMPLETED Source: [place] 11:22 AM [facility] REPOSITORY O ID: [id number] Author: Magen James Jr. Service: (none) Author Type: Physician Type: Progress Notes Filed: 06/19/2017 11:49 AM Note Text: ESTABLISHED PATIENT VISIT HISTORY OF PRESENT ILLNESS: Benjamin Garces is a 47 year old female, BMI 23.54 kg/m2 with a PMH significant for: 1. Seizure disorder (HCC) - ICD9: 345.90, ICD10: G40.909 (primary diagnosis) Stable since on Keppra 500mg BID. Again history of abnormal EEG and thus will continue medications. 2. Lightheadedness - ICD9: 780.4, ICD10: R42 and 3. Hypotension, unspecified hypotension type - ICD9: 458.9, ICD10: I95.9 (NEW PROBLEMS) Episodes of lightheadedness with hypotension on exam last visit but not orthostatic. Lab workup was unremarkable (see below) but never completed Holter. She continues to have spells of lightheadedness. No associated LOC. This does not occur daily. She states she has been drinking water. States can happen whether she is sitting or standing. She confirmed that she never had heart monitor. She does endorse palpitations with activity such as climbing stairs. States she gets lightheaded at least twice per week. Those who witness it states she appears pale and diaphoretic. Also complains of generalized weakness. Does feel short of breath during episodes. Denies chest pain. No seizures. Still on Keppra 500mg BID. It has been 6 months since seizure activity. States she has not missed any doses. No aura. Denies any ETOH or substance use. Sitting: BP 98/64, HR 61 Standing: BP 89/54 HR 67 Reports drinking plenty of water daily. REVIEW OF SYSTEMS GENERAL:No weight loss, malaise or fevers. HEENT:Negative for frequent or significant headaches, No changes in hearing or vision, no nose bleeds or other nasal problems NECK:Negative for lumps, goiter, pain and significant neck swelling RESPIRATORY: Negative for cough, wheezing or shortness of breath. CARDIOVASCULAR: See HPI. GASTROINTESTINAL: Negative for abdominal discomfort, blood in stools or black stools or change in bowel habits GENITOURINARY: No history of dysuria, frequency or incontinence MUSCULOSKELETAL: Negative for joint pain or swelling, back pain or muscle pain. NEUROLOGIC:Negative for focal numbness or weakness, headaches and dizziness or syncope, vision changes, speech/languag changes - EXCEPT that as per HPI above. SKIN:Negative for lesions, rash, and itching. PSYCHIATRIC: Negative for sleep disturbance, mood disorder and recent psychosocial stressors. HEMATOLOGIC/LYMPHATIC/IMMUNOLOGIC:Negative for prolonged bleeding, bruising easily or swollen nodes. ENDOCRINE: Negative for cold or heat intolerance, polyuria, polydipsia and goiter. The remainder of the ROS was reviewed and is negative. LAB/IMAGING: Those performed since patient's last visit have been reviewed. WBC (thou/cmm) Date Value 02/28/2017 6.1 RBC (mil/cmm) Date Value 02/28/2017 4.13 (L) Hemoglobin (g/dL) Date Value 09/09/2016 11.7 HGB (g/dL) Date Value 02/28/2017 13.3 Hematocrit (%) Date Value 02/28/2017 38.9 MCV (fl) Date Value 02/28/2017 94.2 MCH (pg) Date Value 02/28/2017 32.2 (H) MCHC (%) Date Value 02/28/2017 34.2 RDW-CV (%) Date Value 09/09/2016 14.5 Platelet Count (thou/cmm) Date Value 02/28/2017 206 MPV (fl) Date Value 02/28/2017 10.1 Glucose (mg/dL) Date Value 02/28/2017 101 (H) BUN (mg/dL) Date Value 02/28/2017 12 Creatinine (mg/dL) Date Value 02/28/2017 0.86 Sodium (mEq/L) Date Value 02/28/2017 136 Potassium (mEq/L) Date Value 02/28/2017 3.9 Chloride (mEq/L) Date Value 02/28/2017 106 CO2 (mEq/L) Date Value 02/28/2017 30 Protein, Total (g/dL) Date Value 02/28/2017 6.8 Albumin (g/dL) Date Value 02/28/2017 3.7 Calcium (mg/dL) Date Value 02/28/2017 8.9 Alkaline Phosphatase (U/L) Date Value 02/28/2017 52 Bilirubin, Total (mg/dL) Date Value 02/28/2017 0.4 AST (U/L) Date Value 02/28/2017 45 (H) ALT (U/L) Date Value 02/28/2017 53 Hep C Antibody IA (no units) Date Value 01/26/2014 Negative TSH Date Value Ref Range Status 02/28/2017 1.27 0.34 - 4.82 uIU/mL Final MEDICATIONS: ibuprofen (MOTRIN) 800 mg tablet levETIRAcetam (KEPPRA) 500 mg tablet Take 1 tablet by mouth twice daily. BLACK COHOSH ORAL Take by mouth. mometasone-formoterol (DULERA) 100-5 mcg/actuation inhaler Inhale 2 Puffs as instructed twice daily. meclizine (ANTIVERT) 12.5 mg tab Take 1 tablet by mouth three times daily as needed (for dizziness.). Buprenorphine-nalOXone (SUBOXONE) 8-2 mg film Dissolve under the tongue once daily. 8 mg tablet. albuterol HFA (VENTOLIN HFA) 90 mcg/actuation inhaler Inhale 2 Puffs as instructed every 4 hours as needed. HISTORIES PAST MEDICAL HISTORY Diagnosis Date - Asthma - Dermatitis - Hives - Seizure (HCC) 08/2016 FAMILY HISTORY Problem Relation Age of Onset - Cancer Mother 54 lung - None Father parkinson - Colon Cancer Paternal Grandmother 55 - Diabetes Paternal Grandmother - Cancer Paternal Uncle prostate SOCIAL HISTORY Social History Substance Use Topics - Smoking status: Current Every Day Smoker Packs/day: 0.50 Years: 10.00 Types: Cigarettes - Smokeless tobacco: Never Used Comment: cutting back. - Alcohol use 3.0 oz/week 2 Glasses of Wine (5oz) per week Comment: rare PHYSICAL EXAMINATION BP 104/70 (BP Site: Left Arm, BP Position: Sitting, BP Cuff Size: Regular Adult) Pulse 70 Wt 61.2 kg (135 lb) SpO2 97% BMI 23.54 kg/m? GENERAL EXAM: General appearance: NAD, pleasant. HEENT: NC/AT, nasal congestion absent, no oral lesions, membranes moist. NECK: No masses, supple. Lungs: CTA bilaterally. CV: RRR nl S1, S2. No carotid bruits. Abd: Soft, nontender, nondistended. Bowel sounds present. Extr: No cyanosis, clubbing or edema. No evidence of fasciculations. Extremity pulses palpable and normal. Skin: Cool to touch. No rash. NEUROLOGICAL EXAM: General: Awake, alert, oriented x3 (person,place,time), speech fluent, no dysarthria; comprehension, naming, repetition intact. CN: PERRL, fundi with no evidence of papilledema, EOMI and without nystagmus, VFF to confrontation, facial sensation and strength are normal and symmetric, hearing is intact, palate and tongue movements are intact and symmetric. SCM and trapezius strength normal. Motor: Normal tone, bulk and strength (5/5) bilaterally (throughout extremities x4). Reflexes: 2/4 and symmetric, plantar stimulation is flexor. Coordination: Finger nose finger, rapid alt mvmts, heel to jaime intact. No tremors. Sensation: Light touch, pin, vibration, temperature intact throughout. No evidence of neglect. Gait: Narrow based and stable with normal stride and arm swing. Romberg normal. Assessment and Plan: ASSESSMENT/PLAN: 1. Seizure disorder (HCC) - ICD9: 345.90, ICD10: G40.909 (primary diagnosis) Stable since on Keppra 500mg BID. Again history of abnormal EEG and thus will continue medications. OK to drive at this time. Reviewed seizure precautions and risk factors. -Continue Keppra 500mg BID (Rx for 1 year provided today). 2. Palpitations - ICD9: 785.1, ICD10: R00.2 3. Lightheadedness - ICD9: 780.4, ICD10: R42 Episodes of lightheadedness still of unclear etiology. BP remains low but asx during office visit. Mild drop in BP sys with position change but asx. Does endorse cardiac symptoms of palpitations and shortness of breath. As she never had 48 hour holter to evaluate for arrhythmia, will reorder at this time. Will also get ECHO to evaluate cardiac function. In addition, encouraged hydration with po water. Rx provided for compression stockings as well to be worn during day. If symptoms persist and workup remains unremarkable consider referral to autonomic clinic vs tilt table testing. Magen James MD I spent 30 minutes in the visit, with more than 50% of the total [id number] time of the visit in counseling / coordination of care. CNOV Observed: 06/19/2017 Status: COMPLETED Source: [place] 11:00 AM [facility] REPOSITORY Office Visit (SUSHMAMM) BENJAMIN GARCES ([id number]) 1970 F Date Time Provider Department 06/19/17 11:00 AM MAGEN JAMES JR During your visit today, we recorded the following information about you: Pulse Blood pressure Weight 70/minute 104/70 61.2 kg Magen James MD 06/19/2017 11:49 AM Signed ESTABLISHED PATIENT VISIT HISTORY OF PRESENT ILLNESS: Benjamin Garces is a 47 year old female, BMI 23.54 kg/m2 with a PMH significant for: 1. Seizure disorder (HCC) - ICD9: 345.90, ICD10: G40.909 (primary diagnosis) Stable since on Keppra 500mg BID. Again history of abnormal EEG and thus will continue medications. 2. Lightheadedness - ICD9: 780.4, ICD10: R42 and 3. Hypotension, unspecified hypotension type - ICD9: 458.9, ICD10: I95.9 (NEW PROBLEMS) Episodes of lightheadedness with hypotension on exam last visit but not orthostatic. Lab workup was unremarkable (see below) but never completed Holter. She continues to have spells of lightheadedness. No associated LOC. This does not occur daily. She states she has been drinking water. States can happen whether she is sitting or standing. She confirmed that she never had heart monitor. She does endorse palpitations with activity such as climbing stairs. States she gets lightheaded at least twice per week. Those who witness it states she appears pale and diaphoretic. Also complains of generalized weakness. Does feel short of breath during episodes. Denies chest pain. No seizures. Still on Keppra 500mg BID. It has been 6 months since seizure activity. States she has not missed any doses. No aura. Denies any ETOH or substance use. Sitting: BP 98/64, HR 61 Standing: BP 89/54 HR 67 Reports drinking plenty of water daily. REVIEW OF SYSTEMS GENERAL:No weight loss, malaise or fevers. HEENT:Negative for frequent or significant headaches, No changes in hearing or vision, no nose bleeds or other nasal problems NECK:Negative for lumps, goiter, pain and significant neck swelling RESPIRATORY: Negative for cough, wheezing or shortness of breath. CARDIOVASCULAR: See HPI. GASTROINTESTINAL: Negative for abdominal discomfort, blood in stools or black stools or change in bowel habits GENITOURINARY: No history of dysuria, frequency or incontinence MUSCULOSKELETAL: Negative for joint pain or swelling, back pain or muscle pain. NEUROLOGIC:Negative for focal numbness or weakness, headaches and dizziness or syncope, vision changes, speech/languag changes - EXCEPT that as per HPI above. SKIN:Negative for lesions, rash, and itching. PSYCHIATRIC: Negative for sleep disturbance, mood disorder and recent psychosocial stressors. HEMATOLOGIC/LYMPHATIC/IMMUNOLOGIC:Negative for prolonged bleeding, bruising easily or swollen nodes. ENDOCRINE: Negative for cold or heat intolerance, polyuria, polydipsia and goiter. The remainder of the ROS was reviewed and is negative. LAB/IMAGING: Those performed since patient's last visit have been reviewed. WBC (thou/cmm) Date Value 02/28/2017 6.1 RBC (mil/cmm) Date Value 02/28/2017 4.13 (L) Hemoglobin (g/dL) Date Value 09/09/2016 11.7 HGB (g/dL) Date Value 02/28/2017 13.3 Hematocrit (%) Date Value 02/28/2017 38.9 MCV (fl) Date Value 02/28/2017 94.2 MCH (pg) Date Value 02/28/2017 32.2 (H) MCHC (%) Date Value 02/28/2017 34.2 RDW-CV (%) Date Value 09/09/2016 14.5 Platelet Count (thou/cmm) Date Value 02/28/2017 206 MPV (fl) Date Value 02/28/2017 10.1 Glucose (mg/dL) Date Value 02/28/2017 101 (H) BUN (mg/dL) Date Value 02/28/2017 12 Creatinine (mg/dL) Date Value 02/28/2017 0.86 Sodium (mEq/L) Date Value 02/28/2017 136 Potassium (mEq/L) Date Value 02/28/2017 3.9 Chloride (mEq/L) Date Value 02/28/2017 106 CO2 (mEq/L) Date Value 02/28/2017 30 Protein, Total (g/dL) Date Value 02/28/2017 6.8 Albumin (g/dL) Date Value 02/28/2017 3.7 Calcium (mg/dL) Date Value 02/28/2017 8.9 Alkaline Phosphatase (U/L) Date Value 02/28/2017 52 Bilirubin, Total (mg/dL) Date Value 02/28/2017 0.4 AST (U/L) Date Value 02/28/2017 45 (H) ALT (U/L) Date Value 02/28/2017 53 Hep C Antibody IA (no units) Date Value 01/26/2014 Negative TSH Date Value Ref Range Status 02/28/2017 1.27 0.34 - 4.82 uIU/mL Final MEDICATIONS: ibuprofen (MOTRIN) 800 mg tablet levETIRAcetam (KEPPRA) 500 mg tablet Take 1 tablet by mouth twice daily. BLACK COHOSH ORAL Take by mouth. mometasone-formoterol (DULERA) 100-5 mcg/actuation inhaler Inhale 2 Puffs as instructed twice daily. meclizine (ANTIVERT) 12.5 mg tab Take 1 tablet by mouth three times daily as needed (for dizziness.). Buprenorphine-nalOXone (SUBOXONE) 8-2 mg film Dissolve under the tongue once daily. 8 mg tablet. albuterol HFA (VENTOLIN HFA) 90 mcg/actuation inhaler Inhale 2 Puffs as instructed every 4 hours as needed. HISTORIES PAST MEDICAL HISTORY Diagnosis Date - Asthma - Dermatitis - Hives - Seizure (HCC) 08/2016 FAMILY HISTORY Problem Relation Age of Onset - Cancer Mother 54 lung - None Father parkinson - Colon Cancer Paternal Grandmother 55 - Diabetes Paternal Grandmother - Cancer Paternal Uncle prostate SOCIAL HISTORY Social History Substance Use Topics - Smoking status: Current Every Day Smoker Packs/day: 0.50 Years: 10.00 Types: Cigarettes - Smokeless tobacco: Never Used Comment: cutting back. - Alcohol use 3.0 oz/week 2 Glasses of Wine (5oz) per week Comment: rare PHYSICAL EXAMINATION BP 104/70 (BP Site: Left Arm, BP Position: Sitting, BP Cuff Size: Regular Adult) Pulse 70 Wt 61.2 kg (135 lb) SpO2 97% BMI 23.54 kg/m? GENERAL EXAM: General appearance: NAD, pleasant. HEENT: NC/AT, nasal congestion absent, no oral lesions, membranes moist. NECK: No masses, supple. Lungs: CTA bilaterally. CV: RRR nl S1, S2. No carotid bruits. Abd: Soft, nontender, nondistended. Bowel sounds present. Extr: No cyanosis, clubbing or edema. No evidence of fasciculations. Extremity pulses palpable and normal. Skin: Cool to touch. No rash. NEUROLOGICAL EXAM: General: Awake, alert, oriented x3 (person,place,time), speech fluent, no dysarthria; comprehension, naming, repetition intact. CN: PERRL, fundi with no evidence of papilledema, EOMI and without nystagmus, VFF to confrontation, facial sensation and strength are normal and symmetric, hearing is intact, palate and tongue movements are intact and symmetric. SCM and trapezius strength normal. Motor: Normal tone, bulk and strength (5/5) bilaterally (throughout extremities x4). Reflexes: 2/4 and symmetric, plantar stimulation is flexor. Coordination: Finger nose finger, rapid alt mvmts, heel to jaime intact. No tremors. Sensation: Light touch, pin, vibration, temperature intact throughout. No evidence of neglect. Gait: Narrow based and stable with normal stride and arm swing. Romberg normal. Assessment and Plan: ASSESSMENT/PLAN: 1. Seizure disorder (HCC) - ICD9: 345.90, ICD10: G40.909 (primary diagnosis) Stable since on Keppra 500mg BID. Again history of abnormal EEG and thus will continue medications. OK to drive at this time. Reviewed seizure precautions and risk factors. -Continue Keppra 500mg BID (Rx for 1 year provided today). 2. Palpitations - ICD9: 785.1, ICD10: R00.2 3. Lightheadedness - ICD9: 780.4, ICD10: R42 Episodes of lightheadedness still of unclear etiology. BP remains low but asx during office visit. Mild drop in BP sys with position change but asx. Does endorse cardiac symptoms of palpitations and shortness of breath. As she never had 48 hour holter to evaluate for arrhythmia, will reorder at this time. Will also get ECHO to evaluate cardiac function. In addition, encouraged hydration with po water. Rx provided for compression stockings as well to be worn during day. If symptoms persist and workup remains unremarkable consider referral to autonomic clinic vs tilt table testing. Magen James MD I spent 30 minutes in the visit, with more than 50% of the total [id number] time of the visit in counseling / coordination of care. Referring Provider: CLAUDIO REYES [[id number]] Allergies As of Date: 06/19/2017 (No Known Allergies) Date Reviewed: 06/19/2017 Reviewed by: Magen James Jr. - Fully Assessed Reason for Visit: Follow Up [171] Cmt: Seizures, lightheaded and tunnel vision Reason For Visit History Recorded Primary Visit Diagnosis:Seizure disorder (HCC) [G40.909] Other Visit Diagnoses:Palpitations [R00.2] Lightheadedness [R42] Order(s):HOLTER MONITOR 48 HOUR [4507123] Order #: [id number] FUTURE ECHO [[id number]] Order #: [id number]: 1 FUTURE levETIRAcetam (KEPPRA) 500 mg tabletTake 1 tablet by mouth twice daily.Disp: 180 tabletRfl: 3 Comp Stocking,Knee,Regular,Med miscWear during day as instructed.Disp: 2 EachRfl: 0 Prescriptions as of 06/19/2017 Sig: LEVETIRACETAM 500 MG TABLET Take 1 tablet by mouth twice * IBUPROFEN 800 MG TABLET BLACK COHOSH ORAL Take by mouth. MOMETASONE-FORMOTEROL HFA 100* Inhale 2 Puffs as instructed * MECLIZINE 12.5 MG TABLET Take 1 tablet by mouth three * BUPRENORPHINE 8 MG-NALOXONE 2* Dissolve under the tongue on* ALBUTEROL SULFATE HFA 90 MCG/* Inhale 2 Puffs as instructed * COMPRESSION STOCKING, KNEE HI* Wear during day as instructed. Problem List As Of Date 06/19/2017 Noted Resolved Seizures (HCC) [R56.9] INVALID FOR* More... Drug abuse [F19.10] INVALID FOR* More... Abnormal finding on breast imaging [R92.8] INVALID FOR* Prescriptions ordered this encounter Disp Refills Start End LEVETIRACETAM 500 MG TABLET 180 * 3 06/19/2017 06/19/2018 Route: ORAL Sig: Take 1 tablet by mouth twice daily. COMPRESSION STOCKING, KNEE HIGH,REGU* 2 Ea* 0 06/19/2017 Sig: Wear during day as instructed. Medications Discontinued During This Encounter levETIRAcetam (KEPPRA) 500 mg tablet 180 * 2 02/27/2017 06/19/2017 Route: ORAL Sig: Take 1 tablet by mouth twice daily. Disc: Reason for discontinue is not on file. Disposition: Return in about 6 months (around 12/20/2017). Follow-up and Disposition History Recorded Encounter Status:Closed by MAGEN JAMES on 06/19/17 CNCO Observed: 06/19/2017 Status: COMPLETED Source: [place] 12:00 AM [facility] REPOSITORY Letter Text Benjamin Garces Magen James MD [facility] [address] [place] [address] June 19, 2017 Benjamin Garces [address] [place] [address] To Whom it May Concern, This is to confirm that Benjamin Garces had an appointment with me on 06/19/2017. Sincerely yours, Magen James MD (electronically signed to expedite processing) PROGRESS Observed: 05/28/2017 Status: COMPLETED Source: [place] 11:22 AM [facility] REPOSITORY HNO ID: [id number] Author: Yaima Monterroso Service: (none) Author Type: Physician Type: Progress Notes Filed: 05/28/2017 11:24 AM Note Text: Patient here to discuss menopausal symptoms. Severe hot flashes. Unfortunately, patient breast biopsy showed atypical cells which are being watched. Estrogens are contraindicated and this was communicated to the patient. RTO if any bleeding recurs. Yaima Mnoterroso MD CNOV Observed: 05/28/2017 Status: COMPLETED Source: [place] 10:45 AM [facility] REPOSITORY Office Visit (CONCHA) BENJAMIN GARCES ([id number]) 1970 F Date Time Provider Department 05/28/17 10:45 AM YAIMA MONTERROSO During your visit today, we recorded the following information about you: Temperature Pulse Blood pressure Weight 97.1 degrees 58/minute 110/70 60.8 kg Height 1.613 m Chari Horn, RN, RN 05/28/2017 11:02 AM Signed Quitting Smoking. Imagine breathing easier, having more energy, and being able to taste and smell better within the next few days. Stopping smoking can help you do all these things and feel healthier and perhaps live longer as well. But if it were easy, you would have already quit. These tips are meant to help you take this nerve-racking but positive step in your life. Why Should I Quit? Smoking is the No.1 cause of preventable in the [place]. It accounts for nearly one third of all cancer tests and also raises the risk of chronic health problems such as lung disease(for example, emphysema), and heart disease. Women over age 35 take control pills and smoke are at higher risk for heart attack, stroke, and blood clots of those who don't smoke. Smoking during can harm the baby by causing premature delivery, low weight, and other problems. People who quit smoking live longer than those who don't quit. 10 to 15 years after a person stops smoking, he or she has no more risk of dying of a tobacco related illness, than someone who has never smoked. Even people who already have cancer can feel better and reduce the risk of infections, such as pneumonia, if they stop. Smoking harms your appearance, wrinkling your skin and making her nails and teeth yellow. The smell of cigarette smoke lingers indoors, on your breath, and in your hair and clothing. Secondhand or passive smoke also is very harmful. Children of smokers not only are exposed to secondhand smoke more often than the children of nonsmokers, but they are also more likely to become smokers themselves. But It's So Hard To Quit! Stopping smoking is so difficult because overtime, your body becomes addicted to nicotine, a chemical found in tobacco that is as addictive as heroin and cocaine. As with any addiction, we probably will have withdrawal symptoms as your body gets rid of the nicotine ovary few days to a few weeks. Symptoms may include headache, anxiety, irritability, increased appetite, fatigue, and a difficulty sleeping and concentrating. Perhaps the hardest problem is coping with cravings when you find yourself in a situation which you use to smoke such as what you get up at the morning or get it to your car, at that realize that you can't have a cigarette. Remember that these times too will pass. How Can I Quit? You can't quit smoking cold turkey, meeting that you stop smoking all at once, or you can cut down gradually. More important than how you do it is your commitment to doing it. -Choose a target date for your last cigarette and tell your family and friends about it -Some smokers find that getting her teeth professionally cleaned or bleached on the day they quit motivates them to avoid cigarettes because they don't want there freshly white teeth to get yellow again. -Throw away cigarettes, ashtrays, and lighters. -At first, you may want to avoid situations which you will be exposed to smokers. -Remind yourself of the money you're saving, and occasionally buy yourself something or treat yourself to a movie as a reward. -When they are trying to quit, some people benefit from counseling or use of bupropion or nicotine replacement ( that is, nicotine in the form of a patch, gum, nasal spray, or inhaler), or a combination of these. -When you are hit by an overwhelming urge to smoke, remember that it will pass. How Do I Handle Stress After Stopping? Some people undergo hypnosis or take up yoga, meditation, or an exercise program to help manage the challenging emotions that they used to deal with by picking up a cigarette. It's important to not turn to snacking to calm yourself. Most people do gain weight, usually less than 10 pounds after the quit smoking, but you may be able to keep that gain down by using your increased energy to become more physically active. What If I Start Smoking Again? It's never too late to stop smoking again. Remember that people who have quit several times before are more likely to succeed the next time. Change usually happens slowly, step by step. Yaima Monterroso MD 05/28/2017 11:24 AM Signed Patient here to discuss menopausal symptoms. Severe hot flashes. Unfortunately, patient breast biopsy showed atypical cells which are being watched. Estrogens are contraindicated and this was communicated to the patient. RTO if any bleeding recurs. Yaima Monterroso MD Referring Provider: SELF [[id number]] Allergies As of Date: 05/28/2017 (No Known Allergies) Date Reviewed: 05/28/2017 Reviewed by: Yaima Monterroso - Fully Assessed Reason for Visit: Follow Up [171] Cmt: Discuss what can be done for hot flashes. Primary Visit Diagnosis:Symptomatic premature menopause [E28.310] Prescriptions as of 05/28/2017 Sig: IBUPROFEN 800 MG TABLET LEVETIRACETAM 500 MG TABLET Take 1 tablet by mouth twice * BLACK COHOSH ORAL Take by mouth. MOMETASONE-FORMOTEROL HFA 100* Inhale 2 Puffs as instructed * MECLIZINE 12.5 MG TABLET Take 1 tablet by mouth three * BUPRENORPHINE 8 MG-NALOXONE 2* Dissolve under the tongue on* ALBUTEROL SULFATE HFA 90 MCG/* Inhale 2 Puffs as instructed * Problem List As Of Date 05/28/2017 Noted Resolved Seizures (HCC) [R56.9] INVALID FOR* More... Drug abuse [F19.10] INVALID FOR* More... Abnormal finding on breast imaging [R92.8] INVALID FOR* Other instructions from your clinician: Quitting Smoking. Imagine breathing easier, having more energy, and being able to taste and smell better within the next few days. Stopping smoking can help you do all these things and feel healthier and perhaps live longer as well. But if it were easy, you would have already quit. These tips are meant to help you take this nerve-racking but positive step in your life. Why Should I Quit? Smoking is the No.1 cause of preventable in the [place]. It accounts for nearly one third of all cancer tests and also raises the risk of chronic health problems such as lung disease(for example, emphysema), and heart disease. Women over age 35 take control pills and smoke are at higher risk for heart attack, stroke, and blood clots of those who don't smoke. Smoking during can harm the baby by causing premature delivery, low weight, and other problems. People who quit smoking live longer than those who don't quit. 10 to 15 years after a person stops smoking, he or she has no more risk of dying of a tobacco related illness, than someone who has never smoked. Even people who already have cancer can feel better and reduce the risk of infections, such as pneumonia, if they stop. Smoking harms your appearance, wrinkling your skin and making her nails and teeth yellow. The smell of cigarette smoke lingers indoors, on your breath, and in your hair and clothing. Secondhand or passive smoke also is very harmful. Children of smokers not only are exposed to secondhand smoke more often than the children of nonsmokers, but they are also more likely to become smokers themselves. But It's So Hard To Quit! Stopping smoking is so difficult because overtime, your body becomes addicted to nicotine, a chemical found in tobacco that is as addictive as heroin and cocaine. As with any addiction, we probably will have withdrawal symptoms as your body gets rid of the nicotine ovary few days to a few weeks. Symptoms may include headache, anxiety, irritability, increased appetite, fatigue, and a difficulty sleeping and concentrating. Perhaps the hardest problem is coping with cravings when you find yourself in a situation which you use to smoke such as what you get up at the morning or get it to your car, at that realize that you can't have a cigarette. Remember that these times too will pass. How Can I Quit? You can't quit smoking cold turkey, meeting that you stop smoking all at once, or you can cut down gradually. More important than how you do it is your commitment to doing it. -Choose a target date for your last cigarette and tell your family and friends about it -Some smokers find that getting her teeth professionally cleaned or bleached on the day they quit motivates them to avoid cigarettes because they don't want there freshly white teeth to get yellow again. -Throw away cigarettes, ashtrays, and lighters. -At first, you may want to avoid situations which you will be exposed to smokers. -Remind yourself of the money you're saving, and occasionally buy yourself something or treat yourself to a movie as a reward. -When they are trying to quit, some people benefit from counseling or use of bupropion or nicotine replacement ( that is, nicotine in the form of a patch, gum, nasal spray, or inhaler), or a combination of these. -When you are hit by an overwhelming urge to smoke, remember that it will pass. How Do I Handle Stress After Stopping? Some people undergo hypnosis or take up yoga, meditation, or an exercise program to help manage the challenging emotions that they used to deal with by picking up a cigarette. It's important to not turn to snacking to calm yourself. Most people do gain weight, usually less than 10 pounds after the quit smoking, but you may be able to keep that gain down by using your increased energy to become more physically active. What If I Start Smoking Again? It's never too late to stop smoking again. Remember that people who have quit several times before are more likely to succeed the next time. Change usually happens slowly, step by step. Follow-up and Disposition History Recorded Encounter Status:Closed by YAIMA MONTERROSO MD on 05/28/17 MAMM STEREO BX Observed: 04/03/2017 Status: P Source: [facility] LEFT 2:48 PM [facility] REPOSITORY Performed at [facility] APPROVED BY: Sina Valente MD PRELIMINARY REPORT: WILL BE AMENDED AT A LATER DATE. #[id number] - MAMM STEREO BX BREAST LEFT STEREOTACTIC GUIDED BIOPSY LEFT BREAST WITH MARKING DEVICE INSERTED AND POST DIGITAL MAMMOGRAPHIC IMAGIN04/03/2017 CLINICAL: Patient presents for a stereotactic guided biopsy of the left breast. PATIENT CONSENT: The risks, benefits and alternatives were discussed with the patient. Written and verbal consent was obtained from the patient before the procedure began. The patient was identified by name and date of . Site verification was done prior to the procedure. Audible Time Out: 1340 Procedure Start: 1341 Procedure End: 1400 PROCEDURE: A stereotactic guided biopsy was performed for the concerning area of calcifications located in the left breast upper inner aspect middle depth. The skin was prepped in the usual manner. Local anesthe tic was administered to the access site. A skin delvin was made in the breast. The abnormality was approached from the craniocaudal aspect using an upright digital mammography unit. A 9 gauge biopsy ne edle was placed adjacent to the abnormality under computer guidance and confirmatory stereotactic mammography images were obtained to document needle placement. Once the needle was documented to be in the correct location, multiple specimens were obtained using Eviva biopsy needle. A top hat clip was inserted into the biopsy cavity. A skin closure strip was applied to the access site. Post proce dure digital mammographic imaging demonstrates the clip at the targeted area and complete removal of the calcifications. The specimens were sent to the laboratory for pathological analysis. IMPRESSION: STEREOTACTIC GUIDED BIOPSY Stereotactic guided biopsy of the area of calcifications in the left breast upper inner aspect middle depth was successful. Waiting for pathology results. A final report will be issued when these become available. Sina martinez/haydee:04/03/2017 15:11:13 copy to: Claudio Reyes M.D., [facility], , ph: [phone], fax: [phone] Pull Over: Vanessa CARLTON (R)(Donnie), [facility] MAMM STEREO BX ADDL Observed: 04/03/2017 Status: F Source: [facility] LEFT-NR 2:48 PM [facility] SYSTEM REPOSITORY Performed at [facility] APPROVED BY: Sina Valente MD FINAL REPORT #[id number] - MAMM STEREO BX BREAST LEFT STEREOTACTIC GUIDED BIOPSY LEFT BREAST WITH MARKING DEVICE INSERTED AND POST DIGITAL MAMMOGRAPHIC IMAGIN04/03/2017 CLINICAL: Patient presents for a stereotactic guided biopsy of the left breast. PATIENT CONSENT: The risks, benefits and alternatives were discussed with the patient. Written and verbal consent was obtained from the patient before the procedure began. The patient was identified by name and date of . Site verification was done prior to the procedure. Audible Time Out: 1340 Procedure Start: 1341 Procedure End: 1400 PROCEDURE: A stereotactic guided biopsy was performed for the concerning area of calcifications located in the left breast upper inner aspect middle depth. The skin was prepped in the usual manner. Local anesthe tic was administered to the access site. A skin delvin was made in the breast. The abnormality was approached from the craniocaudal aspect using an upright digital mammography unit. A 9 gauge biopsy ne edle was placed adjacent to the abnormality under computer guidance and confirmatory stereotactic mammography images were obtained to document needle placement. Once the needle was documented to be in the correct location, multiple specimens were obtained using Eviva biopsy needle. A top hat clip was inserted into the biopsy cavity. A skin closure strip was applied to the access site. Post proce dure digital mammographic imaging demonstrates the clip at the targeted area and complete removal of the calcifications. The specimens were sent to the laboratory for pathological analysis. IMPRESSION: STEREOTACTIC GUIDED BIOPSY HIGH RISK BENIGN Stereotactic guided biopsy of the area of calcifications in the left breast upper inner aspect middle depth was successful. Pathology indicates high risk benign atypical lobular hyperplasia (ALH) with micro-calcifications present. Pathology results are concordant with imaging findings. A surgical excision is recommended. Sina martinez/haydee:04/08/2017 10:25:11 copy to: Claudio Reyes M.D., [facility], , ph: [phone], fax: [phone] Pull Over: Vanessa CARLTON (R)(Donnie), [facility] MAMM STEREO BX Observed: 04/03/2017 Status: F Source: [facility] RIGHT 2:46 PM [facility] REPOSITORY Performed at [facility] APPROVED BY: Sina Valente MD FINAL REPORT #[id number] - MAMM STEREO BX BREAST RIGHT STEREOTACTIC GUIDED BIOPSY RIGHT BREAST WITH MARKING DEVICE INSERTED AND POST DIGITAL MAMMOGRAPHIC IMAGING AND RADIOGRAPHIC SPECIMEN IMAGIN04/03/2017 CLINICAL: Patient presents for a stereotactic guided biopsy of the right breast. PATIENT CONSENT: The risks, benefits and alternatives were discussed with the patient. Written and verbal consent was obtained from the patient before the procedure began. The patient was identified by name and date of . Site verification was done prior to the procedure. Audible Time Out: 1300 Procedure Start: 1301 Procedure End: 1325 PROCEDURE: A stereotactic guided biopsy was performed for the concerning area of calcifications located in the right breast at 12 o'clock middle depth. The skin was prepped in the usual manner. Local anesthetic was administered to the access site. A skin delvin was made in the breast. The abnormality was approached from the craniocaudal aspect using an upright digital mammography unit. A 9 gauge biopsy needle was placed adjacent to the abnormality under computer guidance and confirmatory stereotactic mammography images were obtained to document needle placement. Once the needle was documented to be in the correct location, multiple specimens were obtained using Eviva biopsy needle. A top hat clip was inserted into the biopsy cavity. A skin closure strip was applied to the access site. Post procedure digital mammographic imaging demonstrates the clip at the targeted area and complete removal of the calcifications. The specimens were sent to the laboratory for pathological analysis. IMPRESSION: STEREOTACTIC GUIDED BIOPSY HIGH RISK BENIGN Stereotactic guided biopsy of the area of calcifications in the right breast at 12 o'clock middle depth was successful. The imaged specimens includes the calcifications. Pathology indicates high risk benign atypical lobular hyperplasia (ALH) with micro-calcifications present. Pathology results are concordant with imaging findings. A surgical excision is recommended. Sina martinez/haydee:04/08/2017 10:24:04 copy to: Claudio Reyes M.D., [facility], , ph: [phone], fax: [phone] Pull Over: Vanessa MORAN)(M), [facility] Observed: 04/03/2017 Status: COMPLETED Source: [place] 11:00 AM CLINIC OTHER MOBILE REPOSITORY Office Visit (AGGBRCR) BENJAMIN GARCES ([id number]) 1970 F Date Time Provider Department 04/03/17 11:00 AM [facility] During your visit today, we recorded the following information about you: Pulse Blood pressure Weight Height 68/minute 94/76 59.9 kg 1.6 m Dafne Rosenberg MD 04/03/2017 11:36 AM Signed HPI: Benjamin Garces is a 46 year old 2: Para 2 who presents for an evaluation of abnormal mammogram showing calcifications in the bilateral breast. This was not seen on the prior mammogram. Consultation requested by Dr. Reyes for an opinion regarding biopsy results. My final recommendations will be communicated back to the requesting physician by way of shared medical record or letter via US mail. Patient denies feeling any palpable mass. She denies a family history of breast problems or a past personal history of breast problems. AGE AT [place] 15 AGE AT FIRST 19 2/2 FAMILY HISTORY OF BREAST CANCER No (IF YES) NUMBER OF FIRST DEGREE RELATIVES WITH BREAST CANCER 0 PREVIOUS BREAST BIOPSIES No (IF YES) PREVIOUS BREAST BIOPSY WITH ATYPICAL HYPERPLASIA No RACE AARON MODEL RISK 5 YEAR 0.9 AARON MODEL RISK LIFETIME 9.6 PAST MEDICAL HISTORY Diagnosis Date - Asthma - Dermatitis - Hives - Seizure (HCC) 08/2016 PAST SURGICAL HISTORY Procedure Laterality Date - CARPAL TUNNEL 03/07/2017 Dr. Schmitt both wrists - NONE FAMILY HISTORY Problem Relation Age of Onset - Cancer Mother 54 lung - None Father parkinson - Colon Cancer Paternal Grandmother 55 - Diabetes Paternal Grandmother - Cancer Paternal Uncle prostate CURRENT MEDICATIONS: ibuprofen (MOTRIN) 800 mg tablet levETIRAcetam (KEPPRA) 500 mg tablet Take 1 tablet by mouth twice daily. BLACK COHOSH ORAL Take by mouth. mometasone-formoterol (DULERA) 100-5 mcg/actuation inhaler Inhale 2 Puffs as instructed twice daily. meclizine (ANTIVERT) 12.5 mg tab Take 1 tablet by mouth three times daily as needed (for dizziness.). Buprenorphine-nalOXone (SUBOXONE) 8-2 mg film Dissolve under the tongue once daily. 8 mg tablet. albuterol HFA (VENTOLIN HFA) 90 mcg/actuation inhaler Inhale 2 Puffs as instructed every 4 hours as needed. 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 Alcohol use: Yes 3.0 oz/week 2 Glasses of Wine (5oz) per week Comment: rare Drug use: No Comment: former back in high school marijuana and cocaine recent Heroin use last used 6 months Sexual activity: Yes Partners with: Male Comment: long term care pharmacist boyfriend Other Topics Concern Caffeine Concern Yes Comment:Amount: moderate (equiv to 1-3 8oz coffee/day) Self-Exams No Social History Narrative Works at [employer] in [place]. Lives with boyfriend. Feels safe at home. Family History: Breast Cancer: Negative Ovarian Cancer: Negative Prostate Cancer: Negative REVIEW OF SYSTEMS: GENERAL:No weight loss, No malaise, No fevers HEENT:Negative for frequent or significant headaches, No changes in hearing or vision, no nose bleeds or other nasal problemsANDquot; NECK:Negative for lumps, goiter, pain and significant neck swelling MUSCULOSKELETAL: Negative for joint pain , Negative for swelling, Negative for back pain, Negative for muscle pain NEUROLOGIC:Negative for focal numbness Negative for weakness Negative for headache Negative for syncope Negative for dizziness HEMATOLOGIC/LYMPHATIC/IMMUNOLOGIC:Negative for prolonged bleeding, bruising easily or swollen nodes. PHYSICAL EXAM: BP 94/76 Pulse 68 Ht 160 cm (5' 3ANDquot;) Wt 59.9 kg (132 lb) BMI 23.38 kg/m2 General appearance: Well appearing, alert Skin: skin color, texture, turgor normal, no suspicious rashes or lesions Eyes: Anicteric sclera , Pupils are equally round and reactive Extremities:No clubbing, cyanosis, or edema., Good capillary refill. Neuro: Alert and oriented times three Breast Exam: On visual in spection of the breasts finds them to be Breasts: symmetric RIGHT Skin changes: no Nipple retraction: no Axillary adenopathy: no Supraclavicular adenopathy: no Palpable masses: no Tenderness: no Nipple discharge: no Thickening: no LEFT Skin changes: no Nipple retraction: no Axillary adenopathy: no Supraclavicular adenopathy: no Palpable masses: no Tenderness: no Nipple discharge: no Thickening: no The mammogram was reviewed in detail. IMPRESSION/PLAN: This is a 46-year-old female who presents in consultation for abnormal bilateral breast imaging. Both breasts have an area of microcalcifications that are classified as suspicious. Bilateral stereotactic biopsy is recommended. Clinical examination finds no evidence of any discrete suspicious mass, skin change nipple discharge or lymphadenopathy. Recent breast imaging was reviewed both films and reports. Agree with the need for biopsy. Bilateral stereotactic biopsy was ordered today. We'll await the results. DIAGNOSIS: Encounter Diagnosis ICD-10-CM 1. Abnormal finding on breast imaging R92.8 VICENTE STEREO BX BREAST RT VICENTE STEREO BX BREAST LT Clinician Attestation Statements: The information in this document, created by the emergency medical service coordinator for me, accurately reflects the services I personally performed and the decisions made by me. I have reviewed and approved this document for accuracy. Dafne Rosenberg MD [place]: Facesheet ID: [id number] 04/03/2017 12:00 AM Author: MIKKI PROVIDER Signed by CCMario Alberto PROVIDER on 04/03/2017 at 10:48 AM Document text: Display document [id number] only Referring Provider: CLAUDIO REYES [[id number]] Allergies As of Date: 04/03/2017 (No Known Allergies) Date Reviewed: 04/03/2017 Reviewed by: Dafne Rosenberg - Fully Assessed Reason for Visit: Breast Mass [284] Cmt: bilateral biopsy today Primary Visit Diagnosis:Abnormal finding on breast imaging [R92.8] Order(s):VICENTE STEREO BX BREAST RT [[id number]] Order #: [id number] FUTURE VICENTE STEREO BX BREAST LT [[id number]] Order #: [id number] FUTURE Prescriptions as of 04/03/2017 Sig: IBUPROFEN 800 MG TABLET LEVETIRACETAM 500 MG TABLET Take 1 tablet by mouth twice * BLACK COHOSH ORAL Take by mouth. MOMETASONE-FORMOTEROL HFA 100* Inhale 2 Puffs as instructed * MECLIZINE 12.5 MG TABLET Take 1 tablet by mouth three * BUPRENORPHINE 8 MG-NALOXONE 2* Dissolve under the tongue on* ALBUTEROL SULFATE HFA 90 MCG/* Inhale 2 Puffs as instructed * Problem List As Of Date 04/03/2017 Noted Resolved Seizures (HCC) [R56.9] INVALID FOR* More... Drug abuse [F19.10] INVALID FOR* More... Abnormal finding on breast imaging [R92.8] INVALID FOR* Follow-up and Disposition History Recorded Questionnaire: AG BRCR AARON MODEL SCORING AGE AT M[place] -> 15 AGE AT FIRST -> 19 Cmt: 2/2 FAMILY HISTORY OF BREAST CANCER -> No (IF YES) NUMBER OF FIRST DEGREE RELATIVES WITH BREAST CANCER -> 0 PREVIOUS BREAST BIOPSIES -> No (IF YES) PREVIOUS BREAST BIOPSY WITH ATYPICAL HYPERPLASIA -> No RACE -> AARON MODEL RISK 5 YEAR -> 0.9 AARON MODEL RISK LIFETIME -> 9.6 Letter Text Encounter Status:Closed by DAFNE ROSENBERG MD on 04/03/17 PROGRESS Observed: 04/03/2017 Status: COMPLETED Source: [facility] 10:56 AM CLINIC OTHER CAMPUS REPOSITORY HNO ID: [id number] Author: Dafne Rosenberg Service: (none) Author Type: Physician Type: Progress Notes Filed: 04/03/2017 11:36 AM Note Text: HPI: Benjamin Garces is a 46 year old 2: Para 2 who presents for an evaluation of abnormal mammogram showing calcifications in the bilateral breast. This was not seen on the prior mammogram. Consultation requested by Dr. Reyes for an opinion regarding biopsy results. My final recommendations will be communicated back to the requesting physician by way of shared medical record or letter via US mail. Patient denies feeling any palpable mass. She denies a family history of breast problems or a past personal history of breast problems. AGE AT M[place]HE 15 AGE AT FIRST 19 2/2 FAMILY HISTORY OF BREAST CANCER No (IF YES) NUMBER OF FIRST DEGREE RELATIVES WITH BREAST CANCER 0 PREVIOUS BREAST BIOPSIES No (IF YES) PREVIOUS BREAST BIOPSY WITH ATYPICAL HYPERPLASIA No RACE AARON MODEL RISK 5 YEAR 0.9 AARON MODEL RISK LIFETIME 9.6 PAST MEDICAL HISTORY Diagnosis Date - Asthma - Dermatitis - Hives - Seizure (HCC) 08/2016 PAST SURGICAL HISTORY Procedure Laterality Date - CARPAL TUNNEL 03/07/2017 Dr. Schmitt both wrists - NONE FAMILY HISTORY Problem Relation Age of Onset - Cancer Mother 54 lung - None Father parkinson - Colon Cancer Paternal Grandmother 55 - Diabetes Paternal Grandmother - Cancer Paternal Uncle prostate CURRENT MEDICATIONS: ibuprofen (MOTRIN) 800 mg tablet levETIRAcetam (KEPPRA) 500 mg tablet Take 1 tablet by mouth twice daily. BLACK COHOSH ORAL Take by mouth. mometasone-formoterol (DULERA) 100-5 mcg/actuation inhaler Inhale 2 Puffs as instructed twice daily. meclizine (ANTIVERT) 12.5 mg tab Take 1 tablet by mouth three times daily as needed (for dizziness.). Buprenorphine-nalOXone (SUBOXONE) 8-2 mg film Dissolve under the tongue once daily. 8 mg tablet. albuterol HFA (VENTOLIN HFA) 90 mcg/actuation inhaler Inhale 2 Puffs as instructed every 4 hours as needed. 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 Alcohol use: Yes 3.0 oz/week 2 Glasses of Wine (5oz) per week Comment: rare Drug use: No Comment: former back in high school marijuana and cocaine recent Heroin use last used 6 months Sexual activity: Yes Partners with: Male Comment: jail boyfriend Other Topics Concern Caffeine Concern Yes Comment:Amount: moderate (equiv to 1-3 8oz coffee/day) Self-Exams No Social History Narrative Works at [employer] in [place]. Lives with boyfriend. Feels safe at home. Family History: Breast Cancer: Negative Ovarian Cancer: Negative Prostate Cancer: Negative REVIEW OF SYSTEMS: GENERAL:No weight loss, No malaise, No fevers HEENT:Negative for frequent or significant headaches, No changes in hearing or vision, no nose bleeds or other nasal problems NECK:Negative for lumps, goiter, pain and significant neck swelling MUSCULOSKELETAL: Negative for joint pain , Negative for swelling, Negative for back pain, Negative for muscle pain NEUROLOGIC:Negative for focal numbness Negative for weakness Negative for headache Negative for syncope Negative for dizziness HEMATOLOGIC/LYMPHATIC/IMMUNOLOGIC:Negative for prolonged bleeding, bruising easily or swollen nodes. PHYSICAL EXAM: BP 94/76 Pulse 68 Ht 160 cm (5' 3) Wt 59.9 kg (132 lb) BMI 23.38 kg/m2 General appearance: Well appearing, alert Skin: skin color, texture, turgor normal, no suspicious rashes or lesions Eyes: Anicteric sclera , Pupils are equally round and reactive Extremities:No clubbing, cyanosis, or edema., Good capillary refill. Neuro: Alert and oriented times three Breast Exam: On visual in spection of the breasts finds them to be Breasts: symmetric RIGHT Skin changes: no Nipple retraction: no Axillary adenopathy: no Supraclavicular adenopathy: no Palpable masses: no Tenderness: no Nipple discharge: no Thickening: no LEFT Skin changes: no Nipple retraction: no Axillary adenopathy: no Supraclavicular adenopathy: no Palpable masses: no Tenderness: no Nipple discharge: no Thickening: no The mammogram was reviewed in detail. IMPRESSION/PLAN: This is a 46-year-old female who presents in consultation for abnormal bilateral breast imaging. Both breasts have an area of microcalcifications that are classified as suspicious. Bilateral stereotactic biopsy is recommended. Clinical examination finds no evidence of any discrete suspicious mass, skin change nipple discharge or lymphadenopathy. Recent breast imaging was reviewed both films and reports. Agree with the need for biopsy. Bilateral stereotactic biopsy was ordered today. We'll await the results. DIAGNOSIS: Encounter Diagnosis ICD-10-CM 1. Abnormal finding on breast imaging R92.8 VICENTE STEREO BX BREAST RT VICENTE STEREO BX BREAST LT Clinician Attestation Statements: The information in this document, created by the emergency medical service coordinator for me, accurately reflects the services I personally performed and the decisions made by me. I have reviewed and approved this document for accuracy. Dafne Rosenberg MD SURGICAL TISSUE EXAM Observed: 04/03/2017 Status: F Source: [facility] 12:00 AM HEALTH SYSTEM REPOSITORY Test performed at [facility] [address] [place], [place] [address] NAME: BENJAMIN GARCES REQUESTING: DAFNE ROSENBERG M.D. COPY TO: [facility] FINAL DIAGNOSIS: A) BREAST, LEFT, 12 O'CLOCK POSTERIOR, BIOPSY - BREAST PARENCHYMA WITH LOBULAR NEOPLASIA (ATYPICAL LOBULAR HYPERPLASIA), COLUMNAR CELL CHANGE AND SECRETORY CHANGE. MICROCALCIFICATIONS IDENTIFIED WITHIN BENIGN EPITHELIUM. B) BREAST, RIGHT, BIOPSY - BREAST PARENCHYMA WITH LOBULAR NEOPLASIA (ATYPICAL LOBULAR HYPERPLASIA), COLUMNAR CELL CHANGE AND SECRETORY CHANGE. MICROCALCIFICATIONS IDENTIFIED WITHIN BENIGN EPITHELIUM AND STROMAL TISSUE. OPERATIVE PROCEDURE: Stereotactic biopsy CLINICAL INFORMATION: A) Left breast calcification, 12 o'clock posterior; Calcs; Collected 1:43 p, Formalin 1:48 p B) Right breast calcifications central middle depth; Calcs; Collected 1:10 p, Formalin 1:12 p GROSS DESCRIPTION: A) Left breast Received in formalin labeled left breast, 12 o'clock, posterior, are multiple cylindrical segments of yellow fibrofatty tissue aggregating to 3.0 x 3.0 x 0.3 cm. The specimen is totally submitted in formalin in cassettes A1-A4. Levels x 3. Time collected: 1:43 pm; time placed in formalin: 1:48 pm. B) Right breast Received in formalin labeled right breast, are multiple irregular-shaped segments of yellow fibrofatty tissue aggregating to 4.0 x 4.0 x 0.4 cm. The specimen is totally submitted in formalin in cassettes B1-B2. Time collected: 1:10 pm; time placed in formalin: 1:12 pm. ARH:leia RAO M.D.,PATHOLOGIST (Electronic signature on file) Signed out: 04/05/2017 12:57 PRINTED: 04/05/2017 Page 1 of 1 Performed By: #### SURG #### [facility] [address] [id number] MAMMOGRAM DIAG WITH Observed: 03/22/2017 Status: F Source: [facility] CAD IF PERFORMED 1:16 PM HEALTH SYSTEM BILATERAL REPOSITORY Performed at [facility] APPROVED BY: Sina Valente MD #[id number] - MAMMOGRAM DIAG WITH CAD IF PERFORMED BILATERAL BILATERAL DIGITAL DIAGNOSTIC MAMMOGRAM WITH CAD WITH MEDIOLATERAL CRANIOCAUDAL MAGNIFICATION: 03/22/2017 CLINICAL: Patient returns for abnormal bilateral mammogram. Comparison is made to exam dated: 03/20/2017 mammogram - [facility]. Current study was also evaluated with a Computer Aided Detection (CAD) system. There are clustered fine pleomorphic calcifications in the right breast central to the nipple middle depth. There are clustered calcifications in the left breast at 12 o'clock posterior depth. No other significant masses or calcifications are seen in either breast. IMPRESSION: SUSPICIOUS OF MALIGNANCY The clustered fine pleomorphic calcifications in the right breast central to the nipple middle depth are suspicious of malignancy. A stereotactic biopsy is recommended. The clustered calcifications in the left breast at 12 o'clock posterior depth are suspicious of malignancy. A stereotactic biopsy is recommended. A phone call was made to the physician's office and the results were reviewed with the patient. Based on a modified Aaron Model, this patient's calculated lifetime risk of developing breast cancer is 6.3%. Sina martinez/haydee:03/22/2017 14:22:22 Pull Over: Kaila Ojeda)(Donnie), [facility] letter sent: Abnormal Birad 4 & 5 Mammogram BI-RADS: 4 Suspicious abnormality PROGRESS Observed: 03/22/2017 Status: COMPLETED Source: [facility] 10:48 AM CLINIC MAIN CAMPUS REPOSITORY HNO ID: [id number] Author: Claudio Reyes Service: (none) Author Type: Physician Type: Progress Notes Filed: 03/22/2017 12:13 PM Note Text: HPI Comments: The patient is here for an acute visit. She presents with complaints of left shoulder pain. She states she has been off work for about a month. She states it started at least three months ago, but states it worsened in the last month. She states she is having trouble lifting it and moving it in certain directions. She doesn't know if she injured it in any way, but states while at work she was lifting boxes. She denies this being a worker's comp situation. She states she had carpal tunnel surgery recently and her symptoms have been worse since then. She rates her pain 6-7/10 currently worse with movement. She describes the pain as sharp. She denies any numbness or tingling in the arm, but reports that it does feel weak. She denies any swelling, redness or bruising of the area. She denies any fevers. The patient has been taking ibuprofen which seems to help and trying to do some exercises but she states it irritates it. She denies any neck pain. She saw her orthopedic doctor yesterday but didn't mention the shoulder to him. She sees him again in 2 weeks and states she will mentioned it to him then. She has no other questions or concerns today. Patient is a 46 year old female presenting with shoulder injury. The history is provided by the patient. Shoulder Injury The incident occurred more than 1 week ago. The incident occurred at home. There was no injury mechanism. The left shoulder is affected. The pain is at a severity of 6/10. The pain is moderate. The pain has been intermittent since onset. The pain does not radiate. There is no history of shoulder injury. She has no other injuries. There is no history of shoulder surgery. Associated symptoms include muscle weakness. Pertinent negatives include no numbness and no tingling. ALLERGIES No Known Allergies Current Outpatient Prescriptions: ibuprofen (MOTRIN) 800 mg tablet Disp: Rfl: levETIRAcetam (KEPPRA) 500 mg tablet Take 1 tablet by mouth twice daily. Disp: 180 tablet Rfl: 2 BLACK COHOSH ORAL Take by mouth. Disp: Rfl: mometasone-formoterol (DULERA) 100-5 mcg/actuation inhaler Inhale 2 Puffs as instructed twice daily. Disp: 1 Inhaler Rfl: 1 meclizine (ANTIVERT) 12.5 mg tab Take 1 tablet by mouth three times daily as needed (for dizziness.). Disp: 15 tablet Rfl: 0 Buprenorphine-nalOXone (SUBOXONE) 8-2 mg film Dissolve under the tongue once daily. 8 mg tablet. Disp: Rfl: albuterol HFA (VENTOLIN HFA) 90 mcg/actuation inhaler Inhale 2 Puffs as instructed every 4 hours as needed. Disp: 2 Inhaler Rfl: 1 No current facility-administered medications for this visit. 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 Alcohol use: Yes 3.0 oz/week 2 Glasses of Wine (5oz) per week Comment: rare Drug use: No Comment: former back in high school marijuana and cocaine Sexual activity: Yes Partners with: Male Comment: long term care pharmacist boyfriend Other Topics Concern Caffeine Concern Yes Comment:Amount: moderate (equiv to 1-3 8oz coffee/day) Self-Exams No Social History Narrative Works at [employer] in [place]. Lives with boyfriend. Feels safe at home. Family History Problem Relation Age of Onset - Cancer Mother 54 lung - None Father parkinson - Colon Cancer Paternal Grandmother 55 - Diabetes Paternal Grandmother - Cancer Paternal Uncle prostate Reviewed past medical and surgical history. BP 100/60 Pulse 60 Temp 36.8 ?C (98.3 ?F) Resp 16 Ht 161.3 cm (5' 3.5) Wt 61.7 kg (136 lb) BMI 23.71 kg/m2 Review of Systems Constitutional: Negative for fever. Musculoskeletal: Positive for joint pain. Negative for falls and neck pain. Neurological: Positive for weakness. Negative for tingling and numbness. Physical Exam Constitutional: She is oriented to person, place, and time and well-developed, well-nourished, and in no distress. Vital signs are normal. She does not have a sickly appearance. No distress. HENT: Head: Normocephalic and atraumatic. Mouth/Throat: Oropharynx is clear and moist and mucous membranes are normal. Eyes: Conjunctivae are normal. Pupils are equal, round, and reactive to light. Neck: Normal range of motion and full passive range of motion without pain. No spinous process tenderness and no muscular tenderness present. Cardiovascular: Normal rate, regular rhythm and normal heart sounds. No murmur heard. Pulses: Radial pulses are 2+ on the right side, and 2+ on the left side. Pulmonary/Chest: Effort normal and breath sounds normal. No respiratory distress. She has no wheezes. Musculoskeletal: Left shoulder: She exhibits decreased range of motion and tenderness. She exhibits no swelling, no effusion, no crepitus, no deformity, normal pulse and normal strength. Cervical back: Normal. Arms: Patient demonstrates pain with empty can, apley scratch, cross arm. Drop arm is negative. Neer and Gresham signs are positive. Negative lhermitte sign and spurling maneuver. Neurological: She is alert and oriented to person, place, and time. She has normal sensation. Reflex Scores: Bicep reflexes are 2+ on the left side. Brachioradialis reflexes are 1+ on the right side and 2+ on the left side. Strength 4/5 bilaterally Skin: Skin is warm and dry. She is not diaphoretic. Nursing note and vitals reviewed. ASSESSMENT/PLAN: 1. Acute pain of left shoulder - ICD9: 719.41, ICD10: M25.512 - CONSULT TO PHYSICAL THERAPY (AG) The patient is here for an acute visit. She does demonstrate pain and decreased ROM. Discussed this may be a tendinitis versus a rotator cuff tear. Discussed physical therapy which she was agreeable to. She is currently taking high dose ibuprofen which helps and I encouraged her to continue taking it. She will see her orthopedic provider in 2 weeks and will further address her symptoms with him. If there is no improvement or worsening symptoms following physical therapy, will move forward with an MRI for further assessment. She was in agreement. She was offered a close follow up, but she declined. She was instructed to call if any problems and she agreed. Return if symptoms worsen or fail to improve. Claudio Reyes MD CNOV Observed: 03/22/2017 Status: COMPLETED Source: [facility] 10:30 AM [facility] REPOSITORY Office Visit (AGINTMLO) BENJAMIN GARCES ([id number]) 1970 F Date Time Provider Department 03/22/17 10:30 AM CLAUDIO REYES AGINTMLO During your visit today, we recorded the following information about you: Temperature Pulse Respiration Blood pressure 98.3 degrees 60/minute 16/minute 100/60 Weight Height 61.7 kg 1.613 m Claudio Reyes MD 03/22/2017 12:13 PM Signed HPI Comments: The patient is here for an acute visit. She presents with complaints of left shoulder pain. She states she has been off work for about a month. She states it started at least three months ago, but states it worsened in the last month. She states she is having trouble lifting it and moving it in certain directions. She doesn't know if she injured it in any way, but states while at work she was lifting boxes. She denies this being a worker's comp situation. She states she had carpal tunnel surgery recently and her symptoms have been worse since then. She rates her pain 6- 7/10 currently worse with movement. She describes the pain as sharp. She denies any numbness or tingling in the arm, but reports that it does feel weak. She denies any swelling, redness or bruising of the area. She denies any fevers. The patient has been taking ibuprofen which seems to help and trying to do some exercises but she states it irritates it. She denies any neck pain. She saw her orthopedic doctor yesterday but didn't mention the shoulder to him. She sees him again in 2 weeks and states she will mentioned it to him then. She has no other questions or concerns today. Patient is a 46 year old female presenting with shoulder injury. The history is provided by the patient. Shoulder Injury The incident occurred more than 1 week ago. The incident occurred at home. There was no injury mechanism. The left shoulder is affected. The pain is at a severity of 6/10. The pain is moderate. The pain has been intermittent since onset. The pain does not radiate. There is no history of shoulder injury. She has no other injuries. There is no history of shoulder surgery. Associated symptoms include muscle weakness. Pertinent negatives include no numbness and no tingling. ALLERGIES No Known Allergies Current Outpatient Prescriptions: ibuprofen (MOTRIN) 800 mg tablet Disp: Rfl: levETIRAcetam (KEPPRA) 500 mg tablet Take 1 tablet by mouth twice daily. Disp: 180 tablet Rfl: 2 BLACK COHOSH ORAL Take by mouth. Disp: Rfl: mometasone-formoterol (DULERA) 100-5 mcg/actuation inhaler Inhale 2 Puffs as instructed twice daily. Disp: 1 Inhaler Rfl: 1 meclizine (ANTIVERT) 12.5 mg tab Take 1 tablet by mouth three times daily as needed (for dizziness.). Disp: 15 tablet Rfl: 0 Buprenorphine-nalOXone (SUBOXONE) 8-2 mg film Dissolve under the tongue once daily. 8 mg tablet. Disp: Rfl: albuterol HFA (VENTOLIN HFA) 90 mcg/actuation inhaler Inhale 2 Puffs as instructed every 4 hours as needed. Disp: 2 Inhaler Rfl: 1 No current facility-administered medications for this visit. 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 Alcohol use: Yes 3.0 oz/week 2 Glasses of Wine (5oz) per week Comment: rare Drug use: No Comment: former back in high school marijuana and cocaine Sexual activity: Yes Partners with: Male Comment: long term care pharmacist boyfriend Other Topics Concern Caffeine Concern Yes Comment:Amount: moderate (equiv to 1-3 8oz coffee/day) Self-Exams No Social History Narrative Works at [employer] in [place]. Lives with boyfriend. Feels safe at home. Family History Problem Relation Age of Onset - Cancer Mother 54 lung - None Father parkinson - Colon Cancer Paternal Grandmother 55 - Diabetes Paternal Grandmother - Cancer Paternal Uncle prostate Reviewed past medical and surgical history. BP 100/60 Pulse 60 Temp 36.8 ?C (98.3 ?F) Resp 16 Ht 161.3 cm (5' 3.5ANDquot;) Wt 61.7 kg (136 lb) BMI 23.71 kg/m2 Review of Systems Constitutional: Negative for fever. Musculoskeletal: Positive for joint pain. Negative for falls and neck pain. Neurological: Positive for weakness. Negative for tingling and numbness. Physical Exam Constitutional: She is oriented to person, place, and time and well-developed, well-nourished, and in no distress. Vital signs are normal. She does not have a sickly appearance. No distress. HENT: Head: Normocephalic and atraumatic. Mouth/Throat: Oropharynx is clear and moist and mucous membranes are normal. Eyes: Conjunctivae are normal. Pupils are equal, round, and reactive to light. Neck: Normal range of motion and full passive range of motion without pain. No spinous process tenderness and no muscular tenderness present. Cardiovascular: Normal rate, regular rhythm and normal heart sounds. No murmur heard. Pulses: Radial pulses are 2+ on the right side, and 2+ on the left side. Pulmonary/Chest: Effort normal and breath sounds normal. No respiratory distress. She has no wheezes. Musculoskeletal: Left shoulder: She exhibits decreased range of motion and tenderness. She exhibits no swelling, no effusion, no crepitus, no deformity, normal pulse and normal strength. Cervical back: Normal. Arms: Patient demonstrates pain with empty can, apley scratch, cross arm. Drop arm is negative. Neer and Gresham signs are positive. Negative lhermitte sign and spurling maneuver. Neurological: She is alert and oriented to person, place, and time. She has normal sensation. Reflex Scores: Bicep reflexes are 2+ on the left side. Brachioradialis reflexes are 1+ on the right side and 2+ on the left side. Strength 4/5 bilaterally Skin: Skin is warm and dry. She is not diaphoretic. Nursing note and vitals reviewed. ASSESSMENT/PLAN: 1. Acute pain of left shoulder - ICD9: 719.41, ICD10: M25.512 - CONSULT TO PHYSICAL THERAPY (AG) The patient is here for an acute visit. She does demonstrate pain and decreased ROM. Discussed this may be a tendinitis versus a rotator cuff tear. Discussed physical therapy which she was agreeable to. She is currently taking high dose ibuprofen which helps and I encouraged her to continue taking it. She will see her orthopedic provider in 2 weeks and will further address her symptoms with him. If there is no improvement or worsening symptoms following physical therapy, will move forward with an MRI for further assessment. She was in agreement. She was offered a close follow up, but she declined. She was instructed to call if any problems and she agreed. Return if symptoms worsen or fail to improve. MD Claudio Lance MD 03/22/2017 11:02 AM Signed Follow up with orthopedics as scheduled. Call if no improvement or worsening symptoms after starting physical therapy. Referring Provider: SELF [200] Allergies As of Date: 03/22/2017 (No Known Allergies) Date Reviewed: 03/22/2017 Reviewed by: Claudio Reyes - Fully Assessed Reason for Visit: left shoulder pain [Other] Cmt: cannot lift arm above head, has had for awhile but got worse after having carpal tunnel surgery 03/07/17 Primary Visit Diagnosis:Acute pain of left shoulder [M25.512] Order(s):CONSULT TO PHYSICAL THERAPY (AG) [[id number]] Order #: [id number]: 1 Prescriptions as of 03/22/2017 Sig: IBUPROFEN 800 MG TABLET LEVETIRACETAM 500 MG TABLET Take 1 tablet by mouth twice * BLACK COHOSH ORAL Take by mouth. MOMETASONE-FORMOTEROL HFA 100* Inhale 2 Puffs as instructed * MECLIZINE 12.5 MG TABLET Take 1 tablet by mouth three * BUPRENORPHINE 8 MG-NALOXONE 2* Dissolve under the tongue on* ALBUTEROL SULFATE HFA 90 MCG/* Inhale 2 Puffs as instructed * Medication notes this encounter HYDROXYZINE HCL 25 MG TABLET >> Vaibhav Mahoney CMA 03/22/2017 10:42 AM >> VAIBHAV MAHONEY Mar 22, 2017 10:42 AM Patient not taking IBUPROFEN 200 MG TABLET >> Vaibhav Mahoney CMA 03/22/2017 10:42 AM >> VAIBHAV MAHONEY Mar 22, 2017 10:42 AM Patient not taking Problem List As Of Date 03/22/2017 Noted Resolved Seizures (HCC) [R56.9] INVALID FOR* More... Drug abuse [F19.10] INVALID FOR* More... Other instructions from your clinician: Follow up with orthopedics as scheduled. Call if no improvement or worsening symptoms after starting physical therapy. Medications Discontinued During This Encounter hydrOXYzine HCl (ATARAX) 25 mg tablet 20 t* 0 10/09/2016 03/22/2017 Route: ORAL Sig: Take 1 tablet by mouth three times daily as needed for Itching/Rash. Disc: Course of therapy completed ibuprofen (ADVIL) 200 mg tablet 03/22/2017 Class: Historical Med Route: ORAL Sig: Take 200 mg by mouth every 6 hours as needed. Disc: Course of therapy completed Level of Service: [facility] PATIENT VISIT LEVEL 4 [13912] Disposition: Return if symptoms worsen or fail to improve. Follow-up and Disposition History Recorded Encounter Status:Closed by CLAUDIO REYES MD on 03/22/17 US TRANSVAGINAL Observed: 03/20/2017 Status: F Source: [facility] 11:11 AM HEALTH SYSTEM REPOSITORY Performed at [facility] APPROVED BY: Ernie Bryant MD EXAMINATION: TRANSVAGINAL AND TRANSABDOMINAL PELVIC ULTRASOUND HISTORY: Irregular menses TECHNIQUE: Sonography of the pelvis was performed by transvaginal and transabdominal (limited) techniques. Images were obtained and stored in a permanent archive. M: UFP_1 COMPARISON: None RESULT: The uterus measures approximately 8-9 cm in length. There is no focal myometrial abnormality identified. The endometrium measures approximately 6 mm in thickness and there is no significant endometrial fluid. Normal appearance of the ovaries. The right measures 29 x 13 x 14 mm in size while the left measures 27 x 25 x 17 mm. There are bilateral ovarian follicles. Normal bilateral ovarian blood flow. No significant free pelvic fluid. IMPRESSION: NORMAL SONOGRAPHIC APPEARANCE OF THE FEMALE PELVIS. US FEMALE PELVIS Observed: 03/20/2017 Status: F Source: [facility] TRANSABD COMPLETE 10:15 AM HEALTH SYSTEM REPOSITORY Performed at [facility] APPROVED BY: Ernie Bryant MD EXAMINATION: TRANSVAGINAL AND TRANSABDOMINAL PELVIC ULTRASOUND HISTORY: Irregular menses TECHNIQUE: Sonography of the pelvis was performed by transvaginal and transabdominal (limited) techniques. Images were obtained and stored in a permanent archive. M: UFP_1 COMPARISON: None RESULT: The uterus measures approximately 8-9 cm in length. There is no focal myometrial abnormality identified. The endometrium measures approximately 6 mm in thickness and there is no significant endometrial fluid. Normal appearance of the ovaries. The right measures 29 x 13 x 14 mm in size while the left measures 27 x 25 x 17 mm. There are bilateral ovarian follicles. Normal bilateral ovarian blood flow. No significant free pelvic fluid. IMPRESSION: NORMAL SONOGRAPHIC APPEARANCE OF THE FEMALE PELVIS. MAMMOGRAM SCREENING Observed: 03/20/2017 Status: F Source: [facility] WITH CAD IF PERFORMED 9:34 AM HEALTH SYSTEM REPOSITORY Performed at [facility] APPROVED BY: STELLA WALLS MD #[id number] - MAMMOGRAM SCREENING WITH CAD IF PERFORMED BILATERAL FIRST EVER DIGITAL SCREENING MAMMOGRAM WITH CAD WITH MEDIOLATERAL OBLIQUE CRANIOCAUDAL: 03/20/2017 CLINICAL: Baseline screening mammogram. Patient reports no breast problems. No prior exams were available for comparison. Current study was also evaluated with a Computer Aided Detection (CAD) system. There is a possible cluster of calcifications in the right breast upper outer aspect anterior depth. There is a possible calcification in the left breast upper inner aspect posterior depth. No other significant masses or calcifications are seen in either breast. IMPRESSION: INCOMPLETE: NEEDS ADDITIONAL IMAGING EVALUATION The possible cluster of calcifications in the right breast upper outer aspect anterior depth is indeterminate. Magnification views are recommended. The possible calcification in the left breast upper inner aspect posterior depth is indeterminate. Additional views are recommended. Based on a modified Aaron Model, this patient's calculated lifetime risk of developing breast cancer is 6.3%. Please contact Centralized Scheduling at [phone] to schedule your patient to return for additional imaging. Please fax an order to [phone]. Stella cabral/penrad:03/20/2017 09:38:03 Pull Over: Kaila Ojeda)(Donnie), [facility] letter sent: ADDITIONAL IMAGING Birad 0 Mammogram BI-RADS: 0 Indeterminate ALLERGIES ALLERGIES DATE TYPE / CODE NAME / CODE REACTION SEVERITY SOURCE 01/29/2018 Drug No Known Unknown [facility] Allergy/416 Allergies/K53094 Hospital 724497(SNOM 0388(RXNORM) Repository ED CT) Drug NO KNOWN [facility] Class/18574 ALLERGIES Other [place] 1003(SNOMED Repository CT) NG/38565070 NO KNOWN [facility] 6(SNOMED ALLERGIES [facility]) Repository ENCOUNTERS ENCOUNTERS ADMIT/DISCHARGE ACCOUNT NUMBER ADMITTING ENCOUNTER LOCATION SOURCE CLASS 03/13/2018 [id number] Ambulatory [facility] MEDICAL Repository CENTERBuildi ng:AGCARDPOB 03/08/2018 [id number] Ambulatory [facility] ding:CR Repository 02/28/2018 [id number] Ambulatory [facility] Other [place] Repository 02/13/2018/02/19/20 [id number] Ambulatory [address] ding:CR Repository 02/07/2018 [id number] Ambulatory [facility] Other [place] Repository 01/29/2018 [id number] Ambulatory [facility] ding:CR Repository 01/23/2018 [id number] Ambulatory [facility] Other [place] Repository 01/22/2018/01/23/20 [id number] Ambulatory [address] Other [place] Repository 01/14/2018/01/15/20 [id number] Ambulatory [address] Other [place] Repository 01/14/2018/01/15/20 [id number] Ambulatory [address] MEDICAL Repository CENTERBuildi ng:AGVASACC 01/08/2018 [id number] Ambulatory [facility] Other [place] Repository 01/08/2018 [id number] Ambulatory [facility] MEDICAL Repository CENTERBuildi ng:AGVASACC 12/27/2017 [id number] Ambulatory [facility] Other [place] Repository 12/21/2017 [id number] Ambulatory [facility] Other [place] Repository 12/20/2017/12/21/19 [id number] Ambulatory [address] Other [place] Repository 12/17/2017/12/18/19 [id number] Ambulatory [address] Other [place] Repository 12/17/2017/12/18/19 [id number] Ambulatory [address] MEDICAL Repository TRUJILLO ALTOBuildi ng:AGVASACC 12/03/2017/12/10/19 [id number] LARRA, Inpatient [address] Other [place] Repository 12/03/2017/12/10/19 [id number] [facility], Inpatient [address] MEDICAL Repository TRUJILLO ALTOBuildi nRoom: 4231Bed: 11/26/2017 [id number] Ambulatory [facility] Other [place] Repository 11/26/2017/11/27/19 [id number] Ambulatory [address] MEDICAL Repository CENTERBuildi ng:AKLB 11/26/2017/11/27/19 [id number] Ambulatory [address] Other [place] Repository 11/26/2017/11/27/19 [id number] Ambulatory [place] [address] MEDICAL Repository CENTERBuildi ng:AGVASACC 11/12/2017 [id number] Ambulatory AKRON L[facility] MEDICAL Repository TRUJILLO ALTOBuildi ng:AGVASACC 10/24/2017/10/25/19 [id number] Ambulatory [address] Other [place] Repository 10/24/2017/10/25/19 [id number] Ambulatory [place] [address] MEDICAL Repository TRUJILLO ALTOBuildi ng:AGVASACC 10/17/2017/10/18/19 [id number] LOUANN, Ambulatory [address] Repository 10/17/2017/10/18/19 [id number] LOUANN, Inpatient [place] [address] MEDICAL Repository TRUJILLO ALTOBuild ng:CCLERoom: POOLBed: 10/04/2017 [id number] Ambulatory TASHAR[place] [facility] MEDICAL Repository TRUJILLO ALTOBuild ng:AKPULM 10/02/2017/10/03/19 [id number] Ambulatory [address] Repository 10/02/2017/10/03/19 [id number] Ambulatory [place] [address] MEDICAL Repository TRUJILLO ALTOBuildi ng:AGVASACC 09/19/2017 [id number] QASIM, Ambulatory LENNY [facility] MEDICAL Repository TRUJILLO ALTOBuild ng:AKEPL 09/19/2017 [id number] QASIM, Ambulatory [facility] Repository 09/19/2017/09/20/19 [id number] QASIM, Inpatient [place] [address] MEDICAL Repository TRUJILLO ALTOBuildi ng:CCLERoom: POOLBed: 06/19/2017/06/23/19 [id number] Ambulatory [address] Main [place] Repository 04/10/2017 [id number] Ambulatory AKRON Lenny [facility] MEDICAL Repository TRUJILLO ALTOBuildi ng:AGGBRCR 04/03/2017 [id number] Ambulatory [facility] Repository 04/03/2017/04/03/19 [id number] Ambulatory [place] [address] MEDICAL Repository TRUJILLO ALTOBuildi ng:AKXRMA 04/03/2017/04/03/19 [id number] Ambulatory [address] Other [place] Repository 04/03/2017/04/03/19 [id number] Ambulatory [address] MEDICAL Repository CENTERBuildi ng:AGGBRCR PAYERS PAYERS ENCOUNTER GUARANTOR PAYER SUBSCRIBER SOURCE 03/13/2018 BENJAMIN L [facility]: [facility] CANFIELDDOB: [facility] MEDICAIDPolicy [id number] Repository [facility] Number: [place], [place] [id number]: 330) Date: (HP) 03/08/2018 BENJAMIN L Primary BENJAMIN L Real [id number] Insurance:[facility]: [facility] [id number]ANPolic Number: Repository [address]Vue: 330 [id number] (HP) Date:[id number] [address]WL: 03/08/2018 Secondary NOT GIVENUNK Real Insurance:SELF PAY [facility] Number: Effective Repository Date:2018-02-19 02/13/2018 BENJAMIN L Primary BENJAMIN L [place] [id number] Insurance:[facility]OB: [facility] [id number] HospitalP[facility] Number: Repository [address]Uuk: 330 [id number] () Date:[id number] [address]FY: 02/13/2018 Secondary NOT GIVENUNK Real Insurance:SELF PAY [facility] Number: Effective Repository Date:2018-01-29 01/29/2018 BENJAMIN L Primary BENJAMIN L Real [id number] [facility]: [facility] [id number] Florida Sarasota Doctors HospitalPolic Number: Repository [id number]: 330 [id number] (HP) Date:1553-29-32[address] [address]WV: 01/29/2018 Secondary NOT GIVENUNK Real Insurance:SELF PAY [facility] Number: Effective Repository Date:2018-01-23 01/14/2018 BENJAMIN L Primary BENJAMIN L [facility] CANFIELDDOB: Insurance:[facility]OB: [facility] MEDICAIDPolicy [id number] Repository [address] Number: [place] [id number] [address]Yvb: (330) Date: (HP) 01/08/2018 BENJAMIN L Primary BENJAMIN L [facility] CANFIELDDOB: Insurance:[facility]: [facility] MEDICAIDPolicy [id number] Repository [address] Number: [place] [id number] [address]Vke: (330) Date: (HP) 12/17/2017 BENJAMIN L Primary BENJAMIN L [facility] CANFIELDDOB: Insurance:[facility]OB: [facility] MEDICAIDPolicy [id number] Repository [address] Number: [place] [id number]: (330) Date: (HP) 12/03/2017 BENJAMIN L Primary BENJAMIN L [facility] CANFIELDDOB: Insurance:[facility]OB: [facility] MEDICAIDPolicy [id number] Repository [address] Number: [place] [id number]: (330) Date: (HP) 11/26/2017 BENJAMIN L Primary BENJAMIN L [facility] CANFIELDDOB: Insurance:[facility]: [facility] MEDICAIDPolicy [id number] Repository [address] Number: [place] [id number]: (330) Date: (HP) 11/26/2017 BENJAMIN L Primary BENJAMIN L [facility] CANFIELDDOB: Insurance:[facility]DOB: [facility] MEDICAIDPolicy [id number] Repository [address] Number: [place] [id number]: (330) Date: (HP) 11/12/2017 BENJAMIN L Primary BENJAMIN L [facility] CANFIELDDOB: Insurance:[facility]: [facility] MEDICAIDPolicy [id number] Repository [address] Number: [place] [id number]: (330) Date: (HP) 10/24/2017 BENJAMIN L Primary BENJAMIN L [facility] CANFIELDDOB: Insurance:[facility]: [facility] MEDICAIDPolicy [id number] Repository [address] Number: [place] [id number]: (330) Date: () 10/17/2017 BENJAMIN L Primary BENJAMIN L [facility] CANFIELDDOB: Insurance:[facility]: [facility] MEDICAIDPolicy [id number] Repository [address] Number: [place] [id number]: (330) Date: (HP) 10/04/2017 BENJAMIN L Primary BENJAMIN L [facility] CANFIELDDOB: Insurance:[facility]: [facility] MEDICAIDPolicy [id number] Repository [address] Number: [place] [id number]: (330) Date: (HP) 10/02/2017 BENJAMIN L Primary BENJAMIN L [facility] CANFIELDDOB: Insurance:[facility] CANFIELDDOB: [facility] MEDICAIDPolicy [id number] Repository [address] Number: [place] [id number] [address]Okk: (330) Date: (HP) 09/19/2017 BENJAMIN L Primary BENJAMIN L [facility] CANFIELDDOB: Insurance:[facility]: [facility] MEDICAIDPolicy [id number] Repository [address] Number: [place] [id number]: (330) Date: (HP) 09/19/2017 BENJAMIN L Primary BENJAMIN L [facility] CANFIELDDOB: Insurance:[facility]: [facility] MEDICAIDPolicy [id number] Repository [address] Number: [place] [id number]: (330) Date: (HP) 04/10/2017 BENJAMIN L Primary BENJAMIN L [facility] CANFIELDDOB: Insurance:[facility]: [facility] MEDICAIDPolicy [id number] Repository RENAE Number: [address] [id number] [place], [place] Date: [address]Wik: (HP) 04/03/2017 BENJAMIN L Primary BENJAMIN L [facility] CANFIELDDOB: Insurance:[facility]: [facility] MEDICAIDPolicy [id number] Repository RENAE Number: [address] [id number] [place], [place] Date: [address]Cfl: (HP) 04/03/2017 BENJAMIN L Primary BENJAMIN L [facility] CANFIELDDOB: Insurance:[facility]: [facility] MEDICAIDPolicy [id number] Repository [place]NAE Number: [address] [id number] [place], [place] Date: [address]Tiy: (HP)
== END ==
PROVIDERS: Family Provider Internal Medicine; PCP Internal Medicine; Referring Provider Thoracic Surgery (Cardiothoracic Vascular Surgery); Visit Provider Thoracic Surgery (Cardiothoracic Vascular Surgery)
DX: Z95.2 Presence of prosthetic heart valve (principal)

== ENCOUNTER 2018-02-13 13:00 | Outpatient (RCR) | payer MEDICAID, SELFPAY ==
[2018-01-29 11:48] VITALS: BMI 27.8
== END 2018-02-18 23:59 ==
LOC: CR 13:00
PROVIDERS: Family Provider Internal Medicine; PCP Internal Medicine; Referring Provider Thoracic Surgery (Cardiothoracic Vascular Surgery); Visit Provider Thoracic Surgery (Cardiothoracic Vascular Surgery)
DX: I34.0 Nonrheumatic mitral (valve) insufficiency (principal); Z95.2 Presence of prosthetic heart valve
CPT/HCPCS: 93798

== ENCOUNTER 2018-03-15 13:00 | Outpatient (RCR) | payer MEDICAID, SELFPAY ==
[2018-01-29 11:48] VITALS: BMI 27.8
--- NOTE | 2018-03-01 11:02 | PCM.CR.ITP ---
General Information - General Information Admitting Diagnosis: valve repair replacement - Education/Goals Cardiac Rehabilitation Goals: 1. Maintain the individual as the primary focus of care. 2. To improve the patient's quality of life. 3. Identification of cardiac risk factors and provide cardiac risk factor management. 4. Enhance the psychosocial status of the patient. 5. Reconditioning enough to allow the patient to resume customary activities. 6. Control symptoms of cardiac disease Scale for measuring improvement of personal goals: Enter appropriate number in Comments. 2 = Unchanged. 3 = Slightly Better. 4 = Moderate Improvement. 5 = Met my Goal Exercise - 30-day Assessment - Visit Date of Eval: 03/01/18 Session #:: 9 - Stages of Change Stages of Change:: Action - Exercise Prescription Mode:: Treadmill, Airdyne, NuStep METs - Progression: 0.5-1 MET as tolerated: 3.1 Target Heart Rate:: 138-147 Max HR 153 - Hypertension Resting Blood Pressure:: 112/60 Peak Exercise Blood Pressure:: 128/84 Medication Changes:: Yes - Metoprolol inc to 25 mg tid - Intervention Home Exercise/Activity Goal:: Sitting Time <3 hrs/day - Education Goals:: Warm-up, RPE SHOBHA Scale, S/S, Safe Exercise, Self-Monitoring - Exercise Program Goals Exercise Program Goals: Aerobic Activity >30 min, B/P <130/80 Nutrition - Initial Assessment - Program Goals Nutrition Program Goals: LDL <70. Total Cholesterol <200. HDL >45. Triglycerides <150. HgbA1C <7%. BMI <25 - Diabetes Do you monitor your blood sugar at home?: No Nutrition - 30-Day Assessment - Program Goals Nutrition Program Goals: LDL <70. Total Cholesterol <200. HDL >45. Triglycerides <150. HgbA1C <7%. BMI <25 - Visit Date of Eval: 03/01/18 - Stages of Change Stages of Change:: Action - Intervention Referral to dietitian:: No Referral to Diabetic Clinic:: No Will attend diet classes:: Yes - Education Attended class for:: Signs & symptoms of hypoglycemia, Signs & symptoms of hyperglycemia, Relate diabetes to coronary artery disease, Healthy eating Tobacco - Initial Assessment - Program Goals Tobacco Program Goals: Complete smoking cessation. Attend education classes. Improve Knowledge Test score - Learning Barriers Learning Barriers: Ready to Learn Tobacco - 30-Day Assessment - Program Goals Tobacco Program Goals: Complete smoking cessation. Attend education classes. Improve Knowledge Test score - Stage of Change Stages of Change:: Action - Learning Barriers Learning Barriers: Participates in education, Declined education, Change in behavior - Family Support Do you have family support?: Yes - Tobacco Use Tobacco Use: Non-smoker - Intervention Smoking Cessation Referral:: No Individual Education/Counseling:: No Education Schedule Given:: Yes - Education Attended class for:: Tobacco triggers, Coronary artery disease, Risk factors, Sexuality, Medical compliance, Cardiac A&P, Angina signs & symptoms Psychosocial - Initial Assess - Target Goals Target Goals: Assess presence or absence of depression. Using a valid screening tool, maximizes coping skills. Positive support system - Psychosocial Test Tool Used:: HANDS Depression Questionnaire - Assistive Devices Fall Risk Assessed:: No Psychosocial - 30-Day Assess - Target Goals Target Goals: Assess presence or absence of depression. Using a valid screening tool, maximizes coping skills. Positive support system - Stages of Change Stages of Change:: Action - Psychosocial Test Tool Used:: HANDS Depression Questionnaire - Intervention PS - Interventions: Yes Attend Stress Management Classes, Yes Uses Stress Management Skills, No Referral to Mental Health, No Referral to [facility] Case Management, No Referral to Physician - Education Attended classes for:: Coping techniques, Signs & symptoms of depression, Stress management, Relaxation techniques - Assistive Devices Assistive Devices:: None Fall Risk Assessed:: Yes Patient Health Questionnaire 30-Day Re-eval Assessment 1. Little interest or pleasure in doing things: Several days 2. Feeling down, depressed, or hopeless: Several days 3. Trouble falling or staying asleep, or sleeping too much: More than half the days 4. Feeling tired or having little energy: Nearly every day 5. Poor appetite or overeating: More than half the days 6. Feeling bad about yourself -- or that you are a failure or have let yourself or your family down: Several days 7. Trouble concentrating on things, such as reading the newspaper or watching television: Not at all 8. Moving or speaking so slowly that other people could have noticed. Or the opposite - being so fidgety or restless that you have been moving around a lot more than usual: Several days 9. Thoughts that you would be better off , or of hurting yourself in some way: Not at all How difficult have these problems made it for you to do your work, take care of things at home, or get along with other people?: Not difficult at all Total Score: 11 Self-Efficacy 30-Day Re-eval Assessment We would like to know how confident you are in doing certain activities. Please select your confidence level for:: Select your confidence level for the following using the scale 1-10 where 1 is not at all confident and 10 is totally confident. Your score is the average of all 6 responses. Fatigue: How confident are you that you can keep the fatigue caused by your disease from interfering with the things you want to do? Select Number: 6 Physical Discomfort or Pain: How confident are you that you can keep the physical discomfort or pain of your disease from interfering with the things you want to do? Select Number: 7 Emotional Distress: How confident are you that you can keep the emotional distress caused by your disease from interfering with the things you want to do? Select Number: 8 Other Symptoms or Health Problems: How confident are you that you can keep other symptoms or health problems from interfering with the things you want to do? Select Number: 8 Different Tasks and Activities: How confident are you that you can do the different tasks and activities needed to manage your health condition so as to reduce your need to see a doctor? Select Number: 6 Medication: How confident are you that you can do things other than just taking medication to reduce how much your illness affects your everyday life? Select Number: 7 Total Score:: 7
[2018-03-01 11:08] VITALS: BP 112/60; BP 128/84
== END 2018-03-21 23:59 ==
LOC: CR 13:00
PROVIDERS: Family Provider Internal Medicine; PCP Internal Medicine; Referring Provider Thoracic Surgery (Cardiothoracic Vascular Surgery); Visit Provider Thoracic Surgery (Cardiothoracic Vascular Surgery)
DX: I34.0 Nonrheumatic mitral (valve) insufficiency (principal); Z95.2 Presence of prosthetic heart valve
CPT/HCPCS: 93798

== ENCOUNTER 2018-03-22 07:23 | Outpatient (RCR) | payer MEDICAID, SELFPAY ==
[2018-01-29 11:48] VITALS: BMI 27.8
[2018-03-22 01:31] VITALS: BP 112/60; BP 128/84
== END 2018-04-18 23:59 ==
LOC: CR 07:23
PROVIDERS: Family Provider Internal Medicine; PCP Internal Medicine; Referring Provider Thoracic Surgery (Cardiothoracic Vascular Surgery); Visit Provider Thoracic Surgery (Cardiothoracic Vascular Surgery)
DX: I34.0 Nonrheumatic mitral (valve) insufficiency (principal); Z95.2 Presence of prosthetic heart valve
CPT/HCPCS: 93798